=== PATIENT | female | born 1950 | race Caucasian/White ===

== ENCOUNTER 2018-06-26 16:47 | Inpatient (IN) ==
[2018-06-26] MEDS ORDERED: Sod Chloride 0.9% Inj 1,000 ML IV.CONT SCH (17:15)
--- NOTE | 2018-06-26 17:32 | ED ---
HPI General Chief Complaint: Stroke Alert Stated Complaint: arm weakness Time Seen by Provider: 06/26/18 16:58 Source: patient Mode of arrival: ambulatory Limitations: no limitations History of Present Illness HPI Narrative: The patient is 67 years old and arrives to the ER because the right hand was paralyzed for less than 1 minute. It occurred while she was sitting on her couch. And she noted being unable to move the right upper extremity and therefore came to the ED. This event was observed about 30 minutes prior to ED arrival. In the ER the patient to me complains of weakness in the right hand. Due to a trace gradual continuous pronation of the right upper extremity on exam a stroke alert was called. Associated symptoms include headache primarily on the right side. Patient has no history of stroke. She denies any recent medical procedure. She takes aspirin daily. Onset (ago): minute(s) (45) Timing confirmed by: spouse Location: Reports right arm History of same: No Severity: mild Quality: Reports weak Relieving factors: none Exacerbating factors: none Context: Reports sudden onset On Anticoagulants: No (Patient takes aspirin) Associated symptoms: Reports headaches Treatments Prior to Arrival: Reports none Related Data Home Medications Medication Instructions Recorded Confirmed albuterol sulfate 0.63 mg INHALATION Q4-6H PRN 06/23/18 06/26/18 aspirin 81 mg PO DAILY 06/23/18 06/26/18 fluticasone [Flonase Allergy 1 spray INTRANASAL DAILY 06/23/18 06/26/18 Relief] levothyroxine [Unithroid] 112 mcg PO DAILY 06/23/18 06/26/18 loratadine [Claritin] 10 mg PO DAILY PRN 06/23/18 06/26/18 metoprolol succinate 100 mg PO BID 06/23/18 06/26/18 psyllium husk [Metamucil] 0.52 g PO DAILY 06/23/18 06/26/18 Bifidobacterium infantis [Align] 4 mg PO DAILY 06/26/18 06/26/18 fluticasone-vilanterol [Breo 1 inh INHALATION DAILY 06/26/18 06/26/18 Ellipta] Allergies Allergy/AdvReac Type Severity Reaction Status Date / Time losartan Allergy Swelling Verified 06/26/18 10:34 of Lip/Tongue/Throat Sulfa (Sulfonamide Allergy Hives Verified 06/26/18 10:34 Antibiotics) ciprofloxacin [From Cipro] AdvReac Tingling Verified 06/26/18 10:34 levofloxacin AdvReac Joint Pain Verified 06/26/18 10:34 prednisone AdvReac Joint Pain Verified 06/26/18 10:34 Tbaoaed-Jpk-Rhn Reductase AdvReac Joint Pain Verified 06/26/18 10:34 Inhibitor Review of Systems ROS: all other systems reviewed are negative PMFSH Social History Social History Substance History: No History of Abuse Second Hand Smoke Exposure: No Smoking Status: Light tobacco smoker Tobacco Type: Cigarettes How Often Do You Have a Drink Containing Alcohol: 2 to 3 times a week Recent Travel in [facility] within the Last 8 Weeks: No Recent Out of Country Travel within the Last 8 Weeks: No Immunization History Tetanus Immunization Year if Known: 2012 Exam Narrative Exam Narrative: GENERAL: This is a 67-year-old female well-nourished well- developed no acute distress SKIN: Focused skin assessment warm/dry. HEAD: Atraumatic. Normocephalic. EYES: Pupils equal and round. No scleral icterus. No injection or drainage. ENT: No nasal bleeding or discharge. Mucous membranes pink and moist. NECK: Trachea midline. No JVD. CARDIOVASCULAR: Regular rate and rhythm. No murmur appreciated. RESPIRATORY: No accessory muscle use. Clear to auscultation. Breath sounds equal bilaterally. GASTROINTESTINAL: Abdomen soft, non-tender, nondistended. Hepatic and splenic margins not palpable. MUSCULOSKELETAL: No obvious deformities. No clubbing. No cyanosis. No edema. NEUROLOGICAL: CN III-VII normal. There is a slow continuous pronation of the Right forearm during pronator drift assessment. Biceps strength is equal bilaterally. Hand machine sand mixer is normal bilaterally. Visual vargas are full. Speech, memory and mentation are normal. Lower extremity motor function is normal and equal bilaterally. Sensation to light touch is normal in radial, median and ulnar sensory distributions. PSYCHIATRIC: Appropriate mood and affect; insight and judgment normal. Course Initial Documented Vital Signs Temperature 97.8 F 06/26/18 16:59 Pulse Rate 83 06/26/18 16:59 Respiratory Rate 16 06/26/18 16:59 Blood Pressure 177/78 H 06/26/18 16:59 Pulse Oximetry 96 06/26/18 16:59 Last Documented Vital Signs Temperature 97.8 F 10/28/18 16:59 Pulse Rate 83 06/26/18 16:59 Respiratory Rate 16 06/26/18 16:59 Blood Pressure 177/78 H 06/26/18 16:59 Pulse Oximetry 96 06/26/18 16:59 Critical Care Time Critical Care Time: Yes Total Critical Care Time: 40 Attestation: Aggregate critical care time was 40 minutes. Time to perform other separately billable procedures was not included in the critical care time. My time did not include minutes spent treating any other patients simultaneously or on activities that did not directly contribute to the patient's treatment. The services I provided to this patient were to treat and/or prevent clinically significant deterioration that could result in: permanent disability I provided critical care services requiring my management, as noted below: Chart data review, documentation time, medication orders and management, vital sign assessments/reviewing monitor data, ordering and reviewing lab tests, ordering and interpreting/reviewing x-rays and diagnostic studies, care of the patient and discussion of the patient with the admitting physicians. Medical Decision Making MDM Narrative Medical decision making narrative: The patient arrives with a very subtle right upper extremity pronator drift with no right upper extremity weakness or focal deficit otherwise appreciable. Visual vargas are normal. Biceps strength is normal bilaterally. Stroke alert was activated. Head CT shows no acute abnormality. Overall the NIH stroke scale was estimated to be 2. The patient returned from CT she was laying flat and while laying flat she demonstrated that while attempting to remove her glasses there was very mild ataxia in the right hand. Again no other deficit was observable. A proximal left internal carotid artery thrombus on CTA of the neck is present. This was told to me by Dr. Huerta. We ordered heparin at 12 units/kg/h with no bolus. Plavix and aspirin orders were canceled and the nurse was immediately informed. We discussed in great detail the administration of TPA with the patient and the patient's who demonstrate excellent understanding overall and agreed to not administer the TPA. Pt resting comfortably at 744pm. Heparin has been started. Pt reports trace improvement in RUE. We will send patient to main site. d/w Dr Mandel for [facility]. d/ w Dr Huerta. Incidental note of vallecula mass and lung mass also observed on imaging. Mass is concerning for neoplasm. Medical Screen Exam Complete: Yes Emergency Medical Condition: Yes Differential Diagnosis Differential Diagnosis: ischemic cva, hemorrhagic cva, transient symptoms with or without infarct, hypertensive encephalopathy Lab Data Result diagrams: 06/26/18 18:30 06/26/18 17:30 Lab Results 06/26/18 06/26/18 06/26/18 Range/Units 17:30 17:30 17:30 CBC w Diff Auto diff final WBC 8.9 (4.0-11.0) th/mm3 RBC 3.80 L (4.00-5.30) mil/mm3 Hgb 12.2 (11.6-15.3) gm/dL Hct 36.7 (35.0-46.0) % MCV 96.8 (80.0-100.0) fL MCH 32.1 (27.0-34.0) pg MCHC 33.2 (32.0-36.0) % RDW 14.1 (11.6-17.2) % Plt Count 229 (150-450) th/mm3 MPV 7.6 (7.0-11.0) fL Neut % (Auto) 66.3 (16.0-70.0) % Lymph % (Auto) 21.8 (9.0-44.0) % Gregg % (Auto) 9.0 H (0.0-8.0) % Eos % (Auto) 1.1 (0.0-4.0) % Baso % (Auto) 1.8 (0.0-2.0) % Neut # (Auto) 5.9 (1.8-7.7) th/mm3 Lymph # (Auto) 1.9 (1.0-4.8) th/mm3 Gregg # (Auto) 0.8 (0.0-0.9) th/mm3 Eos # (Auto) 0.1 (0.0-0.4) th/mm3 Baso # (Auto) 0.2 (0.0-0.2) th/mm3 WBC Differential . Differential Comment . ESR (0-30) mm/hr PT 10.3 (9.8-11.6) sec INR 1.0 Ratio APTT 27.2 (24.3-30.1) sec Sodium 134 L (136-145) meq/L Potassium 3.8 (3.5-5.1) meq/L Chloride 101 (98-107) meq/L Carbon Dioxide 26.0 (21.0-32.0) meq/L Anion Gap 7 (5-15) meq/L BUN 13 (7-18) mg/dL Creatinine 0.71 (0.50-1.00) mg/dL Estimated GFR 82 L (>89) mL/min POC Glucose (68-110) mg/dl Random Glucose 105 (74-106) mg/dL Calcium 7.9 L (8.5-10.1) mg/dL Total Creatine Kinase 61 (26-192) U/L Troponin I Less than 0.02 L (0.02-0.05) ng/mL TSH (0.358-3.740) uIU/mL Ur Collection Type Urine Color (Yellw/Straw) Urine Clarity (Clear) Urine pH (5.0-8.5) Ur Specific Elgin (1.002-1.035) Urine Protein (Neg-Trace) mg/dL Urine Glucose (UA) (Negative) mg/dL Urine Ketones (Negative) mg/dL Urine Occult Blood (Negative) Urine Nitrate (Negative) Urine Bilirubin (Negative) Urine Urobilinogen (Less than 2) mg/dL Ur Leukocyte Esterase (Negative) Ur Squamous Epith Cells (0-5) /hpf Micro UA Comment Ur Microscopic Review Urine Culture Comments Urine Collection Time hours Urine Opiates Screen (Neg) Ur Barbiturates Screen (Neg) Ur Amphetamines Screen (Neg) U Benzodiazepines Scrn (Neg) Urine Cocaine Screen (Neg) U Cannabinoids Screen (Neg) 06/26/18 06/26/18 06/26/18 Range/Units 18:11 18:11 18:30 CBC w Diff WBC 9.0 (4.0-11.0) th/mm3 RBC 3.98 L (4.00-5.30) mil/mm3 Hgb 12.9 (11.6-15.3) gm/dL Hct 38.7 (35.0-46.0) % MCV 97.1 (80.0-100.0) fL MCH 32.3 (27.0-34.0) pg MCHC 33.3 (32.0-36.0) % RDW 14.7 (11.6-17.2) % Plt Count 236 (150-450) th/mm3 MPV 7.4 (7.0-11.0) fL Neut % (Auto) (16.0-70.0) % Lymph % (Auto) (9.0-44.0) % Gregg % (Auto) (0.0-8.0) % Eos % (Auto) (0.0-4.0) % Baso % (Auto) (0.0-2.0) % Neut # (Auto) (1.8-7.7) th/mm3 Lymph # (Auto) (1.0-4.8) th/mm3 Gregg # (Auto) (0.0-0.9) th/mm3 Eos # (Auto) (0.0-0.4) th/mm3 Baso # (Auto) (0.0-0.2) th/mm3 WBC Differential Differential Comment ESR (0-30) mm/hr PT (9.8-11.6) sec INR Ratio APTT (24.3-30.1) sec Sodium (136-145) meq/L Potassium (3.5-5.1) meq/L Chloride (98-107) meq/L Carbon Dioxide (21.0-32.0) meq/L Anion Gap (5-15) meq/L BUN (7-18) mg/dL Creatinine (0.50-1.00) mg/dL Estimated GFR (>89) mL/min POC Glucose (68-110) mg/dl Random Glucose (74-106) mg/dL Calcium (8.5-10.1) mg/dL Total Creatine Kinase (26-192) U/L Troponin I (0.02-0.05) ng/mL TSH (0.358-3.740) uIU/mL Ur Collection Type Clean catch Urine Color Straw (Yellw/Straw) Urine Clarity Clear (Clear) Urine pH 6.5 (5.0-8.5) Ur Specific Elgin Less/equal 1.005 (1.002-1.035) Urine Protein Negative (Neg-Trace) mg/dL Urine Glucose (UA) Negative (Negative) mg/dL Urine Ketones Negative (Negative) mg/dL Urine Occult Blood Negative (Negative) Urine Nitrate Negative (Negative) Urine Bilirubin Negative (Negative) Urine Urobilinogen 0.2 (Less than 2) mg/dL Ur Leukocyte Esterase Negative (Negative) Ur Squamous Epith Cells 0-5 (0-5) /hpf Micro UA Comment Culture not ind Ur Microscopic Review Microscopic reviewed Urine Culture Comments Culture not ind Urine Collection Time 1811 hours Urine Opiates Screen Neg (Neg) Ur Barbiturates Screen Neg (Neg) Ur Amphetamines Screen Neg (Neg) U Benzodiazepines Scrn Neg (Neg) Urine Cocaine Screen Neg (Neg) U Cannabinoids Screen Neg (Neg) 06/26/18 06/26/18 06/26/18 Range/Units 18:30 18:30 20:17 CBC w Diff WBC (4.0-11.0) th/mm3 RBC (4.00-5.30) mil/mm3 Hgb (11.6-15.3) gm/dL Hct (35.0-46.0) % MCV (80.0-100.0) fL MCH (27.0-34.0) pg MCHC (32.0-36.0) % RDW (11.6-17.2) % Plt Count (150-450) th/mm3 MPV (7.0-11.0) fL Neut % (Auto) (16.0-70.0) % Lymph % (Auto) (9.0-44.0) % Gregg % (Auto) (0.0-8.0) % Eos % (Auto) (0.0-4.0) % Baso % (Auto) (0.0-2.0) % Neut # (Auto) (1.8-7.7) th/mm3 Lymph # (Auto) (1.0-4.8) th/mm3 Gregg # (Auto) (0.0-0.9) th/mm3 Eos # (Auto) (0.0-0.4) th/mm3 Baso # (Auto) (0.0-0.2) th/mm3 WBC Differential Differential Comment ESR 78 H (0-30) mm/hr PT (9.8-11.6) sec INR Ratio APTT (24.3-30.1) sec Sodium (136-145) meq/L Potassium (3.5-5.1) meq/L Chloride (98-107) meq/L Carbon Dioxide (21.0-32.0) meq/L Anion Gap (5-15) meq/L BUN (7-18) mg/dL Creatinine (0.50-1.00) mg/dL Estimated GFR (>89) mL/min POC Glucose 126 H (68-110) mg/dl Random Glucose (74-106) mg/dL Calcium (8.5-10.1) mg/dL Total Creatine Kinase (26-192) U/L Troponin I (0.02-0.05) ng/mL TSH 0.534 (0.358-3.740) uIU/mL Ur Collection Type Urine Color (Yellw/Straw) Urine Clarity (Clear) Urine pH (5.0-8.5) Ur Specific Elgin (1.002-1.035) Urine Protein (Neg-Trace) mg/dL Urine Glucose (UA) (Negative) mg/dL Urine Ketones (Negative) mg/dL Urine Occult Blood (Negative) Urine Nitrate (Negative) Urine Bilirubin (Negative) Urine Urobilinogen (Less than 2) mg/dL Ur Leukocyte Esterase (Negative) Ur Squamous Epith Cells (0-5) /hpf Micro UA Comment Ur Microscopic Review Urine Culture Comments Urine Collection Time hours Urine Opiates Screen (Neg) Ur Barbiturates Screen (Neg) Ur Amphetamines Screen (Neg) U Benzodiazepines Scrn (Neg) Urine Cocaine Screen (Neg) U Cannabinoids Screen (Neg) Imaging Data Radiologist's impression: Head CT 06/26/18 17:[address]: [address] CT Head non contrast. . Dr. Motley relayed results to Dr. Lewis at 1730 hours Head CTA 06/26/18 17:11 CONCLUSION: 1. Negative CTA head. There is some moderate plaque at the left carotid bifurcation. CTA neck pending. Neck CTA 06/26/18 17:11 CONCLUSION: 1. 2.9 cm mass in the left lung and 1.9 cm mass in the left vallecula both suspicious for neoplasm. 2. Small calcified plaque with intraluminal thrombus or noncalcified plaque in the proximal left internal carotid artery extending over a length of about 2 cm , likely placing the patient at high risk for stroke. 3. Findings called to Dr. Bennett Huerta at the time of dictation. ECG Data Attestation: I personally reviewed and interpreted this ECG as follows: (sinus, rate 77, normal axis/intervals) Discharge Plan Discharge Disposition Patient Disposition: 30 Still Patient Physicians Team ED Provider: Roge Lewis Primary Care Provider: NON STAFF,PROVIDER Attending Provider: Horace Manriquez Other Providers: ; Laila Whitaker ; Mukesh Tohmason ; Osman Marti Status ED Status: Admitted Patient
--- NOTE | 2018-06-26 17:32 | CT ---
EXAM DATE: 06/26/2018 5:19 PM EDT AGE/SEX: 67 years / Female INDICATIONS: Stroke alert. Right upper extremity drift. CLINICAL DATA: This is the patient's initial encounter. Patient reports that signs and symptoms have been present for 1 day and indicates a pain score of 0/10. MEDICAL/SURGICAL HISTORY: None. None. RADIATION DOSE: 50.01 CTDI (mGy) COMPARISON: No prior exams available for comparison. TECHNIQUE: CT of the head without contrast. Using automated exposure control and adjustment of the mA and/or kV according to patient size, radiation dose was kept as low as reasonably achievable to ob tain optimal diagnostic quality images. DICOM format image data is available electronically for revi ew and comparison. FINDINGS: Cerebrum: The ventricles are normal for age. No evidence of midline shift, mass lesion, hemorrhage or acute infarction. No extraaxial fluid collections are seen. Posterior Fossa: The cerebellum and brainstem are intact. The 4th ventricle is midline. The cerebe llopontine angle is unremarkable. Extracranial: The visualized portion of the orbits is intact. Skull: The calvaria is intact. No evidence of skull fracture. CONCLUSION: 1. Negative CT Head non contrast. . Dr. Motley relayed results to Dr. Lewis at 1730 hours Electronically signed by: Seb Motley MD 06/26/2018 5:30 PM EDT
[2018-06-26 17:41] LABS: Baso # (Auto) 0.2 th/mm3 (0.0-0.2); Baso % (Auto) 1.8 % (0.0-2.0); Eos # (Auto) 0.1 th/mm3 (0.0-0.4); Eos % (Auto) 1.1 % (0.0-4.0); Hematocrit 36.7 % (35.0-46.0); Hemoglobin 12.2 gm/dL (11.6-15.3); Lymph # (Auto) 1.9 th/mm3 (1.0-4.8); Lymph % (Auto) 21.8 % (9.0-44.0); Mean Corpuscular HGB Conc 33.2 % (32.0-36.0); Mean Corpuscular Hemoglobin 32.1 pg (27.0-34.0); Mean Corpuscular Volume 96.8 fL (80.0-100.0); Mean Platelet Volume 7.6 fL (7.0-11.0); Mono # (Auto) 0.8 th/mm3 (0.0-0.9); Neut # (Auto) 5.9 th/mm3 (1.8-7.7); Neut % (Auto) 66.3 % (16.0-70.0); Platelet Count 229 th/mm3 (150-450); Red Cell Distribution Width 14.1 % (11.6-17.2); White Blood Count 8.9 th/mm3 (4.0-11.0)
--- NOTE | 2018-06-26 17:46 | CT ---
EXAM DATE: 06/26/2018 5:38 PM EDT AGE/SEX: 67 years / Female INDICATIONS: Stroke alert. Right upper extremity drift. CLINICAL DATA: This is the patient's initial encounter. Patient reports that signs and symptoms have been present for 1 day and indicates a pain score of 0/10. MEDICAL/SURGICAL HISTORY: None. None. RADIATION DOSE: 42.28 CTDI (mGy) ; Combined studies COMPARISON: No prior exams available for comparison. TECHNIQUE: Volumetric scanning was performed using a multi-row detector CT scanner during bolus infu tamie of 85 ml Visipaque 320 (iodixanol) nonionic water-soluble contrast as a cumulative dose for mul tiple exams. The data was post processed with a variety of visualization algorithms including full volume maximum intensity projection, multi-planar sliding thin slab reformation, curved planar reform ation, and surface rendering techniques. Using automated exposure control and adjustment of the mA a nd/or kV according to patient size, radiation dose was kept as low as reasonably achievable to obtain optimal diagnostic quality images. DICOM format image data is available electronically for review a nd comparison. FINDINGS: There is excellent visualization of the major intracranial arteries out to the second-order branch ve ssels. There is no evidence for aneurysm, vessel truncation or stenosis, and no evidence for vascula r malformation. CONCLUSION: 1. Negative CTA head. There is some moderate plaque at the left carotid bifurcation. CTA neck porsha claros Electronically signed by: Maverick Colunga MD 06/26/2018 5:45 PM EDT
[2018-06-26 17:48] LABS: Chloride 101 meq/L (98-107); Sodium 134 meq/L (136-145)
[2018-06-26 17:49] LABS: Potassium 3.8 meq/L (3.5-5.1)
[2018-06-26 17:52] LABS: Activated Partial Thrombo Time 27.2 sec (24.3-30.1); Prothrombin Time 10.3 sec (9.8-11.6)
[2018-06-26 17:57] LABS: Anion Gap 7 meq/L (5-15); Blood Urea Nitrogen 13 mg/dL (7-18); Calcium 7.9 mg/dL (8.5-10.1); Glomerular Filtration Rate 82 mL/min (>89); Glucose,Random 105 mg/dL (74-106)
[2018-06-26 18:01] LABS: Creatine Kinase 61 U/L (26-192)
[2018-06-26] MEDS ORDERED: Dextrose 50% in Water 50 ML Vial IV.PUSH PRN (18:10)
[2018-06-26] MEDS ORDERED: Heparin Drip 25,000 UNIT/250 ML BAG IV.CONT STA (18:13)
[2018-06-26 18:15] LABS: Bilirubin,Urine Negative (Negative); Clarity,Urine Clear (Clear); Glucose,Urine (UA) Negative (Negative); Leukocyte Esterase,Urine Negative (Negative); Nitrite,Urine Negative (Negative); PH,Urine 6.5 (5.0-8.5); Specific Gravity,Urine Less/Equal 1.005 (1.002-1.035); Urobilinogen,Urine 0.2 mg/dL (Less than 2)
[2018-06-26 18:16] LABS: Color,Urine Straw (Yellw/Straw)
--- NOTE | 2018-06-26 18:16 | CT ---
EXAM DATE: 06/26/2018 5:56 PM EDT AGE/SEX: 67 years / Female INDICATIONS: Stroke alert. Right upper extremity drift. CLINICAL DATA: This is the patient's initial encounter. Patient reports that signs and symptoms have been present for 1 day and indicates a pain score of 0/10. MEDICAL/SURGICAL HISTORY: None. None. RADIATION DOSE: 42.28 CTDI (mGy) ; Combined studies COMPARISON: No prior exams available for comparison. TECHNIQUE: Volumetric scanning was performed using a multirow detector CT scanner during bolus infus ion of 85 ml Visipaque 320 (iodixanol) nonionic water-soluble contrast as a cumulative dose for mult iple exams. The data was postprocessed with a variety of visualization algorithms including full-vo lume maximum intensity projection, multiplanar sliding thin-slab reformation, curved-planar reformati on, and surface-rendering techniques. Using automated exposure control and adjustment of the mA and/ or kV according to patient size, radiation dose was kept as low as reasonably achievable to obtain op timal diagnostic quality images. DICOM format image data is available electronically for review and comparison. Percent stenosis is calculated using the diameter of the stenotic region over the diameter of the nor mal distal internal carotid artery. FINDINGS: At the left carotid bifurcation extending into the left proximal internal carotid artery there is carli e calcific plaque and a linear thrombus extending into the lumen of the proximal left internal caroti d artery over a distance of about 2 cm. No dissection flap is identified. Associated stenosis is mild . The remainder of the left internal carotid artery and left common carotid artery are patent. On the right side is mild plaque without stenosis of the right common carotid or internal carotid art eries. Both vertebral arteries are patent within the neck. There is a 1.9 cm mass in the vallecula on the left side suspicious for neoplasm. On the final image through the lungs there is also a 2.9 cm mass in the left upper lobe also suspicious for neoplasm. CONCLUSION: 1. 2.9 cm mass in the left lung and 1.9 cm mass in the left vallecula both suspicious for neoplasm. 2. Small calcified plaque with intraluminal thrombus or noncalcified plaque in the proximal left int ernal carotid artery extending over a length of about 2 cm, likely placing the patient at high risk f or stroke. 3. Findings called to Dr. Bennett Huerta at the time of dictation. Electronically signed by: Maverick Colunga MD 06/26/2018 6:14 PM EDT
[2018-06-26 18:19] LABS: Collection Time,Urine 1811 hours
[2018-06-26 18:20] LABS: Squamous Epithelial Cell,Urine 0-5 /hpf (0-5)
[2018-06-26 18:22] LABS: Barbiturate Screen,Urine Neg (Neg)
[2018-06-26 18:23] LABS: Amphetamine Screen,Urine Neg (Neg); Cannabinoid Screen,Urine Neg (Neg); Cocaine Screen,Urine Neg (Neg)
[2018-06-26] MEDS ORDERED: Acetaminophen 650 MG Supp RECTAL ONE (18:34)
[2018-06-26 18:37] LABS: Opiate Screen,Urine Neg (Neg)
[2018-06-26 18:44] LABS: Hematocrit 38.7 % (35.0-46.0); Hemoglobin 12.9 gm/dL (11.6-15.3); Mean Corpuscular HGB Conc 33.3 % (32.0-36.0); Mean Corpuscular Hemoglobin 32.3 pg (27.0-34.0); Mean Corpuscular Volume 97.1 fL (80.0-100.0); Mean Platelet Volume 7.4 fL (7.0-11.0); Platelet Count 236 th/mm3 (150-450); Red Blood Count 3.98 mil/mm3 (4.00-5.30); Red Cell Distribution Width 14.7 % (11.6-17.2)
[2018-06-26 19:10] LABS: Thyroid Stimulating Hormone 0.534 uIU/mL (0.358-3.740)
[2018-06-26] MEDS: Insulin NovoLOG Aspart Correctional Sugar Inj SQ SCH (20:27)
[2018-06-26] MEDS ORDERED: Gadobutrol PF 7.5 MMOL/7.5 ML Vial (for RAD) IV.SIG ONE (21:52)
--- NOTE | 2018-06-26 22:02 | MB ---
cc: Bennett Huerta MD DATE: 06/26/2018 HISTORY OF PRESENT ILLNESS: A 67-year-old right-handed woman with hypertension, borderline diabetes, hypercholesterolemia, thyroid cancer at one time she takes a baby aspirin a day. History of atrial fibrillation 1-1/2 years ago. Nothing further as far as she knows. She had a thyroid cancer in 2009. She was to have a D and C recently, so she stopped her aspirin about 3 days ago. On Wednesday, she felt a heat type pain in the left hand and then this morning, she felt somewhat lightheaded, came to the ER. Blood pressure is 178/111 and this evening, she had some right arm weakness suddenly could not move her arm and it was flopping and then improved. She was noted to have a right upper extremity drift in the ER and some ataxia. NIH stroke scale was 2. She as such was not given any tPA, due to the minor deficit. REVIEW OF SYSTEMS: She denies any NM, stent, angioplasty, CABG, Coumadin, renal, hepatic disease. She has a known lung abnormality that was biopsied, was not a tumor evidently. PAST MEDICAL HISTORY: She denies any history of lupus, ulcer, seizure or prior stroke. SOCIAL HISTORY: She is a smoker still, I have asked her to quit smoking. She has about 2-3 drinks of vodka a day. Lives with her . FAMILY HISTORY: Positive for cancer and lung cancer in her mother, seizure, stroke. MEDICATIONS: 1. She is on Metamucil. 2. Align. 3. Metoprolol. 4. Claritin. 5. Thyroid medicine. 6. Some inhalers. 7. A baby aspirin, but not in the last several days. EKG showed sinus rhythm in the ER. PHYSICAL EXAMINATION: VITAL SIGNS: Afebrile, 177/78, 16, 83. NECK: There are no carotid bruits. HEART: Regular rate and rhythm. I did not detect a murmur. NEUROLOGIC: Pupils are equal. Visual vargas are full. Extraocular movements intact without nystagmus. Face is symmetric with normal sensation. Tongue was midline. No drift. Normal strength in upper and lower extremities bilaterally. Fast movements are symmetric and normal. DTRs are trace at the knees bilaterally. Toes downgoing bilaterally. Pinprick is intact throughout including the right face, arm, and leg. He is not ataxic on [id number]. NIH stroke scale of 0 now. LABORATORY DATA: CBC is normal. Sedimentation rate 78. Urine drug screen negative. UA negative. Basic metabolic profile: Sodium 134, otherwise normal. Glucose 126. CPK and troponin normal. Thyroid normal. Coags normal. CTA of the head negative. CTA of the neck: -2.9 cm mass in the left lung, 1.9 cm mass left vallecula, 2 cm area possibly a clot versus plaque or thrombus in the left internal carotid artery. CAT scan of the brain negative. Review of the brain films does appear to be normal. I do not see any old or new infarcts. IMPRESSION: Possible clot in the left carotid. Unclear what this lung and throat mass are. I will do a CT of her chest and neck, check an MRI of the brain, will have vascular see the patient. I put her on IV heparin in case it is a clot. She does have a history of atrial fibrillation. We will check an echocardiogram. I noted her sedimentation rate is elevated. Give her IV hydration. Will be following her with you in the hospital. Hypercoag screen will also be performed, though she is already on IV heparin and may effect some of the result. MD PAIGE Naranjo/lorri , 08:31 PM , 08:39 PM
--- NOTE | 2018-06-26 22:07 | MR ---
EXAM DATE: 06/26/2018 9:58 PM EDT AGE/SEX: 67 years / Female INDICATIONS: Right sided weakness. CLINICAL DATA: This is the patient's initial encounter. Patient reports that signs and symptoms have been present for 1 day and indicates a pain score of 0/10. MEDICAL/SURGICAL HISTORY: Carcinoma, thyroid. Hypertension. Diabetes mellitus type II. Tonsil lectomy. Fusion, lumbar. Ankle surgery. Breast biopsy. COMPARISON: No prior exams available for comparison. TECHNIQUE: Multiplanar, multisequence examination of the brain was performed without and with 7 ml Ga davist (gadobutrol) contrast as a single exam dose. FINDINGS: There are small subcentimeter infarcts in the posterior fossa, centrally in the left cerebellar hemis phere with a probable small infarct posteriorly on the right as well. In the supratentorial brain the re is an infarct in the left occipital lobe measuring up to 2.4 cm in diameter. Multiple other smalle r infarcts are present including the posterior left frontal lobe at 3 separate locations and also the left parietal lobe at 2 separate locations. No associated hemorrhage is identified. There is minimal white matter ischemic change. Postcontrast no abnormal enhancing lesions are seen. CONCLUSION: 1. Multiple small infarcts in the posterior fossa and left hemisphere as above, likely embolic in ph enomenon. No hemorrhage or associated mass effect. No abnormal enhancing lesions. Electronically signed by: Maverick Colunga MD 06/26/2018 10:05 PM EDT
[2018-06-26 22:26] LABS: Vitamin B12 531 pg/mL (193-986)
--- NOTE | 2018-06-26 23:28 | P.HPIM ---
History of Present Illness Primary Care Physician: PROVIDER NON STAFF History of Present Illness: 67-year-old female with a history of hypertension, diabetes, hyperlipidemia, thyroid cancer presented to the ED with complaints of right hand weakness. She states on Wednesday she felt her left hand have a warm sensation, she presented to the ED and was diagnosed with Raynaud's and sent home. She then states this morning she felt very lightheaded and her right hand went limp and she could not move it, so she came to the ER. Upon arrival to the ER she was found to have an NIH scale of 2. She denies any associated chest pain, sob, double vision , nausea, vomiting or lower extremity weakness. Inpatient Certification: I certify that the inpatient services were ordered in accordance with Medicare regulations governing the order. This includes certification that hospital inpatient services are reasonable and necessary and in the case of services not specified as inpatient-only under 42 CFR 419.22(n), that they are appropriately provided as inpatient services in accordance to with the 2-midnight benchmark under 43 CFR 412.3(e) Estimated Total Length of Stay (Days): 3 Plans for Post Hospital Care: Not yet determined Review of Systems All other systems reviewed negative except as stated in HPI PMFSH - History History Provided By: Patient - Medical History Medical History: Medical History (Last Reviewed 06/27/18 @ 00:55 by EDU Cm) Asthma Diabetes HTN (hypertension) Thyroid cancer - Surgical History Surgical History: Surgical History (Last Reviewed 06/27/18 @ 00:55 by EDU Cm) H/O laparoscopy History of back surgery History of lung biopsy History of tonsillectomy Hx of breast biopsy Hx of thyroidectomy - Family History Family History: Family History (Last Updated 06/27/18 @ 00:59 by EDU Cm) Mother Heart disease Mother Lung cancer - Social History I have reviewed the patient's Social History: Yes - Tobacco History Second Hand Smoke Exposure: No Tobacco Use In Past 30 Days: Yes Smoking Status: Light tobacco smoker Tobacco Type: Cigarettes - Alcohol History How Often Do You Have a Drink Containing Alcohol: 2 to 3 times a week - Substance Use History Substance History: No History of Abuse - Travel History Recent Travel in the [place] Within the Last 8 Weeks: No Recent Travel Out of the Country Within the Last 8 Weeks: No - Immunization History Tetanus Immunization: >5 Years Tetanus Immunization Year if Known: 2012 Medications and Allergies Active Medications: Active Medications Albuterol (Duoneb Neb (Prn)) 1 ampul NEB Q2HR NEB PRN PRN Reason: SHORTNESS OF BREATH/WHEEZING Aspirin (Aspirin) 325 mg PO DAILY [facility] Atorvastatin Calcium (Lipitor) 10 mg PO HS [facility] Last Admin: 06/26/18 23:20 Dose: Not Given Clopidogrel Bisulfate (Plavix) 75 mg PO DAILY [facility] Dextrose (D50w Vial) 50 ml IV.PUSH UNSCH PRN PRN Reason: PER HYPOGLYCEMIA PROTOCOL Enalaprilat (Vasotec Inj) 1.25 mg IV.PUSH Q4H PRN PRN Reason: For SBP > 220 or DBP > 120 Glucagon (Glucagon Inj) 1 mg OTHER UNSCH PRN PRN Reason: for Hypoglycemia Protocol Sodium Chloride (Ns Inj) 1,000 mls @ 70 mls/hr IV.CONT .[id number] [facility] Stop: 06/27/18 07:32 Last Admin: 06/26/18 17:45 Dose: 70 mls/hr Heparin Sodium/Dextrose (Heparin/D5w 25,000 U/250 Ml) 25,000 unit in 250 mls @ 9 mls/hr IV.CONT TITRATE STA; Protocol Stop: 06/27/18 21:59 Last Titration: 06/26/18 22:40 Dose: 900 units/hr, 9 mls/hr Sodium Chloride (Ns Inj) 1,000 mls @ 70 mls/hr IV.CONT .[id number] [facility] Insulin Aspart (Novolog Insulin Correctional Sugar Inj) 0 unit SQ ACHS [facility]; Protocol Last Admin: 06/26/18 20:27 Dose: Not Given Levothyroxine Sodium (Synthroid) 112 mcg PO DAILY [facility] Metoprolol Succinate (Toprol Xl) 100 mg PO BID [facility] Last Admin: 06/26/18 23:20 Dose: 100 mg Sodium Chloride (Ns Flush) 2 ml IV.FLUSH PRN PRN PRN Reason: FLUSH AFTER USING IV ACCESS Sodium Chloride (Ns Flush) 2 ml IV.FLUSH BID [facility] Last Admin: 06/26/18 23:21 Dose: 2 ml Sodium Chloride (Ns Flush) 2 ml IV.FLUSH PRN PRN PRN Reason: FLUSH AFTER USING IV ACCESS Allergies Allergy/AdvReac Type Severity Reaction Status Date / Time losartan Allergy Swelling Verified 06/26/18 10:34 of Lip/Tongue/Throat Sulfa (Sulfonamide Allergy Hives Verified 06/26/18 10:34 Antibiotics) ciprofloxacin [From Cipro] AdvReac Tingling Verified 06/26/18 10:34 levofloxacin AdvReac Joint Pain Verified 06/26/18 10:34 prednisone AdvReac Joint Pain Verified 06/26/18 10:34 [id number]-[id number]-[id number] Reductase AdvReac Joint Pain Verified 06/26/18 10:34 Inhibitor Home Medications Medication Instructions Recorded Confirmed Type albuterol sulfate 0.63 mg INHALATION Q4-6H PRN 06/23/18 06/26/18 History aspirin 81 mg PO DAILY 06/23/18 06/26/18 History fluticasone [Flonase Allergy 1 spray INTRANASAL DAILY 06/23/18 06/26/18 History Relief] levothyroxine [Unithroid] 112 mcg PO DAILY 06/23/18 06/26/18 History loratadine [Claritin] 10 mg PO DAILY PRN 06/23/18 06/26/18 History metoprolol succinate 100 mg PO BID 06/23/18 06/26/18 History psyllium husk [Metamucil] 0.52 g PO DAILY 06/23/18 06/26/18 History Bifidobacterium infantis [Align] 4 mg PO DAILY 06/26/18 06/26/18 History fluticasone-vilanterol [Breo 1 inh INHALATION DAILY 06/26/18 06/26/18 History Ellipta] Exam Vital signs: Vital Signs 06/26/18 16:59 06/26/18 17:00 06/26/18 17:40 Temperature 97.8 F Pulse Rate 83 88 82 Respiratory Rate 16 16 Blood Pressure 177/78 H 189/80 H Pulse Oximetry 96 96 06/26/18 17:45 06/26/18 19:00 06/26/18 20:30 Temperature Pulse Rate 80 72 83 Respiratory Rate 18 18 20 Blood Pressure 177/77 H 180/76 H 164/80 H Pulse Oximetry 97 96 100 06/26/18 22:34 Temperature Pulse Rate 70 Respiratory Rate 20 Blood Pressure 148/69 H Pulse Oximetry 96 Intake & Output 06/26/18 06/26/18 06/27/18 06:59 18:59 06:59 Intake Total 36 / 36 Balance 36 / 36 Weight 76.2 kg Intake: IV Heparin/D5W 25,000 U/250 mL , 000 unit In 250 ml @ 900 UNITS/ HR 9 mls/hr IV.CONT TITRATE STA Rx#:[id number] Narrative: GENERAL: This is a well-nourished, well-developed patient, in no apparent distress. CARDIOVASCULAR: Regular rate and rhythm without murmurs, gallops, or rubs. RESPIRATORY: Clear to auscultation. Breath sounds equal bilaterally. No wheezes , rales, or rhonchi. GASTROINTESTINAL: Abdomen soft, non-tender, nondistended. Normal active bowel sounds MUSCULOSKELETAL: Extremities without clubbing, cyanosis, or edema. NEURO: Alert & Oriented x4 to person, place, time, situation. Moves all ext x4 , no facial droop, no extremity weakness, no extremity drift Results - Labs CBC & Chem 7: 06/26/18 18:30 06/26/18 17:30 Labs: Short CBC 06/26/18 06/26/18 Range/Units 17:30 18:30 WBC 8.9 9.0 (4.0-11.0) th/mm3 Hgb 12.2 12.9 (11.6-15.3) gm/dL Hct 36.7 38.7 (35.0-46.0) % Plt Count 229 236 (150-450) th/mm3 BMP 06/26/18 17:30 Sodium 134 L Potassium 3.8 Chloride 101 Carbon Dioxide 26.0 BUN 13 Creatinine 0.71 Calcium 7.9 L Cardiac Enzymes 06/26/18 Range/Units 17:30 Total Creatine Kinase 61 (26-192) U/L Troponin I Less than 0.02 L (0.02-0.05) ng/mL Urine 06/26/18 Range/Units 18:11 Urine Color Straw (Yellw/Straw) Urine Clarity Clear (Clear) Urine pH 6.5 (5.0-8.5) Ur Specific [place] Less/equal 1.005 (1.002-1.035) Urine Protein Negative (Neg-Trace) mg/dL Urine Glucose (UA) Negative (Negative) mg/dL - Imaging Impressions Head CT 06/26/18 17:08 CONCLUSION: 1. Negative CT Head non contrast. . Dr. Motley relayed results to Dr. Lewis at 1730 hours Head CTA 06/26/18 17:11 CONCLUSION: 1. Negative CTA head. There is some moderate plaque at the left carotid bifurcation. CTA neck pending. Neck CTA 06/26/18 17:11 CONCLUSION: 1. 2.9 cm mass in the left lung and 1.9 cm mass in the left vallecula both suspicious for neoplasm. 2. Small calcified plaque with intraluminal thrombus or noncalcified plaque in the proximal left internal carotid artery extending over a length of about 2 cm , likely placing the patient at high risk for stroke. 3. Findings called to Dr. Bennett uHerta at the time of dictation. Head MRI 06/26/18 20:28 CONCLUSION: 1. Multiple small infarcts in the posterior fossa and left hemisphere as above , likely embolic in phenomenon. No hemorrhage or associated mass effect. No abnormal enhancing lesions. Caprini VTE Risk Assessment Caprini VTE Risk Assessment: Moderate/High Risk (score >= 2) Caprini Risk Assessment Model: Point Value = 1 Point Value = 2 Point Value = 3 Point Value = 5 Age 41-60 Minor surgery BMI > 25 kg/m2 Swollen legs Varicose veins or History of unexplained or recurrent spontaneous Oral contraceptives or hormone replacement Sepsis (< 1 month) Serious lung disease, including pneumonia (< 1 month) Abnormal pulmonary function Acute myocardial infarction Congestive heart failure (< 1 month) History of inflammatory bowel disease Medical patient at bed rest Age 61-74 Arthroscopic surgery Major open surgery (> 45 min) Laparoscopic surgery (> 45 min) Malignancy Confined to bed (> 72 hours) Immobilizing plaster cast Central venous access Age >= 75 History of VTE Family history of VTE Factor V Leiden Prothrombin [id number] Lupus anticoagulant Anticardiolipin antibodies Elevated serum homocysteine Heparin-induced thrombocytopenia Other congenital or acquired thrombophilia Stroke (< 1 month) Elective arthroplasty Hip, pelvis, or leg fracture Acute spinal cord injury (< 1 month) Prophylaxis Regimen: Total Risk Factor Score Risk Level Prophylaxis Regimen 0-1 Low Early ambulation 2 Moderate Order ONE of the following: *Sequential Compression Device (SCD) *Heparin 5000 units SQ BID 3-4 Higher Order ONE of the following medications: *Heparin 5000 units SQ TID *Enoxaparin/Lovenox 40 mg SQ daily (WT < 150 kg, CrCl > 30 mL/min) *Enoxaparin/Lovenox 30 mg SQ daily (WT < 150 kg, CrCl > 10-29 mL/min) *Enoxaparin/Lovenox 30 mg SQ BID (WT < 150 kg, CrCl > 30 mL/min) AND/OR *Sequential Compression Device (SCD) 5 or more Highest Order ONE of the following medications: *Heparin 5000 units SQ TID (Preferred with Epidurals) *Enoxaparin/Lovenox 40 mg SQ daily (WT < 150 kg, CrCl > 30 mL/min) *Enoxaparin/Lovenox 30 mg SQ daily (WT < 150 kg, CrCl > 10-29 mL/min) *Enoxaparin/Lovenox 30 mg SQ BID (WT < 150 kg, CrCl > 30 mL/min) AND *Sequential Compression Device (SCD) Assessment and Plan - Plan 67-year-old female with a history of hypertension, diabetes, asthma, hyperlipidemia, thyroid cancer, hypothyroid presented to the ED with complaints of right hand weakness. CVA, left internal carotid artery Occlusion Neck CTA shows a noncalcified plaque in the proximal left internal carotid artery extending over the length of 2 cm Head MRI shows small multiple infarcts in the posterior fossa and the left hemisphere. -Consult neurology for evaluation -Consult to vascular surgery pending -Heparin drip -Lipid profile ordered -Plavix ordered per neurology Lung mass, possible neoplasm CT reviewed and shows a 2.9 cm mass in the left lung and a 1.9 cm mass in the left vallecula -Consult to oncology for evaluation -CT chest and neck pending -Patient will need out patient follow up HTN, chronic -Resume home metoprolol, monitor vitals Diabetes, chronic, diet controlled -Accu checks with SSI -Diabetic diet -A1C ordered DVT prophylaxis: Heparin Discussed Condition With: Patient and RN
[2018-06-26] MEDS: Sod Chloride 0.9% Inj 1,000 ML IV.CONT SCH (23:30)
[2018-06-27 07:22] LABS: Hematocrit 37.8 % (35.0-46.0); Hemoglobin 12.7 gm/dL (11.6-15.3); Mean Corpuscular HGB Conc 33.7 % (32.0-36.0); Mean Corpuscular Hemoglobin 33.3 pg (27.0-34.0); Mean Corpuscular Volume 98.8 fL (80.0-100.0); Platelet Count 209 th/mm3 (150-450); Red Blood Count 3.83 mil/mm3 (4.00-5.30); Red Cell Distribution Width 15.4 % (11.6-17.2); White Blood Count 7.2 th/mm3 (4.0-11.0)
[2018-06-27 07:31] LABS: Cholesterol 190 mg/dL (120-200); Triglycerides 143 mg/dL (42-150)
[2018-06-27 07:32] LABS: Chol/HDL Ratio 4.44 Ratio; HDL Cholesterol 42.7 mg/dL (40.0-60.0); LDL Cholesterol,Calculated 119 mg/dL (0-99)
--- NOTE | 2018-06-27 07:46 | P.PNNEU ---
Subjective Subjective Comments: sr no new co Active Medications: Active Medications Albuterol (Duoneb Neb (Prn)) 1 ampul NEB Q2HR NEB PRN PRN Reason: SHORTNESS OF BREATH/WHEEZING Aspirin (Aspirin) 325 mg PO DAILY [facility] Atorvastatin Calcium (Lipitor) 10 mg PO HS [facility] Last Admin: 06/26/18 23:20 Dose: Not Given Clopidogrel Bisulfate (Plavix) 75 mg PO DAILY [facility] Dextrose (D50w Vial) 50 ml IV.PUSH UNSCH PRN PRN Reason: PER HYPOGLYCEMIA PROTOCOL Enalaprilat (Vasotec Inj) 1.25 mg IV.PUSH Q4H PRN PRN Reason: For SBP > 220 or DBP > 120 Glucagon (Glucagon Inj) 1 mg OTHER UNSCH PRN PRN Reason: for Hypoglycemia Protocol Heparin Sodium/Dextrose (Heparin/D5w 25,000 U/250 Ml) 25,000 unit in 250 mls @ 9 mls/hr IV.CONT TITRATE STA; Protocol Stop: 06/27/18 21:59 Last Titration: 06/27/18 01:21 Dose: 1,000 units/hr, 10 mls/hr Sodium Chloride (Ns Inj) 1,000 mls @ 70 mls/hr IV.CONT .[id number] [facility] Last Admin: 06/26/18 23:30 Dose: 70 mls/hr Insulin Aspart (Novolog Insulin Correctional Sugar Inj) 0 unit SQ ACHS [facility]; Protocol Last Admin: 06/26/18 20:27 Dose: Not Given Levothyroxine Sodium (Synthroid) 112 mcg PO DAILY [facility] Metoprolol Succinate (Toprol Xl) 100 mg PO BID [facility] Last Admin: 06/26/18 23:20 Dose: 100 mg Sodium Chloride (Ns Flush) 2 ml IV.FLUSH PRN PRN PRN Reason: FLUSH AFTER USING IV ACCESS Sodium Chloride (Ns Flush) 2 ml IV.FLUSH BID [facility] Last Admin: 06/26/18 23:21 Dose: 2 ml Sodium Chloride (Ns Flush) 2 ml IV.FLUSH PRN PRN PRN Reason: FLUSH AFTER USING IV ACCESS Allergies/Adverse Reactions: Allergies Allergy/AdvReac Type Severity Reaction Status Date / Time losartan Allergy Swelling Verified 06/26/18 10:34 of Lip/Tongue/Throat Sulfa (Sulfonamide Allergy Hives Verified 06/26/18 10:34 Antibiotics) ciprofloxacin [From Cipro] AdvReac Tingling Verified 06/26/18 10:34 levofloxacin AdvReac Joint Pain Verified 06/26/18 10:34 prednisone AdvReac Joint Pain Verified 06/26/18 10:34 Swgusvu-Hij-Qie Reductase AdvReac Joint Pain Verified 06/26/18 10:34 Inhibitor Physical Exam Vital signs: Vital Signs 06/26/18 16:59 06/26/18 17:00 06/26/18 17:40 Temperature 97.8 F Pulse Rate 83 88 82 Respiratory Rate 16 16 Blood Pressure 177/78 H 189/80 H Pulse Oximetry 96 96 06/26/18 17:45 06/26/18 19:00 06/26/18 20:30 Temperature Pulse Rate 80 72 83 Respiratory Rate 18 18 20 Blood Pressure 177/77 H 180/76 H 164/80 H Pulse Oximetry 97 96 100 06/26/18 22:34 06/26/18 23:56 06/26/18 23:57 Temperature Pulse Rate 70 75 75 Respiratory Rate 20 Blood Pressure 148/69 H Pulse Oximetry 96 06/27/18 00:00 06/27/18 04:00 Temperature 97.4 F L 97.8 F Pulse Rate 71 69 Respiratory Rate 18 18 Blood Pressure 173/69 H 170/74 H Pulse Oximetry 98 95 Intake & Output 06/26/18 06/27/18 06/27/18 18:59 06:59 18:59 Intake Total 636.1 / 636.1 Balance 636.1 / 636.1 Weight 76.2 kg 76.2 kg Intake: IV 436.1 / 436.1 Heparin/D5W 25,000 U/250 mL 25, 86.1 / 86.1 000 unit In 250 ml @ 900 UNITS/ HR 9 mls/hr IV.CONT TITRATE STA Rx#:[id number] NS Inj 1,000 ML @ 70 mls/hr IV. 350 / 350 CONT .[id number] [facility] Rx#: [id number] Oral 200 / 200 Other: # Voids 2 Date of Last Bowel Movement 06/26/18 Weight On Admission 76.2 kg Narrative: awake alert vff face sym 5/5 t/o Objective Laboratory Results - last 24 hr 06/26/18 06/26/18 06/26/18 17:30 17:30 17:30 CBC w Diff Auto diff final WBC 8.9 RBC 3.80 L Hgb 12.2 Hct 36.7 MCV 96.8 MCH 32.1 MCHC 33.2 RDW 14.1 Plt Count 229 MPV 7.6 Neut % (Auto) 66.3 Lymph % (Auto) 21.8 Moody % (Auto) 9.0 H Eos % (Auto) 1.1 Baso % (Auto) 1.8 Neut # (Auto) 5.9 Lymph # (Auto) 1.9 Moody # (Auto) 0.8 Eos # (Auto) 0.1 Baso # (Auto) 0.2 WBC Differential . Differential Comment . ESR PT 10.3 INR 1.0 APTT 27.2 Sodium 134 L Potassium 3.8 Chloride 101 Carbon Dioxide 26.0 Anion Gap 7 BUN 13 Creatinine 0.71 Estimated GFR 82 L POC Glucose Random Glucose 105 Calcium 7.9 L Total Creatine Kinase 61 Troponin I Less than 0.02 L Triglycerides Cholesterol LDL Cholesterol, Calc HDL Cholesterol Cholesterol/HDL Ratio Vitamin B12 Folate TSH Ur Collection Type Urine Color Urine Clarity Urine pH Ur Specific [place] Urine Protein Urine Glucose (UA) Urine Ketones Urine Occult Blood Urine Nitrate Urine Bilirubin Urine Urobilinogen Ur Leukocyte Esterase Ur Squamous Epith Cells Micro UA Comment Ur Microscopic Review Urine Culture Comments Urine Collection Time Urine Opiates Screen Ur Barbiturates Screen Ur Amphetamines Screen U Benzodiazepines Scrn Urine Cocaine Screen U Cannabinoids Screen Rheumatoid Factor Scrn Rheumatoid Factor Titer 06/26/18 06/26/18 06/26/18 18:11 18:11 18:30 CBC w Diff WBC 9.0 RBC 3.98 L Hgb 12.9 Hct 38.7 MCV 97.1 MCH 32.3 MCHC 33.3 RDW 14.7 Plt Count 236 MPV 7.4 Neut % (Auto) Lymph % (Auto) [place] % (Auto) Eos % (Auto) Baso % (Auto) Neut # (Auto) Lymph # (Auto) [place] # (Auto) Eos # (Auto) Baso # (Auto) WBC Differential Differential Comment ESR PT INR APTT Sodium Potassium Chloride Carbon Dioxide Anion Gap BUN Creatinine Estimated GFR POC Glucose Random Glucose Calcium Total Creatine Kinase Troponin I Triglycerides Cholesterol LDL Cholesterol, Calc HDL Cholesterol Cholesterol/HDL Ratio Vitamin B12 Folate TSH Ur Collection Type Clean catch Urine Color Straw Urine Clarity Clear Urine pH 6.5 Ur Specific [place] Less/equal 1.005 Urine Protein Negative Urine Glucose (UA) Negative Urine Ketones Negative Urine Occult Blood Negative Urine Nitrate Negative Urine Bilirubin Negative Urine Urobilinogen 0.2 Ur Leukocyte Esterase Negative Ur Squamous Epith Cells 0-5 Micro UA Comment Culture not ind Ur Microscopic Review Microscopic reviewed Urine Culture Comments Culture not ind Urine Collection Time 1811 Urine Opiates Screen Neg Ur Barbiturates Screen Neg Ur Amphetamines Screen Neg U Benzodiazepines Scrn Neg Urine Cocaine Screen Neg U Cannabinoids Screen Neg Rheumatoid Factor Scrn Rheumatoid Factor Titer 06/26/18 06/26/18 06/26/18 18:30 18:30 20:17 CBC w Diff WBC RBC Hgb Hct MCV MCH MCHC RDW Plt Count MPV Neut % (Auto) Lymph % (Auto) Moody % (Auto) Eos % (Auto) Baso % (Auto) Neut # (Auto) Lymph # (Auto) Moody # (Auto) Eos # (Auto) Baso # (Auto) WBC Differential Differential Comment ESR 78 H PT INR APTT Sodium Potassium Chloride Carbon Dioxide Anion Gap BUN Creatinine Estimated GFR POC Glucose 126 H Random Glucose Calcium Total Creatine Kinase Troponin I Triglycerides Cholesterol LDL Cholesterol, Calc HDL Cholesterol Cholesterol/HDL Ratio Vitamin B12 531 Folate Greater than 20.0 H TSH 0.534 Ur Collection Type Urine Color Urine Clarity Urine pH Ur Specific [place] Urine Protein Urine Glucose (UA) Urine Ketones Urine Occult Blood Urine Nitrate Urine Bilirubin Urine Urobilinogen Ur Leukocyte Esterase Ur Squamous Epith Cells Micro UA Comment Ur Microscopic Review Urine Culture Comments Urine Collection Time Urine Opiates Screen Ur Barbiturates Screen Ur Amphetamines Screen U Benzodiazepines Scrn Urine Cocaine Screen U Cannabinoids Screen Rheumatoid Factor Scrn Rheumatoid Factor Titer 06/27/18 06/27/18 06/27/18 00:05 06:15 06:15 CBC w Diff WBC RBC Hgb Hct MCV MCH MCHC RDW Plt Count MPV Neut % (Auto) Lymph % (Auto) [place] % (Auto) Eos % (Auto) Baso % (Auto) Neut # (Auto) Lymph # (Auto) [place] # (Auto) Eos # (Auto) Baso # (Auto) WBC Differential Differential Comment ESR PT INR APTT 37.8 H D Sodium Potassium Chloride Carbon Dioxide Anion Gap BUN Creatinine Estimated GFR POC Glucose Random Glucose Calcium Total Creatine Kinase Troponin I Triglycerides 143 Cholesterol 190 LDL Cholesterol, Calc 119 H HDL Cholesterol 42.7 Cholesterol/HDL Ratio 4.44 Vitamin B12 Folate TSH Ur Collection Type Urine Color Urine Clarity Urine pH Ur Specific [place] Urine Protein Urine Glucose (UA) Urine Ketones Urine Occult Blood Urine Nitrate Urine Bilirubin Urine Urobilinogen Ur Leukocyte Esterase Ur Squamous Epith Cells Micro UA Comment Ur Microscopic Review Urine Culture Comments Urine Collection Time Urine Opiates Screen Ur Barbiturates Screen Ur Amphetamines Screen U Benzodiazepines Scrn Urine Cocaine Screen U Cannabinoids Screen Rheumatoid Factor Scrn Cancelled Negative Rheumatoid Factor Titer Cancelled Not Reportable 06/27/18 06/27/18 06:54 06:54 CBC w Diff WBC 7.2 RBC 3.83 L Hgb 12.7 Hct 37.8 MCV 98.8 MCH 33.3 MCHC 33.7 RDW 15.4 Plt Count 209 MPV 8.0 Neut % (Auto) Lymph % (Auto) [place] % (Auto) Eos % (Auto) Baso % (Auto) Neut # (Auto) Lymph # (Auto) [place] # (Auto) Eos # (Auto) Baso # (Auto) WBC Differential Differential Comment ESR PT INR APTT 62.4 H D Sodium Potassium Chloride Carbon Dioxide Anion Gap BUN Creatinine Estimated GFR POC Glucose Random Glucose Calcium Total Creatine Kinase Troponin I Triglycerides Cholesterol LDL Cholesterol, Calc HDL Cholesterol Cholesterol/HDL Ratio Vitamin B12 Folate TSH Ur Collection Type Urine Color Urine Clarity Urine pH Ur Specific [place] Urine Protein Urine Glucose (UA) Urine Ketones Urine Occult Blood Urine Nitrate Urine Bilirubin Urine Urobilinogen Ur Leukocyte Esterase Ur Squamous Epith Cells Micro UA Comment Ur Microscopic Review Urine Culture Comments Urine Collection Time Urine Opiates Screen Ur Barbiturates Screen Ur Amphetamines Screen U Benzodiazepines Scrn Urine Cocaine Screen U Cannabinoids Screen Rheumatoid Factor Scrn Rheumatoid Factor Titer Review/Management - Review/Management Plan: imp mri shows acute left cbllr cva and mult left mca cva cw cardioembolic episode on iv hep i dced plavix and asa needs coumadin started by med team unless vascular wants to intervene cta probable left large clot left ica vascular on case ct chest and neck pend ? CA? and hypercoag from that> trop neg fu echo and holter
[2018-06-27] MEDS: Insulin NovoLOG Aspart Correctional Sugar Inj SQ SCH ×4 (08:03→21:39)
[2018-06-27] MEDS ORDERED: Aspirin 325 MG Tablet PO SCH (09:00)
[2018-06-27] MEDS ORDERED: Levothyroxine 112 MCG Tablet PO SCH (09:00)
--- NOTE | 2018-06-27 09:52 | P.CONVS ---
History of Present Illness Service: Vascular surgery Consult date: 06/27/18 Primary Care Provider: PROVIDER NON STAFF Chief Complaint: Left carotid thrombus History of Present Illness: 67-year-old female with a past medical history of thyroid cancer who presents with left upper extremity weakness. She was noted to have left hemispheric stroke. CT angiography of the neck shows left internal carotid artery thrombus. She currently denies any upper extremity or lower extremity weakness. She reports blurry vision bilaterally. She denies any chest pain or shortness of breath Review of Systems All other systems reviewed negative except as stated in HPI [facility] - History History Provided By: Patient - Medical History Medical History: Medical History (Last Reviewed 06/27/18 @ 08:40 by Doyle Hernandez) Asthma Diabetes HTN (hypertension) Thyroid cancer - Surgical History Surgical History: Surgical History (Last Reviewed 06/27/18 @ 08:27 by Hanna Gerard) H/O laparoscopy History of back surgery History of lung biopsy History of tonsillectomy Hx of breast biopsy Hx of thyroidectomy - Family History Family History: Family History (Last Reviewed 06/27/18 @ 08:41 by Doyle Hernandez) Mother Heart disease Mother Lung cancer - Tobacco History Second Hand Smoke Exposure: No Tobacco Use In Past 30 Days: Yes Smoking Status: Light tobacco smoker Tobacco Type: Cigarettes - Alcohol History How Often Do You Have a Drink Containing Alcohol: 2 to 3 times a week - Substance Use History Substance History: No History of Abuse - Travel History Recent Travel in the [place] Within the Last 8 Weeks: No Recent Travel Out of the Country Within the Last 8 Weeks: No - Immunization History Tetanus Immunization: >5 Years Tetanus Immunization Year if Known: 2012 Hx Influenza Vaccine This Season: Yes Medications and Allergies Active Medications: Active Medications Albuterol (Duoneb Neb (Prn)) 1 ampul NEB Q2HR NEB PRN PRN Reason: SHORTNESS OF BREATH/WHEEZING Atorvastatin Calcium (Lipitor) 10 mg PO HS SAM Last Admin: 06/26/18 23:20 Dose: Not Given Dextrose (D50w Vial) 50 ml IV.PUSH UNSCH PRN PRN Reason: PER HYPOGLYCEMIA PROTOCOL Enalaprilat (Vasotec Inj) 1.25 mg IV.PUSH Q4H PRN PRN Reason: For SBP > 220 or DBP > 120 Glucagon (Glucagon Inj) 1 mg OTHER UNSCH PRN PRN Reason: for Hypoglycemia Protocol Heparin Sodium/Dextrose (Heparin/D5w 25,000 U/250 Ml) 25,000 unit in 250 mls @ 9 mls/hr IV.CONT TITRATE STA; Protocol Stop: 06/27/18 21:59 Last Titration: 06/27/18 01:21 Dose: 1,000 units/hr, 10 mls/hr Sodium Chloride (Ns Inj) 1,000 mls @ 70 mls/hr IV.CONT .[id number] [facility] Last Admin: 06/26/18 23:30 Dose: 70 mls/hr Insulin Aspart (Novolog Insulin Correctional Sugar Inj) 0 unit SQ ACHS [facility]; Protocol Last Admin: 06/27/18 08:03 Dose: Not Given Levothyroxine Sodium (Synthroid) 112 mcg PO DAILY [facility] Last Admin: 06/27/18 09:02 Dose: Not Given Metoprolol Succinate (Toprol Xl) 100 mg PO BID [facility] Last Admin: 06/27/18 08:03 Dose: 100 mg Sodium Chloride (Ns Flush) 2 ml IV.FLUSH PRN PRN PRN Reason: FLUSH AFTER USING IV ACCESS Sodium Chloride (Ns Flush) 2 ml IV.FLUSH BID [facility] Last Admin: 06/27/18 09:02 Dose: Not Given Sodium Chloride (Ns Flush) 2 ml IV.FLUSH PRN PRN PRN Reason: FLUSH AFTER USING IV ACCESS Allergies Allergy/AdvReac Type Severity Reaction Status Date / Time losartan Allergy Swelling Verified 06/26/18 10:34 of Lip/Tongue/Throat Sulfa (Sulfonamide Allergy Hives Verified 06/26/18 10:34 Antibiotics) ciprofloxacin [From Cipro] AdvReac Tingling Verified 06/26/18 10:34 levofloxacin AdvReac Joint Pain Verified 06/26/18 10:34 prednisone AdvReac Joint Pain Verified 06/26/18 10:34 [id number] Reductase AdvReac Joint Pain Verified 06/26/18 10:34 Inhibitor Home Medications Medication Instructions Recorded Confirmed Type albuterol sulfate 0.63 mg INHALATION Q4-6H PRN 06/23/18 06/26/18 History aspirin 81 mg PO DAILY 06/23/18 06/26/18 History fluticasone [Flonase Allergy 1 spray INTRANASAL DAILY 06/23/18 06/26/18 History Relief] levothyroxine [Unithroid] 112 mcg PO DAILY 06/23/18 06/26/18 History loratadine [Claritin] 10 mg PO DAILY PRN 06/23/18 06/26/18 History metoprolol succinate 100 mg PO BID 06/23/18 06/26/18 History psyllium husk [Metamucil] 0.52 g PO DAILY 06/23/18 06/26/18 History Bifidobacterium infantis [Align] 4 mg PO DAILY 06/26/18 06/26/18 History fluticasone-vilanterol [Breo 1 inh INHALATION DAILY 06/26/18 06/26/18 History Ellipta] Physical Exam Vital Signs / I&O: Vital Signs 06/26/18 16:59 06/26/18 17:00 06/26/18 17:40 Temperature 97.8 F Pulse Rate 83 88 82 Respiratory Rate 16 16 Blood Pressure 177/78 H 189/80 H Pulse Oximetry 96 96 06/26/18 17:45 06/26/18 19:00 06/26/18 20:30 Temperature Pulse Rate 80 72 83 Respiratory Rate 18 18 20 Blood Pressure 177/77 H 180/76 H 164/80 H Pulse Oximetry 97 96 100 06/26/18 22:34 06/26/18 23:56 06/26/18 23:57 Temperature Pulse Rate 70 75 75 Respiratory Rate 20 Blood Pressure 148/69 H Pulse Oximetry 96 06/27/18 00:00 06/27/18 04:00 06/27/18 08:00 Temperature 97.4 F L 97.8 F 98.1 F Pulse Rate 71 69 70 Respiratory Rate 18 18 20 Blood Pressure 173/69 H 170/74 H 175/81 H Pulse Oximetry 98 95 97 Intake & Output 06/26/18 06/27/18 06/27/18 18:59 06:59 18:59 Intake Total 636.1 / 636.1 Balance 636.1 / 636.1 Weight 76.2 kg 76.2 kg Intake: IV 436.1 / 436.1 Heparin/D5W 25,000 U/250 mL 25, 86.1 / 86.1 000 unit In 250 ml @ 900 UNITS/ HR 9 mls/hr IV.CONT TITRATE STA Rx#:[id number] NS Inj 1,000 ML @ 70 mls/hr IV. 350 / 350 CONT .[id number] [facility] Rx#: [id number] Oral 200 / 200 Other: # Voids 2 Date of Last Bowel Movement 06/26/18 06/26/18 Weight On Admission 76.2 kg Neuro: Cranial nerves II through XII intact. 5 out of 5 motor function in all 4 extremities. Sensory intact bilaterally. HEENT: PERRLA Neck: Supple Heart: S1-S2 Lungs: Clear to auscultation bilateral Abdomen: Soft nontender nondistended Vascular: Palpable pulses throughout Laboratory Results - last 24 hr 06/26/18 06/26/18 06/26/18 17:30 17:30 17:30 CBC w Diff Auto diff final WBC 8.9 RBC 3.80 L Hgb 12.2 Hct 36.7 MCV 96.8 MCH 32.1 MCHC 33.2 RDW 14.1 Plt Count 229 MPV 7.6 Neut % (Auto) 66.3 Lymph % (Auto) 21.8 [place] % (Auto) 9.0 H Eos % (Auto) 1.1 Baso % (Auto) 1.8 Neut # (Auto) 5.9 Lymph # (Auto) 1.9 [place] # (Auto) 0.8 Eos # (Auto) 0.1 Baso # (Auto) 0.2 WBC Differential . Differential Comment . ESR PT 10.3 INR 1.0 APTT 27.2 Sodium 134 L Potassium 3.8 Chloride 101 Carbon Dioxide 26.0 Anion Gap 7 BUN 13 Creatinine 0.71 Estimated GFR 82 L POC Glucose Random Glucose 105 Calcium 7.9 L Total Creatine Kinase 61 Troponin I Less than 0.02 L Triglycerides Cholesterol LDL Cholesterol, Calc HDL Cholesterol Cholesterol/HDL Ratio Vitamin B12 Folate TSH Ur Collection Type Urine Color Urine Clarity Urine pH Ur Specific [place] Urine Protein Urine Glucose (UA) Urine Ketones Urine Occult Blood Urine Nitrate Urine Bilirubin Urine Urobilinogen Ur Leukocyte Esterase Ur Squamous Epith Cells Micro UA Comment Ur Microscopic Review Urine Culture Comments Urine Collection Time Urine Opiates Screen Ur Barbiturates Screen Ur Amphetamines Screen U Benzodiazepines Scrn Urine Cocaine Screen U Cannabinoids Screen Rheumatoid Factor Scrn Rheumatoid Factor Titer 06/26/18 06/26/18 06/26/18 18:11 18:11 18:30 CBC w Diff WBC 9.0 RBC 3.98 L Hgb 12.9 Hct 38.7 MCV 97.1 MCH 32.3 MCHC 33.3 RDW 14.7 Plt Count 236 MPV 7.4 Neut % (Auto) Lymph % (Auto) [place] % (Auto) Eos % (Auto) Baso % (Auto) Neut # (Auto) Lymph # (Auto) [place] # (Auto) Eos # (Auto) Baso # (Auto) WBC Differential Differential Comment ESR PT INR APTT Sodium Potassium Chloride Carbon Dioxide Anion Gap BUN Creatinine Estimated GFR POC Glucose Random Glucose Calcium Total Creatine Kinase Troponin I Triglycerides Cholesterol LDL Cholesterol, Calc HDL Cholesterol Cholesterol/HDL Ratio Vitamin B12 Folate TSH Ur Collection Type Clean catch Urine Color Straw Urine Clarity Clear Urine pH 6.5 Ur Specific [place] Less/equal 1.005 Urine Protein Negative Urine Glucose (UA) Negative Urine Ketones Negative Urine Occult Blood Negative Urine Nitrate Negative Urine Bilirubin Negative Urine Urobilinogen 0.2 Ur Leukocyte Esterase Negative Ur Squamous Epith Cells 0-5 Micro UA Comment Culture not ind Ur Microscopic Review Microscopic reviewed Urine Culture Comments Culture not ind Urine Collection Time 1811 Urine Opiates Screen Neg Ur Barbiturates Screen Neg Ur Amphetamines Screen Neg U Benzodiazepines Scrn Neg Urine Cocaine Screen Neg U Cannabinoids Screen Neg Rheumatoid Factor Scrn Rheumatoid Factor Titer 06/26/18 06/26/18 06/26/18 18:30 18:30 20:17 CBC w Diff WBC RBC Hgb Hct MCV MCH MCHC RDW Plt Count MPV Neut % (Auto) Lymph % (Auto) [place] % (Auto) Eos % (Auto) Baso % (Auto) Neut # (Auto) Lymph # (Auto) [place] # (Auto) Eos # (Auto) Baso # (Auto) WBC Differential Differential Comment ESR 78 H PT INR APTT Sodium Potassium Chloride Carbon Dioxide Anion Gap BUN Creatinine Estimated GFR POC Glucose 126 H Random Glucose Calcium Total Creatine Kinase Troponin I Triglycerides Cholesterol LDL Cholesterol, Calc HDL Cholesterol Cholesterol/HDL Ratio Vitamin B12 531 Folate Greater than 20.0 H TSH 0.534 Ur Collection Type Urine Color Urine Clarity Urine pH Ur Specific [place] Urine Protein Urine Glucose (UA) Urine Ketones Urine Occult Blood Urine Nitrate Urine Bilirubin Urine Urobilinogen Ur Leukocyte Esterase Ur Squamous Epith Cells Micro UA Comment Ur Microscopic Review Urine Culture Comments Urine Collection Time Urine Opiates Screen Ur Barbiturates Screen Ur Amphetamines Screen U Benzodiazepines Scrn Urine Cocaine Screen U Cannabinoids Screen Rheumatoid Factor Scrn Rheumatoid Factor Titer 06/27/18 06/27/18 06/27/18 00:05 06:15 06:15 CBC w Diff WBC RBC Hgb Hct MCV MCH MCHC RDW Plt Count MPV Neut % (Auto) Lymph % (Auto) [place] % (Auto) Eos % (Auto) Baso % (Auto) Neut # (Auto) Lymph # (Auto) [place] # (Auto) Eos # (Auto) Baso # (Auto) WBC Differential Differential Comment ESR PT INR APTT 37.8 H D Sodium Potassium Chloride Carbon Dioxide Anion Gap BUN Creatinine Estimated GFR POC Glucose Random Glucose Calcium Total Creatine Kinase Troponin I Triglycerides 143 Cholesterol 190 LDL Cholesterol, Calc 119 H HDL Cholesterol 42.7 Cholesterol/HDL Ratio 4.44 Vitamin B12 Folate TSH Ur Collection Type Urine Color Urine Clarity Urine pH Ur Specific [place] Urine Protein Urine Glucose (UA) Urine Ketones Urine Occult Blood Urine Nitrate Urine Bilirubin Urine Urobilinogen Ur Leukocyte Esterase Ur Squamous Epith Cells Micro UA Comment Ur Microscopic Review Urine Culture Comments Urine Collection Time Urine Opiates Screen Ur Barbiturates Screen Ur Amphetamines Screen U Benzodiazepines Scrn Urine Cocaine Screen U Cannabinoids Screen Rheumatoid Factor Scrn Cancelled Negative Rheumatoid Factor Titer Cancelled Not Reportable 06/27/18 06/27/18 06/27/18 06:54 06:54 08:01 CBC w Diff WBC 7.2 RBC 3.83 L Hgb 12.7 Hct 37.8 MCV 98.8 MCH 33.3 MCHC 33.7 RDW 15.4 Plt Count 209 MPV 8.0 Neut % (Auto) Lymph % (Auto) [place] % (Auto) Eos % (Auto) Baso % (Auto) Neut # (Auto) Lymph # (Auto) [place] # (Auto) Eos # (Auto) Baso # (Auto) WBC Differential Differential Comment ESR PT INR APTT 62.4 H D Sodium Potassium Chloride Carbon Dioxide Anion Gap BUN Creatinine Estimated GFR POC Glucose 151 H Random Glucose Calcium Total Creatine Kinase Troponin I Triglycerides Cholesterol LDL Cholesterol, Calc HDL Cholesterol Cholesterol/HDL Ratio Vitamin B12 Folate TSH Ur Collection Type Urine Color Urine Clarity Urine pH Ur Specific [place] Urine Protein Urine Glucose (UA) Urine Ketones Urine Occult Blood Urine Nitrate Urine Bilirubin Urine Urobilinogen Ur Leukocyte Esterase Ur Squamous Epith Cells Micro UA Comment Ur Microscopic Review Urine Culture Comments Urine Collection Time Urine Opiates Screen Ur Barbiturates Screen Ur Amphetamines Screen U Benzodiazepines Scrn Urine Cocaine Screen U Cannabinoids Screen Rheumatoid Factor Scrn Rheumatoid Factor Titer Impressions Head CT 06/26/18 17:[address]: [address] Head non contrast. . Dr. Motley relayed results to Dr. Lewis at 1730 hours Head CTA 06/26/18 17:11 CONCLUSION: 1. Negative CTA head. There is some moderate plaque at the left carotid bifurcation. CTA neck pending. Neck CTA 06/26/18 17:11 CONCLUSION: 1. 2.9 cm mass in the left lung and 1.9 cm mass in the left vallecula both suspicious for neoplasm. 2. Small calcified plaque with intraluminal thrombus or noncalcified plaque in the proximal left internal carotid artery extending over a length of about 2 cm , likely placing the patient at high risk for stroke. 3. Findings called to Dr. Bennett Huerta at the time of dictation. Head MRI 06/26/18 20:28 CONCLUSION: 1. Multiple small infarcts in the posterior fossa and left hemisphere as above , likely embolic in phenomenon. No hemorrhage or associated mass effect. No abnormal enhancing lesions. Assessment and Plan - Plan Acute left hemispheric stroke of a cardioembolic etiology. Acute left internal carotid artery thrombus. I reviewed the CT angiography of the neck. Soft thrombus extending into the left internal carotid artery with small calcified plaque. This lesion is considered vulnerable and high risk for perioperative stroke. I recommend to continue with anticoagulation with heparin and bridge to Coumadin. I will repeat a CTA of the neck in 2-4 weeks and operate if necessary when thrombus is more organized and stable. Urgent operation will be necessary this admission if patient developed crescendo symptoms. Will need cardioembolic workup. Thank you for allowing me to participate in this patient care ! Daniel Mistry MD [facility] [id number]
[2018-06-27] MEDS: Acetaminophen 325 MG Tablet PO PRN (12:45)
[2018-06-27] MEDS: Sod Chloride 0.9% Inj 1,000 ML IV.CONT SCH ×2 (13:03→18:33)
--- NOTE | 2018-06-27 14:36 | ECG ---
Date Performed: 06/26/2018 Time Performed: 17:48:34 PTAGE: 67 years EKG: Sinus rhythm WITH OCCASIONAL SUPRAVENTRICULAR PREMATURE COMPLEXES BORDERLINE ECG NO PREVIOUS TRACING DOCTOR: Bennett Savage Interpretating Date/Time 06/27/2018 14:35:02
[2018-06-27 14:57] LABS: Anti-Nuclear Antibody Screen Pos (Neg)
[2018-06-27] MEDS ORDERED: Warfarin Consult Pharmacy OTHER PRN (17:01)
--- NOTE | 2018-06-27 17:20 | P.PN ---
Subjective Interval history: Follow-up for CVA, left internal carotid artery occlusion. Patient is currently doing well. Her right arm weakness is improved. No acute concerns. Physical Exam Vital signs: Vital Signs 06/26/18 17:40 06/26/18 17:45 06/26/18 19:00 Temperature Pulse Rate 82 80 72 Respiratory Rate 16 18 18 Blood Pressure 189/80 H 177/77 H 180/76 H Pulse Oximetry 97 96 06/26/18 20:30 06/26/18 22:34 06/26/18 23:56 Temperature Pulse Rate 83 70 75 Respiratory Rate 20 20 Blood Pressure 164/80 H 148/69 H Pulse Oximetry 100 96 06/26/18 23:57 06/27/18 00:00 06/27/18 04:00 Temperature 97.4 F L 97.8 F Pulse Rate 75 71 69 Respiratory Rate 18 18 Blood Pressure 173/69 H 170/74 H Pulse Oximetry 98 95 06/27/18 08:00 06/27/18 12:00 Temperature 98.1 F 98 F Pulse Rate 70 71 Respiratory Rate 20 20 Blood Pressure 175/81 H 185/83 H Pulse Oximetry 97 97 Intake & Output 06/26/18 06/27/18 06/27/18 18:59 06:59 18:59 Intake Total 636.1 / 636.1 Balance 636.1 / 636.1 Weight 76.2 kg 76.2 kg Intake: IV 436.1 / 436.1 Heparin/D5W 25,000 U/250 mL 25, 86.1 / 86.1 000 unit In 250 ml @ 900 UNITS/ HR 9 mls/hr IV.CONT TITRATE STA Rx#:[id number] NS Inj 1,000 ML @ 70 mls/hr IV. 350 / 350 CONT .[id number] SAM Rx#: [id number] Oral 200 / 200 Other: # Voids 2 Date of Last Bowel Movement 06/26/18 06/26/18 Weight On Admission 76.2 kg Narrative: GENERAL: Alert, oriented x3, NAD. SKIN: Warm and dry. HEAD: Normocephalic. EYES: No scleral icterus. No injection or drainage. NECK: Supple, trachea midline. No JVD or lymphadenopathy. CARDIOVASCULAR: Regular rate and rhythm without murmurs, gallops, or rubs. RESPIRATORY: Breath sounds equal bilaterally. No accessory muscle use. GASTROINTESTINAL: Abdomen soft, non-tender, nondistended. MUSCULOSKELETAL: No cyanosis, or edema. BACK: Nontender without obvious deformity. No CVA tenderness. Results - Labs CBC & Chem 7: 06/27/18 06:54 06/26/18 17:30 Laboratory Results - last 24 hr 06/26/18 06/26/18 06/26/18 17:30 17:30 17:30 CBC w Diff Auto diff final WBC 8.9 RBC 3.80 L Hgb 12.2 Hct 36.7 MCV 96.8 MCH 32.1 MCHC 33.2 RDW 14.1 Plt Count 229 MPV 7.6 Neut % (Auto) 66.3 Lymph % (Auto) 21.8 [place] % (Auto) 9.0 H Eos % (Auto) 1.1 Baso % (Auto) 1.8 Neut # (Auto) 5.9 Lymph # (Auto) 1.9 [place] # (Auto) 0.8 Eos # (Auto) 0.1 Baso # (Auto) 0.2 WBC Differential . Differential Comment . ESR PT 10.3 INR 1.0 APTT 27.2 Sodium 134 L Potassium 3.8 Chloride 101 Carbon Dioxide 26.0 Anion Gap 7 BUN 13 Creatinine 0.71 Estimated GFR 82 L POC Glucose Random Glucose 105 Calcium 7.9 L Total Creatine Kinase 61 Troponin I Less than 0.02 L Triglycerides Cholesterol LDL Cholesterol, Calc HDL Cholesterol Cholesterol/HDL Ratio Vitamin B12 Folate TSH Ur Collection Type Urine Color Urine Clarity Urine pH Ur Specific [place] Urine Protein Urine Glucose (UA) Urine Ketones Urine Occult Blood Urine Nitrate Urine Bilirubin Urine Urobilinogen Ur Leukocyte Esterase Ur Squamous Epith Cells Micro UA Comment Ur Microscopic Review Urine Culture Comments Urine Collection Time Urine Opiates Screen Ur Barbiturates Screen Ur Amphetamines Screen U Benzodiazepines Scrn Urine Cocaine Screen U Cannabinoids Screen Rheumatoid Factor Scrn Rheumatoid Factor Titer ASIF Screen RPR 06/26/18 06/26/18 06/26/18 18:11 18:11 18:30 CBC w Diff WBC 9.0 RBC 3.98 L Hgb 12.9 Hct 38.7 MCV 97.1 MCH 32.3 MCHC 33.3 RDW 14.7 Plt Count 236 MPV 7.4 Neut % (Auto) Lymph % (Auto) [place] % (Auto) Eos % (Auto) Baso % (Auto) Neut # (Auto) Lymph # (Auto) [place] # (Auto) Eos # (Auto) Baso # (Auto) WBC Differential Differential Comment ESR PT INR APTT Sodium Potassium Chloride Carbon Dioxide Anion Gap BUN Creatinine Estimated GFR POC Glucose Random Glucose Calcium Total Creatine Kinase Troponin I Triglycerides Cholesterol LDL Cholesterol, Calc HDL Cholesterol Cholesterol/HDL Ratio Vitamin B12 Folate TSH Ur Collection Type Clean catch Urine Color Straw Urine Clarity Clear Urine pH 6.5 Ur Specific [place] Less/equal 1.005 Urine Protein Negative Urine Glucose (UA) Negative Urine Ketones Negative Urine Occult Blood Negative Urine Nitrate Negative Urine Bilirubin Negative Urine Urobilinogen 0.2 Ur Leukocyte Esterase Negative Ur Squamous Epith Cells 0-5 Micro UA Comment Culture not ind Ur Microscopic Review Microscopic reviewed Urine Culture Comments Culture not ind Urine Collection Time 1811 Urine Opiates Screen Neg Ur Barbiturates Screen Neg Ur Amphetamines Screen Neg U Benzodiazepines Scrn Neg Urine Cocaine Screen Neg U Cannabinoids Screen Neg Rheumatoid Factor Scrn Rheumatoid Factor Titer ASIF Screen RPR 06/26/18 06/26/18 06/26/18 18:30 18:30 20:17 CBC w Diff WBC RBC Hgb Hct MCV MCH MCHC RDW Plt Count MPV Neut % (Auto) Lymph % (Auto) [place] % (Auto) Eos % (Auto) Baso % (Auto) Neut # (Auto) Lymph # (Auto) [place] # (Auto) Eos # (Auto) Baso # (Auto) WBC Differential Differential Comment ESR 78 H PT INR APTT Sodium Potassium Chloride Carbon Dioxide Anion Gap BUN Creatinine Estimated GFR POC Glucose 126 H Random Glucose Calcium Total Creatine Kinase Troponin I Triglycerides Cholesterol LDL Cholesterol, Calc HDL Cholesterol Cholesterol/HDL Ratio Vitamin B12 531 Folate Greater than 20.0 H TSH 0.534 Ur Collection Type Urine Color Urine Clarity Urine pH Ur Specific [place] Urine Protein Urine Glucose (UA) Urine Ketones Urine Occult Blood Urine Nitrate Urine Bilirubin Urine Urobilinogen Ur Leukocyte Esterase Ur Squamous Epith Cells Micro UA Comment Ur Microscopic Review Urine Culture Comments Urine Collection Time Urine Opiates Screen Ur Barbiturates Screen Ur Amphetamines Screen U Benzodiazepines Scrn Urine Cocaine Screen U Cannabinoids Screen Rheumatoid Factor Scrn Rheumatoid Factor Titer ASIF Screen RPR 06/27/18 06/27/18 06/27/18 00:05 06:15 06:15 CBC w Diff WBC RBC Hgb Hct MCV MCH MCHC RDW Plt Count MPV Neut % (Auto) Lymph % (Auto) [place] % (Auto) Eos % (Auto) Baso % (Auto) Neut # (Auto) Lymph # (Auto) [place] # (Auto) Eos # (Auto) Baso # (Auto) WBC Differential Differential Comment ESR PT INR APTT 37.8 H D Sodium Potassium Chloride Carbon Dioxide Anion Gap BUN Creatinine Estimated GFR POC Glucose Random Glucose Calcium Total Creatine Kinase Troponin I Triglycerides Cholesterol LDL Cholesterol, Calc HDL Cholesterol Cholesterol/HDL Ratio Vitamin B12 Folate TSH Ur Collection Type Urine Color Urine Clarity Urine pH Ur Specific [place] Urine Protein Urine Glucose (UA) Urine Ketones Urine Occult Blood Urine Nitrate Urine Bilirubin Urine Urobilinogen Ur Leukocyte Esterase Ur Squamous Epith Cells Micro UA Comment Ur Microscopic Review Urine Culture Comments Urine Collection Time Urine Opiates Screen Ur Barbiturates Screen Ur Amphetamines Screen U Benzodiazepines Scrn Urine Cocaine Screen U Cannabinoids Screen Rheumatoid Factor Scrn Cancelled Rheumatoid Factor Titer Cancelled ASIF Screen Pos H RPR Nonreactive 06/27/18 06/27/18 06/27/18 06:15 06:54 06:54 CBC w Diff WBC 7.2 RBC 3.83 L Hgb 12.7 Hct 37.8 MCV 98.8 MCH 33.3 MCHC 33.7 RDW 15.4 Plt Count 209 MPV 8.0 Neut % (Auto) Lymph % (Auto) [place] % (Auto) Eos % (Auto) Baso % (Auto) Neut # (Auto) Lymph # (Auto) [place] # (Auto) Eos # (Auto) Baso # (Auto) WBC Differential Differential Comment ESR PT INR APTT 62.4 H D Sodium Potassium Chloride Carbon Dioxide Anion Gap BUN Creatinine Estimated GFR POC Glucose Random Glucose Calcium Total Creatine Kinase Troponin I Triglycerides 143 Cholesterol 190 LDL Cholesterol, Calc 119 H HDL Cholesterol 42.7 Cholesterol/HDL Ratio 4.44 Vitamin B12 Folate TSH Ur Collection Type Urine Color Urine Clarity Urine pH Ur Specific [place] Urine Protein Urine Glucose (UA) Urine Ketones Urine Occult Blood Urine Nitrate Urine Bilirubin Urine Urobilinogen Ur Leukocyte Esterase Ur Squamous Epith Cells Micro UA Comment Ur Microscopic Review Urine Culture Comments Urine Collection Time Urine Opiates Screen Ur Barbiturates Screen Ur Amphetamines Screen U Benzodiazepines Scrn Urine Cocaine Screen U Cannabinoids Screen Rheumatoid Factor Scrn Negative Rheumatoid Factor Titer Not Reportable ASIF Screen RPR 06/27/18 06/27/18 06/27/18 08:01 12:39 13:37 CBC w Diff WBC RBC Hgb Hct MCV MCH MCHC RDW Plt Count MPV Neut % (Auto) Lymph % (Auto) [place] % (Auto) Eos % (Auto) Baso % (Auto) Neut # (Auto) Lymph # (Auto) [place] # (Auto) Eos # (Auto) Baso # (Auto) WBC Differential Differential Comment ESR PT INR APTT 62.5 H Sodium Potassium Chloride Carbon Dioxide Anion Gap BUN Creatinine Estimated GFR POC Glucose 151 H 131 H Random Glucose Calcium Total Creatine Kinase Troponin I Triglycerides Cholesterol LDL Cholesterol, Calc HDL Cholesterol Cholesterol/HDL Ratio Vitamin B12 Folate TSH Ur Collection Type Urine Color Urine Clarity Urine pH Ur Specific [place] Urine Protein Urine Glucose (UA) Urine Ketones Urine Occult Blood Urine Nitrate Urine Bilirubin Urine Urobilinogen Ur Leukocyte Esterase Ur Squamous Epith Cells Micro UA Comment Ur Microscopic Review Urine Culture Comments Urine Collection Time Urine Opiates Screen Ur Barbiturates Screen Ur Amphetamines Screen U Benzodiazepines Scrn Urine Cocaine Screen U Cannabinoids Screen Rheumatoid Factor Scrn Rheumatoid Factor Titer ASIF Screen RPR - Imaging Impressions Head CT 06/26/18 17:[address]: [address] Head non contrast. . Dr. Motley relayed results to Dr. Lewis at 1730 hours Head CTA 06/26/18 17:11 CONCLUSION: 1. Negative CTA head. There is some moderate plaque at the left carotid bifurcation. CTA neck pending. Neck CTA 06/26/18 17:11 CONCLUSION: 1. 2.9 cm mass in the left lung and 1.9 cm mass in the left vallecula both suspicious for neoplasm. 2. Small calcified plaque with intraluminal thrombus or noncalcified plaque in the proximal left internal carotid artery extending over a length of about 2 cm , likely placing the patient at high risk for stroke. 3. Findings called to Dr. Bennett Heurta at the time of dictation. Head MRI 06/26/18 20:28 CONCLUSION: 1. Multiple small infarcts in the posterior fossa and left hemisphere as above , likely embolic in phenomenon. No hemorrhage or associated mass effect. No abnormal enhancing lesions. Assessment and Plan - Plan Ms. Sibley is a pleasant 67-year-old female with a history of hypertension , diabetes, hyperlipidemia, thyroid cancer presented to the ED with complaints of right hand weakness. Workup indicated multiple infarcts in the posterior fossa and left hemisphere. Neurology, vascular surgery were consulted. Acute multiple embolic stroke Internal carotid artery thrombus -Neurology, Vascular surgery following -Patient is currently on Heparin drip. I discussed anticoagulation with vascular surgeon. -Per discussion with surgeon, we will switch heparin to approximately Lovenox 1 mg/kg twice daily dosing today. -We will also start warfarin and warfarin pharmacy consultation. -Once cleared by other providers, patient can be discharged home on Lovenox transition to warfarin. -We will consult cardiology with regards to cardioembolic workup. Transthoracic echocardiogram pending. -Patient may need DON. Left lung mass -Oncology consulted Hyperlipidemia Hypothyroidism -Continue Lipitor, Levothyroxine Full code. Heparin drip. Around 5:20PM, patient complained of right arm weakness and tingling again. Stroke alert was initiated. CT head stat ordered. We will continue heparin drip for now. We will hold off switching to Lovenox or Warfarin for now. D/W pharmacist.
[2018-06-27 17:23] LABS: Hemoglobin A1c 6.4 % (4.3-6.0)
[2018-06-27] MEDS ORDERED: Heparin Drip 25,000 UNIT/250 ML BAG IV.CONT SCH (17:30)
--- NOTE | 2018-06-27 17:49 | CT ---
EXAM DATE: 06/27/2018 5:38 PM EDT AGE/SEX: 67 years / Female INDICATIONS: Stroke alert, right sided weakness and tingling. Visual disturbances. CLINICAL DATA: This is the patient's initial encounter. Patient reports that signs and symptoms have been present for 1 day and indicates a pain score of Nonresponsive. MEDICAL/SURGICAL HISTORY: Non-responsive. Non-responsive. RADIATION DOSE: 56.35 CTDI (mGy) COMPARISON: [facility], CTA HEAD W CONTRAST W 3D, 06/26/2018. . TECHNIQUE: CT of the head without contrast. Using automated exposure control and adjustment of the mA and/or kV according to patient size, radiation dose was kept as low as reasonably achievable to ob tain optimal diagnostic quality images. DICOM format image data is available electronically for revi ew and comparison. FINDINGS: Cerebrum: The ventricles are normal for age. No evidence of midline shift, mass lesion, or hemorrha ge. There is subtle low density now noted left parietal and occipital lobes seen on images numbers 10 through 12 in the area of restricted diffusion seen on the MRI. No extraaxial fluid collections are seen. Posterior Fossa: The cerebellum and brainstem are intact. The 4th ventricle is midline. The cerebe llopontine angle is unremarkable. Extracranial: The visualized portion of the orbits is intact. Skull: The calvaria is intact. No evidence of skull fracture. CONCLUSION: 1. Subtle low density now noted in the left parietal-occipital lobes in the area of restricted diffu tamie and known infarction seen on yesterday's MRI. 2. No acute hemorrhage or mass effect. Report was called by [ Edgar to Dr. Campuzano at 1743 hours.] Electronically signed by: Daniel Hernández MD 06/27/2018 5:48 PM EDT
[2018-06-27 18:43] LABS: Hematocrit 36.1 % (35.0-46.0); Hemoglobin 12.4 gm/dL (11.6-15.3); Mean Corpuscular HGB Conc 34.4 % (32.0-36.0); Mean Corpuscular Hemoglobin 33.4 pg (27.0-34.0); Mean Corpuscular Volume 97.1 fL (80.0-100.0); Mean Platelet Volume 8.2 fL (7.0-11.0); Platelet Count 219 th/mm3 (150-450); Red Blood Count 3.72 mil/mm3 (4.00-5.30); Red Cell Distribution Width 15.2 % (11.6-17.2); White Blood Count 7.8 th/mm3 (4.0-11.0)
[2018-06-27 18:58] LABS: Anion Gap 8 meq/L (5-15); Blood Urea Nitrogen 6 mg/dL (7-18); Carbon Dioxide 25.3 meq/L (21.0-32.0); Chloride 105 meq/L (98-107); Glomerular Filtration Rate Greater Than 89 mL/min (>89); Glucose,Random 116 mg/dL (74-106); Potassium 3.7 meq/L (3.5-5.1); Prothrombin Time 10.2 sec (9.8-11.6); Sodium 138 meq/L (136-145)
[2018-06-27 19:05] LABS: Creatine Kinase 45 U/L (26-192)
--- NOTE | 2018-06-27 20:26 | MR ---
EXAM DATE: 06/27/2018 8:20 PM EDT AGE/SEX: 67 years / Female INDICATIONS: Stroke alert. Right arm weakness with blurred vision. CLINICAL DATA: This is the patient's subsequent encounter. Patient reports that signs and symptoms h ave been present for 2 days and indicates a pain score of 0/10. MEDICAL/SURGICAL HISTORY: Carcinoma, thyroid. Thyroidectomy. Tonsillectomy. Ankle surgery. COMPARISON: [facility], MR HEAD W & W/O CONTRAST, 06/26/2018. . TECHNIQUE: Multiplanar, multisequence examination of the brain was performed without contrast. FINDINGS: Comparison is June 26. Again seen is a small lacunar subcentimeter infarcts in the left cerebellar hemisphere. No definite infarct on the right on today's exam. Previously noted infarct in the left o ccipital lobe is slightly increased in size on today's a.m. Other subcentimeter infarcts in the left parietal lobe and posterior left frontal lobe are unchanged. No associated hemorrhage. Minimal white matter ischemic changes. CONCLUSION: 1. Slight increase in size of left occipital lobe infarct since June 26. Subcentimeter infarcts i n the left cerebellum and posterior left frontal lobe and left parietal lobe are stable. Electronically signed by: Maverick Colunga MD 06/27/2018 8:25 PM EDT
--- NOTE | 2018-06-27 20:58 | MB ---
cc: Yohannes Solis MD DATE: 06/27/2018 REASON FOR CONSULTATION: Consult requested by hospitalist for evaluation of left lung mass and left vallecular mass. HISTORY OF PRESENT ILLNESS: Lesley is a pleasant 67-year-old female. She is admitted to the hospital with right-sided upper extremity weakness. 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 She was not a candidate for TPA according to the records. Neurology was consulted. The patient was started on heparin. Vascular surgery was also consulted. The patient is not a candidate for surgery at this time. The CT angiogram of the neck incidentally showed left upper lobe lung mass of 2.9 cm and also left vallecula mass. Both are suspicious for malignancy. I have been asked to see the patient for further evaluation. The patient has a history of thyroid cancer in 2009 when she used to live in [place], [place]. Those records are not available. According to the patient and her , she underwent thyroidectomy. Did not require any postoperative radiation or radioactive iodine treatment or chemotherapy. They do not know the type of the thyroid cancer. The patient was subsequently followed up by feeder worker power unit operator at [facility]. She states that she was getting ultrasound periodically. She was placed on levothyroxine for hormone replacement after thyroidectomy. She subsequently moved to [place] in 2011. She lives in [facility]. She is under the care of feeder worker power unit operator, Dr. Summers. Her primary physician is also in [place]. The patient has a condo in [place]. She came over to her condo for the weekend. She initially presented to [facility]. Now, she has been moved to [facility]. The patient has numbness and weakness of the right upper extremity intermittently. She just came back from repeat CT of the head, which does not show any evidence of progression. The rest of the review of systems is negative. PAST MEDICAL HISTORY: Atrial fibrillation, hypertension, diabetes mellitus, hypercholesterolemia, hypothyroidism, thyroid cancer in 2009, the type is unknown. PAST SURGICAL HISTORY: Total thyroidectomy, back surgery, lung biopsy for lung nodules in 2010 or 2011, tonsillectomy, breast biopsy. ALLERGIES: 1. LOSARTAN. 2. SULFA. 3. CIPROFLOXACIN. 4. LEVOFLOXACIN. 5. PREDNISONE. 6. STATINS. MEDICATIONS: Prior to coming to the hospital, 1. Albuterol inhaler. 2. Flonase. 3. Levothyroxine. 4. Claritin. 5. Metoprolol. 6. Metamucil. 7. Align. 8. Breo inhaler. FAMILY HISTORY: Father from [place]. Mother from lung cancer. She was a smoker. The patient had 1 brother who from mesothelioma due to exposure to asbestos. The patient has 2 sisters. She does not know about their surroundings as she is not close to them. The patient does not have any children. SOCIAL HISTORY: The patient is , lives with her . She has been smoking cigarettes for 40 years. She has been cutting down and then trying to stop, but she is unable to do that. She stated she now smokes 6 cigarettes a day. She also drinks alcohol 2-3 drinks every day. 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 PHYSICAL EXAMINATION: GENERAL: Reveals a well-developed, well-nourished white female, in no apparent distress. VITAL SIGNS: Temperature 97.4, heart rate is 71, blood pressure 195/90. HEENT: PERRLA. EOMI, anicteric. No oral lesions noted. NECK: No lymphadenopathy noted. LUNGS: Clear. No wheezing, rhonchi or rales. CARDIOVASCULAR: Regular rate and rhythm. ABDOMEN: Soft, nontender. EXTREMITIES: No pedal edema. NEUROLOGIC: Awake, alert, oriented x3. Weakness of the right upper extremity noted. SKIN: No significant lesions noted. ASSESSMENT: 1. History of unknown type of thyroid cancer diagnosed in 2009, underwent total thyroidectomy in [place] in 2009. 2. A 2.9 cm left upper lobe lung mass, highly suspicious for malignancy given the history of cigarette smoking. 3. Left vallecular mass suspicious for malignancy. The patient will require ENT evaluation later on when she is more stable. PLAN: I have reviewed her available records and I have discussed with the patient and multiple family members regarding the left upper lobe lung mass and left vallecular mass. She is scheduled to have a CT of the neck and chest, which will be done later today. Once we get those results, then we will discuss with the patient regarding further workup and possible biopsy of the lung mass. At this point, the patient is not stable to undergo a biopsy of the lung due to active acute stroke and left carotid artery thrombosis. Once the patient is more stable, then we will discuss with the patient regarding the lung mass biopsy as well as to see ENT for direct laryngoscopy to evaluate for the left vallecular mass. Thank you for asking my opinion. MD GEETA Turk/marcus , 06:40 PM , 06:59 PM OSMAN
[2018-06-27] MEDS ORDERED: Enoxaparin Inj 80 MG/0.8 ML Syringe SQ SCH (21:00)
[2018-06-28] MEDS: LEVOTHYROXINE 112 MCG PO SCH (05:25)
[2018-06-28] MEDS: Sod Chloride 0.9% Inj 1,000 ML IV.CONT SCH ×4 (05:28→21:48)
[2018-06-28 07:28] LABS: Hematocrit 36.8 % (35.0-46.0); Hemoglobin 12.5 gm/dL (11.6-15.3); Mean Corpuscular HGB Conc 34.1 % (32.0-36.0); Mean Corpuscular Hemoglobin 33.3 pg (27.0-34.0); Mean Corpuscular Volume 97.6 fL (80.0-100.0); Mean Platelet Volume 8.7 fL (7.0-11.0); Platelet Count 199 th/mm3 (150-450); Red Blood Count 3.77 mil/mm3 (4.00-5.30); Red Cell Distribution Width 15.2 % (11.6-17.2); White Blood Count 6.8 th/mm3 (4.0-11.0)
[2018-06-28] MEDS: Insulin NovoLOG Aspart Correctional Sugar Inj SQ SCH ×4 (07:58→20:40)
--- NOTE | 2018-06-28 07:58 | P.PNNEU ---
Subjective Subjective Comments: sr Active Medications: Active Medications Acetaminophen (Tylenol) 650 mg PO Q4H PRN PRN Reason: Headache, fever, pain 1-4 Last Admin: 06/27/18 12:45 Dose: 650 mg Albuterol (Duoneb Neb (Prn)) 1 ampul NEB Q2HR NEB PRN PRN Reason: SHORTNESS OF BREATH/WHEEZING Atorvastatin Calcium (Lipitor) 10 mg PO HS [facility] Last Admin: 06/27/18 21:39 Dose: Not Given Dextrose (D50w Vial) 50 ml IV.PUSH UNSCH PRN PRN Reason: PER HYPOGLYCEMIA PROTOCOL Enalaprilat (Vasotec Inj) 1.25 mg IV.PUSH Q4H PRN PRN Reason: For SBP > 220 or DBP > 120 Enoxaparin Sodium (Lovenox Inj) 70 mg SQ Q12HR [facility] Glucagon (Glucagon Inj) 1 mg OTHER UNSCH PRN PRN Reason: for Hypoglycemia Protocol Heparin Sodium/Dextrose (Heparin/D5w 25,000 U/250 Ml) 25,000 unit in 250 mls @ 9 mls/hr IV.CONT TITRATE [facility]; Protocol Sodium Chloride (Ns Inj) 1,000 mls @ 70 mls/hr IV.CONT .[id number] [facility] Last Admin: 06/28/18 05:28 Dose: 70 mls/hr Insulin Aspart (Novolog Insulin Correctional Sugar Inj) 0 unit SQ ACHS [facility]; Protocol Last Admin: 06/27/18 21:39 Dose: Not Given Levothyroxine Sodium (Synthroid) 112 mcg PO DAILY@0600 [facility] Metoprolol Succinate (Toprol Xl) 100 mg PO BID [facility] Last Admin: 06/27/18 21:34 Dose: 100 mg Patient Own Medication: Unithroid 112 Mcg Tab 0 each PO DAILY@0600 [facility] Last Admin: 06/28/18 05:25 Dose: 1 each Pharmacy Profile Note (Coumadin Consult Pharmacy) 1 each OTHER UNSCH PRN PRN Reason: PHARMACY DOCUMENTATION Sodium Chloride (Ns Flush) 2 ml IV.FLUSH BID [facility] Last Admin: 06/27/18 21:41 Dose: Not Given Sodium Chloride (Ns Flush) 2 ml IV.FLUSH PRN PRN PRN Reason: FLUSH AFTER USING IV ACCESS Warfarin Sodium (Coumadin) 4 mg PO DAILY@1600 [facility] Allergies/Adverse Reactions: Allergies Allergy/AdvReac Type Severity Reaction Status Date / Time losartan Allergy Swelling Verified 06/26/18 10:34 of Lip/Tongue/Throat Sulfa (Sulfonamide Allergy Hives Verified 06/26/18 10:34 Antibiotics) ciprofloxacin [From Cipro] AdvReac Tingling Verified 06/26/18 10:34 levofloxacin AdvReac Joint Pain Verified 06/26/18 10:34 prednisone AdvReac Joint Pain Verified 06/26/18 10:34 [id number]-[id number] Reductase AdvReac Joint Pain Verified 06/26/18 10:34 Inhibitor Physical Exam Vital signs: Vital Signs 06/27/18 08:00 06/27/18 12:00 06/27/18 16:00 Temperature 98.1 F 98 F 97.4 F L Pulse Rate 70 71 71 Respiratory Rate 20 20 20 Blood Pressure 175/81 H 185/83 H 195/90 H Pulse Oximetry 97 97 95 06/27/18 17:10 06/27/18 19:40 06/27/18 23:25 Temperature 97.4 F L 98.2 F 97.7 F Pulse Rate 71 64 66 Respiratory Rate 20 17 16 Blood Pressure 195/90 H 194/86 H 203/89 H Pulse Oximetry 95 96 97 06/28/18 04:00 Temperature 97.9 F Pulse Rate 71 Respiratory Rate 19 Blood Pressure 216/87 H Pulse Oximetry 97 Intake & Output 06/27/18 06/28/18 06/28/18 18:59 06:59 18:59 Intake Total 5 / 5 720 / 720 Balance 5 / 5 720 / 720 Weight 76.2 kg Intake: Oral 5 / 5 720 / 720 Other: # Voids 3 Date of Last Bowel Movement 06/26/18 06/28/18 # Bowel Movements 1 Narrative: awake alert vff face sym nl speech 5/5 bue and ble Objective Laboratory Results - last 24 hr 06/27/18 06/27/18 06/27/18 06:15 06:54 08:01 WBC RBC Hgb POC Hgb (Calc) Hct POC Hct MCV MCH MCHC RDW Plt Count MPV PT INR APTT Fibrinogen POC Sodium Sodium POC Potassium Potassium POC Chloride Chloride Carbon Dioxide Anion Gap POC BUN BUN Creatinine POC Creatinine Estimated GFR POC Glucose 151 H Random Glucose Hemoglobin A1c 6.4 H Calcium Total Creatine Kinase Troponin I ASIF Screen Pos H RPR Nonreactive Blood Type Antibody Screen 10/06/27/18 06/27/18 12:39 13:37 17:07 WBC RBC Hgb POC Hgb (Calc) Hct POC Hct MCV MCH MCHC RDW Plt Count MPV PT INR APTT 62.5 H Fibrinogen POC Sodium Sodium POC Potassium Potassium POC Chloride Chloride Carbon Dioxide Anion Gap POC BUN BUN Creatinine POC Creatinine Estimated GFR POC Glucose 131 H 126 H Random Glucose Hemoglobin A1c Calcium Total Creatine Kinase Troponin I ASIF Screen RPR Blood Type Antibody Screen 06/27/18 06/27/18 06/27/18 18:17 18:17 18:17 WBC 7.8 RBC 3.72 L Hgb 12.4 POC Hgb (Calc) Hct 36.1 POC Hct MCV 97.1 MCH 33.4 MCHC 34.4 RDW 15.2 Plt Count 219 MPV 8.2 PT 10.2 INR 1.0 APTT 46.0 H D Fibrinogen 375 POC Sodium Sodium POC Potassium Potassium POC Chloride Chloride Carbon Dioxide Anion Gap POC BUN BUN Creatinine POC Creatinine Estimated GFR POC Glucose Random Glucose Hemoglobin A1c Calcium Total Creatine Kinase Troponin I ASIF Screen RPR Blood Type O Positive Antibody Screen Negative 06/27/18 06/28/18 06/28/18 18:17 06:17 06:17 WBC 6.8 RBC 3.77 L Hgb 12.5 POC Hgb (Calc) 12.6 Hct 36.8 POC Hct 37.0 MCV 97.6 MCH 33.3 MCHC 34.1 RDW 15.2 Plt Count 199 MPV 8.7 PT INR APTT 62.9 H D Fibrinogen POC Sodium 138 Sodium 138 POC Potassium 3.7 Potassium 3.7 POC Chloride 101 L Chloride 105 Carbon Dioxide 25.3 Anion Gap 8 POC BUN 4 L BUN 6 L Creatinine 0.58 POC Creatinine 0.5 L Estimated GFR Greater than 89 POC Glucose 119 H Random Glucose 116 H Hemoglobin A1c Calcium 8.0 L Total Creatine Kinase 45 Troponin I Less than 0.02 L ASIF Screen RPR Blood Type Antibody Screen Review/Management - Review/Management Plan: imp mri shows acute left cbllr cva and mult left mca cva cw cardioembolic episode on iv hep i dced plavix and asa needs coumadin started by med team unless vascular wants to intervene cta probable left large clot left ica vascular on case ct chest and neck pend ? CA? and hypercoag from that> trop neg fu echo and holter 06/28/18 she had 30 min episode of r hand numbness yest i reviewed the mri compared from last noc to other day and no new cva the occipital parietal area has progressed a little probably within its natural course she may have thrown a little piece of that clot up and i will dw vascular echo pend she andhusband refusing ct of chest and neck on heparin inr today pend onc suspects CA ok to keep bp 160-180/
[2018-06-28] MEDS: Levothyroxine 112 MCG Tablet PO SCH (07:59)
--- NOTE | 2018-06-28 09:50 | P.CONCA ---
History of Present Illness Primary Care Provider: PROVIDER NON STAFF Chief Complaint: Left carotid thrombus PMFSH - History History Provided By: Patient - Medical History Medical History: Medical History (Last Reviewed 07/02/18 @ 14:44 by Mukesh Valverde MD) Asthma Diabetes HTN (hypertension) Stroke Thyroid cancer - Surgical History Surgical History: Surgical History (Last Reviewed 07/02/18 @ 14:45 by Mukesh Valverde MD) H/O laparoscopy History of back surgery History of lung biopsy History of tonsillectomy Hx of breast biopsy Hx of thyroidectomy - Family History Family History: Family History (Last Reviewed 07/02/18 @ 14:45 by Mukesh Valverde MD) Mother Heart disease Mother Lung cancer - Tobacco History Second Hand Smoke Exposure: No Tobacco Use In Past 30 Days: Yes Smoking Status: Light tobacco smoker Tobacco Type: Cigarettes - Alcohol History How Often Do You Have a Drink Containing Alcohol: 2 to 3 times a week - Substance Use History Substance History: No History of Abuse - Travel History Recent Travel in the [place] Within the Last 8 Weeks: No Recent Travel Out of the Country Within the Last 8 Weeks: No - Immunization History Tetanus Immunization: >5 Years Tetanus Immunization Year if Known: 2012 Hx Influenza Vaccine This Season: Yes Medications and Allergies Active Medications: Active Medications Acetaminophen (Tylenol) 650 mg PO Q4H PRN PRN Reason: Headache, fever, pain 1-4 Last Admin: 06/27/18 12:45 Dose: 650 mg Albuterol (Duoneb Neb (Prn)) 1 ampul NEB Q2HR NEB PRN PRN Reason: SHORTNESS OF BREATH/WHEEZING Atorvastatin Calcium (Lipitor) 10 mg PO HS [facility] Last Admin: 06/27/18 21:39 Dose: Not Given Dextrose (D50w Vial) 50 ml IV.PUSH UNSCH PRN PRN Reason: PER HYPOGLYCEMIA PROTOCOL Enalaprilat (Vasotec Inj) 1.25 mg IV.PUSH Q4H PRN PRN Reason: For SBP > 220 or DBP > 120 Enoxaparin Sodium (Lovenox Inj) 70 mg SQ Q12HR [facility] Glucagon (Glucagon Inj) 1 mg OTHER UNSCH PRN PRN Reason: for Hypoglycemia Protocol Heparin Sodium/Dextrose (Heparin/D5w 25,000 U/250 Ml) 25,000 unit in 250 mls @ 9 mls/hr IV.CONT TITRATE [facility]; Protocol Sodium Chloride (Ns Inj) 1,000 mls @ 70 mls/hr IV.CONT .[id number] [facility] Last Admin: 06/28/18 05:28 Dose: 70 mls/hr Insulin Aspart (Novolog Insulin Correctional Sugar Inj) 0 unit SQ ACHS [facility]; Protocol Last Admin: 06/28/18 07:58 Dose: Not Given Levothyroxine Sodium (Synthroid) 112 mcg PO DAILY@0600 [facility] Last Admin: 06/28/18 07:59 Dose: Not Given Metoprolol Succinate (Toprol Xl) 100 mg PO BID [facility] Last Admin: 06/28/18 09:30 Dose: 100 mg Patient Own Medication: Unithroid 112 Mcg Tab 0 each PO DAILY@0600 [facility] Last Admin: 06/28/18 05:25 Dose: 1 each Pharmacy Profile Note (Coumadin Consult Pharmacy) 1 each OTHER UNSCH PRN PRN Reason: PHARMACY DOCUMENTATION Sodium Chloride (Ns Flush) 2 ml IV.FLUSH BID [facility] Last Admin: 06/27/18 21:41 Dose: Not Given Sodium Chloride (Ns Flush) 2 ml IV.FLUSH PRN PRN PRN Reason: FLUSH AFTER USING IV ACCESS Warfarin Sodium (Coumadin) 4 mg PO DAILY@1600 [facility] Allergies Allergy/AdvReac Type Severity Reaction Status Date / Time losartan Allergy Swelling Verified 07/01/18 16:23 of Lip/Tongue/Throat Sulfa (Sulfonamide Allergy Hives Verified 07/01/18 16:23 Antibiotics) ciprofloxacin [From Cipro] AdvReac Tingling Verified 07/01/18 16:23 levofloxacin AdvReac Joint Pain Verified 07/01/18 16:23 prednisone AdvReac Joint Pain Verified 07/01/18 16:23 Rblojbn-Mbx-Hod Reductase AdvReac Joint Pain Verified 07/01/18 16:23 Inhibitor Home Medications Medication Instructions Recorded Confirmed Type albuterol sulfate 0.63 mg INHALATION Q4-6H PRN 06/23/18 07/01/18 History fluticasone [Flonase Allergy 1 spray INTRANASAL DAILY 06/23/18 07/01/18 History Relief] levothyroxine [Unithroid] 112 mcg PO DAILY 06/23/18 07/01/18 History psyllium husk [Metamucil] 0.52 g PO DAILY 06/23/18 07/01/18 History Bifidobacterium infantis [Align] 4 mg PO DAILY 06/26/18 07/01/18 History fluticasone-vilanterol [Breo 1 inh INHALATION DAILY 06/26/18 07/01/18 History Ellipta] Exam Vital signs: Vital Signs 06/27/18 12:00 06/27/18 16:00 06/27/18 17:10 Temperature 98 F 97.4 F L 97.4 F L Pulse Rate 71 71 71 Respiratory Rate 20 20 20 Blood Pressure 185/83 H 195/90 H 195/90 H Pulse Oximetry 97 95 95 06/27/18 19:40 06/27/18 23:25 06/28/18 04:00 Temperature 98.2 F 97.7 F 97.9 F Pulse Rate 64 66 71 Respiratory Rate 17 16 19 Blood Pressure 194/86 H 203/89 H 216/87 H Pulse Oximetry 96 97 97 Intake & Output 06/27/18 06/28/18 06/28/18 18:59 06:59 18:59 Intake Total 720 / 720 Balance 720 / 720 Weight 76.2 kg Intake: Oral 720 / 720 Other: # Voids 3 Date of Last Bowel Movement 06/26/18 06/28/18 06/28/18 # Bowel Movements 1 Results 06/28/18 06:17 06/27/18 18:17 Cardiac Enzymes 06/26/18 06/27/18 Range/Units 17:30 18:17 Troponin I Less than 0.02 L Less than 0.02 L (0.02-0.05) ng/mL Coagulation 06/26/18 06/27/18 06/27/18 Range/Units 17:30 00:05 06:54 PT 10.3 (9.8-11.6) sec APTT 27.2 37.8 H D 62.4 H D (24.3-30.1) sec 06/27/18 06/27/18 06/28/18 Range/Units 13:37 18:17 06:17 PT 10.2 (9.8-11.6) sec APTT 62.5 H 46.0 H D 62.9 H D (24.3-30.1) sec Lipids 06/27/18 Range/Units 06:15 Triglycerides 143 (42-150) mg/dL Cholesterol 190 (120-200) mg/dL HDL Cholesterol 42.7 (40.0-60.0) mg/dL Cholesterol/HDL Ratio 4.44 Ratio CBC 06/26/18 06/26/18 06/27/18 Range/Units 17:30 18:30 06:54 WBC 8.9 9.0 7.2 (4.0-11.0) th/mm3 RBC 3.80 L 3.98 L 3.83 L (4.00-5.30) mil/mm3 Hgb 12.2 12.9 12.7 (11.6-15.3) gm/dL Hct 36.7 38.7 37.8 (35.0-46.0) % Plt Count 229 236 209 (150-450) th/mm3 Neut # (Auto) 5.9 (1.8-7.7) th/mm3 Lymph # (Auto) 1.9 (1.0-4.8) th/mm3 [place] # (Auto) 0.8 (0.0-0.9) th/mm3 Eos # (Auto) 0.1 (0.0-0.4) th/mm3 Baso # (Auto) 0.2 (0.0-0.2) th/mm3 06/27/18 06/28/18 Range/Units 18:17 06:17 WBC 7.8 6.8 (4.0-11.0) th/mm3 RBC 3.72 L 3.77 L (4.00-5.30) mil/mm3 Hgb 12.4 12.5 (11.6-15.3) gm/dL Hct 36.1 36.8 (35.0-46.0) % Plt Count 219 199 (150-450) th/mm3 Neut # (Auto) (1.8-7.7) th/mm3 Lymph # (Auto) (1.0-4.8) th/mm3 [place] # (Auto) (0.0-0.9) th/mm3 Eos # (Auto) (0.0-0.4) th/mm3 Baso # (Auto) (0.0-0.2) th/mm3 Comprehensive Metabolic Panel 06/26/18 06/27/18 Range/Units 17:30 18:17 Sodium 134 L 138 (136-145) meq/L Potassium 3.8 3.7 (3.5-5.1) meq/L Chloride 101 105 (98-107) meq/L Carbon Dioxide 26.0 25.3 (21.0-32.0) meq/L BUN 13 6 L (7-18) mg/dL Creatinine 0.71 0.58 (0.50-1.00) mg/dL Calcium 7.9 L 8.0 L (8.5-10.1) mg/dL Intake and Output 06/27/18 06/28/18 06/28/18 22:59 06:59 14:59 Intake Total 720 / 720 Balance 720 / 720 Intake: Oral 720 / 720 Other: # Voids 3 Date of Last Bowel Movement 06/26/18 06/28/18 06/28/18 # Bowel Movements 1 Weight 76.2 kg - Imaging and Cardiology Imaging: Impressions Head CT 06/26/18 17:08 CONCLUSION: 1. Negative CT Head non contrast. . Dr. Motley relayed results to Dr. Lewis at 1730 hours Head CTA 06/26/18 17:11 CONCLUSION: 1. Negative CTA head. There is some moderate plaque at the left carotid bifurcation. CTA neck pending. Neck CTA 06/26/18 17:11 CONCLUSION: 1. 2.9 cm mass in the left lung and 1.9 cm mass in the left vallecula both suspicious for neoplasm. 2. Small calcified plaque with intraluminal thrombus or noncalcified plaque in the proximal left internal carotid artery extending over a length of about 2 cm , likely placing the patient at high risk for stroke. 3. Findings called to Dr. Bennett Huerta at the time of dictation. Head MRI 06/26/18 20:28 CONCLUSION: 1. Multiple small infarcts in the posterior fossa and left hemisphere as above , likely embolic in phenomenon. No hemorrhage or associated mass effect. No abnormal enhancing lesions. Head CT 06/27/18 17:20 CONCLUSION: 1. Subtle low density now noted in the left parietal-occipital lobes in the area of restricted diffusion and known infarction seen on yesterday's MRI. 2. No acute hemorrhage or mass effect. Report was called by [ Schiering to Dr. Campuzano at 1743 hours.] Head MRI 06/27/18 18:39 CONCLUSION: 1. Slight increase in size of left occipital lobe infarct since June 26. Subcentimeter infarcts in the left cerebellum and posterior left frontal lobe and left parietal lobe are stable. Assessment and Plan - Plan Concern for Cardioembolic CVA -will plan on TTE with bubble study -not a good candidate for a DON given ENT mass - TTE shows an intra-atrial septal communication; however, there is no right to left shunt even by valvsalva. Given her age this would likely not be the cause of her CVA. Would investigate for atrial fibrillation via holter monitoring.
--- NOTE | 2018-06-28 10:51 | P.PNVS ---
Subjective Subjective/Hospital Course: had episode of R hand numbness and mild weakness overnight Stroke call was called Doing well this morning and symptoms resolved Objective Vital Signs / I&O: Vital Signs 06/27/18 12:00 06/27/18 16:00 06/27/18 17:10 Temperature 98 F 97.4 F L 97.4 F L Pulse Rate 71 71 71 Respiratory Rate 20 20 20 Blood Pressure 185/83 H 195/90 H 195/90 H Pulse Oximetry 97 95 95 06/27/18 19:40 06/27/18 23:25 06/28/18 04:00 Temperature 98.2 F 97.7 F 97.9 F Pulse Rate 64 66 71 Respiratory Rate 17 16 19 Blood Pressure 194/86 H 203/89 H 216/87 H Pulse Oximetry 96 97 97 Intake & Output 06/27/18 06/28/18 06/28/18 18:59 06:59 18:59 Intake Total 5 / 720 / 720 Balance 5 / 5 720 / 720 Weight 76.2 kg Intake: Oral 5 / 720 / 720 Other: # Voids 3 Date of Last Bowel Movement 06/26/18 06/28/18 06/28/18 # Bowel Movements 1 Physical Exam: motor and sensory intact BL No new deficits identified on physical exam CN II-XII intact Laboratory Results - last 24 hr 06/27/18 06/27/18 06/27/18 06:15 06:54 12:39 WBC RBC Hgb POC Hgb (Calc) Hct POC Hct MCV MCH MCHC RDW Plt Count MPV PT INR APTT Fibrinogen POC Sodium Sodium POC Potassium Potassium POC Chloride Chloride Carbon Dioxide Anion Gap POC BUN BUN Creatinine POC Creatinine Estimated GFR POC Glucose 131 H Random Glucose Hemoglobin A1c 6.4 H Calcium Total Creatine Kinase Troponin I ASIF Screen Pos H RPR Nonreactive Blood Type Antibody Screen 06/27/18 06/27/18 06/27/18 13:37 17:07 18:17 WBC RBC Hgb POC Hgb (Calc) Hct POC Hct MCV MCH MCHC RDW Plt Count MPV PT 10.2 INR 1.0 APTT 62.5 H 46.0 H D Fibrinogen 375 POC Sodium Sodium POC Potassium Potassium POC Chloride Chloride Carbon Dioxide Anion Gap POC BUN BUN Creatinine POC Creatinine Estimated GFR POC Glucose 126 H Random Glucose Hemoglobin A1c Calcium Total Creatine Kinase Troponin I ASIF Screen RPR Blood Type Antibody Screen 1006/27/18 06/27/18 18:17 18:17 18:17 WBC 7.8 RBC 3.72 L Hgb 12.4 POC Hgb (Calc) 12.6 Hct 36.1 POC Hct 37.0 MCV 97.1 MCH 33.4 MCHC 34.4 RDW 15.2 Plt Count 219 MPV 8.2 PT INR APTT Fibrinogen POC Sodium 138 Sodium 138 POC Potassium 3.7 Potassium 3.7 POC Chloride 101 L Chloride 105 Carbon Dioxide 25.3 Anion Gap 8 POC BUN 4 L BUN 6 L Creatinine 0.58 POC Creatinine 0.5 L Estimated GFR Greater than 89 POC Glucose 119 H Random Glucose 116 H Hemoglobin A1c Calcium 8.0 L Total Creatine Kinase 45 Troponin I Less than 0.02 L ASIF Screen RPR Blood Type O Positive Antibody Screen Negative 06/28/18 06/28/18 06/28/18 06:17 06:17 07:55 WBC 6.8 RBC 3.77 L Hgb 12.5 POC Hgb (Calc) Hct 36.8 POC Hct MCV 97.6 MCH 33.3 MCHC 34.1 RDW 15.2 Plt Count 199 MPV 8.7 PT INR APTT 62.9 H D Fibrinogen POC Sodium Sodium POC Potassium Potassium POC Chloride Chloride Carbon Dioxide Anion Gap POC BUN BUN Creatinine POC Creatinine Estimated GFR POC Glucose 128 H Random Glucose Hemoglobin A1c Calcium Total Creatine Kinase Troponin I ASIF Screen RPR Blood Type Antibody Screen Impressions Head CT 06/26/18 17:08 CONCLUSION: 1. Negative CT Head non contrast. . Dr. Motley relayed results to Dr. Lewis at 1730 hours Head CTA 06/26/18 17:11 CONCLUSION: 1. Negative CTA head. There is some moderate plaque at the left carotid bifurcation. CTA neck pending. Neck CTA 06/26/18 17:11 CONCLUSION: 1. 2.9 cm mass in the left lung and 1.9 cm mass in the left vallecula both suspicious for neoplasm. 2. Small calcified plaque with intraluminal thrombus or noncalcified plaque in the proximal left internal carotid artery extending over a length of about 2 cm , likely placing the patient at high risk for stroke. 3. Findings called to Dr. Bennett Huerta at the time of dictation. Head MRI 06/26/18 20:28 CONCLUSION: 1. Multiple small infarcts in the posterior fossa and left hemisphere as above , likely embolic in phenomenon. No hemorrhage or associated mass effect. No abnormal enhancing lesions. Head CT 06/27/18 17:20 CONCLUSION: 1. Subtle low density now noted in the left parietal-occipital lobes in the area of restricted diffusion and known infarction seen on yesterday's MRI. 2. No acute hemorrhage or mass effect. Report was called by [ Nikitaing to Dr. Campuzano at 1743 hours.] Head MRI 06/27/18 18:39 CONCLUSION: 1. Slight increase in size of left occipital lobe infarct since June 26. Subcentimeter infarcts in the left cerebellum and posterior left frontal lobe and left parietal lobe are stable. Assessment and Plan - Plan Acute left hemispheric stroke of a cardioembolic etiology. Acute left internal carotid artery thrombus. Stroke call overnight. No new stroke identified on MRI Symptoms completely resolved I don't believe she has crescendo TIAs I had a long discussion with the patient and her regarding L ICA thrombectomy and CEA. I explained to them that the risk of perioperative stroke with surgery is very high. I also explained to them that observation is carrying a risk of recurrent strokes as well. The patient expressed her wishes to continue with observation and anticoagulation. Will continue to observe and proceed with cardioembolic workup
--- NOTE | 2018-06-28 15:40 | ECG ---
Date Performed: 06/27/2018 Time Performed: 17:55:15 PTAGE: 67 years EKG: Sinus rhythm consider ectopic atrial rhythm pacing. Artifact limiting accuracy of interpretation. NORMAL ECG PREVIOUS TRACING : 06/26/2018 17.48 DOCTOR: Azar Marie Interpretating Date/Time 06/28/2018 15:40:23
--- NOTE | 2018-06-28 16:19 | P.PNONC ---
Subjective Interval history: Patient resting, she has no complaints at this time. Continues on heparin drip, denies bleeding. She is aware that she is currently not stable enough for a biopsy. Objective Vital Signs/Intake & Output: Vital Signs 06/27/18 17:10 06/27/18 19:40 06/27/18 23:25 Temperature 97.4 F L 98.2 F 97.7 F Pulse Rate 71 64 66 Respiratory Rate 20 17 16 Blood Pressure 195/90 H 194/86 H 203/89 H Pulse Oximetry 95 96 97 06/28/18 04:00 06/28/18 08:30 06/28/18 12:00 Temperature 97.9 F 98.0 F 97.4 F L Pulse Rate 71 69 66 Respiratory Rate 19 20 20 Blood Pressure 216/87 H 147/83 H 220/90 H Pulse Oximetry 97 97 97 06/28/18 13:39 Temperature Pulse Rate Respiratory Rate Blood Pressure 191/82 H Pulse Oximetry Intake & Output 06/27/18 06/28/18 06/28/18 18:59 06:59 18:59 Intake Total 5 / 5 720 / 720 Balance 5 / 5 720 / 720 Weight 76.2 kg Intake: Oral 5 / 5 720 / 720 Other: # Voids 3 Date of Last Bowel Movement 06/26/18 06/28/18 06/28/18 # Bowel Movements 1 Result Diagrams: 06/28/18 06:17 06/27/18 18:17 Laboratory Results: Laboratory Results - last 24 hr 06/27/18 06/27/18 06/27/18 06:54 17:07 18:17 WBC RBC Hgb POC Hgb (Calc) Hct POC Hct MCV MCH MCHC RDW Plt Count MPV PT 10.2 INR 1.0 APTT 46.0 H D Fibrinogen 375 POC Sodium Sodium POC Potassium Potassium POC Chloride Chloride Carbon Dioxide Anion Gap POC BUN BUN Creatinine POC Creatinine Estimated GFR POC Glucose 126 H Random Glucose Hemoglobin A1c 6.4 H Calcium Total Creatine Kinase Troponin I Blood Type Antibody Screen 06/27/18 06/27/18 06/27/18 18:17 18:17 18:17 WBC 7.8 RBC 3.72 L Hgb 12.4 POC Hgb (Calc) 12.6 Hct 36.1 POC Hct 37.0 MCV 97.1 MCH 33.4 MCHC 34.4 RDW 15.2 Plt Count 219 MPV 8.2 PT INR APTT Fibrinogen POC Sodium 138 Sodium 138 POC Potassium 3.7 Potassium 3.7 POC Chloride 101 L Chloride 105 Carbon Dioxide 25.3 Anion Gap 8 POC BUN 4 L BUN 6 L Creatinine 0.58 POC Creatinine 0.5 L Estimated GFR Greater than 89 POC Glucose 119 H Random Glucose 116 H Hemoglobin A1c Calcium 8.0 L Total Creatine Kinase 45 Troponin I Less than 0.02 L Blood Type O Positive Antibody Screen Negative 06/28/18 06/28/18 06/28/18 06:17 06:17 07:55 WBC 6.8 RBC 3.77 L Hgb 12.5 POC Hgb (Calc) Hct 36.8 POC Hct MCV 97.6 MCH 33.3 MCHC 34.1 RDW 15.2 Plt Count 199 MPV 8.7 PT INR APTT 62.9 H D Fibrinogen POC Sodium Sodium POC Potassium Potassium POC Chloride Chloride Carbon Dioxide Anion Gap POC BUN BUN Creatinine POC Creatinine Estimated GFR POC Glucose 128 H Random Glucose Hemoglobin A1c Calcium Total Creatine Kinase Troponin I Blood Type Antibody Screen 06/28/18 11:30 WBC RBC Hgb POC Hgb (Calc) Hct POC Hct MCV MCH MCHC RDW Plt Count MPV PT INR APTT Fibrinogen POC Sodium Sodium POC Potassium Potassium POC Chloride Chloride Carbon Dioxide Anion Gap POC BUN BUN Creatinine POC Creatinine Estimated GFR POC Glucose 133 H Random Glucose Hemoglobin A1c Calcium Total Creatine Kinase Troponin I Blood Type Antibody Screen Imaging Studies: Impressions Head CT 06/27/18 17:20 CONCLUSION: 1. Subtle low density now noted in the left parietal-occipital lobes in the area of restricted diffusion and known infarction seen on yesterday's MRI. 2. No acute hemorrhage or mass effect. Report was called by [ Edgar to Dr. Campuzano at 1743 hours.] Head MRI 06/27/18 18:39 CONCLUSION: 1. Slight increase in size of left occipital lobe infarct since June 26. Subcentimeter infarcts in the left cerebellum and posterior left frontal lobe and left parietal lobe are stable. Medications: Active Medications Generic Name Dose Route Start Last Admin Trade Name Freq PRN Reason Stop Dose Admin Acetaminophen 650 mg 06/27/18 11:02 06/27/18 12:45 Tylenol PO 650 mg Q4H PRN Administration Headache, fever, pain 1-4 Atorvastatin Calcium 10 mg 06/26/18 21:00 06/27/18 21:39 Lipitor PO Not Given HS [facility] Enalaprilat 1.25 mg 06/26/18 18:10 06/28/18 12:20 Vasotec Inj IV.PUSH 1.25 mg Q4H PRN Administration For SBP > 220 or DBP > 120 Sodium Chloride 1,000 mls @ 70 mls/hr 06/27/18 18:00 06/28/18 10:00 Ns Inj IV.CONT Not Given .[id number] [facility] Insulin Aspart 0 unit 06/26/18 21:00 06/28/18 11:31 Novolog Insulin Correctional Sugar Inj SQ Not Given ACHS [facility] Protocol Levothyroxine Sodium 112 mcg 06/28/18 07:30 06/28/18 07:59 Synthroid PO Not Given DAILY@0600 [facility] Metoprolol Succinate 100 mg 06/26/18 21:30 06/28/18 09:30 Toprol Xl PO 100 mg BID SAM Administration Patient Own 0 each 06/28/18 06:00 06/28/18 05:25 Medication: PO 1 each Unithroid 112 Mcg DAILY@0600 [facility] Administration Tab Sodium Chloride 2 ml 06/26/18 21:00 06/28/18 10:01 Ns Flush IV.FLUSH Not Given BID [facility] Objective Remarks: GENERAL: Well-nourished, well-developed female patient, in no acute distress. SKIN: Warm and dry. HEAD: Normocephalic. EYES: No scleral icterus. No injection or drainage. NECK: Supple, trachea midline. CARDIOVASCULAR: regular rate and rhythm without murmurs. RESPIRATORY: Posterior breath sounds clear, equal bilaterally. No accessory muscle use. GASTROINTESTINAL: Abdomen soft, non-tender, nondistended. EXTREMITIES: No cyanosis, or edema. MUSCULOSKELETAL: Adequate muscle tone. NEUROLOGICAL: No obvious focal deficit. Awake, alert, and oriented x3. PSYCHIATRIC: Appropriate mood and affect; insight and judgment normal. Assessment/Plan - Plan This is a pleasant 67-year-old female who was admitted to the hospital with right-sided upper extremity weakness. 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 She was not a candidate for TPA and was placed on a heparin drip. Vascular surgery was consulted and she was not a candidate for surgery at that time. CT angiogram of the neck incidentally showed left upper lobe lung mass 2.9 cm and also left vallecula mass. Both are suspicious for malignancy, therefore oncology was consulted. Recommendations: 1. Left upper lobe lung mass and left vallecula mass, both suspicious for malignancy. Patient is currently on a heparin drip status post CVA with left internal carotid artery thrombosis, therefore she is not a candidate for biopsy at this time. Eventual biopsy, once stable from acute CVA and carotid thrombus. 2. Continue to monitor for bleeding. 3. Continue supportive care. - Attending Statement The exam, history, and the medical decision-making described in the above note were completed with the assistance of the mid-level provider. I reviewed and agree with the findings presented. I attest that I had a [id number] encounter with the patient on the same day, and personally performed and documented my assessment and findings in the medical record. Patient denies any new complaint is at bedside Vascular surgery also present in the room No surgery is recommended by vascular surgeon for internal arterial thrombosis he recommends Coumadin instead of DOAC. Management of thrombosis per vascular surgery and primary admitting team. Patient will have CAT scan of the soft tissue neck and chest today she is not a candidate for biopsy at this time Due to acute stroke and internal carotid thrombosis Biopsy would be done as an outpatient. She will also need to see ENT as an outpatient DON is pending.
--- NOTE | 2018-06-28 16:54 | P.PN ---
Subjective Interval history: Follow-up for CVA, left internal carotid artery thrombus. Patient is currently doing well. No new neurological symptoms. No fever, chills. Physical Exam Vital signs: Vital Signs 06/27/18 17:10 06/27/18 19:40 06/27/18 23:25 Temperature 97.4 F L 98.2 F 97.7 F Pulse Rate 71 64 66 Respiratory Rate 20 17 16 Blood Pressure 195/90 H 194/86 H 203/89 H Pulse Oximetry 95 96 97 06/28/18 04:00 06/28/18 08:30 06/28/18 12:00 Temperature 97.9 F 98.0 F 97.4 F L Pulse Rate 71 69 66 Respiratory Rate 19 20 20 Blood Pressure 216/87 H 147/83 H 220/90 H Pulse Oximetry 97 97 97 06/28/18 13:39 06/28/18 16:30 Temperature Pulse Rate Respiratory Rate Blood Pressure 191/82 H 162/78 H Pulse Oximetry Intake & Output 06/27/18 06/28/18 06/28/18 18:59 06:59 18:59 Intake Total 5 / 5 720 / 720 Balance 5 / 5 720 / 720 Weight 76.2 kg Intake: Oral 5 / 5 720 / 720 Other: # Voids 3 Date of Last Bowel Movement 06/26/18 06/28/18 06/28/18 # Bowel Movements 1 Narrative: GENERAL: Alert, NAD. SKIN: Warm and dry. HEAD: Normocephalic. EYES: No scleral icterus. No injection or drainage. NECK: Supple, trachea midline. No JVD or lymphadenopathy. CARDIOVASCULAR: Regular rate and rhythm without murmurs, gallops, or rubs. RESPIRATORY: Breath sounds equal bilaterally. No accessory muscle use. GASTROINTESTINAL: Abdomen soft, non-tender, nondistended. MUSCULOSKELETAL: No cyanosis, or edema. RUE somewhat weaker than LUE. BACK: Nontender without obvious deformity. No CVA tenderness. Results - Labs CBC & Chem 7: 06/28/18 06:17 06/27/18 18:17 Laboratory Results - last 24 hr 06/27/18 06/27/18 06/27/18 06:54 17:07 18:17 WBC RBC Hgb POC Hgb (Calc) Hct POC Hct MCV MCH MCHC RDW Plt Count MPV PT 10.2 INR 1.0 APTT 46.0 H D Fibrinogen 375 POC Sodium Sodium POC Potassium Potassium POC Chloride Chloride Carbon Dioxide Anion Gap POC BUN BUN Creatinine POC Creatinine Estimated GFR POC Glucose 126 H Random Glucose Hemoglobin A1c 6.4 H Calcium Total Creatine Kinase Troponin I Blood Type Antibody Screen 06/27/18 06/27/18 06/27/18 18:17 18:17 18:17 WBC 7.8 RBC 3.72 L Hgb 12.4 POC Hgb (Calc) 12.6 Hct 36.1 POC Hct 37.0 MCV 97.1 MCH 33.4 MCHC 34.4 RDW 15.2 Plt Count 219 MPV 8.2 PT INR APTT Fibrinogen POC Sodium 138 Sodium 138 POC Potassium 3.7 Potassium 3.7 POC Chloride 101 L Chloride 105 Carbon Dioxide 25.3 Anion Gap 8 POC BUN 4 L BUN 6 L Creatinine 0.58 POC Creatinine 0.5 L Estimated GFR Greater than 89 POC Glucose 119 H Random Glucose 116 H Hemoglobin A1c Calcium 8.0 L Total Creatine Kinase 45 Troponin I Less than 0.02 L Blood Type O Positive Antibody Screen Negative 06/28/18 06/28/18 06/28/18 06:17 06:17 07:55 WBC 6.8 RBC 3.77 L Hgb 12.5 POC Hgb (Calc) Hct 36.8 POC Hct MCV 97.6 MCH 33.3 MCHC 34.1 RDW 15.2 Plt Count 199 MPV 8.7 PT INR APTT 62.9 H D Fibrinogen POC Sodium Sodium POC Potassium Potassium POC Chloride Chloride Carbon Dioxide Anion Gap POC BUN BUN Creatinine POC Creatinine Estimated GFR POC Glucose 128 H Random Glucose Hemoglobin A1c Calcium Total Creatine Kinase Troponin I Blood Type Antibody Screen 06/28/18 06/28/18 11:30 16:26 WBC RBC Hgb POC Hgb (Calc) Hct POC Hct MCV MCH MCHC RDW Plt Count MPV PT INR APTT Fibrinogen POC Sodium Sodium POC Potassium Potassium POC Chloride Chloride Carbon Dioxide Anion Gap POC BUN BUN Creatinine POC Creatinine Estimated GFR POC Glucose 133 H 116 H Random Glucose Hemoglobin A1c Calcium Total Creatine Kinase Troponin I Blood Type Antibody Screen - Imaging Impressions Head CT 06/27/18 17:20 CONCLUSION: 1. Subtle low density now noted in the left parietal-occipital lobes in the area of restricted diffusion and known infarction seen on yesterday's MRI. 2. No acute hemorrhage or mass effect. Report was called by [ Nikitaing to Dr. Campuzano at 1743 hours.] Head MRI 06/27/18 18:39 CONCLUSION: 1. Slight increase in size of left occipital lobe infarct since June 26. Subcentimeter infarcts in the left cerebellum and posterior left frontal lobe and left parietal lobe are stable. Assessment and Plan - Plan Ms. Sibley is a pleasant 67-year-old female with a history of hypertension , diabetes, hyperlipidemia, thyroid cancer presented to the ED with complaints of right hand weakness. Workup indicated multiple infarcts in the posterior fossa and left hemisphere. Neurology, vascular surgery were consulted. Acute multiple embolic stroke Internal carotid artery thrombus -Neurology, Vascular surgery following -Patient is currently on Heparin drip. -Cardiology consulted. We will obtain TTE first. Left lung mass Vallecular mass -Oncology consulted -CT chest and CT neck soft tissue ordered. -Patient may need an ENT eval in the outpatient setting for Vallecular mass. Hyperlipidemia Hypothyroidism -Continue Lipitor, Levothyroxine Full code. Heparin drip. Discussed with Vascular surgery and Cardiology.
--- NOTE | 2018-06-28 19:09 | CT ---
EXAM DATE: 06/28/2018 6:37 PM EDT AGE/SEX: 67 years / Female INDICATIONS: Evaluate for mass. CLINICAL DATA: This is the patient's initial encounter. Patient reports that signs and symptoms have been present for 1 day and indicates a pain score of 3/10. MEDICAL/SURGICAL HISTORY: Diabetes. Hypertension. Carcinoma, thyroid. Breast cancer. Thyroidect yolette. Tonsillectomy. RADIATION DOSE: 14.26 CTDI (mGy) COMPARISON: HPO, CTA NECK W CONTRAST W 3D, 06/26/2018. . TECHNIQUE: Helical acquisition was performed using a multirow detector CT scanner during the adminis tration of 50 ml Omnipaque 350 (iohexol) nonionic water-soluble contrast as a single exam dose. Usi ng automated exposure control and adjustment of the mA and/or kV according to patient size, radiation dose was kept as low as reasonably achievable to obtain optimal diagnostic quality images. DICOM fo rmat image data is available electronically for review and comparison. FINDINGS: Nasopharynx: The nasopharyngeal airway has a normal configuration. No mucosal thickening or mass is seen. Oropharynx: The intrinsic muscles of the tongue are symmetric. The tonsillar pillars are intact. T he prevertebral soft tissues are not thickened. Larynx: There is a soft tissue mass identified eccentric to the left in the preepiglottic space and abutting the epiglottis measuring 1.5 x 1.7 cm in AP transverse dimension on axial image 44. The left piriform sinus is effaced. Tiny suggest vocal cord paralysis on the right. Parapharyngeal: The parapharyngeal space is intact. Salivary Glands: The parotid and submandibular glands are intact. Lymph Nodes: No enlarged or necrotic-appearing nodes. Thyroid: Homogeneous enhancement without evidence of nodule. Bones: Unremarkable. Post Contrast: No abnormal areas of enhancement seen. CONCLUSION: 1. Left preepiglottic space soft tissue mass identified and probable vocal cord paralysis. Electronically signed by: Sony Fernandez MD 06/28/2018 7:08 PM EDT
--- NOTE | 2018-06-28 19:16 | CT ---
EXAM DATE: 06/28/2018 6:36 PM EDT AGE/SEX: 67 years / Female INDICATIONS: Evaluate for mass. CLINICAL DATA: This is the patient's initial encounter. Patient reports that signs and symptoms have been present for 1 day and indicates a pain score of 3/10. MEDICAL/SURGICAL HISTORY: Hypertension. Diabetes. Carcinoma, thyroid. Breast cancer. Thyroidect yolette. Tonsillectomy. RADIATION DOSE: 13.87 CTDI (mGy) COMPARISON: No prior exams available for comparison. TECHNIQUE: Multiple contiguous axial images were obtained through the chest during bolus infusion of 45 ml Omnipaque 350 (iohexol) nonionic water-soluble contrast as a single exam dose. Images were obtained in suspended respiration using multiple row detector helical technique. Using automated exp osure control and adjustment of the mA and/or kV according to patient size, radiation dose was kept a s low as reasonably achievable to obtain optimal diagnostic quality images. DICOM format image data is available electronically for review and comparison. FINDINGS: There is a lobulated 3.3 x 2.3 cm mass in the left upper lobe anteriorly. There is a additional 4 mm nodule in the left upper lobe on image #32. Other tiny 3 mm or less parenchymal opacities probably ar e postinflammatory. There is no pleural or pericardial effusion. Mild coronary calcifications. There is no hilar, mediastinal or axillary adenopathy. CONCLUSION: 1. 3.3 cm lobulated mass in left upper lobe with additional 4 mm nodule also in the left upper lobe. Differential diagnosis includes metastatic disease given the history of thyroid and breast carcinoma . Dominant mass could also represent primary lung malignancy. No adenopathy. Larger lung mass would be amenable to CT-guided biopsy. Electronically signed by: Maverick Colunga MD 06/28/2018 7:15 PM EDT
[2018-06-28 23:52] LABS: Homocysteine (Cardiovascular) 9.6 umol/L (<10.4)
[2018-06-29] MEDS: LEVOTHYROXINE 112 MCG PO SCH (05:37)
[2018-06-29] MEDS: Levothyroxine 112 MCG Tablet PO SCH (05:38)
[2018-06-29] MEDS: Acetaminophen 325 MG Tablet PO PRN (06:27)
--- NOTE | 2018-06-29 07:35 | P.PNNEU ---
Subjective Subjective Comments: sr Active Medications: Active Medications Acetaminophen (Tylenol) 650 mg PO Q4H PRN PRN Reason: Headache, fever, pain 1-4 Last Admin: 06/29/18 06:27 Dose: 650 mg Albuterol (Duoneb Neb (Prn)) 1 ampul NEB Q2HR NEB PRN PRN Reason: SHORTNESS OF BREATH/WHEEZING Atorvastatin Calcium (Lipitor) 10 mg PO HS [facility] Last Admin: 06/28/18 20:40 Dose: Not Given Dextrose (D50w Vial) 50 ml IV.PUSH UNSCH PRN PRN Reason: PER HYPOGLYCEMIA PROTOCOL Enalaprilat (Vasotec Inj) 1.25 mg IV.PUSH Q4H PRN PRN Reason: For SBP > 220 or DBP > 120 Last Admin: 06/28/18 12:20 Dose: 1.25 mg Enoxaparin Sodium (Lovenox Inj) 70 mg SQ Q12HR SAM Glucagon (Glucagon Inj) 1 mg OTHER UNSCH PRN PRN Reason: for Hypoglycemia Protocol Heparin Sodium/Dextrose (Heparin/D5w 25,000 U/250 Ml) 25,000 unit in 250 mls @ 9 mls/hr IV.CONT TITRATE SAM; Protocol Last Titration: 06/29/18 05:38 Dose: 1,000 units/hr, 10 mls/hr Sodium Chloride (Ns Inj) 1,000 mls @ 70 mls/hr IV.CONT .[id number] [facility] Last Infusion: 06/29/18 05:38 Dose: 70 mls/hr Insulin Aspart (Novolog Insulin Correctional Sugar Inj) 0 unit SQ ACHS [facility]; Protocol Last Admin: 06/28/18 20:40 Dose: Not Given Levothyroxine Sodium (Synthroid) 112 mcg PO DAILY@0600 [facility] Last Admin: 06/29/18 05:38 Dose: Not Given Metoprolol Succinate (Toprol Xl) 100 mg PO BID [facility] Last Admin: 06/28/18 20:41 Dose: 100 mg Patient Own Medication: Unithroid 112 Mcg Tab 0 each PO DAILY@0600 [facility] Last Admin: 06/29/18 05:37 Dose: 1 each Pharmacy Profile Note (Coumadin Consult Pharmacy) 1 each OTHER UNSCH PRN PRN Reason: PHARMACY DOCUMENTATION Sodium Chloride (Ns Flush) 2 ml IV.FLUSH BID [facility] Last Admin: 06/28/18 20:41 Dose: Not Given Sodium Chloride (Ns Flush) 2 ml IV.FLUSH PRN PRN PRN Reason: FLUSH AFTER USING IV ACCESS Warfarin Sodium (Coumadin) 4 mg PO DAILY@1600 [facility] Allergies/Adverse Reactions: Allergies Allergy/AdvReac Type Severity Reaction Status Date / Time losartan Allergy Swelling Verified 06/26/18 10:34 of Lip/Tongue/Throat Sulfa (Sulfonamide Allergy Hives Verified 06/26/18 10:34 Antibiotics) ciprofloxacin [From Cipro] AdvReac Tingling Verified 06/26/18 10:34 levofloxacin AdvReac Joint Pain Verified 06/26/18 10:34 prednisone AdvReac Joint Pain Verified 06/26/18 10:34 Mohnxlu-Crb-Jya Reductase AdvReac Joint Pain Verified 06/26/18 10:34 Inhibitor Physical Exam Vital signs: Vital Signs 06/28/18 08:30 06/28/18 12:00 06/28/18 13:39 Temperature 98.0 F 97.4 F L Pulse Rate 69 66 Respiratory Rate 20 20 Blood Pressure 147/83 H 220/90 H 191/82 H Pulse Oximetry 97 97 06/28/18 16:00 06/28/18 16:30 06/28/18 19:22 Temperature 97.5 F L 97.6 F Pulse Rate 67 75 Respiratory Rate 20 18 Blood Pressure 172/80 H 162/78 H 180/80 H Pulse Oximetry 97 97 06/28/18 20:23 06/29/18 00:00 06/29/18 00:03 Temperature 97.4 F L Pulse Rate 66 74 75 Respiratory Rate 18 Blood Pressure 190/80 H Pulse Oximetry 95 06/29/18 03:42 06/29/18 04:00 Temperature 97.8 F Pulse Rate 75 59 L Respiratory Rate 18 Blood Pressure 180/90 H Pulse Oximetry 96 Intake & Output 06/28/18 06/29/18 06/29/18 18:59 06:59 18:59 Intake Total 240 / 240 2881 / 2881 Balance 240 / 240 2881 / 2881 Weight 76.2 kg Intake: IV 2521 / 2521 Heparin/D5W 25,000 U/250 mL 25, 87 / 87 000 unit In 250 ml @ 900 UNITS/ HR 9 mls/hr IV.CONT TITRATE [facility] Rx#:[id number] NS Inj 1,000 ML @ 70 mls/hr IV. 1434 / 1434 CONT .[id number] [facility] Rx#:[id number] Oral 240 / 240 360 / 360 Other: # Voids 3 2 Date of Last Bowel Movement 06/28/18 06/28/18 # Bowel Movements 0 Narrative: vff face sym nl language 01/01 [place] Objective Laboratory Results - last 24 hr 06/27/18 06/28/18 06/28/18 06:15 06:17 07:55 APTT 62.9 H D POC Glucose 128 H Homocysteine Cardiovas 9.6 06/28/18 06/28/18 06/29/18 11:30 16:26 05:23 APTT 72.4 H POC Glucose 133 H 116 H Homocysteine Cardiovas Review/Management - Review/Management Plan: imp mri shows acute left cbllr cva and mult left mca cva cw cardioembolic episode on iv hep i dced plavix and asa needs coumadin started by med team unless vascular wants to intervene cta probable left large clot left ica vascular on case ct chest and neck pend ? CA? and hypercoag from that> trop neg fu echo and holter 06/28/18 she had 30 min episode of r hand numbness yest i reviewed the mri compared from last noc to other day and no new cva the occipital parietal area has progressed a little probably within its natural course she may have thrown a little piece of that clot up and i will dw vascular echo pend she andhusband refusing ct of chest and neck on heparin inr today pend onc suspects CA ok to keep bp 160-180/ 06/29/[address] no dif from prior imaging for most part inr pend hlter pend small c/o this am i think the tingling r side within nl for what we see with the location of her cva and i do not think any new cva here today vascular note seen overall stable neuro bp control please to 160/ today
[2018-06-29] MEDS: Insulin NovoLOG Aspart Correctional Sugar Inj SQ SCH ×4 (08:58→23:48)
--- NOTE | 2018-06-29 10:37 | P.PNONC ---
Subjective Interval history: Patient resting in bed, no acute distress. Her is at the bedside. She reports she had "an episode this morning" she describes it as tingling in her hands. The neurologist was present and she discussed with him. We have had a long discussion in regards to follow-up. The patient is from the [facility] and is planning to follow-up closer to home. She and her understand the need for a biopsy as she has 2 masses which are highly suspicious for malignancy. She has an appointment next week with her primary care physician and she will sign release of records to have her reports sent to her primary care. Once medically stable from acute CVA she will need biopsy. Objective Vital Signs/Intake & Output: Vital Signs 06/28/18 12:00 06/28/18 13:39 06/28/18 16:00 Temperature 97.4 F L 97.5 F L Pulse Rate 66 67 Respiratory Rate 20 20 Blood Pressure 220/90 H 191/82 H 172/80 H Pulse Oximetry 97 97 06/28/18 16:30 06/28/18 19:22 06/28/18 20:23 Temperature 97.6 F Pulse Rate 75 66 Respiratory Rate 18 Blood Pressure 162/78 H 180/80 H Pulse Oximetry 97 06/29/18 00:00 06/29/18 00:03 06/29/18 03:42 Temperature 97.4 F L 97.8 F Pulse Rate 74 75 75 Respiratory Rate 18 18 Blood Pressure 190/80 H 180/90 H Pulse Oximetry 95 96 06/29/18 04:00 06/29/18 08:00 Temperature 98.0 F Pulse Rate 59 L 64 Respiratory Rate 17 Blood Pressure 180/88 H Pulse Oximetry 97 Intake & Output 06/28/18 06/29/18 06/29/18 18:59 06:59 18:59 Intake Total 240 / 240 2881 / 2881 Balance 240 / 240 2881 / 2881 Weight 76.2 kg Intake: IV 2521 / 2521 Heparin/D5W 25,000 U/250 mL 25, 87 / 87 000 unit In 250 ml @ 900 UNITS/ HR 9 mls/hr IV.CONT TITRATE SAM Rx#:[id number] NS Inj 1,000 ML @ 70 mls/hr IV. 1434 / 1434 CONT .[id number] SAM Rx#:[id number] Oral 240 / 240 360 / 360 Other: # Voids 3 2 Date of Last Bowel Movement 06/28/18 06/28/18 06/28/18 # Bowel Movements 0 Result Diagrams: 06/28/18 06:17 06/27/18 18:17 Laboratory Results: Laboratory Results - last 24 hr 06/27/18 06/28/18 06/28/18 06:15 11:30 16:26 APTT POC Glucose 133 H 116 H Homocysteine Cardiovas 9.6 06/29/18 06/29/18 05:23 07:35 APTT 72.4 H POC Glucose 134 H Homocysteine Cardiovas Imaging Studies: Impressions Chest CT 06/28/18 00:00 CONCLUSION: 1. 3.3 cm lobulated mass in left upper lobe with additional 4 mm nodule also in the left upper lobe. Differential diagnosis includes metastatic disease given the history of thyroid and breast carcinoma. Dominant mass could also represent primary lung malignancy. No adenopathy. Larger lung mass would be amenable to CT-guided biopsy. Soft Tissue Neck CT 06/28/18 00:00 CONCLUSION: 1. Left preepiglottic space soft tissue mass identified and probable vocal cord paralysis. Medications: Active Medications Generic Name Dose Route Start Last Admin Trade Name Freq PRN Reason Stop Dose Admin Acetaminophen 650 mg 06/27/18 11:02 06/29/18 06:27 Tylenol PO 650 mg Q4H PRN Administration Headache, fever, pain 1-4 Atorvastatin Calcium 10 mg 06/26/18 21:00 06/28/18 20:40 Lipitor PO Not Given HS SAM Enalaprilat 1.25 mg 06/26/18 18:10 06/28/18 12:20 Vasotec Inj IV.PUSH 1.25 mg Q4H PRN Administration For SBP > 220 or DBP > 120 Heparin Sodium/Dextrose 25,000 unit in 250 mls @ 9 mls/hr 06/27/18 17:30 05:38 Heparin/D5w 25,000 U/250 Ml IV.CONT 1,000 units/hr TITRATE SAM 10 mls/hr Titration Protocol 900 UNITS/HR Sodium Chloride 1,000 mls @ 70 mls/hr 06/27/18 18:00 06/29/18 05:38 Ns Inj IV.CONT 70 mls/hr .[id number] SAM Infusion Insulin Aspart 0 unit 06/26/18 21:00 06/29/18 08:58 Novolog Insulin Correctional Sugar Inj SQ Not Given ACHS [facility] Protocol Levothyroxine Sodium 112 mcg 06/28/18 07:30 06/29/18 05:38 Synthroid PO Not Given DAILY@0600 [facility] Metoprolol Succinate 100 mg 06/26/18 21:30 06/29/18 08:08 Toprol Xl PO 100 mg BID SAM Administration Patient Own 0 each 06/28/18 06:00 06/29/18 05:37 Medication: PO 1 each Unithroid 112 Mcg DAILY@0600 SAM Administration Tab Sodium Chloride 2 ml 06/26/18 21:00 06/29/18 08:59 Ns Flush IV.FLUSH 2 ml BID SAM Administration Objective Remarks: GENERAL: Well-nourished, well-developed female patient, in no acute distress. SKIN: Warm and dry. HEAD: Normocephalic. EYES: No scleral icterus. No injection or drainage. NECK: Supple, trachea midline. CARDIOVASCULAR: +S1/S2 without murmurs. RESPIRATORY: Anterior breath sounds clear, equal bilaterally. Nonlabored at rest. GASTROINTESTINAL: Abdomen soft, non-tender, nondistended. EXTREMITIES: No cyanosis, or edema. MUSCULOSKELETAL: Adequate muscle tone. NEUROLOGICAL: No obvious focal deficit. Awake, alert, and oriented x3. Equal strength in all extremities. PSYCHIATRIC: Appropriate mood and affect; insight and judgment normal. Assessment/Plan - Plan This is a pleasant 67-year-old female who was admitted to the hospital with right-sided upper extremity weakness. 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 She was not a candidate for TPA and was placed on a heparin drip. Vascular surgery was consulted and she was not a candidate for surgery at that time. CT angiogram of the neck incidentally showed left upper lobe lung mass 2.9 cm and also left vallecula mass. Both are suspicious for malignancy, therefore oncology was consulted. Recommendations: 1. Left upper lobe lung mass and left vallecula mass, both suspicious for malignancy. Patient is currently on a heparin drip status post CVA with left internal carotid artery thrombosis, therefore she is not a candidate for biopsy at this time. Patient advised to have outpatient biopsy. She is from the [facility], and prefers to follow-up closer to home. She is aware that these masses have a high suspicion for malignancy. She has an appointment with her primary care physician next week and will sign a release of records to be sent to her PCP. 2. Discussed with attending, Dr. Guzman, he plans to likely bridge to Lovenox given the high likelihood of hypercoagulability due to malignancy and need for upcoming biopsies. 3. We will sign off from a hematology standpoint, kindly call if needed. - Attending Statement The exam, history, and the medical decision-making described in the above note were completed with the assistance of the mid-level provider. I reviewed and agree with the findings presented. I attest that I had a [id number] encounter with the patient on the same day, and personally performed and documented my assessment and findings in the medical record. No new complaints CT of the chest and neck showed 3 cm left upper lobe lung mass and left ventricular mass Patient is not stable to undergo biopsy of these masses at this time. Patient desired to have it done in [facility] where she lives. She will be followed up by her primary physician who will refer her to to oncologist in [facility] Sign off Available as needed
--- NOTE | 2018-06-29 11:27 | P.PNVS ---
Subjective Subjective/Hospital Course: One episode of bilateral upper extremity numbness, right hand numbness this morning otherwise patient is doing well Objective Vital Signs / I&O: Vital Signs 06/28/18 12:00 06/28/18 13:39 06/28/18 16:00 Temperature 97.4 F L 97.5 F L Pulse Rate 66 67 Respiratory Rate 20 20 Blood Pressure 220/90 H 191/82 H 172/80 H Pulse Oximetry 97 97 06/28/18 16:30 06/28/18 19:22 06/28/18 20:23 Temperature 97.6 F Pulse Rate 75 66 Respiratory Rate 18 Blood Pressure 162/78 H 180/80 H Pulse Oximetry 97 06/29/18 00:00 06/29/18 00:03 06/29/18 03:42 Temperature 97.4 F L 97.8 F Pulse Rate 74 75 75 Respiratory Rate 18 18 Blood Pressure 190/80 H 180/90 H Pulse Oximetry 95 96 06/29/18 04:00 06/29/18 08:00 Temperature 98.0 F Pulse Rate 59 L 64 Respiratory Rate 17 Blood Pressure 180/88 H Pulse Oximetry 97 Intake & Output 06/28/18 06/29/18 06/29/18 18:59 06:59 18:59 Intake Total 240 / 240 2881 / 2881 Balance 240 / 240 2881 / 2881 Weight 76.2 kg Intake: IV 2521 / 2521 Heparin/D5W 25,000 U/250 mL 25, 87 / 87 000 unit In 250 ml @ 900 UNITS/ HR 9 mls/hr IV.CONT TITRATE SAM Rx#:[id number] NS Inj 1,000 ML @ 70 mls/hr IV. 1434 / 1434 CONT .[id number] SAM Rx#:[id number] Oral 240 / 240 360 / 360 Other: # Voids 3 2 Date of Last Bowel Movement 06/28/18 06/28/18 06/28/18 # Bowel Movements 0 Physical Exam: No new neurological deficits identified and physical exam Laboratory Results - last 24 hr 06/27/18 06/27/18 06/28/18 06:15 06:15 11:30 APTT POC Glucose 133 H Homocysteine Cardiovas 9.6 ASIF Titer 1:160 H ASIF Pattern Diffuse H ASIF Interpretation 06/28/18 06/29/18 06/29/18 16:26 05:23 07:35 APTT 72.4 H POC Glucose 116 H 134 H Homocysteine Cardiovas ASIF Titer ASIF Pattern ASIF Interpretation Impressions Head CT 06/27/18 17:20 CONCLUSION: 1. Subtle low density now noted in the left parietal-occipital lobes in the area of restricted diffusion and known infarction seen on yesterday's MRI. 2. No acute hemorrhage or mass effect. Report was called by [ Schiering to Dr. Campuzano at 1743 hours.] Head MRI 06/27/18 18:39 CONCLUSION: 1. Slight increase in size of left occipital lobe infarct since June 26. Subcentimeter infarcts in the left cerebellum and posterior left frontal lobe and left parietal lobe are stable. Chest CT 06/28/18 00:00 CONCLUSION: 1. 3.3 cm lobulated mass in left upper lobe with additional 4 mm nodule also in the left upper lobe. Differential diagnosis includes metastatic disease given the history of thyroid and breast carcinoma. Dominant mass could also represent primary lung malignancy. No adenopathy. Larger lung mass would be amenable to CT-guided biopsy. Soft Tissue Neck CT 06/28/18 00:00 CONCLUSION: 1. Left preepiglottic space soft tissue mass identified and probable vocal cord paralysis. Assessment and Plan - Plan Acute left hemispheric stroke of a cardioembolic etiology. Acute left internal carotid artery thrombus. Continue with anticoagulation. Patient may be switched to therapeutic Lovenox. We will schedule the patient follow-up visit in 2 weeks with a repeat CT angiography of the neck.
[2018-06-29 11:52] LABS: Dil Russell Viper Venom Conf ( POSITIVE (NEGATIVE); Dil Russell Viper Venom Time M CORRECTED (CORRECTED); Lupus Anticoagulant PTT Screen 81 seconds (< OR = 40)
--- NOTE | 2018-06-29 12:35 | P.PN ---
Subjective Interval history: Follow-up for CVA, left internal carotid artery thrombus as well as left lung mass and vallecular mass. Patient is currently doing well. No acute concerns. Around 7 AM she had right arm tingling sensation again. However neurology felt that it was a residual effect not in new stroke symptoms. Physical Exam Vital signs: Vital Signs 06/28/18 13:39 06/28/18 16:00 06/28/18 16:30 Temperature 97.5 F L Pulse Rate 67 Respiratory Rate 20 Blood Pressure 191/82 H 172/80 H 162/78 H Pulse Oximetry 97 06/28/18 19:22 06/28/18 20:23 06/29/18 00:00 Temperature 97.6 F Pulse Rate 75 66 74 Respiratory Rate 18 Blood Pressure 180/80 H Pulse Oximetry 97 06/29/18 00:03 06/29/18 03:42 06/29/18 04:00 Temperature 97.4 F L 97.8 F Pulse Rate 75 75 59 L Respiratory Rate 18 18 Blood Pressure 190/80 H 180/90 H Pulse Oximetry 95 96 06/29/18 08:00 Temperature 98.0 F Pulse Rate 64 Respiratory Rate 17 Blood Pressure 180/88 H Pulse Oximetry 97 Intake & Output 06/28/18 06/29/18 06/29/18 18:59 06:59 18:59 Intake Total 240 / 240 2881 / 2881 Balance 240 / 240 2881 / 2881 Weight 76.2 kg Intake: IV 2521 / 2521 Heparin/D5W 25,000 U/250 mL 25, 87 / 87 000 unit In 250 ml @ 900 UNITS/ HR 9 mls/hr IV.CONT TITRATE SAM Rx#:[id number] NS Inj 1,000 ML @ 70 mls/hr IV. 1434 / 1434 CONT .[id number] SAM Rx#:[id number] Oral 240 / 240 360 / 360 Other: # Voids 3 2 Date of Last Bowel Movement 06/28/18 06/28/18 06/28/18 # Bowel Movements 0 Narrative: GENERAL: Alert, NAD. SKIN: Warm and dry. HEAD: Normocephalic. EYES: No scleral icterus. No injection or drainage. NECK: Supple, trachea midline. No JVD or lymphadenopathy. CARDIOVASCULAR: Regular rate and rhythm without murmurs, gallops, or rubs. RESPIRATORY: Breath sounds equal bilaterally. No accessory muscle use. GASTROINTESTINAL: Abdomen soft, non-tender, nondistended. MUSCULOSKELETAL: No cyanosis, or edema. RUE somewhat weaker than LUE. BACK: Nontender without obvious deformity. No CVA tenderness. Results - Labs CBC & Chem 7: 06/28/18 06:17 06/27/18 18:17 Laboratory Results - last 24 hr 06/27/18 06/27/18 06/28/18 06:15 06:15 16:26 APTT Thrombin Time 79 H Lupus Anticoagulant LA PTT Screen 81 H dRVVT Screen 48 H LA dRVVT Confirm Positive A dRVVT Mix Corrected Hexagonal Phase Confirm Weakly positive A POC Glucose 116 H Homocysteine Cardiovas 9.6 ASIF Titer 1:160 H ASIF Pattern Diffuse H ASIF Interpretation 06/29/18 06/29/18 05:23 07:35 APTT 72.4 H Thrombin Time Lupus Anticoagulant LA PTT Screen dRVVT Screen LA dRVVT Confirm dRVVT Mix Hexagonal Phase Confirm POC Glucose 134 H Homocysteine Cardiovas ASIF Titer ASIF Pattern ASIF Interpretation - Imaging Impressions Chest CT 06/28/18 00:00 CONCLUSION: 1. 3.3 cm lobulated mass in left upper lobe with additional 4 mm nodule also in the left upper lobe. Differential diagnosis includes metastatic disease given the history of thyroid and breast carcinoma. Dominant mass could also represent primary lung malignancy. No adenopathy. Larger lung mass would be amenable to CT-guided biopsy. Soft Tissue Neck CT 06/28/18 00:00 CONCLUSION: 1. Left preepiglottic space soft tissue mass identified and probable vocal cord paralysis. Assessment and Plan - Plan Ms. Sibley is a pleasant 67-year-old female with a history of hypertension , diabetes, hyperlipidemia, thyroid cancer presented to the ED with complaints of right hand weakness. Workup indicated multiple infarcts in the posterior fossa and left hemisphere. Neurology, vascular surgery were consulted. Acute multiple embolic stroke Internal carotid artery thrombus Probable Paroxysmal Atrial fibrillation -Neurology, Vascular surgery following -Patient is currently on Heparin drip. -Cardiology consulted. I discussed with cardiology on 06/29/2018. Dr. Bell stated that there is a PFO but there is no [id number] shunt. He does not believe patient's stroke symptoms are of cardiac origin at this point. I also informed Dr. Bell that patient had an episode of A. fib 2 years ago during a hospitalization for infection. -Overall patient's stroke as well as ICA thrombus are possibly due to malignancy. -After discussing with cardiology as well as vascular surgery, we believe patient would be better served to be continued on Lovenox full treatment 1 mg/ kg twice daily. -If biopsy results are negative for malignancy, patient can be considered for oral anticoagulations with warfarin or preferably direct oral anticoagulants such as apixaban. -Per vascular surgery, no biopsy for one month. Patient must be on Lovenox uninterrupted for one month. -Vascular surgery will follow patient in the outpatient setting. Left lung mass Vallecular mass Hx of Breast cancer Hx of Thyroid cancer -Oncology consulted -CT chest and CT neck soft tissue ordered ==> 3.3 left upper lobe mass and 4mm nodule in the left upper lobe. -Patient may need an ENT eval in the outpatient setting for Vallecular mass. Hyperlipidemia Hypothyroidism -Continue Lipitor, Levothyroxine Full code. Heparin drip, switch to Lovenox tonight. Discussed with Vascular surgery and Cardiology and oncology. Probable discharge in the AM.
[2018-06-29] MEDS: Sod Chloride 0.9% Inj 1,000 ML IV.CONT SCH (14:47)
[2018-06-29] MEDS: Enoxaparin Inj 80 MG/0.8 ML Syringe SQ SCH (20:44)
[2018-06-30] MEDS: Sod Chloride 0.9% Inj 1,000 ML IV.CONT SCH (03:49)
[2018-06-30 03:51] LABS: Activated Protein C Resistance 4.6 ratio (> OR = 2.1)
[2018-06-30] MEDS: LEVOTHYROXINE 112 MCG PO SCH (06:08)
[2018-06-30] MEDS: Levothyroxine 112 MCG Tablet PO SCH (06:09)
[2018-06-30] MEDS: Acetaminophen 325 MG Tablet PO PRN (06:09)
[2018-06-30] MEDS: Enoxaparin Inj 80 MG/0.8 ML Syringe SQ SCH (09:29)
[2018-06-30] MEDS: Insulin NovoLOG Aspart Correctional Sugar Inj SQ SCH (09:29)
--- NOTE | 2018-06-30 09:52 | P.PNNEU ---
Subjective Active Medications: Active Medications Acetaminophen (Tylenol) 650 mg PO Q4H PRN PRN Reason: Headache, fever, pain 1-4 Last Admin: 06/30/18 06:09 Dose: 650 mg Albuterol (Duoneb Neb (Prn)) 1 ampul NEB Q2HR NEB PRN PRN Reason: SHORTNESS OF BREATH/WHEEZING Atorvastatin Calcium (Lipitor) 10 mg PO HS [facility] Last Admin: 06/29/18 20:43 Dose: Not Given Dextrose (D50w Vial) 50 ml IV.PUSH UNSCH PRN PRN Reason: PER HYPOGLYCEMIA PROTOCOL Enalaprilat (Vasotec Inj) 1.25 mg IV.PUSH Q4H PRN PRN Reason: For SBP > 220 or DBP > 120 Last Admin: 06/28/18 12:20 Dose: 1.25 mg Enoxaparin Sodium (Lovenox Inj) 75 mg SQ Q12HR [facility] Last Admin: 06/30/18 09:29 Dose: 75 mg Glucagon (Glucagon Inj) 1 mg OTHER UNSCH PRN PRN Reason: for Hypoglycemia Protocol Sodium Chloride (Ns Inj) 1,000 mls @ 70 mls/hr IV.CONT .[id number] [facility] Last Admin: 06/30/18 03:49 Dose: 70 mls/hr Insulin Aspart (Novolog Insulin Correctional Sugar Inj) 0 unit SQ ACHS [facility]; Protocol Last Admin: 06/30/18 09:29 Dose: Not Given Levothyroxine Sodium (Synthroid) 112 mcg PO DAILY@0600 [facility] Last Admin: 06/30/18 06:09 Dose: Not Given Metoprolol Succinate (Toprol Xl) 100 mg PO BID [facility] Last Admin: 06/30/18 09:28 Dose: 100 mg Nifedipine (Procardia Xl) 60 mg PO DAILY [facility] Last Admin: 06/30/18 09:28 Dose: 60 mg Patient Own Medication: Unithroid 112 Mcg Tab 0 each PO DAILY@0600 [facility] Last Admin: 06/30/18 06:08 Dose: 1 each Sodium Chloride (Ns Flush) 2 ml IV.FLUSH BID [facility] Last Admin: 06/30/18 09:30 Dose: 2 ml Sodium Chloride (Ns Flush) 2 ml IV.FLUSH PRN PRN PRN Reason: FLUSH AFTER USING IV ACCESS Allergies/Adverse Reactions: Allergies Allergy/AdvReac Type Severity Reaction Status Date / Time losartan Allergy Swelling Verified 10/28/18 10:34 of Lip/Tongue/Throat Sulfa (Sulfonamide Allergy Hives Verified 06/26/18 10:34 Antibiotics) ciprofloxacin [From Cipro] AdvReac Tingling Verified 06/26/18 10:34 levofloxacin AdvReac Joint Pain Verified 06/26/18 10:34 prednisone AdvReac Joint Pain Verified 06/26/18 10:34 Yfwzxur-Dhv-Unc Reductase AdvReac Joint Pain Verified 06/26/18 10:34 Inhibitor Physical Exam Vital signs: Vital Signs 06/29/18 12:00 06/29/18 16:00 06/29/18 20:00 Temperature 97.6 F 97.5 F L Pulse Rate 68 65 71 Respiratory Rate 17 17 Blood Pressure 192/70 H 198/98 H Pulse Oximetry 98 98 06/29/18 20:45 06/30/18 00:00 06/30/18 01:00 Temperature 97.8 F 99.2 F Pulse Rate 70 61 72 Respiratory Rate 18 18 Blood Pressure 168/72 H 172/86 H Pulse Oximetry 96 96 06/30/18 04:00 06/30/18 06:00 Temperature 97.3 F L Pulse Rate 66 73 Respiratory Rate 19 Blood Pressure Pulse Oximetry 95 Intake & Output 06/29/18 06/30/18 06/30/18 18:59 06:59 18:59 Intake Total 1566 / 1566 1783 / 1783 Balance 1566 / 1566 1783 / 1783 Weight 76.2 kg Intake: IV 566 / 566 1063 / 1063 Heparin/D5W 25,000 U/250 mL 25, 138 / 138 000 unit In 250 ml @ 900 UNITS/ HR 9 mls/hr IV.CONT TITRATE SAM Rx#:[id number] NS Inj 1,000 ML @ 70 mls/hr IV. 566 / 566 925 / 925 CONT .[id number] SAM Rx#:[id number] Oral 1000 / 1000 720 / 720 Other: # Voids 4 3 Date of Last Bowel Movement 06/28/18 06/28/18 # Bowel Movements 1 Narrative: no new spells speech clear 5/5 rue and rle nl gait vff face sym Objective Laboratory Results - last 24 hr 10/29/18 10/29/18 10/29/18 06:15 06:15 06:54 APTT Thrombin Time 79 H Lupus Anticoagulant LA PTT Screen 81 H dRVVT Screen 48 H LA dRVVT Confirm Positive A dRVVT Mix Corrected Hexagonal Phase Confirm Weakly positive A APC Resistance 4.6 Antithrombin III Activ 92 Factor VIII Activity 118 POC Glucose ASIF Titer 1:160 H ASIF Pattern Diffuse H ASIF Interpretation Beta-2-GPI IgG Ab 21 H Beta-2-GPI IgA Ab 98 H Beta-2-GPI IgM Ab 30 H Phosphatidylserine IgG 49.0 H Phosphatidylserine IgA 25.0 H Phosphatidylserine IgM 30.0 H MTHFR Mutation Detect Prothrombin [id number] Mut 06/29/18 06/29/18 06/30/18 15:00 16:35 07:18 APTT 51.5 H D Thrombin Time Lupus Anticoagulant LA PTT Screen dRVVT Screen LA dRVVT Confirm dRVVT Mix Hexagonal Phase Confirm APC Resistance Antithrombin III Activ Factor VIII Activity POC Glucose 121 H 133 H ASIF Titer ASIF Pattern ASIF Interpretation Beta-2-GPI IgG Ab Beta-2-GPI IgA Ab Beta-2-GPI IgM Ab Phosphatidylserine IgG Phosphatidylserine IgA Phosphatidylserine IgM MTHFR Mutation Detect Prothrombin [id number] Mut Review/Management - Review/Management Plan: imp mri shows acute left cbllr cva and mult left mca cva cw cardioembolic episode on iv hep i dced plavix and asa needs coumadin started by med team unless vascular wants to intervene cta probable left large clot left ica vascular on case ct chest and neck pend ? CA? and hypercoag from that> trop neg fu echo and holter 06/28/18 she had 30 min episode of r hand numbness yest i reviewed the mri compared from last noc to other day and no new cva the occipital parietal area has progressed a little probably within its natural course she may have thrown a little piece of that clot up and i will dw vascular echo pend she andhusband refusing ct of chest and neck on heparin inr today pend onc suspects CA ok to keep bp 160-180/ 06/29/[address] no dif from prior imaging for most part inr pend hlter pend small c/o this am i think the tingling r side within nl for what we see with the location of her cva and i do not think any new cva here today vascular note seen overall stable neuro bp control please to 160/ today 06/30/18 echo no report i can find in chart but by notes small pfo no shunt and some hx afib pt b3eing put on lovenox sq bid please make sure there is no transition problem after dc between here and home and she gets meds today and takes lovenox bid i am ok with zoila in future evidently per chart some remote hx afib per cards stable neuro
--- NOTE | 2018-06-30 10:21 | P.PNVS ---
Subjective Subjective/Hospital Course: Doing well with no acute events overnight Objective Vital Signs / I&O: Vital Signs 06/29/18 12:00 06/29/18 16:00 06/29/18 20:00 Temperature 97.6 F 97.5 F L Pulse Rate 68 65 71 Respiratory Rate 17 17 Blood Pressure 192/70 H 198/98 H Pulse Oximetry 98 98 06/29/18 20:45 06/30/18 00:00 06/30/18 01:00 Temperature 97.8 F 99.2 F Pulse Rate 70 61 72 Respiratory Rate 18 18 Blood Pressure 168/72 H 172/86 H Pulse Oximetry 96 96 06/30/18 04:00 06/30/18 06:00 Temperature 97.3 F L Pulse Rate 66 73 Respiratory Rate 19 Blood Pressure Pulse Oximetry 95 Intake & Output 06/29/18 06/30/18 06/30/18 18:59 06:59 18:59 Intake Total 1566 / 1566 1783 / 1783 Balance 1566 / 1566 1783 / 1783 Weight 76.2 kg Intake: IV 566 / 566 1063 / 1063 Heparin/D5W 25,000 U/250 mL 25, 138 / 138 000 unit In 250 ml @ 900 UNITS/ HR 9 mls/hr IV.CONT TITRATE SAM Rx#:[id number] NS Inj 1,000 ML @ 70 mls/hr IV. 566 / 566 925 / 925 CONT .[id number] SAM Rx#:[id number] Oral 1000 / 1000 720 / 720 Other: # Voids 4 3 Date of Last Bowel Movement 06/28/18 06/28/18 # Bowel Movements 1 Physical Exam: No new neurological deficits on physical exam Laboratory Results - last 24 hr 06/27/18 06/27/18 06/27/18 06:15 06:15 06:54 APTT Thrombin Time 79 H Lupus Anticoagulant LA PTT Screen 81 H dRVVT Screen 48 H LA dRVVT Confirm Positive A dRVVT Mix Corrected Hexagonal Phase Confirm Weakly positive A APC Resistance 4.6 Antithrombin III Activ 92 Factor VIII Activity 118 POC Glucose ASIF Titer 1:160 H ASIF Pattern Diffuse H ASIF Interpretation Beta-2-GPI IgG Ab 21 H Beta-2-GPI IgA Ab 98 H Beta-2-GPI IgM Ab 30 H Phosphatidylserine IgG 49.0 H Phosphatidylserine IgA 25.0 H Phosphatidylserine IgM 30.0 H MTHFR Mutation Detect Prothrombin [id number] Mut 06/29/18 06/29/18 06/30/18 15:00 16:35 07:18 APTT 51.5 H D Thrombin Time Lupus Anticoagulant LA PTT Screen dRVVT Screen LA dRVVT Confirm dRVVT Mix Hexagonal Phase Confirm APC Resistance Antithrombin III Activ Factor VIII Activity POC Glucose 121 H 133 H ASIF Titer ASIF Pattern ASIF Interpretation Beta-2-GPI IgG Ab Beta-2-GPI IgA Ab Beta-2-GPI IgM Ab Phosphatidylserine IgG Phosphatidylserine IgA Phosphatidylserine IgM MTHFR Mutation Detect Prothrombin [id number] Mut Impressions Chest CT 06/28/18 00:00 CONCLUSION: 1. 3.3 cm lobulated mass in left upper lobe with additional 4 mm nodule also in the left upper lobe. Differential diagnosis includes metastatic disease given the history of thyroid and breast carcinoma. Dominant mass could also represent primary lung malignancy. No adenopathy. Larger lung mass would be amenable to CT-guided biopsy. Soft Tissue Neck CT 06/28/18 00:00 CONCLUSION: 1. Left preepiglottic space soft tissue mass identified and probable vocal cord paralysis. Assessment and Plan - Plan Acute left hemispheric stroke of a cardioembolic etiology. Acute left internal carotid artery thrombus. CT of the chest reviewed. There is no aortic pathology identified as an etiology of the patient's embolic event. Continue with therapeutic Lovenox. We will schedule the patient follow-up visit in 2 weeks with a repeat CT angiography of the neck.
[2018-06-30 15:01] LABS: Factor V Leiden Mutation Negative (Negative); Protein C Antigen 83 % (70-150)
--- NOTE | 2018-06-30 22:26 | P.DS ---
Date of admission: 06/26/18 18:07 Primary care physician: PROVIDER NON STAFF Attending physician on discharge: Otoniel Guzman Anticipated date of discharge: 06/30/18 Brief History from admission: 67-year-old female with a history of hypertension, diabetes, hyperlipidemia, thyroid cancer presented to the ED with complaints of right hand weakness. She states on Wednesday she felt her left hand have a warm sensation, she presented to the ED and was diagnosed with Raynaud's and sent home. She then states this morning she felt very lightheaded and her right hand went limp and she could not move it, so she came to the ER. Upon arrival to the ER she was found to have an NIH scale of 2. She denies any associated chest pain, sob, double vision , nausea, vomiting or lower extremity weakness. DS: Medications - Discharge Medications Prescriptions: enoxaparin [Lovenox] 75 mg SUBCUT Q12HR #60 ml metoprolol tartrate 100 mg PO BID #60 tab nifedipine 60 mg PO DAILY #30 tab DS: Summary Hospital Course: Ms. Sibley is a pleasant 67-year-old female with a history of hypertension , diabetes, hyperlipidemia, thyroid cancer presented to the ED with complaints of right hand weakness. Workup indicated multiple infarcts in the posterior fossa and left hemisphere. Neurology, vascular surgery were consulted. Acute multiple embolic stroke Internal carotid artery thrombus Probable Paroxysmal Atrial fibrillation -Neurology, Vascular surgery following -Patient is currently on Heparin drip. -Cardiology consulted. I discussed with cardiology on 06/29/2018. Dr. Bell stated that there is a PFO but there is no nojnz-no-lakd shunt. He does not believe patient's stroke symptoms are of cardiac origin at this point. I also informed Dr. Bell that patient had an episode of A. fib 2 years ago during a hospitalization for infection. -Overall patient's stroke as well as ICA thrombus are possibly due to malignancy. -After discussing with cardiology as well as vascular surgery, we believe patient would be better served to be continued on Lovenox full treatment 1 mg/ kg twice daily. -If biopsy results are negative for malignancy, patient can be considered for oral anticoagulations with warfarin or preferably direct oral anticoagulants such as apixaban. -Per vascular surgery, no biopsy for one month. Patient must be on Lovenox uninterrupted for one month. -Vascular surgery will follow patient in the outpatient setting. Left lung mass Vallecular mass Hx of Breast cancer Hx of Thyroid cancer -Oncology consulted -CT chest and CT neck soft tissue ordered ==> 3.3 left upper lobe mass and 4mm nodule in the left upper lobe. -Patient may need an ENT eval in the outpatient setting for Vallecular mass. Hyperlipidemia Hypothyroidism -Continue Lipitor, Levothyroxine Full code. Lovenox. - Time Spent with Patient Total time spent providing and/or coordinating discharge services: Less than 30 minutes - Quality: Stroke Last date observed well: 06/27/18 Last time observed well: 17:00 - Quality: VTE Deep Vein Thrombosis/Pulmonary Embolism Present on Admission: No Exam Vital signs: Vital Signs 06/30/18 00:00 06/30/18 01:00 06/30/18 04:00 Temperature 99.2 F Pulse Rate 61 72 66 Respiratory Rate 18 Blood Pressure 172/86 H Pulse Oximetry 96 06/30/18 06:00 06/30/18 08:00 Temperature 97.3 F L 98.0 F Pulse Rate 73 72 Respiratory Rate 19 16 Blood Pressure 130/60 Pulse Oximetry 95 97 Intake & Output 06/30/18 06/30/18 07/01/18 06:59 18:59 06:59 Intake Total 1783 / 1783 Balance 1783 / 1783 Weight 76.2 kg Intake: IV 1063 / 1063 Heparin/D5W 25,000 U/250 mL 25, 138 / 138 000 unit In 250 ml @ 900 UNITS/ HR 9 mls/hr IV.CONT TITRATE SAM Rx#:[id number] NS Inj 1,000 ML @ 70 mls/hr IV. 925 / 925 CONT .[id number] SAM Rx#:[id number] Oral 720 / 720 Other: # Voids 3 Date of Last Bowel Movement 06/28/18 Narrative: GENERAL: Alert, NAD. SKIN: Warm and dry. HEAD: Normocephalic. EYES: No scleral icterus. No injection or drainage. NECK: Supple, trachea midline. No JVD or lymphadenopathy. CARDIOVASCULAR: Regular rate and rhythm without murmurs, gallops, or rubs. RESPIRATORY: Breath sounds equal bilaterally. No accessory muscle use. GASTROINTESTINAL: Abdomen soft, non-tender, nondistended. MUSCULOSKELETAL: No cyanosis, or edema. RUE somewhat weaker than LUE. BACK: Nontender without obvious deformity. No CVA tenderness. Results Procedures completed during hospitalization: None. Labs on day of discharge: Labs from last 24 hours 06/30/18 06/27/18 06/27/18 07:18 06:54 06:15 Protein C Antigen 83 APC Resistance 4.6 Protein S Activity 134 Antithrombin III Activ 92 Factor V Leiden Mutat Negative Factor V Leiden Interp . Fact V Leiden Review By See below Factor VIII Activity 118 POC Glucose 133 H Beta-2-GPI IgG Ab 21 H Beta-2-GPI IgA Ab 98 H Beta-2-GPI IgM Ab 30 H Anti-Cardiolipin IgG Ab 45.3 H Anti-Cardiolipin IgM Ab 35.7 H MTHFR Mutation Detect Prothrombin [id number] Mut - Impressions ITS Impressions Head CTA 06/26/18 17:11 CONCLUSION: 1. Negative CTA head. There is some moderate plaque at the left carotid bifurcation. CTA neck pending. Neck CTA 06/26/18 17:11 CONCLUSION: 1. 2.9 cm mass in the left lung and 1.9 cm mass in the left vallecula both suspicious for neoplasm. 2. Small calcified plaque with intraluminal thrombus or noncalcified plaque in the proximal left internal carotid artery extending over a length of about 2 cm , likely placing the patient at high risk for stroke. 3. Findings called to Dr. Bennett Huerta at the time of dictation. Head CT 06/27/18 17:20 CONCLUSION: 1. Subtle low density now noted in the left parietal-occipital lobes in the area of restricted diffusion and known infarction seen on yesterday's MRI. 2. No acute hemorrhage or mass effect. Report was called by [ Edgar to Dr. Campuzano at 1743 hours.] Head MRI 06/27/18 18:39 CONCLUSION: 1. Slight increase in size of left occipital lobe infarct since June 26. Subcentimeter infarcts in the left cerebellum and posterior left frontal lobe and left parietal lobe are stable. Chest CT 06/28/18 00:00 CONCLUSION: 1. 3.3 cm lobulated mass in left upper lobe with additional 4 mm nodule also in the left upper lobe. Differential diagnosis includes metastatic disease given the history of thyroid and breast carcinoma. Dominant mass could also represent primary lung malignancy. No adenopathy. Larger lung mass would be amenable to CT-guided biopsy. Soft Tissue Neck CT 06/28/18 00:00 CONCLUSION: 1. Left preepiglottic space soft tissue mass identified and probable vocal cord paralysis. Discharge Plan - Discharge Disposition Patient Disposition: 01 Discharge Home - Discharge Condition Condition: Good - Discharge Order Discharge Orders: Discharge Order (Routine); Ordered 06/30/18 Ordered By: Otoniel Guzman - Discharge Details Anticipated Discharge Date: 06/30/18 - Physicians Team Primary Care Provider: NON STAFF,PROVIDER Attending Provider: Otoniel Guzman Other Providers: ; Osman Marti MD ; Laila Whitaker MD ; Mukesh Thomason MD ; Marco Antonio Bell MD ; Rosette Solis MD
--- NOTE | 2018-07-01 21:09 | HM ---
Date Performed: 06/28/2018 Time Performed: 18:09:00 HOOKUP DATE: 06/28/18 06:09:00 PM Tue ANALYSIS START TIME: 06/28/2018 6:14:00 PM ANALYSIS END TIME: 06/29/2018 5:47:00 PM PATIENT AGE: 67 PATIENT HEIGHT PATIENT WEIGHT DRUG LIST PATIENT DIAGNOSIS: ischemic stroke TEST NARRATIVE: The patient's average heart rate was 66 BPM. No episodes of tachycardia wer e noted. No episodes of bradycardia were noted. No pauses exceeding 2.0 seconds were noted. 138 ventricular ectopics, which represented < 1% of the total beat count, were noted. The highest ve ntricular ectopic frequency occurred from 12:00 PM to 01:00 PM Wed. During this time 17 VE(s) occurr ed. Ventricular ectopics were observed as 138 isolated beat(s) only. No couplets or runs were noted . 104 supraventricular ectopics, which represented < 1% of the total beat count, were noted. The highest supraventricular ectopic frequency occurred from 05:00 PM to 06:00 PM Wed. During this time 18 SVE(s) occurred. No episodes of ST depression (defined as -1.0 mm or more) were noted in hernandez perla 1. No episodes of ST depression (defined as -1.0 mm or more) were noted in channel 2. No episod es of ST depression (defined as -1.0 mm or more) were noted in channel 3. TEST INTERPRETATION: AGREE WITH THE ABOVE COMPUTER INTERPRETATION. Signed by : Dylan Lee
--- NOTE | 2018-07-03 13:25 | ECHRPT ---
Indication: CVA/TIA CONCLUSIONS Normal left ventricular size. Wall thickness is normal. The left ventricular systolic function is low normal with an estimated ejection fraction in the rang e of 50- 55%. Atrial septal aneurysm is present No atrial level shunt is demonstrated by color flow Doppler or agitated saline imaging. No atrial level shunt is demonstrated by color flow Doppler interrogation. Trace mitral valve regurgitation. Mitral annular calcification is present. A small left sided pleural effusion is noted. BP: / HR: Rhythm: MEASUREMENTS (Male / Female) Normal Values Technical Quality: 2D ECHO LV Diastolic Diameter PLAX 4.7 cm 4.2 - 5.9 / 3.9 - 5.3 cm LV Systolic Diameter PLAX 3.6 cm IVS Diastolic Thickness 1.0 cm 0.6 - 1.0 / 0.6 - 0.9 cm LVPW Diastolic Thickness 0.9 cm 0.6 - 1.0 / 0.6 - 0.9 cm LV Relative Wall Thickness 0.4 RV Internal Dim ED PLAX 1.8 cm DOPPLER Mitral E Point Velocity 95.4 cm/s Mitral A Point Velocity 62.5 cm/s Mitral E to A Ratio 1.5 FINDINGS LEFT VENTRICLE Normal left ventricular size. Wall thickness is normal. The left ventricular systolic function is low normal with an estimated ejection fraction in the rang e of 50- 55%. RIGHT VENTRICLE Normal right ventricular size and systolic function. LEFT ATRIUM The left atrial size is normal. RIGHT ATRIUM The right atrial size is normal. ATRIAL SEPTUM Atrial septal aneurysm is present No atrial level shunt is demonstrated by color flow Doppler or agitated saline imaging. No atrial level shunt is demonstrated by color flow Doppler interrogation. AORTA The aortic root and proximal ascending aorta are normal in size on limited imaging. MITRAL VALVE Trace mitral valve regurgitation. Mitral annular calcification is present. AORTIC VALVE Trileaflet aortic valve. No aortic valve stenosis or regurgitation. TRICUSPID VALVE Structurally normal tricuspid valve. No tricuspid valve stenosis or regurgitation. PULMONARY VALVE The pulmonary valve is not well visualized. VESSELS The inferior vena cava is normal in size. PERICARDIUM A small left sided pleural effusion is noted. Marco Antonio Bell MD (Electronically Signed) Final Date:03 July 2018 13:24
== END 2018-06-30 11:42 | disposition home or self-care (01) ==
LOC: PHED 16:47 → PHEDA 18:07 → N06 23:02
PROVIDERS: ADMIT Hospitalist; ATTEND Hospitalist

== ENCOUNTER 2018-07-01 15:55 | Inpatient (IN) ==
[2018-07-01 16:23] LABS: Baso # (Auto) 0.2 th/mm3 (0.0-0.2); Baso % (Auto) 1.6 % (0.0-2.0); Eos # (Auto) 0.2 th/mm3 (0.0-0.4); Eos % (Auto) 1.8 % (0.0-4.0); Hemoglobin 14.2 gm/dL (11.6-15.3); Lymph # (Auto) 5.1 th/mm3 (1.0-4.8); Mean Corpuscular HGB Conc 33.8 % (32.0-36.0); Mean Corpuscular Hemoglobin 33.2 pg (27.0-34.0); Mean Corpuscular Volume 98.3 fL (80.0-100.0); Mean Platelet Volume 8.6 fL (7.0-11.0); Mono # (Auto) 0.7 th/mm3 (0.0-0.9); Mono % (Auto) 6.2 % (0.0-8.0); Neut # (Auto) 5.7 th/mm3 (1.8-7.7); Neut % (Auto) 47.4 % (16.0-70.0); Platelet Count 303 th/mm3 (150-450); Red Blood Count 4.27 mil/mm3 (4.00-5.30); Red Cell Distribution Width 14.1 % (11.6-17.2); White Blood Count 11.9 th/mm3 (4.0-11.0)
--- NOTE | 2018-07-01 16:26 | ED ---
HPI General Chief Complaint: Altered Mental Status Stated Complaint: AMS Time Seen by Provider: 07/01/18 16:00 Source: family Mode of arrival: other (from ambulance bay by private vehicle) History of Present Illness HPI narrative: 67-year-old female presents with unresponsive state. states that she was drooling at the mouth and shaking all over. states she just got discharged yesterday for stroke. History is limited given patient' s clinical acuity at initial evaluation Related Data Home Medications Medication Instructions Recorded Confirmed albuterol sulfate 0.63 mg INHALATION Q4-6H PRN 06/23/18 07/01/18 fluticasone [Flonase Allergy 1 spray INTRANASAL DAILY 06/23/18 07/01/18 Relief] levothyroxine [Unithroid] 112 mcg PO DAILY 06/23/18 07/01/18 psyllium husk [Metamucil] 0.52 g PO DAILY 06/23/18 07/01/18 Bifidobacterium infantis [Align] 4 mg PO DAILY 06/26/18 07/01/18 fluticasone-vilanterol [Breo 1 inh INHALATION DAILY 06/26/18 07/01/18 Ellipta] Previous Rx's Medication Instructions Recorded enoxaparin [Lovenox] 75 mg SUBCUT Q12HR #60 ml 06/29/18 metoprolol tartrate 100 mg PO BID #60 tab 06/30/18 nifedipine 60 mg PO DAILY #30 tab 06/30/18 Allergies Allergy/AdvReac Type Severity Reaction Status Date / Time losartan Allergy Swelling Verified 07/01/18 16:23 of Lip/Tongue/Throat Sulfa (Sulfonamide Allergy Hives Verified 07/01/18 16:23 Antibiotics) ciprofloxacin [From Cipro] AdvReac Tingling Verified 07/01/18 16:23 levofloxacin AdvReac Joint Pain Verified 07/01/18 16:23 prednisone AdvReac Joint Pain Verified 07/01/18 16:23 Tjgeafm-Cjm-Kfk Reductase AdvReac Joint Pain Verified 07/01/18 16:23 Inhibitor Review of Systems ROS Unobtainable ROS Unobtainable: unobtainable due to mental status PMFSH Medical History Medical History Stroke (Acute) Asthma (Acute) Diabetes (Acute) HTN (hypertension) (Acute) Thyroid cancer (Acute) Surgical History Surgical History H/O laparoscopy (Acute) History of back surgery (Acute) History of lung biopsy (Acute) History of tonsillectomy (Acute) Hx of breast biopsy (Acute) Hx of thyroidectomy (Acute) Social History Social History Substance History: No History of Abuse Second Hand Smoke Exposure: No Smoking Status: Former smoker Tobacco Type: Cigarettes How Often Do You Have a Drink Containing Alcohol: 4 or more times a week Recent Travel in [facility] within the Last 8 Weeks: No Recent Out of Country Travel within the Last 8 Weeks: No Immunization History Tetanus Immunization Year if Known: 2012 Exam Narrative Exam Narrative: General: unresponsive, focused exam performed Skin: No rash Eyes: Pupils are equal Neck: No JVD Cardiovascular: Regular rate and rhythm Respiratory: shallow respiratory effort noted, clear to auscultation bilaterally Abdomen: Soft, nondistended Extremities: No edema noted Neuro: Moves all extremities, eyes open, incomprehensible sounds Course Reevaluation(s) Reevaluation #1: Patient now coming around and does not recall episode. states he originally brought her here in the car because her speech was off. He states right before he got here is when she turned off to the side drooled and her arm started tightening up and she went unresponsive. They were updated and she will be admitted for further care Consultations Consultation #1: dr mcintosh states to give 1g of keppra then place on 500 mg bid and will follow Consultation #2: discussed with juvenal and states to full admit in intermediate care Initial Documented Vital Signs Pulse Oximetry 97 07/01/18 16:00 Last Documented Vital Signs Temperature 98 F 07/01/18 16:50 Pulse Rate 80 07/01/18 16:57 Respiratory Rate 16 07/01/18 16:57 Blood Pressure 170/64 H 07/01/18 16:57 Pulse Oximetry 96 07/01/18 16:57 Critical Care Time Critical Care Time: Yes Total Critical Care Time: 31 Attestation: Aggregate critical care time was 31 minutes. Time to perform other separately billable procedures was not included in the critical care time. My time did not include minutes spent treating any other patients simultaneously or on activities that did not directly contribute to the patient's treatment. The services I provided to this patient were to treat and/or prevent clinically significant deterioration that could result in: Status epilepticus, respiratory failure I provided critical care services requiring my management, as noted below: Chart data review, documentation time, medication orders and management, vital sign assessments/reviewing monitor data, ordering and reviewing lab tests, ordering and interpreting/reviewing x-rays and diagnostic studies, care of the patient and discussion of the patient with the admitting physicians. Medical Decision Making MDM Narrative Medical decision making narrative: Patient arrived with what appeared to be postictal state. She was foaming at the mouth and unresponsive and shortly after awoken when had a nonrebreather placed and was confused. She kept shouting inappropriate words. Patient placed on monitor and went with her to CT. No large bleed noted. Will check blood work and discuss with neurology and closely monitor. Patient received 1 mg of Ativan to coordinate imaging and to help prevent seizure given significant altered mental status. Medical Screen Exam Complete: Yes Emergency Medical Condition: Yes Differential Diagnosis Differential Diagnosis: Seizure, hyponatremia, bleed Medical Records Medical records reviewed: Yes I reviewed the patient's medical records. Patient discharged yesterday after stroke, patient had PFO but no associated shunt so not thought to be related, she does have blockage of her carotid and placed on therapeutic Lovenox. She was also found to have a lung mass and a vallecular mass that she cannot have biopsied till and lay she is on 1 month of Lovenox. Lab Data Result diagrams: 07/01/18 16:10 07/01/18 16:10 Lab Results 07/01/18 07/01/18 Range/Units 16:10 16:10 CBC w Diff Slide review pending WBC 11.9 H (4.0-11.0) th/mm3 RBC 4.27 (4.00-5.30) mil/mm3 Hgb 14.2 (11.6-15.3) gm/dL Hct 42.0 (35.0-46.0) % MCV 98.3 (80.0-100.0) fL MCH 33.2 (27.0-34.0) pg MCHC 33.8 (32.0-36.0) % RDW 14.1 (11.6-17.2) % Plt Count 303 D (150-450) th/mm3 MPV 8.6 (7.0-11.0) fL Neut % (Auto) 47.4 (16.0-70.0) % Lymph % (Auto) 43.0 (9.0-44.0) % [place] % (Auto) 6.2 (0.0-8.0) % Eos % (Auto) 1.8 (0.0-4.0) % Baso % (Auto) 1.6 (0.0-2.0) % Neut # (Auto) 5.7 (1.8-7.7) th/mm3 Lymph # (Auto) 5.1 H (1.0-4.8) th/mm3 [place] # (Auto) 0.7 (0.0-0.9) th/mm3 Eos # (Auto) 0.2 (0.0-0.4) th/mm3 Baso # (Auto) 0.2 (0.0-0.2) th/mm3 WBC Differential Manual diff final Seg Neuts % (Manual) 36 (16-70) % Band Neuts % (Manual) 1 (0-6) % Lymphocytes % (Manual) 55 H (9-44) % Monocytes % (Manual) 7 (0-8) % Basophils % (Manual) 1 (0-2) % Abs Neuts (Manual) 4.4 (1.8-7.7) th/mm3 Differential Comment . Platelet Estimate Normal (Normal) Platelet Morphology Normal (Normal) RBC Morphology Normal (Normal) Sodium 133 L (136-145) meq/L Potassium 4.3 (3.5-5.1) meq/L Chloride 99 (98-107) meq/L Carbon Dioxide 15.9 L (21.0-32.0) meq/L Anion Gap 18 H (5-15) meq/L BUN 15 (7-18) mg/dL Creatinine 1.20 H (0.50-1.00) mg/dL Estimated GFR 45 L (>89) mL/min Random Glucose 161 H (74-106) mg/dL Calcium 8.7 (8.5-10.1) mg/dL Magnesium 1.9 (1.5-2.5) mg/dL Total Bilirubin 0.5 (0.2-1.0) mg/dL AST 135 H (15-37) U/L ALT 125 H (10-53) U/L Alkaline Phosphatase 109 (45-117) U/L Total Protein 7.8 (6.4-8.2) g/dL Albumin 3.6 (3.4-5.0) g/dL Serum Alcohol Less than 3 (0-5) mg/dL Imaging Data Radiologist's impression: Head CT 07/01/18 16:01 CONCLUSION: 1. No acute intracranial abnormality is identified. There is persistent low density in the left parieto-occipital region corresponding with the areas of recently documented infarct. 2. No other abnormality is identified. . Discharge Plan Discharge Disposition Patient Disposition: 30 Still Patient Discharge Details Diagnosis: Seizure Physicians Team ED Provider: Luciana Francis Primary Care Provider: UNKNOWN, Rxs /Orders / Referrals /Forms Prescriptions: No Action albuterol sulfate 0.63 mg/3 mL Solution For Nebulization 0.63 mg INHALATION Q4-6H PRN (Reason: allergies) RF: 0 fluticasone [Flonase Allergy Relief] 50 mcg/actuation [place],Suspension 1 spray INTRANASAL DAILY RF: 0 levothyroxine [Unithroid] 112 mcg Tablet 112 mcg PO DAILY RF: 0 psyllium husk [Metamucil] 0.52 gram Capsule 0.52 g PO DAILY RF: 0 Bifidobacterium infantis [Align] 4 mg Capsule 4 mg PO DAILY RF: 0 fluticasone-vilanterol [Breo Ellipta] 200-25 mcg/dose Blister With Device 1 inh INHALATION DAILY RF: 0 enoxaparin [Lovenox] 80 mg/0.8 mL Syringe 75 mg subcut Q12HR Qty: 60 RF: 3 metoprolol tartrate 100 mg Tablet 100 mg PO BID Qty: 60 RF: 11 nifedipine 60 mg Tablet Extended Release 24hr 60 mg PO DAILY Qty: 30 RF: 11 Status ED Status: Admitted Patient
[2018-07-01] MEDS ORDERED: levETIRAcetam 1000mg/100mL Inj 100 ML IV.SIG ONE (16:30)
--- NOTE | 2018-07-01 16:30 | CT ---
EXAM DATE: 07/01/2018 4:22 PM EDT AGE/SEX: 67 years / Female INDICATIONS: Altered mental status. Possible seizure. CLINICAL DATA: This is the patient's initial encounter. Patient reports that signs and symptoms have been present for 1 day and indicates a pain score of Nonresponsive. MEDICAL/SURGICAL HISTORY: Stroke. Carcinoma, thyroid. Diabetes. Hypertension. Thyroidectomy. B ack surgery. RADIATION DOSE: 38.68 CTDI (mGy) COMPARISON: [facility] – [place], MR HEAD W/O CONTRAST, 06/27/2018. [facility] – [place], CT HEAD W/O CONTRAST, 06/27/2018. . TECHNIQUE: CT of the head without contrast. Using automated exposure control and adjustment of the mA and/or kV according to patient size, radiation dose was kept as low as reasonably achievable to ob tain optimal diagnostic quality images. DICOM format image data is available electronically for revi ew and comparison. FINDINGS: Cerebrum: The ventricles are normal. There is subtle low-density in the left occipital lobe and left parietal lobe corresponding to the area of prior ischemia documented on previous MRI. No midline cristin ft, mass lesion, hemorrhage or new infarction. No extraaxial fluid collections are seen. Posterior Fossa: The cerebellum and brainstem demonstrate no acute abnormality. The 4th ventricle is midline. The cerebellopontine angle is within normal limits. Extracranial: The visualized sinuses are clear. Skull: The calvaria is intact. No skull fracture. CONCLUSION: 1. No acute intracranial abnormality is identified. There is persistent low density in the left karan eto-occipital region corresponding with the areas of recently documented infarct. 2. No other abnormality is identified. . Electronically signed by: Burton Garcia MD 07/01/2018 4:29 PM EDT
[2018-07-01 16:42] LABS: Lymphocytes 55 % (9-44); Monocytes 7 % (0-8); Platelet Estimate Normal (Normal); Platelet Morphology Normal (Normal); RBC Morphology Normal (Normal)
[2018-07-01 16:46] LABS: Chloride 99 meq/L (98-107); Sodium 133 meq/L (136-145)
[2018-07-01 16:50] LABS: Albumin 3.6 g/dL (3.4-5.0); Anion Gap 18 meq/L (5-15); Blood Urea Nitrogen 15 mg/dL (7-18); Calcium 8.7 mg/dL (8.5-10.1); Carbon Dioxide 15.9 meq/L (21.0-32.0); Glucose,Random 161 mg/dL (74-106); Magnesium 1.9 mg/dL (1.5-2.5)
[2018-07-01 16:53] LABS: Alanine Aminotransferase 125 U/L (10-53); Aspartate Aminotransferase 135 U/L (15-37); Glomerular Filtration Rate 45 mL/min (>89)
[2018-07-01 16:55] LABS: Total Protein 7.8 g/dL (6.4-8.2)
[2018-07-01 16:56] LABS: Alkaline Phosphatase 109 U/L (45-117)
[2018-07-01] MEDS: Sod Chloride 0.9% Inj 1,000 ML IV.CONT SCH (17:16)
[2018-07-01 17:22] LABS: Potassium 4.3 meq/L (3.5-5.1)
[2018-07-01] MEDS ORDERED: Bisacodyl 10 MG Supp RECTAL PRN (17:36)
[2018-07-01 19:57] LABS: Bilirubin,Urine Negative (Negative); Clarity,Urine Clear (Clear); Color,Urine Yellow (Yellw/Straw); Glucose,Urine (UA) Negative (Negative); Leukocyte Esterase,Urine Negative (Negative); Nitrite,Urine Negative (Negative); Specific Gravity,Urine Less/Equal 1.005 (1.002-1.035); Urobilinogen,Urine 0.2 mg/dL (Less than 2)
[2018-07-01 20:24] LABS: Amphetamine Screen,Urine Neg (Neg)
[2018-07-01 20:25] LABS: Cocaine Screen,Urine Neg (Neg)
[2018-07-01 20:28] LABS: Barbiturate Screen,Urine Neg (Neg)
[2018-07-01 20:29] LABS: Cannabinoid Screen,Urine Neg (Neg)
[2018-07-01] MEDS ORDERED: Metoprolol Tartrate 50 MG Tablet PO ONE (20:34)
[2018-07-01 20:49] LABS: Opiate Screen,Urine Neg (Neg)
[2018-07-01] MEDS: Metoprolol Tartrate 100 MG Tablet PO SCH (21:16)
[2018-07-01] MEDS: Enoxaparin Inj 80 MG/0.8 ML Syringe SQ SCH (21:19)
[2018-07-02] MEDS: Sod Chloride 0.9% Inj 1,000 ML IV.CONT SCH ×2 (02:21→12:40)
[2018-07-02] MEDS ORDERED: Levothyroxine 112 MCG Tablet PO SCH (06:00)
[2018-07-02] MEDS ORDERED: Dextrose 50% in Water 50 ML Vial IV.PUSH PRN (06:23)
[2018-07-02 06:34] LABS: Baso % (Auto) 0.6 % (0.0-2.0); Eos # (Auto) 0.2 th/mm3 (0.0-0.4); Eos % (Auto) 2.4 % (0.0-4.0); Hematocrit 37.7 % (35.0-46.0); Hemoglobin 12.6 gm/dL (11.6-15.3); Lymph % (Auto) 31.8 % (9.0-44.0); Mean Corpuscular HGB Conc 33.4 % (32.0-36.0); Mean Corpuscular Hemoglobin 32.2 pg (27.0-34.0); Mean Corpuscular Volume 96.6 fL (80.0-100.0); Mean Platelet Volume 8.4 fL (7.0-11.0); Mono # (Auto) 0.7 th/mm3 (0.0-0.9); Mono % (Auto) 10.4 % (0.0-8.0); Neut # (Auto) 3.4 th/mm3 (1.8-7.7); Neut % (Auto) 54.8 % (16.0-70.0); Platelet Count 236 th/mm3 (150-450); Red Cell Distribution Width 14.2 % (11.6-17.2); White Blood Count 6.3 th/mm3 (4.0-11.0)
[2018-07-02 08:26] LABS: Anion Gap 9 meq/L (5-15); Blood Urea Nitrogen 8 mg/dL (7-18); Calcium 7.9 mg/dL (8.5-10.1); Carbon Dioxide 24.2 meq/L (21.0-32.0); Chloride 108 meq/L (98-107); Glomerular Filtration Rate Greater Than 89 mL/min (>89); Glucose,Random 108 mg/dL (74-106); Potassium 3.4 meq/L (3.5-5.1); Sodium 141 meq/L (136-145)
[2018-07-02] MEDS: LEVOTHYROXINE 112 MCG PO SCH (08:46)
[2018-07-02] MEDS: Enoxaparin Inj 80 MG/0.8 ML Syringe SQ SCH ×2 (08:47→21:12)
[2018-07-02] MEDS: Metoprolol Tartrate 100 MG Tablet PO SCH ×2 (08:47→21:12)
[2018-07-02 09:14] LABS: Alanine Aminotransferase 117 U/L (10-53); Albumin 3.1 g/dL (3.4-5.0); Alkaline Phosphatase 77 U/L (45-117); Aspartate Aminotransferase 90 U/L (15-37); Total Protein 6.3 g/dL (6.4-8.2)
[2018-07-02 09:39] LABS: Creatine Kinase 59 U/L (26-192)
[2018-07-02] MEDS: Insulin NovoLOG Aspart Correctional Sugar Inj SQ SCH ×4 (10:46→21:12)
--- NOTE | 2018-07-02 10:51 | MR ---
EXAM DATE: 07/02/2018 10:35 AM EDT AGE/SEX: 67 years / Female INDICATIONS: CVA. Recent CVA. New onset altered mental status. Resolved. CLINICAL DATA: This is the patient's initial encounter. Patient reports that signs and symptoms have been present for 1 day and indicates a pain score of 0/10. MEDICAL/SURGICAL HISTORY: Diabetes mellitus type II. Hypertension. Discectomy, lumbar. Tonsil lectomy. ORIF ankle COMPARISON: [facility] – [place], MR HEAD W/O CONTRAST, 06/27/2018. . TECHNIQUE: Multiplanar, multisequence examination of the brain was performed without contrast. FINDINGS: Restricted diffusion is again seen in the left parieto-occipital region. This is unchanged in size fr om the prior study of 06/27/2018. Several small areas restricted diffusion in the left frontoparietal cortex also unchanged. Small area of restricted diffusion in the left cerebellar hemisphere seen on the prior study is not seen on the current study. No new areas of restricted diffusion. No significan t mass effect or midline shift. Ventricles unchanged in size. No evidence of intracranial hemorrhage or extra-axial fluid collection. No intracranial mass lesion identified. CONCLUSION: No significant interval change. Dominant acute left parieto-occipital infarct unchanged. Several scat tered small cortical infarcts in the left frontoparietal region also unchanged. Electronically signed by: Roger Durham MD 07/02/2018 10:49 AM EDT
--- NOTE | 2018-07-02 10:54 | CT ---
EXAM DATE: 07/02/2018 10:45 AM EDT AGE/SEX: 67 years / Female INDICATIONS: Embolism CLINICAL DATA: This is the patient's initial encounter. Patient reports that signs and symptoms have been present for 1 day and indicates a pain score of 0/10. MEDICAL/SURGICAL HISTORY: Asthma. Diabetes. Carcinoma, thyroid. Hypertension, Stroke Thyroidect yolette. Tonsillectomy. RADIATION DOSE: 43.11 CTDI (mGy) ; Combined studies COMPARISON: [facility], CTA HEAD W CONTRAST W 3D, 06/26/2018. . TECHNIQUE: Volumetric scanning was performed using a multi-row detector CT scanner during bolus infu tamie of 75ml ml Omnipaque 350 (iohexol) nonionic water-soluble contrast as a cumulative dose for mul tiple exams. The data was post processed with a variety of visualization algorithms including full volume maximum intensity projection, multi-planar sliding thin slab reformation, curved planar reform ation, and surface rendering techniques. Using automated exposure control and adjustment of the mA a nd/or kV according to patient size, radiation dose was kept as low as reasonably achievable to obtain optimal diagnostic quality images. DICOM format image data is available electronically for review a nd comparison. FINDINGS: The anterior cerebral arteries, external cerebral arteries, and posterior cerebral arteries are again patent. Posterior communicating arteries are seen bilaterally. No evidence of aneurysm or high-grade stenosis. No significant interval change. CONCLUSION: No significant interval change. No evidence of high-grade stenosis or aneurysm. . Electronically signed by: Roger Durham MD 07/02/2018 10:53 AM EDT
--- NOTE | 2018-07-02 11:09 | MB ---
cc: Laila Whitaker MD DATE: 07/02/2018 REASON FOR CONSULTATION: Seizure. HISTORY OF PRESENT ILLNESS: This is a 67-year-old woman who was brought in by her for a possible seizure. She recently was discharged from the hospital on 06/30/2018 with a stroke. She was found to have left internal carotid thrombus. Placed on initially heparin and Lovenox therapy 70 mg b.i.d. with the plan to have her come back in 2 weeks for followup with vascular surgery. She was also found to have a PFO, but no [id number]-gg-[id number] shunt. Found also to have a 3.3 left upper lobe mass and 4 mm nodule in the left upper lobe. She has a known history of thyroid cancer and breast cancer. The patient initially presented to the hospital with right arm weakness and found to a thrombus in the internal carotid. She has a significant history as stated below, but also hypertension, diabetes, hyperlipidemia. Her last MRI on 06/27/2018 of the brain confirmed left occipital lobe infarct and infarcts in the left cerebellum, left frontal and left parietal lobes. Apparently, yesterday she presented to the ED after her noted that she was woken up by a robo-type call, confirming her appointment with her primary care next week. She became dazed, confused, blank stare and then she states that she turned her head to the right and started drooling and shaking all over. The whole event lasted less than 90 seconds. He brought her immediately to the ER and she was admitted to the ICU. There was some tongue biting, she stated, but no incontinence. She was questionably postictal. I did speak to the ER and recommended a loading dose of 1 gram of Keppra and 500 mg b.i.d. She is undergoing stat MRI of the brain currently, as well as CTA platinum of Marks and carotids. I did notify vascular surgery, Dr. Mccoy to consult. In the event she has progression, she may need to have the thrombus surgically resected. She has been compliant with her Lovenox. Currently, she seems to be back to baseline. PHYSICAL EXAMINATION: VITAL SIGNS: Temperature is 98.6, pulse 64, respiratory rate 19, blood pressure 164/70, saturating at 97%. NECK: Supple. I do not appreciate any bruits. HEART: Regular. NEUROLOGIC: She is alert. Speech is normal. Pupils reactive. Visual vargas full. Face symmetric. Tongue midline. Motor-randhawa, I do not appreciate any drift or any leg lag. Cerebellar is normal. DTRs are 1+. Toes withdraw. Gait I am not assessing, keeping her at bedrest. LABORATORY DATA: Labs are reviewed from today. Her potassium is a little low at 3.4, needs low-dose replacement, calcium 7.9, glucose 108. Liver function studies were ALT is 125, AST 135, that is being repeated. Urine is negative. Toxicology screen is negative. IMAGING: Imaging was done yesterday, stat CT that showed nothing acute. Persistent low density in the left parieto-occipital region, corresponding to the recent documented infarct, but nothing new was seen. There is no hemorrhage. IMPRESSION: A 67-year-old woman with a left internal carotid artery thrombus with multiple strokes on MRI seen a few days prior. Current CT is negative for any new findings. The patient seems to be back to baseline. It does sound like she may have had a seizure. We will continue her on Keppra. She is undergoing stat MRI brain, stat CTA platinum of Marks and carotid with and without. In the event that these findings are changed, increase in stroke burden, we will defer to Dr. Mccoy who has been consulted, if the patient needs to go to surgery. In the interim, keep her on Lovenox. Keep her at bedrest, permissible hypertension. We will get an EEG. Continue the Keppra and in the event needed, she will be transferred to the main hospital. Discussed with the patient and with her at length. Further recommendations will be made as needed. MD DENZEL Waldron/roxane , 09:23 AM , 09:34 AM
--- NOTE | 2018-07-02 11:51 | CT ---
EXAM DATE: 07/02/2018 11:38 AM EDT AGE/SEX: 67 years / Female INDICATIONS: Embolism CLINICAL DATA: This is the patient's initial encounter. Patient reports that signs and symptoms have been present for 1 day and indicates a pain score of 0/10. MEDICAL/SURGICAL HISTORY: Asthma. Diabetes. Carcinoma, thyroid. Hypertension, Stroke Thyroidect yolette. Tonsillectomy. RADIATION DOSE: 43.11 CTDI (mGy) ; Combined studies COMPARISON: [facility], CTA NECK W CONTRAST W 3D, 06/26/2018. . TECHNIQUE: Volumetric scanning was performed using a multirow detector CT scanner during bolus infus ion of 75ML ml Omnipaque 350 (iohexol) nonionic water-soluble contrast as a cumulative dose for mult iple exams. The data was postprocessed with a variety of visualization algorithms including full-vo lume maximum intensity projection, multiplanar sliding thin-slab reformation, curved-planar reformati on, and surface-rendering techniques. Using automated exposure control and adjustment of the mA and/ or kV according to patient size, radiation dose was kept as low as reasonably achievable to obtain op timal diagnostic quality images. DICOM format image data is available electronically for review and comparison. Percent stenosis is calculated using the diameter of the stenotic region over the diameter of the nor mal distal internal carotid artery. FINDINGS: The previously identified luminal thrombus seen in the proximal left internal carotid artery is no lo nger seen. There is calcified plaque this area resulting in mild stenosis of less than 30%. Examination is otherwise unchanged. No evidence of high-grade carotid stenosis. Left-sided lung mass again noted and again partially visualized. Left-sided hypopharyngeal mass also again seen. CONCLUSION: 1. Luminal thrombus in the proximal left internal carotid artery no longer seen. 2. No other significant interval change. Left-sided hypopharyngeal mass and left-sided lung mass aga in seen. Electronically signed by: Roger Durham MD 07/02/2018 11:50 AM EDT
--- NOTE | 2018-07-02 12:06 | P.PNVS ---
Subjective Subjective/Hospital Course: Patient is well-known to our service. She presents to the ER with a episode of confusion, patient was unable to identify herself to her . She was driven to the ER and on the way she showed signs and symptoms that are concerning for seizure. She denies any new motor or sensory deficits Objective Vital Signs / I&O: Vital Signs 07/01/18 16:00 07/01/18 16:01 07/01/18 16:24 Temperature Pulse Rate 83 Respiratory Rate Blood Pressure Pulse Oximetry 97 97 07/01/18 16:50 07/01/18 16:57 07/01/18 18:28 Temperature 98 F Pulse Rate 83 80 72 Respiratory Rate 18 16 20 Blood Pressure 149/91 H 170/64 H 173/60 H Pulse Oximetry 95 96 95 07/01/18 20:00 07/02/18 00:00 07/02/18 04:00 Temperature 97.5 F L 98 F 97.7 F Pulse Rate 68 58 L 60 Respiratory Rate 20 16 26 H Blood Pressure 137/60 133/68 147/72 H Pulse Oximetry 95 07/02/18 05:00 07/02/18 08:00 Temperature 98.6 F Pulse Rate 72 64 Respiratory Rate 33 H 19 Blood Pressure 164/70 H Pulse Oximetry 100 Intake & Output 07/01/18 07/02/18 07/02/18 18:59 06:59 18:59 Intake Total 200 / 200 1105 / 1105 Output Total 1700 / 1700 400 / 400 Balance 200 / 200 -595 / -595 -400 / -400 Weight 76.3 kg 73.5 kg Intake: IV 200 / 200 1005 / 1005 NS Inj 1,000 ML @ 125 mls/hr IV 100 / 100 900 / 900 .CONT .Q8H SAM Rx#:[id number] Keppra 1000 mg/100 mL Premix 100 / 100 100 ML @ 400 mls/hr IV.SIG ONCE ONE Rx#:[id number] Keppra Inj 500 MG In NS Inj 100 105 / 105 ML @ 400 mls/hr IV.SIG Q12H SAM Rx#:[id number] Oral 100 / 100 Output: Urine 1700 / 1700 400 / 400 Other: # Voids 4 Date of Last Bowel Movement 07/01/18 # Bowel Movements 0 Weight On Admission 72.575 kg Physical Exam: Cranial nerves II through XII are intact. No new neurological deficits identified physical exam. Laboratory Results - last 24 hr 07/01/18 07/01/18 07/01/18 16:10 16:10 19:20 CBC w Diff Slide review pending WBC 11.9 H RBC 4.27 Hgb 14.2 Hct 42.0 MCV 98.3 MCH 33.2 MCHC 33.8 RDW 14.1 Plt Count 303 D MPV 8.6 Neut % (Auto) 47.4 Lymph % (Auto) 43.0 [place] % (Auto) 6.2 Eos % (Auto) 1.8 Baso % (Auto) 1.6 Neut # (Auto) 5.7 Lymph # (Auto) 5.1 H [place] # (Auto) 0.7 Eos # (Auto) 0.2 Baso # (Auto) 0.2 WBC Differential Manual diff final Seg Neuts % (Manual) 36 Band Neuts % (Manual) 1 Lymphocytes % (Manual) 55 H Monocytes % (Manual) 7 Basophils % (Manual) 1 Abs Neuts (Manual) 4.4 Differential Comment . Platelet Estimate Normal Platelet Morphology Normal RBC Morphology Normal Sodium 133 L Potassium 4.3 Chloride 99 Carbon Dioxide 15.9 L Anion Gap 18 H BUN 15 Creatinine 1.20 H Estimated GFR 45 L POC Glucose Random Glucose 161 H Calcium 8.7 Magnesium 1.9 Total Bilirubin 0.5 AST 135 H ALT 125 H Alkaline Phosphatase 109 Total Creatine Kinase Total Protein 7.8 Albumin 3.6 Urine Color Urine Clarity Urine pH Ur Specific Irene Urine Protein Urine Glucose (UA) Urine Ketones Urine Occult Blood Urine Nitrate Urine Bilirubin Urine Urobilinogen Ur Leukocyte Esterase Ur Microscopic Review Urine Opiates Screen Neg Ur Barbiturates Screen Neg Ur Amphetamines Screen Neg U Benzodiazepines Scrn Neg Urine Cocaine Screen Neg U Cannabinoids Screen Neg Serum Alcohol Less than 3 07/01/18 07/02/18 07/02/18 19:20 06:03 06:03 CBC w Diff Auto diff final WBC 6.3 RBC 3.90 L Hgb 12.6 Hct 37.7 MCV 96.6 MCH 32.2 MCHC 33.4 RDW 14.2 Plt Count 236 MPV 8.4 Neut % (Auto) 54.8 Lymph % (Auto) 31.8 [place] % (Auto) 10.4 H Eos % (Auto) 2.4 Baso % (Auto) 0.6 Neut # (Auto) 3.4 Lymph # (Auto) 2.0 [place] # (Auto) 0.7 Eos # (Auto) 0.2 Baso # (Auto) 0.0 WBC Differential . Seg Neuts % (Manual) Band Neuts % (Manual) Lymphocytes % (Manual) Monocytes % (Manual) Basophils % (Manual) Abs Neuts (Manual) Differential Comment . Platelet Estimate Platelet Morphology RBC Morphology Sodium 141 Potassium 3.4 L D Chloride 108 H D Carbon Dioxide 24.2 Anion Gap 9 BUN 8 Creatinine 0.57 Estimated GFR Greater than 89 POC Glucose Random Glucose 108 H Calcium 7.9 L D Magnesium Total Bilirubin 0.5 AST 90 H ALT 117 H Alkaline Phosphatase 77 Total Creatine Kinase 59 Total Protein 6.3 L D Albumin 3.1 L Urine Color Yellow Urine Clarity Clear Urine pH 6.0 Ur Specific Irene Less/equal 1.005 Urine Protein Negative Urine Glucose (UA) Negative Urine Ketones Negative Urine Occult Blood Negative Urine Nitrate Negative Urine Bilirubin Negative Urine Urobilinogen 0.2 Ur Leukocyte Esterase Negative Ur Microscopic Review Microscopic reviewed Urine Opiates Screen Ur Barbiturates Screen Ur Amphetamines Screen U Benzodiazepines Scrn Urine Cocaine Screen U Cannabinoids Screen Serum Alcohol 07/02/18 07:59 CBC w Diff WBC RBC Hgb Hct MCV MCH MCHC RDW Plt Count MPV Neut % (Auto) Lymph % (Auto) [place] % (Auto) Eos % (Auto) Baso % (Auto) Neut # (Auto) Lymph # (Auto) [place] # (Auto) Eos # (Auto) Baso # (Auto) WBC Differential Seg Neuts % (Manual) Band Neuts % (Manual) Lymphocytes % (Manual) Monocytes % (Manual) Basophils % (Manual) Abs Neuts (Manual) Differential Comment Platelet Estimate Platelet Morphology RBC Morphology Sodium Potassium Chloride Carbon Dioxide Anion Gap BUN Creatinine Estimated GFR POC Glucose 109 Random Glucose Calcium Magnesium Total Bilirubin AST ALT Alkaline Phosphatase Total Creatine Kinase Total Protein Albumin Urine Color Urine Clarity Urine pH Ur Specific Irene Urine Protein Urine Glucose (UA) Urine Ketones Urine Occult Blood Urine Nitrate Urine Bilirubin Urine Urobilinogen Ur Leukocyte Esterase Ur Microscopic Review Urine Opiates Screen Ur Barbiturates Screen Ur Amphetamines Screen U Benzodiazepines Scrn Urine Cocaine Screen U Cannabinoids Screen Serum Alcohol Impressions Head CT 07/01/18 16:01 CONCLUSION: 1. No acute intracranial abnormality is identified. There is persistent low density in the left parieto-occipital region corresponding with the areas of recently documented infarct. 2. No other abnormality is identified. . Head CTA 07/02/18 08:56 CONCLUSION: No significant interval change. No evidence of high-grade stenosis or aneurysm. . Head MRI 07/02/18 08:56 CONCLUSION: No significant interval change. Dominant acute left parieto-occipital infarct unchanged. Several scattered small cortical infarcts in the left frontoparietal region also unchanged. Neck CTA 07/02/18 08:56 CONCLUSION: 1. Luminal thrombus in the proximal left internal carotid artery no longer seen. 2. No other significant interval change. 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 Assessment and Plan - Plan Left internal carotid artery thrombus I reviewed the CT angiography that was performed today. The left internal carotid thrombus burden has significantly decreased since last CTA. It is almost negligible. There is no significant stenosis identified on the CT angiography. The brain MRI did not show any new strokes. I recommend to continue with anticoagulation. She is stable to be discharged from vascular surgery standpoint. She has an office appointment scheduled in 2 weeks. Thank you for allowing me to participate in this patient care Daniel Mistry MD [phone]
--- NOTE | 2018-07-02 13:30 | P.HP ---
History of Present Illness Primary Care Physician: UNKNOWN Chief Complaint: Santos History of Present Illness: This is 67-year-old female j discharged yesterday from [facility] after being treated for embolic CVA, left ICA thrombus and paroxysmal A. fib. She was discharged on Lovenox 75 mg twice a day. At home, noted she was confused and was not answering questions. He then brought her to the emergency room and en route noted having seizure activity for less than a minute with her head turned to the right and having tonic-clonic activity of the upper extremities then started drooling. Overnight she was loaded with IV Keppra. She also underwent repeat MRI of the brain which showed no progression of stroke and CTA of the carotids showing resolution of the thrombus. Case discussed with neurology and vascular surgery. At this time patient has no complaints. Inpatient Certification: I certify that the inpatient services were ordered in accordance with Medicare regulations governing the order. This includes certification that hospital inpatient services are reasonable and necessary and in the case of services not specified as inpatient-only under 42 CFR 419.22(n), that they are appropriately provided as inpatient services in accordance to with the 2-midnight benchmark under 43 CFR 412.3(e) Estimated Total Length of Stay (Days): 3 Plans for Post Hospital Care: Not yet determined Review of Systems All other systems reviewed negative except as stated in HPI PMFSH - History History Provided By: Patient - Medical History Medical History: Medical History (Last Reviewed 07/02/18 @ 14:44 by Mukesh Valverde MD) Stroke Asthma Diabetes HTN (hypertension) Thyroid cancer - Surgical History Surgical History: Surgical History (Last Reviewed 07/02/18 @ 14:45 by Mukesh Valverde MD) H/O laparoscopy History of back surgery History of lung biopsy History of tonsillectomy Hx of breast biopsy Hx of thyroidectomy - Family History Family History: Family History (Last Reviewed 07/02/18 @ 14:45 by Mukesh Valverde MD) Mother Heart disease Mother Lung cancer - Social History I have reviewed the patient's Social History: Yes - Tobacco History Second Hand Smoke Exposure: No Tobacco Use In Past 30 Days: Yes Smoking Status: Former smoker Tobacco Type: Cigarettes - Alcohol History How Often Do You Have a Drink Containing Alcohol: 4 or more times a week - Substance Use History Substance History: No History of Abuse - Travel History Recent Travel in the [facility] Within the Last 8 Weeks: No Recent Travel Out of the Country Within the Last 8 Weeks: No - Immunization History Tetanus Immunization: <5 Years Tetanus Immunization Year if Known: 2012 Hx Influenza Vaccine This Season: Yes Medications and Allergies Active Medications: Active Medications Al Hydroxide/Mg Hydroxide (Milk Of Magnesia Liq) 30 ml PO Q12H PRN PRN Reason: Mild Constipation Albuterol (Albuterol Neb (Prn)) 0.63 mg INH Q4HR NEB PRN PRN Reason: allergies Bisacodyl (Dulcolax Supp) 10 mg RECTAL DAILY PRN PRN Reason: SEVERE CONSITIPATION Clonidine HCl (Catapres) 0.1 mg PO Q6H PRN PRN Reason: SBP>160, DBP>90 Dextrose (D50w Vial) 50 ml IV.PUSH UNSCH PRN PRN Reason: PER HYPOGLYCEMIA PROTOCOL Enoxaparin Sodium (Lovenox Inj) 75 mg SQ Q12HR [facility] Last Admin: 07/02/18 08:47 Dose: 75 mg Fluticasone Propionate (Flonase Nasal Dalton) 1 spray EACH NARE DAILY [facility] Last Admin: 07/02/18 08:48 Dose: 1 spray Fluticasone/Vilanterol (Breo Ellipta 200/25 Mcg Inh) 1 puff INH DAILY [facility] Last Admin: 07/02/18 08:48 Dose: 1 puff Glucagon (Glucagon Inj) 1 mg OTHER PRN PRN PRN Reason: for Hypoglycemia Protocol Sodium Chloride (Ns Inj) 1,000 mls @ 75 mls/hr IV.CONT .[id number] [facility] Last Admin: 07/02/18 12:40 Dose: 125 mls/hr Levetiracetam 500 mg/ Sodium (Chloride) 105 mls @ 400 mls/hr IV.SIG Q12H [facility] Last Infusion: 07/02/18 06:00 Dose: Infused Insulin Aspart (Novolog Insulin Correctional Sugar Inj) 0 unit SQ ACHS [facility]; Protocol Last Admin: 07/02/18 10:46 Dose: Not Given Lactulose (Lactulose Liq) 30 ml PO DAILY PRN PRN Reason: SEVERE CONSITIPATION Lorazepam (Ativan Inj) 2 mg IV.PUSH Q10M PRN PRN Reason: SEE LABEL COMMENTS Metoprolol Tartrate (Lopressor) 100 mg PO BID [facility] Last Admin: 11/03/18 08:47 Dose: 100 mg Nifedipine (Procardia Xl) 60 mg PO DAILY [facility] Last Admin: 07/02/18 08:47 Dose: 60 mg Ondansetron HCl (Zofran Inj) 4 mg IV.PUSH Q6H PRN PRN Reason: NAUSEA OR VOMITING Patient Own Medication Unithroid 112mcg 1 each PO DAILY@0600 [facility] Last Admin: 07/02/18 08:46 Dose: 1 each Sennosides (Senokot) 17.2 mg PO Q12H PRN PRN Reason: Moderate Constipation Sodium Chloride (Ns Flush) 2 ml IV.FLUSH PRN PRN PRN Reason: FLUSH AFTER USING IV ACCESS Allergies Allergy/AdvReac Type Severity Reaction Status Date / Time losartan Allergy Swelling Verified 07/01/18 16:23 of Lip/Tongue/Throat Sulfa (Sulfonamide Allergy Hives Verified 07/01/18 16:23 Antibiotics) ciprofloxacin [From Cipro] AdvReac Tingling Verified 07/01/18 16:23 levofloxacin AdvReac Joint Pain Verified 07/01/18 16:23 prednisone AdvReac Joint Pain Verified 07/01/18 16:23 [id number] Reductase AdvReac Joint Pain Verified 07/01/18 16:23 Inhibitor Home Medications Medication Instructions Recorded Confirmed Type albuterol sulfate 0.63 mg INHALATION Q4-6H PRN 06/23/18 07/01/18 History fluticasone [Flonase Allergy 1 spray INTRANASAL DAILY 06/23/18 07/01/18 History Relief] levothyroxine [Unithroid] 112 mcg PO DAILY 06/23/18 07/01/18 History psyllium husk [Metamucil] 0.52 g PO DAILY 06/23/18 07/01/18 History Bifidobacterium infantis [Align] 4 mg PO DAILY 06/26/18 07/01/18 History fluticasone-vilanterol [Breo 1 inh INHALATION DAILY 06/26/18 07/01/18 History Ellipta] Exam Vital signs: Vital Signs 07/01/18 16:00 07/01/18 16:01 07/01/18 16:24 Temperature Pulse Rate 83 Respiratory Rate Blood Pressure Pulse Oximetry 97 97 07/01/18 16:50 07/01/18 16:57 07/01/18 18:28 Temperature 98 F Pulse Rate 83 80 72 Respiratory Rate 18 16 20 Blood Pressure 149/91 H 170/64 H 173/60 H Pulse Oximetry 95 96 95 07/01/18 20:00 07/02/18 00:00 07/02/18 04:00 Temperature 97.5 F L 98 F 97.7 F Pulse Rate 68 58 L 60 Respiratory Rate 20 16 26 H Blood Pressure 137/60 133/68 147/72 H Pulse Oximetry 95 07/02/18 05:00 07/02/18 08:00 07/02/18 12:00 Temperature 98.6 F 97.6 F Pulse Rate 72 64 61 Respiratory Rate 33 H 19 16 Blood Pressure 164/70 H 140/65 Pulse Oximetry 100 97 Intake & Output 07/01/18 07/02/18 07/02/18 18:59 06:59 18:59 Intake Total 200 / 200 1105 / 1105 1000 / 1000 Output Total 1700 / 1700 400 / 400 Balance 200 / 200 -595 / -595 600 / 600 Weight 76.3 kg 73.5 kg Intake: IV 200 / 200 1005 / 1005 1000 / 1000 NS Inj 1,000 ML @ 75 mls/hr IV. 100 / 100 900 / 900 1000 / 1000 CONT .[id number] [facility] Rx#: [id number] Keppra 1000 mg/100 mL Premix 100 / 100 100 ML @ 400 mls/hr IV.SIG ONCE ONE Rx#:[id number] Keppra Inj 500 MG In NS Inj 100 105 / 105 ML @ 400 mls/hr IV.SIG Q12H [facility] Rx#:[id number] Oral 100 / 100 Output: Urine 1700 / 1700 400 / 400 Other: # Voids 4 Date of Last Bowel Movement 07/01/18 # Bowel Movements 0 Weight On Admission 72.575 kg Narrative: GENERAL: Well-developed, well-nourished in no distress SKIN: Warm and dry. HEAD: Atraumatic. Normocephalic. EYES: Pupils equal and round. No scleral icterus. No injection or drainage. ENT: No nasal bleeding or discharge. Mucous membranes pink and moist. NECK: Trachea midline. No JVD. CARDIOVASCULAR: Regular rate and rhythm. RESPIRATORY: No accessory muscle use. Clear to auscultation. Breath sounds equal bilaterally. GASTROINTESTINAL: Abdomen soft, non-tender, nondistended. MUSCULOSKELETAL: Extremities without clubbing, cyanosis, or edema. No obvious deformities. NEUROLOGICAL: Awake and alert. No obvious cranial nerve deficits. Motor grossly within normal limits. Five out of 5 muscle strength in the arms and legs. Normal speech. PSYCHIATRIC: Appropriate mood and affect; insight and judgment normal. Results - Labs CBC & Chem 7: 07/02/18 06:03 07/02/18 06:03 Labs: Laboratory Results - last 24 hr 07/01/18 07/01/18 07/01/18 16:10 16:10 19:20 CBC w Diff Slide review pending WBC 11.9 H RBC 4.27 Hgb 14.2 Hct 42.0 MCV 98.3 MCH 33.2 MCHC 33.8 RDW 14.1 Plt Count 303 D MPV 8.6 Neut % (Auto) 47.4 Lymph % (Auto) 43.0 Russell % (Auto) 6.2 Eos % (Auto) 1.8 Baso % (Auto) 1.6 Neut # (Auto) 5.7 Lymph # (Auto) 5.1 H Russell # (Auto) 0.7 Eos # (Auto) 0.2 Baso # (Auto) 0.2 WBC Differential Manual diff final Seg Neuts % (Manual) 36 Band Neuts % (Manual) 1 Lymphocytes % (Manual) 55 H Monocytes % (Manual) 7 Basophils % (Manual) 1 Abs Neuts (Manual) 4.4 Differential Comment . Platelet Estimate Normal Platelet Morphology Normal RBC Morphology Normal Sodium 133 L Potassium 4.3 Chloride 99 Carbon Dioxide 15.9 L Anion Gap 18 H BUN 15 Creatinine 1.20 H Estimated GFR 45 L POC Glucose Random Glucose 161 H Calcium 8.7 Magnesium 1.9 Total Bilirubin 0.5 AST 135 H ALT 125 H Alkaline Phosphatase 109 Total Creatine Kinase Total Protein 7.8 Albumin 3.6 Urine Color Urine Clarity Urine pH Ur Specific Marlette Urine Protein Urine Glucose (UA) Urine Ketones Urine Occult Blood Urine Nitrate Urine Bilirubin Urine Urobilinogen Ur Leukocyte Esterase Ur Microscopic Review Urine Opiates Screen Neg Ur Barbiturates Screen Neg Ur Amphetamines Screen Neg U Benzodiazepines Scrn Neg Urine Cocaine Screen Neg U Cannabinoids Screen Neg Serum Alcohol Less than 3 07/01/18 07/02/18 07/02/18 19:20 06:03 06:03 CBC w Diff Auto diff final WBC 6.3 RBC 3.90 L Hgb 12.6 Hct 37.7 MCV 96.6 MCH 32.2 MCHC 33.4 RDW 14.2 Plt Count 236 MPV 8.4 Neut % (Auto) 54.8 Lymph % (Auto) 31.8 Russell % (Auto) 10.4 H Eos % (Auto) 2.4 Baso % (Auto) 0.6 Neut # (Auto) 3.4 Lymph # (Auto) 2.0 Russell # (Auto) 0.7 Eos # (Auto) 0.2 Baso # (Auto) 0.0 WBC Differential . Seg Neuts % (Manual) Band Neuts % (Manual) Lymphocytes % (Manual) Monocytes % (Manual) Basophils % (Manual) Abs Neuts (Manual) Differential Comment . Platelet Estimate Platelet Morphology RBC Morphology Sodium 141 Potassium 3.4 L D Chloride 108 H D Carbon Dioxide 24.2 Anion Gap 9 BUN 8 Creatinine 0.57 Estimated GFR Greater than 89 POC Glucose Random Glucose 108 H Calcium 7.9 L D Magnesium Total Bilirubin 0.5 AST 90 H ALT 117 H Alkaline Phosphatase 77 Total Creatine Kinase 59 Total Protein 6.3 L D Albumin 3.1 L Urine Color Yellow Urine Clarity Clear Urine pH 6.0 Ur Specific Marlette Less/equal 1.005 Urine Protein Negative Urine Glucose (UA) Negative Urine Ketones Negative Urine Occult Blood Negative Urine Nitrate Negative Urine Bilirubin Negative Urine Urobilinogen 0.2 Ur Leukocyte Esterase Negative Ur Microscopic Review Microscopic reviewed Urine Opiates Screen Ur Barbiturates Screen Ur Amphetamines Screen U Benzodiazepines Scrn Urine Cocaine Screen U Cannabinoids Screen Serum Alcohol 07/02/18 07/02/18 07:59 12:16 CBC w Diff WBC RBC Hgb Hct MCV MCH MCHC RDW Plt Count MPV Neut % (Auto) Lymph % (Auto) Russell % (Auto) Eos % (Auto) Baso % (Auto) Neut # (Auto) Lymph # (Auto) Russell # (Auto) Eos # (Auto) Baso # (Auto) WBC Differential Seg Neuts % (Manual) Band Neuts % (Manual) Lymphocytes % (Manual) Monocytes % (Manual) Basophils % (Manual) Abs Neuts (Manual) Differential Comment Platelet Estimate Platelet Morphology RBC Morphology Sodium Potassium Chloride Carbon Dioxide Anion Gap BUN Creatinine Estimated GFR POC Glucose 109 109 Random Glucose Calcium Magnesium Total Bilirubin AST ALT Alkaline Phosphatase Total Creatine Kinase Total Protein Albumin Urine Color Urine Clarity Urine pH Ur Specific Marlette Urine Protein Urine Glucose (UA) Urine Ketones Urine Occult Blood Urine Nitrate Urine Bilirubin Urine Urobilinogen Ur Leukocyte Esterase Ur Microscopic Review Urine Opiates Screen Ur Barbiturates Screen Ur Amphetamines Screen U Benzodiazepines Scrn Urine Cocaine Screen U Cannabinoids Screen Serum Alcohol - Imaging Impressions Head CT 07/01/18 16:01 CONCLUSION: 1. No acute intracranial abnormality is identified. There is persistent low density in the left parieto-occipital region corresponding with the areas of recently documented infarct. 2. No other abnormality is identified. . Head CTA 07/02/18 08:56 CONCLUSION: No significant interval change. No evidence of high-grade stenosis or aneurysm. . Head MRI 07/02/18 08:56 CONCLUSION: No significant interval change. Dominant acute left parieto-occipital infarct unchanged. Several scattered small cortical infarcts in the left frontoparietal region also unchanged. Neck CTA 07/02/18 08:56 CONCLUSION: 1. Luminal thrombus in the proximal left internal carotid artery no longer seen. 2. No other significant interval change. 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 Caprini VTE Risk Assessment Caprini VTE Risk Assessment: Moderate/High Risk (score >= 2) Caprini Risk Assessment Model: Point Value = 1 Point Value = 2 Point Value = 3 Point Value = 5 Age 41-60 Minor surgery BMI > 25 kg/m2 Swollen legs Varicose veins or History of unexplained or recurrent spontaneous Oral contraceptives or hormone replacement Sepsis (< 1 month) Serious lung disease, including pneumonia (< 1 month) Abnormal pulmonary function Acute myocardial infarction Congestive heart failure (< 1 month) History of inflammatory bowel disease Medical patient at bed rest Age 61-74 Arthroscopic surgery Major open surgery (> 45 min) Laparoscopic surgery (> 45 min) Malignancy Confined to bed (> 72 hours) Immobilizing plaster cast Central venous access Age >= 75 History of VTE Family history of VTE Factor V Leiden Prothrombin [id number] Lupus anticoagulant Anticardiolipin antibodies Elevated serum homocysteine Heparin-induced thrombocytopenia Other congenital or acquired thrombophilia Stroke (< 1 month) Elective arthroplasty Hip, pelvis, or leg fracture Acute spinal cord injury (< 1 month) Prophylaxis Regimen: Total Risk Factor Score Risk Level Prophylaxis Regimen 0-1 Low Early ambulation 2 Moderate Order ONE of the following: *Sequential Compression Device (SCD) *Heparin 5000 units SQ BID 3-4 Higher Order ONE of the following medications: *Heparin 5000 units SQ TID *Enoxaparin/Lovenox 40 mg SQ daily (WT < 150 kg, CrCl > 30 mL/min) *Enoxaparin/Lovenox 30 mg SQ daily (WT < 150 kg, CrCl > 10-29 mL/min) *Enoxaparin/Lovenox 30 mg SQ BID (WT < 150 kg, CrCl > 30 mL/min) AND/OR *Sequential Compression Device (SCD) 5 or more Highest Order ONE of the following medications: *Heparin 5000 units SQ TID (Preferred with Epidurals) *Enoxaparin/Lovenox 40 mg SQ daily (WT < 150 kg, CrCl > 30 mL/min) *Enoxaparin/Lovenox 30 mg SQ daily (WT < 150 kg, CrCl > 10-29 mL/min) *Enoxaparin/Lovenox 30 mg SQ BID (WT < 150 kg, CrCl > 30 mL/min) AND *Sequential Compression Device (SCD) Assessment and Plan - Plan This is 67-year-old female j discharged yesterday from [facility] after being treated for embolic CVA, left ICA thrombus and paroxysmal A. fib. She was discharged on Lovenox 75 mg twice a day. At home, noted she was confused and was not answering questions. He then brought her to the emergency room and en route noted having seizure activity for less than a minute with her head turned to the right and having tonic-clonic activity of the upper extremities then started drooling. Overnight she was loaded with IV Keppra. She also underwent repeat MRI of the brain which showed no progression of stroke and CTA of the carotids showing resolution of the thrombus. Case discussed with neurology and vascular surgery. New onset Seizure. Stable continue Keppra follow-up EEG GUSTAVO with acidosis with hypokalemia. Improved replace K Transaminitis. History of alcohol abuse. Counseled. Check hepatitis profile. This could also be related to possible rhabdomyolysis check CK Leukocytosis likely reactive. Monitor DVT proph with Lovenox Discharge Planning: Possible discharge tomorrow
[2018-07-02] MEDS ORDERED: Potassium Bicarbonate 25 MEQ Effervescent Tablet PO ONE (13:57)
--- NOTE | 2018-07-02 14:51 | P.DCO ---
- Diagnosis (1) Seizure Status: Acute - Physical Therapy Order: Evaluate and treat, Improve ambulation, Strength and gait training - Case Management Consult Yes - Certification I have seen patient Lesley Sibley on 07/02/18. My clinical findings support the need for the requested home health care services because: Deconditioned with increased weakness I certify that my clinical findings support that this patient is homebound because: Need for psychosocial assistance
[2018-07-02] MEDS: levETIRAcetam 500 MG Tablet PO SCH (21:12)
[2018-07-03 06:34] LABS: Chloride 104 meq/L (98-107); Sodium 138 meq/L (136-145)
[2018-07-03] MEDS: LEVOTHYROXINE 112 MCG PO SCH (06:34)
--- NOTE | 2018-07-03 07:15 | US ---
EXAM DATE: 07/03/2018 7:07 AM EST AGE/SEX: 67 years / Female INDICATIONS: Abnormal lab values. CLINICAL DATA: This is the patient's initial encounter. Patient reports that signs and symptoms have been present for 1 day and indicates a pain score of 0/10. MEDICAL/SURGICAL HISTORY: Hypertension. Asthma. Diabetes. Stroke. Thyroid cancer. Tonsillectom y. Laparoscopic surgery. Back surgery. Lung biopsy. Right breast biopsy. Thyroidectomy. COMPARISON: No prior exams available for comparison. MEASUREMENTS: Liver:__ 16.3 cm. Common Bile Duct:__ 4mm. Right Kidney:__ 10.1 x 4.2 x 4.1 cm. FINDINGS: Liver: Mildly hyperechoic echotexture without focal lesion or ductal dilatation. Portal Vein: Hepatopedal flow seen in portal vein. Common Duct: No intraluminal mass or stone visualized. Gallbladder: Demonstrates no wall thickening or pericholecystic fluid. No stones visualized. Pancreas: The visualized portions are within normal limits Right Kidney: Normal echotexture and cortical thickness. No mass or hydronephrosis. Other: None. CONCLUSION: 1. Mildly hyperechoic hepatic echotexture which may represent mild steatosis. 2. Otherwise normal exam. Electronically signed by: Jett Nash MD 07/03/2018 7:13 AM EST
[2018-07-03 07:51] LABS: Alanine Aminotransferase 142 U/L (10-53); Albumin 3.3 g/dL (3.4-5.0); Alkaline Phosphatase 87 U/L (45-117); Anion Gap 7 meq/L (5-15); Aspartate Aminotransferase 89 U/L (15-37); Blood Urea Nitrogen 7 mg/dL (7-18); Calcium 8.8 mg/dL (8.5-10.1); Carbon Dioxide 27.2 meq/L (21.0-32.0); Glomerular Filtration Rate Greater Than 89 mL/min (>89); Glucose,Random 109 mg/dL (74-106); Magnesium 1.9 mg/dL (1.5-2.5); Total Protein 7.1 g/dL (6.4-8.2)
[2018-07-03 07:52] LABS: Creatine Kinase 30 U/L (26-192)
[2018-07-03] MEDS: Enoxaparin Inj 80 MG/0.8 ML Syringe SQ SCH (08:43)
[2018-07-03] MEDS: Metoprolol Tartrate 100 MG Tablet PO SCH (08:43)
[2018-07-03] MEDS: Insulin NovoLOG Aspart Correctional Sugar Inj SQ SCH (08:46)
[2018-07-03] MEDS: levETIRAcetam 500 MG Tablet PO SCH (08:46)
--- NOTE | 2018-07-03 09:54 | P.PN ---
Subjective Interval history: Follow-up seizure. Patient feels good no recurrence of seizure ambulating hallway she wants to go home and will have follow-up with PCP with regards to pending EEG and hepatitis profile. She is refusing home health care physical therapy. Seen with discussed with nurse Physical Exam Vital signs: Vital Signs 07/02/18 12:00 07/02/18 16:00 07/02/18 20:00 Temperature 97.6 F 98.4 F 98.4 F Pulse Rate 61 76 69 Respiratory Rate 16 18 20 Blood Pressure 140/65 136/65 121/63 Pulse Oximetry 97 76 L 96 07/03/18 00:00 07/03/18 04:00 07/03/18 08:00 Temperature 98.3 F 98 F 98.6 F Pulse Rate 60 57 L 63 Respiratory Rate 15 16 28 H Blood Pressure 119/56 L 137/67 153/71 H Pulse Oximetry 98 98 Intake & Output 07/02/18 07/03/18 07/03/18 19:59 06:59 18:59 Intake Total Output Total Balance Weight Intake: IV NS Inj 1,000 ML @ 75 mls/hr IV. CONT .[id number] [facility] Rx#: [id number] Oral Output: Urine Other: Date of Last Bowel Movement # Bowel Movements Narrative: GENERAL: Well-developed, well-nourished in no distress SKIN: Warm and dry. CARDIOVASCULAR: Regular rate and rhythm. RESPIRATORY: No accessory muscle use. Clear to auscultation. Breath sounds equal bilaterally. GASTROINTESTINAL: Abdomen soft, non-tender, nondistended. MUSCULOSKELETAL: Extremities without clubbing, cyanosis, or edema. No obvious deformities. NEUROLOGICAL: Awake and alert. No obvious cranial nerve deficits. Motor grossly within normal limits. Five out of 5 muscle strength in the arms and legs. Normal speech. PSYCHIATRIC: Appropriate mood and affect; insight and judgment normal. Results - Labs CBC & Chem 7: 07/02/18 06:03 07/03/18 05:59 Laboratory Results - last 24 hr 07/02/18 07/02/18 07/02/18 06:03 12:16 20:37 Sodium Potassium Chloride Carbon Dioxide Anion Gap BUN Creatinine Estimated GFR POC Glucose 109 108 Random Glucose Calcium Magnesium 1.8 Total Bilirubin AST ALT Alkaline Phosphatase Total Creatine Kinase Total Protein Albumin 07/03/18 07/03/18 05:59 07:52 Sodium 138 Potassium 4.0 Chloride 104 Carbon Dioxide 27.2 Anion Gap 7 BUN 7 Creatinine 0.66 Estimated GFR Greater than 89 POC Glucose 111 H Random Glucose 109 H Calcium 8.8 D Magnesium 1.9 Total Bilirubin 0.5 AST 89 H ALT 142 H Alkaline Phosphatase 87 Total Creatine Kinase 30 Total Protein 7.1 D Albumin 3.3 L - Imaging Impressions Head CTA 07/02/18 08:56 CONCLUSION: No significant interval change. No evidence of high-grade stenosis or aneurysm. . Neck CTA 07/02/18 08:56 CONCLUSION: 1. Luminal thrombus in the proximal left internal carotid artery no longer seen. 2. No other significant interval change. 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 Liver Ultrasound 07/03/18 00:00 CONCLUSION: 1. Mildly hyperechoic hepatic echotexture which may represent mild steatosis. 2. Otherwise normal exam. - Procedures none Assessment and Plan - Assessment (1) Seizure Code(s): R56.9 - Unspecified convulsions Status: Acute - Plan This is 67-year-old female recently discharged from [facility] after being treated for embolic CVA, left ICA thrombus and paroxysmal A. fib. She was discharged on Lovenox 75 mg twice a day. At home, noted she was confused and was not answering questions. He then brought her to the emergency room and en route noted having seizure activity for less than a minute with her head turned to the right and having tonic-clonic activity of the upper extremities then started drooling. Repeat MRI of the brain which showed no progression of stroke and CTA of the carotids showing resolution of the thrombus. Case discussed with neurology and vascular surgery. New onset Seizure. Stable continue Kera follow-up EEG GUSTAVO with acidosis with hypokalemia. Resolved Transaminitis. History of alcohol abuse. Likely secondary to alcohol use pending hepatitis profile. Ultrasound showed steatosis. Counseled. She is asymptomatic. Avoid hepatotoxins. Outpatient follow-up may need biopsy Leukocytosis likely reactive. Monitor She has lung and vallecular mass needing biopsy once cleared by vascular surgery DVT proph with Lovenox Discharge Planning: Discharge patient to home Condition on discharge: Improved earlier than anticipated Regular Diet as tolerated Ad Olena activity no driving, swimming alone, carrying young children and climbing heights Rx written: [facility] Follow-up with primary care physician, neurology, vascular surgery and hematology
--- NOTE | 2018-07-03 12:42 | MG ---
cc: Laila Whitaker MD AGE: [age] years old. EEG NUMBER: [id number] REFERRING PHYSICIAN: Nannette. ROOM NUMBER: [id number] History of stroke, recently with carotid thrombus, left carotid. Only photic done. Awake, drowsy, asleep. The patient came in with seizure-like event, now on Keppra. She is also on Lovenox therapy. DESCRIPTION OF RECORD: The patient has overall alpha of 8 Hz, 20-30 microvolts. Symmetrical background. Photic stimulation did elicit a posterior driving response, some eye movement, but overall symmetrical background. Some attenuation as she becomes drowsy, falls asleep. No epileptiform features. IMPRESSION: Overall, normal-appearing electroencephalogram without any gross epileptiform features. Clinical correlation. Laila Whitaker MD DF/rm/ , 12:10 PM , 12:15 PM
[2018-07-03 14:36] LABS: Hepatitis A IgM Antibody Nonreactive (Nonreactive); Hepatitits B Surface Antigen Nonreactive (Nonreactive)
--- NOTE | 2018-07-04 00:35 | ECG ---
Date Performed: 07/01/2018 Time Performed: 16:27:02 PTAGE: 67 years EKG: Sinus rhythm POSSIBLE RIGHT VENTRICULAR CONDUCTION DELAY BORDERLINE ECG PREVIOUS TRACING : 06/27/2018 17.55 Since the previous tracing, no significant change noted DOCTOR: Shorty Lewis Interpretating Date/Time 07/04/2018 00:34:29
== END 2018-07-03 11:15 | disposition home or self-care (01) ==
LOC: PHED 15:55 → PHEDA 17:34 → PHICU 18:36
PROVIDERS: ADMIT Internal Medicine; ATTEND Internal Medicine

== ENCOUNTER 2018-08-16 07:20 | Inpatient (IN) ==
--- NOTE | 2018-08-16 07:41 | ED ---
HPI General Chief Complaint: Stroke Alert Stated Complaint: Stroke Alert Time Seen by Provider: 08/16/18 07:28 Source: patient Mode of arrival: EMS Limitations: no limitations History of Present Illness HPI Narrative: [place] that exam/nihss occurred at 0720 when patient was placed in [facility]. [facility] fire rescue transported patient here after complaint of right upper extremity numbness and "feeling like it is " yet being able to move rue ... According to EMS blood glucose was normal, and patient was found to have high blood pressure. patient has clear speech, she does not have any slurred speech. Able to move both of her lower extremities well. Left upper extremity is normal according to her, the only deficit is purely her right upper extremity. Patient has recent history of atrial fibrillation and was placed on Lovenox last given yesterday because she was a plan lung biopsy today Onset (ago): minute(s) (30) Timing confirmed by: spouse Location: Reports right arm History of same: Yes Severity: mild Quality: Reports weak and numb Relieving factors: none Exacerbating factors: none Context: Reports sudden onset On Anticoagulants: Yes Associated symptoms: Reports denies other symptoms Treatments Prior to Arrival: Reports none Related Data Home Medications Medication Instructions Recorded Confirmed albuterol sulfate 0.63 mg INHALATION Q4-6H PRN 06/23/18 08/16/18 fluticasone [Flonase Allergy 1 spray INTRANASAL DAILY 06/23/18 08/16/18 Relief] levothyroxine [Unithroid] 112 mcg PO DAILY 06/23/18 08/16/18 psyllium husk [Metamucil] 0.52 g PO DAILY 06/23/18 08/16/18 Bifidobacterium infantis [Align] 4 mg PO DAILY 06/26/18 08/16/18 fluticasone-vilanterol [Breo 1 inh INHALATION DAILY 06/26/18 08/16/18 Ellipta] Previous Rx's Medication Instructions Recorded metoprolol tartrate 100 mg PO BID #60 tab 06/30/18 levetiracetam [Keppra] 500 mg PO BID #60 tab 07/02/18 enoxaparin [Lovenox] 80 mg SUBCUT Q12H #60 ml 08/20/18 Allergies Allergy/AdvReac Type Severity Reaction Status Date / Time losartan Allergy Swelling Verified 08/16/18 07:56 of Lip/Tongue/Throat Sulfa (Sulfonamide Allergy Hives Verified 08/16/18 07:56 Antibiotics) ciprofloxacin [From Cipro] AdvReac Tingling Verified 08/16/18 07:56 levofloxacin AdvReac Joint Pain Verified 08/16/18 07:56 prednisone AdvReac Joint Pain Verified 08/16/18 07:56 Vzxrbzg-Dit-Hjc Reductase AdvReac Joint Pain Verified 08/16/18 07:56 Inhibitor Review of Systems ROS: all other systems reviewed are negative [facility] Medical History Medical History Asthma (Acute) Diabetes (Acute) HTN (hypertension) (Acute) Stroke (Acute) Thyroid cancer (Acute) Surgical History Surgical History H/O laparoscopy (Acute) History of back surgery (Acute) History of lung biopsy (Acute) History of tonsillectomy (Acute) Hx of breast biopsy (Acute) Hx of thyroidectomy (Acute) Family History Family History Mother Heart disease Mother Lung cancer Social History Social History Substance History: No History of Abuse Second Hand Smoke Exposure: No Smoking Status: Former smoker Tobacco Type: Cigarettes How Often Do You Have a Drink Containing Alcohol: 2 to 3 times a week Recent Travel in [place] within the Last 8 Weeks: No Recent Out of Country Travel within the Last 8 Weeks: No Immunization History Tetanus Immunization Year if Known: 2012 Exam Narrative Exam Narrative: GENERAL: elderly woman speaking clearly in no apparent distress. SKIN: Warm and dry. HEAD: Atraumatic. Normocephalic. EYES: Pupils equal and round. No scleral icterus. No injection or drainage. ENT: No nasal bleeding or discharge. Mucous membranes pink and moist. NECK: Trachea midline. No JVD. CARDIOVASCULAR: Regular rate and rhythm. no rubs or gallops RESPIRATORY: No accessory muscle use. Clear to auscultation. Breath sounds equal bilaterally. GASTROINTESTINAL: Abdomen soft, non-tender, nondistended. No rebound or guarding MUSCULOSKELETAL: Extremities without clubbing, cyanosis, or edema. No obvious deformities. NEUROLOGICAL: Awake and alert. No obvious cranial nerve deficits. Motor grossly within normal limits. 5 out of 5 muscle strength in the legs and left ue , right ue 4/5. Normal speech. PSYCHIATRIC: Appropriate mood and affect; insight and judgment normal. Course Initial Documented Vital Signs Pulse Rate 69 08/16/18 07:24 Respiratory Rate 16 08/16/18 07:24 Blood Pressure 181/84 H 08/16/18 07:24 Pulse Oximetry 99 08/16/18 07:24 Last Documented Vital Signs Temperature 98.8 F 08/20/18 12:00 Pulse Rate 67 08/20/18 12:00 Respiratory Rate 14 08/20/18 12:00 Blood Pressure 121/60 08/20/18 11:06 Pulse Oximetry 97 08/20/18 09:00 Critical Care Time Critical Care Time: Yes Total Critical Care Time: 45 Attestation: Aggregate critical care time was 45 minutes. Time to perform other separately billable procedures was not included in the critical care time. My time did not include minutes spent treating any other patients simultaneously or on activities that did not directly contribute to the patient's treatment. The services I provided to this patient were to treat and/or prevent clinically significant deterioration I provided critical care services requiring my management, as noted below: Chart data review, documentation time, medication orders and management, vital sign assessments/reviewing monitor data, ordering and reviewing lab tests, ordering and interpreting/reviewing x-rays and diagnostic studies, care of the patient and discussion of the patient with the admitting physicians. NIH Stroke Scale NIH Stroke Scale Level of Consciousness: 0-Alert Orientation Questions: 0-Answers both correct Responds to Commands: 0-Both tasks correct Gaze Eye Movement: 0-Horizontal movement WNL Visual Riggins: 0-No visual field defect Facial Movement: 0-Normal Motor Functions Arm LEFT: 0-No drift Motor Functions Arm RIGHT: 0-No drift Motor Functions Leg LEFT: 0-No drift Motor Functions Leg RIGHT: 0-No drift Limb Ataxia: 1-Ataxia in one limb Sensory Loss: 0-No sensory loss Best Language: 0-Normal Articulation: 0-Normal Extinction or Inattention Sensory: 0-Absent Total: 1 Medical Decision Making MDM Narrative Medical decision making narrative: as it may be a small stroke from her A. fib. Provided that her CT did not show any intracranial hemorrhage. Patient may need additional blood pressure control rad called and verbally made me aware of new near complete left prox ICA stenosis, these findings were relayed to mushtaq who is as of 754 speaking with rad for further detail and see if amenable to rad intervention. at 0808 dr landin at bedside. No leukocytosis no anemia normal platelet count Coagulation factor within normal limits Fibrinogen 480 Normal i-STAT Head CT read as no intracranial hemorrhage Head CTA read by radiologist as no acute intracranial vascular abnormality identified As of 04 09 pending CTA neck report 04 11 CTA neck reported: #1 new intraluminal thrombus causing focal high-grade stenosis of the left proximal internal carotid artery finding is new and not present on July 13, 2018 study Remaining neck arterial vasculature demonstrates no significant stenosis. #3 there is a soft tissue mass in the left vallecula and piriform sinus measuring up to 1.7 cm Discuss[address] case with Dr. Landin neurology, who recommends that she is outside window for TPA (because of previous "stroke" 5 weeks ago, and now upon clarification her symptoms are from 12? and not from 30min ago), IR stated not a candidate as the thrombus is too large and may embolize further , higher risk....call made to dr jha vascular by dr landin Medical Screen Exam Complete: Yes Emergency Medical Condition: Yes Medical Records Medical records reviewed: Yes I reviewed the patient's medical records. Lab Data Result diagrams: 08/18/18 20:34 08/18/18 04:40 Lab Results 08/16/18 08/16/18 08/16/18 Range/Units 07:24 07:24 07:24 WBC 6.7 (4.0-11.0) th/mm3 RBC 3.94 L (4.00-5.30) mil/mm3 Hgb 13.1 (11.6-15.3) gm/dL POC Hgb (Calc) 13.3 (11.6-15.3) g/dL Hct 38.1 (35.0-46.0) % POC Hct 39.0 (35-46.0) % MCV 96.8 (80.0-100.0) fL MCH 33.3 (27.0-34.0) pg MCHC 34.4 (32.0-36.0) % RDW 13.4 (11.6-17.2) % Plt Count 239 (150-450) th/mm3 MPV 7.3 (7.0-11.0) fL Neut % (Auto) 60.1 (16.0-70.0) % Lymph % (Auto) 27.8 (9.0-44.0) % Tompkins % (Auto) 10.0 H (0.0-8.0) % Eos % (Auto) 1.1 (0.0-4.0) % Baso % (Auto) 1.0 (0.0-2.0) % Neut # (Auto) 4.0 (1.8-7.7) th/mm3 Lymph # (Auto) 1.9 (1.0-4.8) th/mm3 Tompkins # (Auto) 0.7 (0.0-0.9) th/mm3 Eos # (Auto) 0.1 (0.0-0.4) th/mm3 Baso # (Auto) 0.1 (0.0-0.2) th/mm3 WBC Differential . Differential Comment Auto diff final PT 9.9 (9.8-11.6) sec INR 1.0 Ratio APTT 27.3 (23.4-31.7) sec Fibrinogen 480 H (227-377) mg/dL POC Sodium 138 (137-144) mmol/L Sodium (136-145) meq/L POC Potassium 4.3 (3.6-5.0) mmol/L Potassium (3.5-5.1) meq/L POC Chloride 103 (102-111) mmol/L Chloride (98-107) meq/L Carbon Dioxide (21.0-32.0) meq/L Anion Gap (5-15) meq/L POC BUN 13 (5-21) mg/dL BUN (7-18) mg/dL Creatinine (0.50-1.00) mg/dL POC Creatinine 0.6 (0.6-1.3) mg/dL Estimated GFR (>89) mL/min POC Glucose 142 H (68-110) mg/dL Random Glucose (74-106) mg/dL Calcium (8.5-10.1) mg/dL Phosphorus (2.5-4.9) mg/dL Magnesium (1.5-2.5) mg/dL Total Creatine Kinase 44 (26-192) U/L Troponin I Less than 0.02 L (0.02-0.05) ng/mL Beta HCG, Quant 2 (0-5) mIU/mL Urine Color (Yellw/Straw) Urine Clarity (Clear) Urine pH (5.0-8.5) Ur Specific Ewell (1.002-1.035) Urine Protein (Neg-Trace) mg/dL Urine Glucose (UA) (Negative) mg/dL Urine Ketones (Negative) mg/dL Urine Occult Blood (Negative) Urine Nitrate (Negative) Urine Bilirubin (Negative) Urine Urobilinogen (Less than 2) mg/dL Ur Leukocyte Esterase (Negative) Urine RBC (0-3) /hpf Urine WBC (0-5) /hpf Ur Squamous Epith Cells (0-5) /hpf Hyaline Casts (0-3) /lpf Micro UA Comment Ur Microscopic Review Urine Culture Comments Nasal Screen MRSA (PCR) (Negative) Urine Opiates Screen (Neg) Ur Barbiturates Screen (Neg) Ur Amphetamines Screen (Neg) U Benzodiazepines Scrn (Neg) Urine Cocaine Screen (Neg) U Cannabinoids Screen (Neg) Blood Type Antibody Screen 08/16/18 08/16/18 08/16/18 Range/Units 07:24 08:05 08:05 WBC (4.0-11.0) th/mm3 RBC (4.00-5.30) mil/mm3 Hgb (11.6-15.3) gm/dL POC Hgb (Calc) (11.6-15.3) g/dL Hct (35.0-46.0) % POC Hct (35-46.0) % MCV (80.0-100.0) fL MCH (27.0-34.0) pg MCHC (32.0-36.0) % RDW (11.6-17.2) % Plt Count (150-450) th/mm3 MPV (7.0-11.0) fL Neut % (Auto) (16.0-70.0) % Lymph % (Auto) (9.0-44.0) % Tompkins % (Auto) (0.0-8.0) % Eos % (Auto) (0.0-4.0) % Baso % (Auto) (0.0-2.0) % Neut # (Auto) (1.8-7.7) th/mm3 Lymph # (Auto) (1.0-4.8) th/mm3 Tompkins # (Auto) (0.0-0.9) th/mm3 Eos # (Auto) (0.0-0.4) th/mm3 Baso # (Auto) (0.0-0.2) th/mm3 WBC Differential Differential Comment PT (9.8-11.6) sec INR Ratio APTT (23.4-31.7) sec Fibrinogen (227-377) mg/dL POC Sodium (137-144) mmol/L Sodium (136-145) meq/L POC Potassium (3.6-5.0) mmol/L Potassium (3.5-5.1) meq/L POC Chloride (102-111) mmol/L Chloride (98-107) meq/L Carbon Dioxide (21.0-32.0) meq/L Anion Gap (5-15) meq/L POC BUN (5-21) mg/dL BUN (7-18) mg/dL Creatinine (0.50-1.00) mg/dL POC Creatinine (0.6-1.3) mg/dL Estimated GFR (>89) mL/min POC Glucose (68-110) mg/dL Random Glucose (74-106) mg/dL Calcium (8.5-10.1) mg/dL Phosphorus (2.5-4.9) mg/dL Magnesium (1.5-2.5) mg/dL Total Creatine Kinase (26-192) U/L Troponin I (0.02-0.05) ng/mL Beta HCG, Quant (0-5) mIU/mL Urine Color Yellow (Yellw/Straw) Urine Clarity Clear (Clear) Urine pH 6.0 (5.0-8.5) Ur Specific E[place] 1.042 H (1.002-1.035) Urine Protein Negative (Neg-Trace) mg/dL Urine Glucose (UA) Negative (Negative) mg/dL Urine Ketones Negative (Negative) mg/dL Urine Occult Blood Negative (Negative) Urine Nitrate Negative (Negative) Urine Bilirubin Negative (Negative) Urine Urobilinogen Less than 2 (Less than 2) mg/dL Ur Leukocyte Esterase Negative (Negative) Urine RBC 1 (0-3) /hpf Urine WBC 1 (0-5) /hpf Ur Squamous Epith Cells <1 (0-5) /hpf Hyaline Casts 1 (0-3) /lpf Micro UA Comment Cath-culture not ind Ur Microscopic Review Not Reportable Urine Culture Comments Cath-cult not ind Nasal Screen MRSA (PCR) (Negative) Urine Opiates Screen Neg (Neg) Ur Barbiturates Screen Neg (Neg) Ur Amphetamines Screen Neg (Neg) U Benzodiazepines Scrn Neg (Neg) Urine Cocaine Screen Neg (Neg) U Cannabinoids Screen Neg (Neg) Blood Type O Positive Antibody Screen Negative 08/16/18 08/16/18 08/16/18 Range/Units 12:20 12:20 15:18 WBC (4.0-11.0) th/mm3 RBC (4.00-5.30) mil/mm3 Hgb (11.6-15.3) gm/dL POC Hgb (Calc) (11.6-15.3) g/dL Hct (35.0-46.0) % POC Hct (35-46.0) % MCV (80.0-100.0) fL MCH (27.0-34.0) pg MCHC (32.0-36.0) % RDW (11.6-17.2) % Plt Count (150-450) th/mm3 MPV (7.0-11.0) fL Neut % (Auto) (16.0-70.0) % Lymph % (Auto) (9.0-44.0) % Tompkins % (Auto) (0.0-8.0) % Eos % (Auto) (0.0-4.0) % Baso % (Auto) (0.0-2.0) % Neut # (Auto) (1.8-7.7) th/mm3 Lymph # (Auto) (1.0-4.8) th/mm3 Tompkins # (Auto) (0.0-0.9) th/mm3 Eos # (Auto) (0.0-0.4) th/mm3 Baso # (Auto) (0.0-0.2) th/mm3 WBC Differential Differential Comment PT 10.2 (9.8-11.6) sec INR 1.0 Ratio APTT 30.1 (23.4-31.7) sec Fibrinogen (227-377) mg/dL POC Sodium (137-144) mmol/L Sodium (136-145) meq/L POC Potassium (3.6-5.0) mmol/L Potassium (3.5-5.1) meq/L POC Chloride (102-111) mmol/L Chloride (98-107) meq/L Carbon Dioxide (21.0-32.0) meq/L Anion Gap (5-15) meq/L POC BUN (5-21) mg/dL BUN (7-18) mg/dL Creatinine (0.50-1.00) mg/dL POC Creatinine (0.6-1.3) mg/dL Estimated GFR (>89) mL/min POC Glucose 120 H (68-110) mg/dL Random Glucose (74-106) mg/dL Calcium (8.5-10.1) mg/dL Phosphorus (2.5-4.9) mg/dL Magnesium (1.5-2.5) mg/dL Total Creatine Kinase (26-192) U/L Troponin I (0.02-0.05) ng/mL Beta HCG, Quant (0-5) mIU/mL Urine Color (Yellw/Straw) Urine Clarity (Clear) Urine pH (5.0-8.5) Ur Specific Ewell (1.002-1.035) Urine Protein (Neg-Trace) mg/dL Urine Glucose (UA) (Negative) mg/dL Urine Ketones (Negative) mg/dL Urine Occult Blood (Negative) Urine Nitrate (Negative) Urine Bilirubin (Negative) Urine Urobilinogen (Less than 2) mg/dL Ur Leukocyte Esterase (Negative) Urine RBC (0-3) /hpf Urine WBC (0-5) /hpf Ur Squamous Epith Cells (0-5) /hpf Hyaline Casts (0-3) /lpf Micro UA Comment Ur Microscopic Review Urine Culture Comments Nasal Screen MRSA (PCR) Not detected (Negative) Urine Opiates Screen (Neg) Ur Barbiturates Screen (Neg) Ur Amphetamines Screen (Neg) U Benzodiazepines Scrn (Neg) Urine Cocaine Screen (Neg) U Cannabinoids Screen (Neg) Blood Type Antibody Screen 08/16/18 08/16/18 08/17/18 Range/Units 20:00 23:00 05:40 WBC (4.0-11.0) th/mm3 RBC (4.00-5.30) mil/mm3 Hgb (11.6-15.3) gm/dL POC Hgb (Calc) (11.6-15.3) g/dL Hct (35.0-46.0) % POC Hct (35-46.0) % MCV (80.0-100.0) fL MCH (27.0-34.0) pg MCHC (32.0-36.0) % RDW (11.6-17.2) % Plt Count (150-450) th/mm3 MPV (7.0-11.0) fL Neut % (Auto) (16.0-70.0) % Lymph % (Auto) (9.0-44.0) % Tompkins % (Auto) (0.0-8.0) % Eos % (Auto) (0.0-4.0) % Baso % (Auto) (0.0-2.0) % Neut # (Auto) (1.8-7.7) th/mm3 Lymph # (Auto) (1.0-4.8) th/mm3 Tompkins # (Auto) (0.0-0.9) th/mm3 Eos # (Auto) (0.0-0.4) th/mm3 Baso # (Auto) (0.0-0.2) th/mm3 WBC Differential Differential Comment PT (9.8-11.6) sec INR Ratio APTT 123.0 H* D 52.0 H D 37.1 H D (23.4-31.7) sec Fibrinogen (227-377) mg/dL POC Sodium (137-144) mmol/L Sodium (136-145) meq/L POC Potassium (3.6-5.0) mmol/L Potassium (3.5-5.1) meq/L POC Chloride (102-111) mmol/L Chloride (98-107) meq/L Carbon Dioxide (21.0-32.0) meq/L Anion Gap (5-15) meq/L POC BUN (5-21) mg/dL BUN (7-18) mg/dL Creatinine (0.50-1.00) mg/dL POC Creatinine (0.6-1.3) mg/dL Estimated GFR (>89) mL/min POC Glucose (68-110) mg/dL Random Glucose (74-106) mg/dL Calcium (8.5-10.1) mg/dL Phosphorus (2.5-4.9) mg/dL Magnesium (1.5-2.5) mg/dL Total Creatine Kinase (26-192) U/L Troponin I (0.02-0.05) ng/mL Beta HCG, Quant (0-5) mIU/mL Urine Color (Yellw/Straw) Urine Clarity (Clear) Urine pH (5.0-8.5) Ur Specific Ewell (1.002-1.035) Urine Protein (Neg-Trace) mg/dL Urine Glucose (UA) (Negative) mg/dL Urine Ketones (Negative) mg/dL Urine Occult Blood (Negative) Urine Nitrate (Negative) Urine Bilirubin (Negative) Urine Urobilinogen (Less than 2) mg/dL Ur Leukocyte Esterase (Negative) Urine RBC (0-3) /hpf Urine WBC (0-5) /hpf Ur Squamous Epith Cells (0-5) /hpf Hyaline Casts (0-3) /lpf Micro UA Comment Ur Microscopic Review Urine Culture Comments Nasal Screen MRSA (PCR) (Negative) Urine Opiates Screen (Neg) Ur Barbiturates Screen (Neg) Ur Amphetamines Screen (Neg) U Benzodiazepines Scrn (Neg) Urine Cocaine Screen (Neg) U Cannabinoids Screen (Neg) Blood Type Antibody Screen 08/17/18 08/17/18 08/18/18 Range/Units 05:40 05:40 04:40 WBC 5.8 (4.0-11.0) th/mm3 RBC 3.44 L (4.00-5.30) mil/mm3 Hgb 11.4 L (11.6-15.3) gm/dL POC Hgb (Calc) (11.6-15.3) g/dL Hct 33.3 L (35.0-46.0) % POC Hct (35-46.0) % MCV 96.8 (80.0-100.0) fL MCH 33.1 (27.0-34.0) pg MCHC 34.2 (32.0-36.0) % RDW 13.4 (11.6-17.2) % Plt Count 207 (150-450) th/mm3 MPV 7.5 (7.0-11.0) fL Neut % (Auto) 57.8 (16.0-70.0) % Lymph % (Auto) 31.0 (9.0-44.0) % Tompkins % (Auto) 8.8 H (0.0-8.0) % Eos % (Auto) 1.2 (0.0-4.0) % Baso % (Auto) 1.2 (0.0-2.0) % Neut # (Auto) 3.4 (1.8-7.7) th/mm3 Lymph # (Auto) 1.8 (1.0-4.8) th/mm3 Tompkins # (Auto) 0.5 (0.0-0.9) th/mm3 Eos # (Auto) 0.1 (0.0-0.4) th/mm3 Baso # (Auto) 0.1 (0.0-0.2) th/mm3 WBC Differential . Differential Comment Auto diff final PT (9.8-11.6) sec INR Ratio APTT 38.7 H (23.4-31.7) sec Fibrinogen (227-377) mg/dL POC Sodium (137-144) mmol/L Sodium 139 (136-145) meq/L POC Potassium (3.6-5.0) mmol/L Potassium 3.9 (3.5-5.1) meq/L POC Chloride (102-111) mmol/L Chloride 108 H (98-107) meq/L Carbon Dioxide 25.3 (21.0-32.0) meq/L Anion Gap 6 (5-15) meq/L POC BUN (5-21) mg/dL BUN 10 (7-18) mg/dL Creatinine 0.60 (0.50-1.00) mg/dL POC Creatinine (0.6-1.3) mg/dL Estimated GFR Greater than 89 (>89) mL/min POC Glucose (68-110) mg/dL Random Glucose 122 H (74-106) mg/dL Calcium 8.4 L (8.5-10.1) mg/dL Phosphorus 3.7 (2.5-4.9) mg/dL Magnesium 1.6 (1.5-2.5) mg/dL Total Creatine Kinase (26-192) U/L Troponin I (0.02-0.05) ng/mL Beta HCG, Quant (0-5) mIU/mL Urine Color (Yellw/Straw) Urine Clarity (Clear) Urine pH (5.0-8.5) Ur Specific Ewell (1.002-1.035) Urine Protein (Neg-Trace) mg/dL Urine Glucose (UA) (Negative) mg/dL Urine Ketones (Negative) mg/dL Urine Occult Blood (Negative) Urine Nitrate (Negative) Urine Bilirubin (Negative) Urine Urobilinogen (Less than 2) mg/dL Ur Leukocyte Esterase (Negative) Urine RBC (0-3) /hpf Urine WBC (0-5) /hpf Ur Squamous Epith Cells (0-5) /hpf Hyaline Casts (0-3) /lpf Micro UA Comment Ur Microscopic Review Urine Culture Comments Nasal Screen MRSA (PCR) (Negative) Urine Opiates Screen (Neg) Ur Barbiturates Screen (Neg) Ur Amphetamines Screen (Neg) U Benzodiazepines Scrn (Neg) Urine Cocaine Screen (Neg) U Cannabinoids Screen (Neg) Blood Type Antibody Screen 08/18/18 08/18/18 08/18/18 Range/Units 04:40 04:40 20:34 WBC 6.1 (4.0-11.0) th/mm3 RBC 3.53 L (4.00-5.30) mil/mm3 Hgb 11.5 L (11.6-15.3) gm/dL POC Hgb (Calc) (11.6-15.3) g/dL Hct 34.2 L (35.0-46.0) % POC Hct (35-46.0) % MCV 97.0 (80.0-100.0) fL MCH 32.7 (27.0-34.0) pg MCHC 33.8 (32.0-36.0) % RDW 13.5 (11.6-17.2) % Plt Count 216 (150-450) th/mm3 MPV 7.8 (7.0-11.0) fL Neut % (Auto) 52.6 (16.0-70.0) % Lymph % (Auto) 35.0 (9.0-44.0) % Tompkins % (Auto) 9.7 H (0.0-8.0) % Eos % (Auto) 1.6 (0.0-4.0) % Baso % (Auto) 1.1 (0.0-2.0) % Neut # (Auto) 3.2 (1.8-7.7) th/mm3 Lymph # (Auto) 2.1 (1.0-4.8) th/mm3 Tompkins # (Auto) 0.6 (0.0-0.9) th/mm3 Eos # (Auto) 0.1 (0.0-0.4) th/mm3 Baso # (Auto) 0.1 (0.0-0.2) th/mm3 WBC Differential . Differential Comment Auto diff final PT 10.4 (9.8-11.6) sec INR 1.0 Ratio APTT 34.0 H (23.4-31.7) sec Fibrinogen (227-377) mg/dL POC Sodium (137-144) mmol/L Sodium 140 (136-145) meq/L POC Potassium (3.6-5.0) mmol/L Potassium 4.0 (3.5-5.1) meq/L POC Chloride (102-111) mmol/L Chloride 107 (98-107) meq/L Carbon Dioxide 26.4 (21.0-32.0) meq/L Anion Gap 7 (5-15) meq/L POC BUN (5-21) mg/dL BUN 13 (7-18) mg/dL Creatinine 0.64 (0.50-1.00) mg/dL POC Creatinine (0.6-1.3) mg/dL Estimated GFR Greater than 89 (>89) mL/min POC Glucose (68-110) mg/dL Random Glucose 121 H (74-106) mg/dL Calcium 8.7 (8.5-10.1) mg/dL Phosphorus (2.5-4.9) mg/dL Magnesium 1.8 (1.5-2.5) mg/dL Total Creatine Kinase (26-192) U/L Troponin I (0.02-0.05) ng/mL Beta HCG, Quant (0-5) mIU/mL Urine Color (Yellw/Straw) Urine Clarity (Clear) Urine pH (5.0-8.5) Ur Specific Ewell (1.002-1.035) Urine Protein (Neg-Trace) mg/dL Urine Glucose (UA) (Negative) mg/dL Urine Ketones (Negative) mg/dL Urine Occult Blood (Negative) Urine Nitrate (Negative) Urine Bilirubin (Negative) Urine Urobilinogen (Less than 2) mg/dL Ur Leukocyte Esterase (Negative) Urine RBC (0-3) /hpf Urine WBC (0-5) /hpf Ur Squamous Epith Cells (0-5) /hpf Hyaline Casts (0-3) /lpf Micro UA Comment Ur Microscopic Review Urine Culture Comments Nasal Screen MRSA (PCR) (Negative) Urine Opiates Screen (Neg) Ur Barbiturates Screen (Neg) Ur Amphetamines Screen (Neg) U Benzodiazepines Scrn (Neg) Urine Cocaine Screen (Neg) U Cannabinoids Screen (Neg) Blood Type Antibody Screen 08/18/18 08/19/18 08/20/18 Range/Units 20:34 05:10 05:09 WBC 7.7 (4.0-11.0) th/mm3 RBC 3.64 L (4.00-5.30) mil/mm3 Hgb 12.0 (11.6-15.3) gm/dL POC Hgb (Calc) (11.6-15.3) g/dL Hct 34.2 L (35.0-46.0) % POC Hct (35-46.0) % MCV 94.0 (80.0-100.0) fL MCH 32.9 (27.0-34.0) pg MCHC 35.0 (32.0-36.0) % RDW 13.1 (11.6-17.2) % Plt Count 231 (150-450) th/mm3 MPV 7.8 (7.0-11.0) fL Neut % (Auto) (16.0-70.0) % Lymph % (Auto) (9.0-44.0) % Tompkins % (Auto) (0.0-8.0) % Eos % (Auto) (0.0-4.0) % Baso % (Auto) (0.0-2.0) % Neut # (Auto) (1.8-7.7) th/mm3 Lymph # (Auto) (1.0-4.8) th/mm3 Tompkins # (Auto) (0.0-0.9) th/mm3 Eos # (Auto) (0.0-0.4) th/mm3 Baso # (Auto) (0.0-0.2) th/mm3 WBC Differential Differential Comment PT (9.8-11.6) sec INR Ratio APTT (23.4-31.7) sec Fibrinogen (227-377) mg/dL POC Sodium (137-144) mmol/L Sodium (136-145) meq/L POC Potassium (3.6-5.0) mmol/L Potassium (3.5-5.1) meq/L POC Chloride (102-111) mmol/L Chloride (98-107) meq/L Carbon Dioxide (21.0-32.0) meq/L Anion Gap (5-15) meq/L POC BUN (5-21) mg/dL BUN (7-18) mg/dL Creatinine (0.50-1.00) mg/dL POC Creatinine (0.6-1.3) mg/dL Estimated GFR (>89) mL/min POC Glucose 124 H 115 H (68-110) mg/dL Random Glucose (74-106) mg/dL Calcium (8.5-10.1) mg/dL Phosphorus (2.5-4.9) mg/dL Magnesium (1.5-2.5) mg/dL Total Creatine Kinase (26-192) U/L Troponin I (0.02-0.05) ng/mL Beta HCG, Quant (0-5) mIU/mL Urine Color (Yellw/Straw) Urine Clarity (Clear) Urine pH (5.0-8.5) Ur Specific [place] (1.002-1.035) Urine Protein (Neg-Trace) mg/dL Urine Glucose (UA) (Negative) mg/dL Urine Ketones (Negative) mg/dL Urine Occult Blood (Negative) Urine Nitrate (Negative) Urine Bilirubin (Negative) Urine Urobilinogen (Less than 2) mg/dL Ur Leukocyte Esterase (Negative) Urine RBC (0-3) /hpf Urine WBC (0-5) /hpf Ur Squamous Epith Cells (0-5) /hpf Hyaline Casts (0-3) /lpf Micro UA Comment Ur Microscopic Review Urine Culture Comments Nasal Screen MRSA (PCR) (Negative) Urine Opiates Screen (Neg) Ur Barbiturates Screen (Neg) Ur Amphetamines Screen (Neg) U Benzodiazepines Scrn (Neg) Urine Cocaine Screen (Neg) U Cannabinoids Screen (Neg) Blood Type Antibody Screen Imaging Data Radiologist's impression: Head MRI 08/16/18 00:00 CONCLUSION: 1. Restricted diffusion indicating recent ischemia within the left posterior temporal lobe, occipital lobe, and punctate areas in the frontal high convexities bilaterally. 2. Remainder of the examination is stable. Chest X-Ray 08/16/18 07:29 CONCLUSION: 1. No acute cardiopulmonary abnormality is identified. 2. Stable lobulated mass in the left upper lobe. Head CT 08/16/18 07:29 CONCLUSION: 1. No acute intracranial abnormality is identified. 2. Stable mild generalized atrophy with mild chronic periventricular white matter change. These findings and the findings on the head CTA were telephoned to Dr. Gallagher on 08/16/2018 at 7:45 AM. Head CTA 08/16/18 07:29 CONCLUSION: No acute intracranial vascular abnormality is identified. Please refer to neck CTA report for description of the additional findings. These findings as well as the neck CTA findings were telephoned to Dr. Landin on 08/16/2018 at 7:55 AM. Neck CTA 08/16/18 07:29 CONCLUSION: 1. There is new intraluminal thrombus causing focal high-grade stenosis of the left proximal internal carotid artery. This finding was not present on the prior study dated 07/13/2018. 2. Remaining neck arterial vasculature demonstrates no significant stenosis. 3. There is a soft tissue mass in the left valleculae and piriform sinus measuring up to 1.7 cm. Suggest further evaluation and biopsy with direct visualization. 4. These findings were discussed with Dr. Gallagher via telephone. Head MRA 08/16/18 08:51 CONCLUSION: No acute intracranial vascular abnormality is identified. Neck MRA 08/16/18 08:51 CONCLUSION: 1. Eccentric polypoid-appearing, pedunculated noncalcified plaque extending from the left carotid bulb into the proximal internal carotid artery and resulting in greater than 70% stenosis on the left. 2. No significant stenosis of the right carotid system. 3. Scattered emphysematous changes within the lung apices. Percent stenosis is calculated using the diameter of the stenotic region over the diameter of the normal distal internal carotid artery Head MRI 08/18/18 00:00 CONCLUSION: Evolving strokes. No new acute findings. ECG Data EKG Prior to Arrival: No Attestation: I personally reviewed and interpreted this ECG as follows: Prior ECG tracings: not available for review Interpretation: Initial EKG here shows a normal sinus rhythm 67 bpm, normal and rules, no acute evidence of any ST elevation MN pattern. Discharge Plan Discharge Disposition Patient Disposition: ED Admit(ED Internal Use Only) Discharge Condition Condition: Stable Discharge Order Discharge Orders: Discharge Order (Routine); Ordered 08/20/18 Ordered By: Roge Nascimento ED Use Only Admit Order (Routine); Ordered 08/16/18 Ordered By: Khris Gallagher Discharge Details Anticipated Discharge Date: 08/19/18 Discharge Comment: After seen and cleared by Neurology Diagnosis: Thrombosis of left carotid artery Physicians Team ED Provider: Khris Gallagher Primary Care Provider: UNKNOWN, Attending Provider: Roge Nascimento Other Providers: Jong Landin ; Daniel Jha ; Rory Montiel Status ED Status: Left Department Discharge Information Discharge Date/Time: 08/16/18 11:00
--- NOTE | 2018-08-16 07:48 | CT ---
EXAM DATE: 08/16/2018 7:36 AM EST AGE/SEX: 67 years / Female INDICATIONS: Stroke alert, right side weakness. CLINICAL DATA: This is the patient's initial encounter. Patient reports that signs and symptoms have been present for 1 day and indicates a pain score of Nonresponsive. MEDICAL/SURGICAL HISTORY: Non-responsive. Non-responsive. RADIATION DOSE: 56.35 CTDI (mGy) COMPARISON: [facility], CT HEAD W/O CONTRAST, 07/01/2018. [facility], CTA HEAD W CONTRAST W 3D, 08/16/2018. [facility], CTA HEAD W CONTRAST W 3D, 07/02/2018. . TECHNIQUE: CT of the head without contrast. Using automated exposure control and adjustment of the mA and/or kV according to patient size, radiation dose was kept as low as reasonably achievable to ob tain optimal diagnostic quality images. DICOM format image data is available electronically for revi ew and comparison. FINDINGS: Cerebrum: There is mild generalized atrophy and ventricles are normal given the degree of atrophy. M ild periventricular white matter change is present. No midline shift, mass lesion, hemorrhage or acu te infarction. No extraaxial fluid collections are seen. Posterior Fossa: The cerebellum and brainstem demonstrate no acute abnormality. The 4th ventricle is midline. The cerebellopontine angle is within normal limits. Extracranial: The visualized sinuses are clear. Skull: The calvaria is intact. No skull fracture. CONCLUSION: 1. No acute intracranial abnormality is identified. 2. Stable mild generalized atrophy with mild chronic periventricular white matter change. These findings and the findings on the head CTA were telephoned to Dr. Gallagher on 08/16/2018 at 7:4 5 AM. Electronically signed by: Burton Garcia MD Board Certified Radiologist 08/16/2018 7:47 AM EST
[2018-08-16 07:49] LABS: Baso # (Auto) 0.1 th/mm3 (0.0-0.2); Eos # (Auto) 0.1 th/mm3 (0.0-0.4); Eos % (Auto) 1.1 % (0.0-4.0); Hematocrit 38.1 % (35.0-46.0); Hemoglobin 13.1 gm/dL (11.6-15.3); Lymph # (Auto) 1.9 th/mm3 (1.0-4.8); Lymph % (Auto) 27.8 % (9.0-44.0); Mean Corpuscular HGB Conc 34.4 % (32.0-36.0); Mean Corpuscular Hemoglobin 33.3 pg (27.0-34.0); Mean Corpuscular Volume 96.8 fL (80.0-100.0); Mean Platelet Volume 7.3 fL (7.0-11.0); Mono # (Auto) 0.7 th/mm3 (0.0-0.9); Neut % (Auto) 60.1 % (16.0-70.0); Platelet Count 239 th/mm3 (150-450); Red Blood Count 3.94 mil/mm3 (4.00-5.30); Red Cell Distribution Width 13.4 % (11.6-17.2); White Blood Count 6.7 th/mm3 (4.0-11.0)
[2018-08-16] MEDS: Sod Chloride 0.9% Inj 1,000 ML IV.CONT SCH (07:58)
--- NOTE | 2018-08-16 08:00 | CT ---
EXAM DATE: 08/16/2018 7:45 AM EST AGE/SEX: 67 years / Female INDICATIONS: Stroke alert, right side weakness. CLINICAL DATA: This is the patient's initial encounter. Patient reports that signs and symptoms have been present for 1 day and indicates a pain score of Nonresponsive. MEDICAL/SURGICAL HISTORY: Non-responsive. Non-responsive. RADIATION DOSE: 9.64 CTDI (mGy) ; Combined studies COMPARISON: [facility], CTA HEAD W CONTRAST W 3D, 07/02/2018. [facility], CTA NECK W CONTRAST W 3D, 08/16/2018 . [facility], CTA CAROTID ARTERIES, 07/13/2018. . TECHNIQUE: Volumetric scanning was performed using a multi-row detector CT scanner during bolus infu tamie of 94 ml Visipaque 320 (iodixanol) nonionic water-soluble contrast as a cumulative dose for mul tiple exams. The data was post processed with a variety of visualization algorithms including full volume maximum intensity projection, multi-planar sliding thin slab reformation, curved planar reform ation, and surface rendering techniques. Using automated exposure control and adjustment of the mA a nd/or kV according to patient size, radiation dose was kept as low as reasonably achievable to obtain optimal diagnostic quality images. DICOM format image data is available electronically for review a nd comparison. FINDINGS: The intracranial portion of the internal carotid arteries demonstrate no significant stenosis. There is mild calcified plaque in the intracranial aspect of the internal carotid arteries. The A1 segments and more peripheral anterior cerebral arteries are symmetric. Middle cerebral arteries are also symm etrical without high-grade stenosis, vessel truncation, or aneurysm. There is persistent circul ation on the right with patent left posterior communicating artery. Posterior cerebral arteries, basi lar arteries, and peripheral vertebral arteries demonstrate no significant abnormality. CONCLUSION: No acute intracranial vascular abnormality is identified. Please refer to neck CTA report for descrip tion of the additional findings. These findings as well as the neck CTA findings were telephoned to Dr. Balbuena on 08/16/2018 at 7:55 AM. Electronically signed by: Burton Garcia MD Board Certified Radiologist 08/16/2018 7:59 AM EST
[2018-08-16 08:01] LABS: Activated Partial Thrombo Time 27.3 sec (23.4-31.7); Prothrombin Time 9.9 sec (9.8-11.6)
--- NOTE | 2018-08-16 08:11 | CT ---
EXAM DATE: 08/16/2018 8:01 AM EST AGE/SEX: 67 years / Female INDICATIONS: Stroke alert, right side weakness. CLINICAL DATA: This is the patient's initial encounter. Patient reports that signs and symptoms have been present for 1 day and indicates a pain score of Nonresponsive. MEDICAL/SURGICAL HISTORY: Non-responsive. Non-responsive. RADIATION DOSE: 9.64 CTDI (mGy) ; Combined studies COMPARISON: [facility], CTA CAROTID ARTERIES, 07/13/2018. . TECHNIQUE: Volumetric scanning was performed using a multirow detector CT scanner during bolus infus ion of 97 ml Visipaque 320 (iodixanol) nonionic water-soluble contrast as a cumulative dose for mult iple exams. The data was postprocessed with a variety of visualization algorithms including full-vo lume maximum intensity projection, multiplanar sliding thin-slab reformation, curved-planar reformati on, and surface-rendering techniques. Using automated exposure control and adjustment of the mA and/ or kV according to patient size, radiation dose was kept as low as reasonably achievable to obtain op timal diagnostic quality images. DICOM format image data is available electronically for review and comparison. Percent stenosis is calculated using the diameter of the stenotic region over the diameter of the nor mal distal internal carotid artery. FINDINGS: Aortic Arch: There is a three-vessel origin of the great vessels from the aorta. Severe calcified an d noncalcified plaque in the proximal left subclavian artery at least moderately narrows the lumen, s table from the prior study. Right Carotid: The common carotid artery demonstrates no significant atherosclerotic disease or sten osis. Mild noncalcified and calcified plaque is located in the carotid bulb and proximal internal car otid artery with no significant stenosis. External carotid artery demonstrates no significant abnorma lity. Left Carotid: The left common carotid artery demonstrates no significant atherosclerotic disease pro ximally. There is calcified and noncalcified plaque in the distal common carotid artery and carotid b ulb. There is an intraluminal filling defect with a polo mint sign involving the proximal internal ca rotid artery causing focal high-grade stenosis greater than 70%. The more peripheral internal carotid artery demonstrates no significant stenosis. The external carotid artery is within normal limits. Vertebrals: The vertebral arteries have a symmetric diameter. No stenotic lesions are seen. Other: There is mild centrilobular emphysema in the visualized upper lung zones. In the left vallecul a and extending into the left piriform sinus is a round soft tissue density mass measuring approximat lesli 1.7 x 1.6 cm. CONCLUSION: 1. There is new intraluminal thrombus causing focal high-grade stenosis of the left proximal interna l carotid artery. This finding was not present on the prior study dated 07/13/2018. 2. Remaining neck arterial vasculature demonstrates no significant stenosis. 3. There is a soft tissue mass in the left valleculae and piriform sinus measuring up to 1.7 cm. Sug gest further evaluation and biopsy with direct visualization. 4. These findings were discussed with Dr. Gallagher via telephone. Electronically signed by: Burton Garcia MD Board Certified Radiologist 08/16/2018 8:10 AM EST
[2018-08-16 08:18] LABS: Beta HCG,Quantitative 2 mIU/mL (0-5); Creatine Kinase 44 U/L (26-192)
[2018-08-16 08:23] LABS: Bilirubin,Urine Negative (Negative); Clarity,Urine Clear (Clear); Color,Urine Yellow (Yellw/Straw); Glucose,Urine (UA) Negative (Negative); Hyaline Casts,Urine 1 /lpf (0-3); Leukocyte Esterase,Urine Negative (Negative); Nitrite,Urine Negative (Negative); Specific Gravity,Urine 1.042 (1.002-1.035); Squamous Epithelial Cell,Urine <1 /hpf (0-5)
[2018-08-16 08:25] LABS: Amphetamine Screen,Urine Neg (Neg); Barbiturate Screen,Urine Neg (Neg); Cannabinoid Screen,Urine Neg (Neg); Cocaine Screen,Urine Neg (Neg)
--- NOTE | 2018-08-16 08:26 | XR ---
EXAM DATE: 08/16/2018 8:22 AM EST AGE/SEX: 67 years / Female INDICATIONS: Stroke alert. CLINICAL DATA: This is the patient's initial encounter. Patient reports that signs and symptoms have been present for 1 day and indicates a pain score of 0/10. MEDICAL/SURGICAL HISTORY: None. None. COMPARISON: [facility], CT CHEST W CONTRAST, 06/28/2018. . FINDINGS: 2 portable AP views of the chest demonstrate a normal-sized cardiac silhouette. EKG lines overlie the patient. No pleural effusion, airspace consolidation, or pneumothorax is identified. There is a stab le lobulated mass in the left midlung zone overlying the hilar structures. The bones and soft tissues demonstrate no acute abnormality. CONCLUSION: 1. No acute cardiopulmonary abnormality is identified. 2. Stable lobulated mass in the left upper lobe. Electronically signed by: Burton Garcia MD Board Certified Radiologist 08/16/2018 8:24 AM EST
[2018-08-16 08:28] LABS: Opiate Screen,Urine Neg (Neg)
--- NOTE | 2018-08-16 08:50 | P.CONNEU ---
History of Present Illness Service: Neurology Primary Care Provider: UNKNOWN Chief Complaint: Stroke alert History of Present Illness: [age]-year-old female presents as a stroke alert. States she woke up around midnight had right hand weakness and right-sided numbness tingling. Symptoms persisted so she came in this morning for further evaluation. Onset greater than 6 hours prior to arrival therefore not IV TPA candidate. In addition she had a stroke early June 2018 at that time had similar symptoms. She is seen by vascular surgery she apparently had a thrombus in her left ICA that resolved and therefore no further intervention was done at that time. Patient supposed to be on anticoagulation but she held it as she had a lung biopsy planned for today. She was taking Lovenox but last dose was this past Wednesday she states. She had a repeat CAT scan performed in the ER which was negative for any acute lesion. However CTA of the carotids demonstrated recurrent thrombus in the left ICA. Discussion was had with the radiologist as well as interventional radiologist. The interventional radiologist did not feel it would be safe to proceed with any carotid clot retraction or thrombolytic in that region felt the risk was high and suggested contacting vascular surgery. We are in the process of try to get hold of her vascular surgeon have been unsuccessful at this time. The chief unit forester was asked to contact the physician but apparently stated she had to go to a trauma alert. I have been trying to get a hold of the surgeon through the boiler or engine operator thus far have not been successful. Review of Systems All other systems reviewed negative except as stated in HPI PMFSH - History History Provided By: Patient - Medical History Medical History: Medical History (Last Reviewed 08/16/18 @ 07:38 by Khris Gallagher) Asthma Diabetes HTN (hypertension) Stroke Thyroid cancer - Surgical History Surgical History: Surgical History (Last Reviewed 08/16/18 @ 07:38 by Khris Gallagher) H/O laparoscopy History of back surgery History of lung biopsy History of tonsillectomy Hx of breast biopsy Hx of thyroidectomy - Family History Family History: Family History (Last Reviewed 08/16/18 @ 07:38 by Khris Gallagher) Mother Heart disease Mother Lung cancer - Tobacco History Second Hand Smoke Exposure: No Smoking Status: Former smoker Tobacco Type: Cigarettes - Alcohol History How Often Do You Have a Drink Containing Alcohol: 2 to 3 times a week - Substance Use History Substance History: No History of Abuse - Travel History Recent Travel in the [facility] Within the Last 8 Weeks: No Recent Travel Out of the Country Within the Last 8 Weeks: No - Immunization History Tetanus Immunization: Unsure Tetanus Immunization Year if Known: 2012 Medications and Allergies Active Medications: Active Medications Sodium Chloride (Ns Inj) 1,000 mls @ 70 mls/hr IV.CONT .[id number] SAM Last Admin: 08/16/18 07:58 Dose: 70 mls/hr Allergies Allergy/AdvReac Type Severity Reaction Status Date / Time losartan Allergy Swelling Verified 08/16/18 07:56 of Lip/Tongue/Throat Sulfa (Sulfonamide Allergy Hives Verified 08/16/18 07:56 Antibiotics) ciprofloxacin [From Cipro] AdvReac Tingling Verified 08/16/18 07:56 levofloxacin AdvReac Joint Pain Verified 08/16/18 07:56 prednisone AdvReac Joint Pain Verified 08/16/18 07:56 [id number]-[id number] Reductase AdvReac Joint Pain Verified 08/16/18 07:56 Inhibitor Home Medications Medication Instructions Recorded Confirmed Type albuterol sulfate 0.63 mg INHALATION Q4-6H PRN 06/23/18 08/16/18 History fluticasone [Flonase Allergy 1 spray INTRANASAL DAILY 06/23/18 08/16/18 History Relief] levothyroxine [Unithroid] 112 mcg PO DAILY 06/23/18 08/16/18 History psyllium husk [Metamucil] 0.52 g PO DAILY 06/23/18 08/16/18 History Bifidobacterium infantis [Align] 4 mg PO DAILY 06/26/18 08/16/18 History fluticasone-vilanterol [Breo 1 inh INHALATION DAILY 06/26/18 08/16/18 History Ellipta] Exam Vital signs: Vital Signs 08/16/18 07:24 08/16/18 07:28 08/16/18 07:34 Pulse Rate 69 65 Respiratory Rate 16 Blood Pressure 181/84 H Pulse Oximetry 99 97 08/16/18 07:35 08/16/18 08:15 Pulse Rate 74 Respiratory Rate 16 Blood Pressure 178/78 H Pulse Oximetry 99 99 Intake & Output 08/15/18 08/16/18 08/16/18 18:59 06:59 18:59 Weight 83.915 kg Narrative: GENERAL: in NAD, SKIN: Warm and dry. HEAD: Atraumatic. Normocephalic. EYES: Pupils equal and round. No scleral icterus. ENT: No nasal bleeding or discharge. Mucous membranes pink and moist. NECK: Trachea midline. No JVD. CARDIOVASCULAR: Regular rate and rhythm. RESPIRATORY: No accessory muscle use. GASTROINTESTINAL: Abdomen soft, non-tender, nondistended. MUSCULOSKELETAL: Extremities without clubbing, cyanosis, or edema. No obvious deformities. NEUROLOGICAL: Awake and alert. No aphasia, fluent articulate, oriented x3, reduced right nasolabial fold, visual vargas full, minimal drift in the right upper extremity however reduced radio tester and reduced fine finger movements in the right hand, able raise her right lower extremity gravity no drift. She did feel reduce pinprick on the right arm and leg compared to the left side, no neglect no dystaxia in the lower extremity gait not assessed secondary fall risk. PSYCHIATRIC: Appropriate mood and affect; insight and judgment normal. - Constitutional no acute distress - Routine HEENT Exam Head: Present: normocephalic Eye: Present: EOMI Results - Labs CBC & Chem 7: 08/16/18 07:24 Labs: Laboratory Results - last 24 hr 08/16/18 08/16/18 08/16/18 07:24 07:24 07:24 WBC 6.7 RBC 3.94 L Hgb 13.1 POC Hgb (Calc) 13.3 Hct 38.1 POC Hct 39.0 MCV 96.8 MCH 33.3 MCHC 34.4 RDW 13.4 Plt Count 239 MPV 7.3 Neut % (Auto) 60.1 Lymph % (Auto) 27.8 [place] % (Auto) 10.0 H Eos % (Auto) 1.1 Baso % (Auto) 1.0 Neut # (Auto) 4.0 Lymph # (Auto) 1.9 [place] # (Auto) 0.7 Eos # (Auto) 0.1 Baso # (Auto) 0.1 WBC Differential . Differential Comment Auto diff final PT 9.9 INR 1.0 APTT 27.3 Fibrinogen 480 H POC Sodium 138 POC Potassium 4.3 POC Chloride 103 POC BUN 13 POC Creatinine 0.6 POC Glucose 142 H Total Creatine Kinase 44 Troponin I Less than 0.02 L Beta HCG, Quant 2 Urine Color Urine Clarity Urine pH Ur Specific [place] Urine Protein Urine Glucose (UA) Urine Ketones Urine Occult Blood Urine Nitrate Urine Bilirubin Urine Urobilinogen Ur Leukocyte Esterase Urine RBC Urine WBC Ur Squamous Epith Cells Hyaline Casts Micro UA Comment Ur Microscopic Review Urine Culture Comments Urine Opiates Screen Ur Barbiturates Screen Ur Amphetamines Screen U Benzodiazepines Scrn Urine Cocaine Screen U Cannabinoids Screen Blood Type 08/16/18 08/16/18 08/16/18 07:24 08:05 08:05 WBC RBC Hgb POC Hgb (Calc) Hct POC Hct MCV MCH MCHC RDW Plt Count MPV Neut % (Auto) Lymph % (Auto) [place] % (Auto) Eos % (Auto) Baso % (Auto) Neut # (Auto) Lymph # (Auto) [place] # (Auto) Eos # (Auto) Baso # (Auto) WBC Differential Differential Comment PT INR APTT Fibrinogen POC Sodium POC Potassium POC Chloride POC BUN POC Creatinine POC Glucose Total Creatine Kinase Troponin I Beta HCG, Quant Urine Color Yellow Urine Clarity Clear Urine pH 6.0 Ur Specific [place] 1.042 H Urine Protein Negative Urine Glucose (UA) Negative Urine Ketones Negative Urine Occult Blood Negative Urine Nitrate Negative Urine Bilirubin Negative Urine Urobilinogen Less than 2 Ur Leukocyte Esterase Negative Urine RBC 1 Urine WBC 1 Ur Squamous Epith Cells <1 Hyaline Casts 1 Micro UA Comment Cath-culture not ind Ur Microscopic Review Not Reportable Urine Culture Comments Cath-cult not ind Urine Opiates Screen Neg Ur Barbiturates Screen Neg Ur Amphetamines Screen Neg U Benzodiazepines Scrn Neg Urine Cocaine Screen Neg U Cannabinoids Screen Neg Blood Type O Positive - Imaging Impressions Chest X-Ray 08/16/18 07:29 CONCLUSION: 1. No acute cardiopulmonary abnormality is identified. 2. Stable lobulated mass in the left upper lobe. Head CT 08/16/18 07:29 CONCLUSION: 1. No acute intracranial abnormality is identified. 2. Stable mild generalized atrophy with mild chronic periventricular white matter change. These findings and the findings on the head CTA were telephoned to Dr. Gallagher on 08/16/2018 at 7:45 AM. Head CTA 08/16/18 07:29 CONCLUSION: No acute intracranial vascular abnormality is identified. Please refer to neck CTA report for description of the additional findings. These findings as well as the neck CTA findings were telephoned to Dr. Balbuena on 08/16/2018 at 7:55 AM. Neck CTA 08/16/18 07:29 CONCLUSION: 1. There is new intraluminal thrombus causing focal high-grade stenosis of the left proximal internal carotid artery. This finding was not present on the prior study dated 07/13/2018. 2. Remaining neck arterial vasculature demonstrates no significant stenosis. 3. There is a soft tissue mass in the left valleculae and piriform sinus measuring up to 1.7 cm. Suggest further evaluation and biopsy with direct visualization. 4. These findings were discussed with Dr. Gallagher via telephone. Review/Management - Diagnosis (1) Thrombosis of left carotid artery Code(s): I65.22 - Occlusion and stenosis of left carotid artery Status: Acute Current Visit: Yes (2) Acute ischemic left MCA stroke Code(s): I63.512 - Cerebral infarction due to unspecified occlusion or stenosis of left middle cerebral artery Status: Acute Current Visit: Yes (3) Hypertension Code(s): I10 - Essential (primary) hypertension Status: Acute Current Visit : Yes - Review/Management Plan: Patient with recurrent symptoms of right-sided weakness mainly in the arm mild right-sided numbness no loss of consciousness no tonic-clonic activity nothing to suggest seizure activity. It appears she likely has recurrent strokes in the left hemisphere secondary to recurrent left ICA clot Not currently a candidate for IV TPA. Interventional radiology feels the case to be better handled by vascular surgery MRI brain from early July 02 2018 was reviewed showing areas of diffusion restriction tiny scattered left MCA territory and somewhat larger in the left parietal occipital region Previous echo showing EF greater than 50% Recommendation Discussed the case with her vascular surgeon who was kind enough to call me back He states he will review the radiological studies and make further diagnostic and therapeutic recommendations MRI brain Over 90 minutes spent in coordination of care, discussion with multiple physicians reviewing radiological laboratory data and reexamination of the patient
--- NOTE | 2018-08-16 10:18 | MR ---
EXAM DATE: 08/16/2018 9:58 AM EST AGE/SEX: 67 years / Female INDICATIONS: Right sided weakness. CLINICAL DATA: This is the patient's initial encounter. Patient reports that signs and symptoms have been present for 1 day and indicates a pain score of 0/10. MEDICAL/SURGICAL HISTORY: Carcinoma, thyroid. Hypertension. Diabetes mellitus type II. Thyroi dectomy. Tonsillectomy. ankle and wrist ORIF COMPARISON: [facility], CTA HEAD W CONTRAST W 3D, 08/16/2018. . TECHNIQUE: 3D [id number] MRA was performed. Source images, multiplanar STS MIP, and 3D volum e MIP reconstructions were reviewed. FINDINGS: Anterior circulation: Internal carotid arteries are within normal limits. A1 segments are symmetric. Anterior cerebral arteries and middle cerebral arteries are symmetric with symmetric flow related enh ancement. There is no high-grade stenosis, vessel truncation, or aneurysm identified. Posterior circulation: The distal vertebral arteries are symmetric. Basilar artery is within normal l imits without aneurysm. There is a persistent circulation on the right and a patent posterior c ommunicating artery on the left. Posterior cerebral arteries demonstrate no significant abnormality. CONCLUSION: No acute intracranial vascular abnormality is identified. Electronically signed by: Burton Garcia MD Board Certified Radiologist 08/16/2018 10:16 AM EST
[2018-08-16] MEDS: levETIRAcetam 500 MG Tablet PO SCH ×2 (10:22→20:03)
--- NOTE | 2018-08-16 10:22 | MR ---
EXAM DATE: 08/16/2018 10:10 AM EST AGE/SEX: 67 years / Female INDICATIONS: . Right sided weakness. CLINICAL DATA: This is the patient's initial encounter. Patient reports that signs and symptoms have been present for 1 day and indicates a pain score of 0/10. MEDICAL/SURGICAL HISTORY: Carcinoma, thyroid. Hypertension. Diabetes mellitus type II. Thyroi dectomy. Tonsillectomy. ankle and wrist ORIF COMPARISON: [facility], CTA NECK W CONTRAST W 3D, 08/16/2018. [facility], CTA CAROTID ARTERIES, 07/13/2018. . TECHNIQUE: 10 ml Gadavist (gadobutrol) contrast infused MRA (single exam dose) of the extracranial circulation was performed using a neurovascular coil. Postprocessing was performed, including rotati ng sub-volume maximum intensity projections of each carotid artery, rotating full-volume maximum inte nsity projections of both carotid arteries, sagittal and coronal sliding thin-slab reformations of ea ch carotid artery, and left oblique sliding thin-slab reformation through the aortic arch to include the origin of the arch branch vessels. FINDINGS: Aortic Arch : There is a three-vessel origin of the great vessels from the aorta. No evidence of o stial narrowing. Right Carotid : The common carotid artery is intact. The carotid bulb has a normal configuration wi thout ulceration or narrowing. The internal carotid artery lumen is smooth without stenosis. The ex ternal carotid artery is intact. Left Carotid : The common carotid artery is intact. The carotid bulb has a normal configuration wit hout ulceration or narrowing. There is an eccentric polypoid-appearing, pedunculated plaque within th e left proximal internal carotid artery and carotid bulb which results in greater than 70% stenosis o f the lumen of the internal carotid artery. The external carotid artery is intact. Vertebrals : The vertebral arteries have a symmetric diameter. Evaluation of the proximal portions o f the vertebral arteries is somewhat limited due to technical factors. CONCLUSION: 1. Eccentric polypoid-appearing, pedunculated noncalcified plaque extending from the left carotid bu lb into the proximal internal carotid artery and resulting in greater than 70% stenosis on the left. 2. No significant stenosis of the right carotid system. 3. Scattered emphysematous changes within the lung apices. Percent stenosis is calculated using the diameter of the stenotic region over the diameter of the nor mal distal internal carotid artery Electronically signed by: Osman Fuentes MD Board Certified Radiologist 08/16/2018 10:21 AM EST
--- NOTE | 2018-08-16 10:23 | MR ---
EXAM DATE: 08/16/2018 9:58 AM EST AGE/SEX: 67 years / Female INDICATIONS: Right sided weakness. CLINICAL DATA: This is the patient's initial encounter. Patient reports that signs and symptoms have been present for 1 day and indicates a pain score of 0/10. MEDICAL/SURGICAL HISTORY: Carcinoma, thyroid. Hypertension. Diabetes mellitus type II. Thyroi dectomy. Tonsillectomy. ankle and wrist ORIF COMPARISON: [facility], MR HEAD W/O CONTRAST, 07/02/2018. . TECHNIQUE: Multiplanar, multisequence examination of the brain was performed without contrast. FINDINGS: Cerebrum: There is mild generalized atrophy with ventricular size within normal limits given the degr ee of atrophy. No midline shift, mass lesion, hemorrhage. No extraaxial fluid collections are seen. The pituitary gland and suprasellar cistern are normal in configuration. There are cortical and sub cortical areas of increased FLAIR/T2 signal in the left occipital lobe and left posterior temporal lo be. There are multifocal areas of restricted diffusion in these areas of abnormal T2 signal as well a s within punctate areas in the left frontal high convexity and right frontal high convexity. White Matter: There is mild periventricular and subcortical white matter signal change. Posterior Fossa: The cerebellum and brainstem demonstrate no acute abnormality. The 4th ventricle is midline. The cerebellopontine angle is within normal limits. The cerebellar tonsils are normal in p osition. Diffusion Imaging: There is abnormal restricted diffusion within the left temporal lobe, posterior t emporal lobe, and small punctate areas in the left frontal high convexity and right frontal high conv exity. Extracranial: The visualized sinuses are clear. CONCLUSION: 1. Restricted diffusion indicating recent ischemia within the left posterior temporal lobe, occipita l lobe, and punctate areas in the frontal high convexities bilaterally. 2. Remainder of the examination is stable. Electronically signed by: Burton Garcia MD Board Certified Radiologist 08/16/2018 10:22 AM EST
[2018-08-16] MEDS ORDERED: Gadobutrol PF 10 MMOL/10 ML Vial (for RAD) IV.SIG ONE (10:32)
[2018-08-16] MEDS ORDERED: Sodium Phosphate Inj 30 MMOL in Sodium Chlor 0.9% Inj 250 ML IV.SIG PRN (11:42)
[2018-08-16] MEDS ORDERED: Magnesium Sulfate Inj 2 GM in Sodium Chlor 0.9% Inj 96 ML IV.SIG PRN (11:42)
[2018-08-16] MEDS ORDERED: Potassium Phosphate 500 MG Soluble Tablet PO PRN ×2 (11:42)
[2018-08-16] MEDS ORDERED: Potassium Chlor 20 mEq Premix 20 MEQ/100 ML PIGGYBACK IV.SIG PRN ×2 (11:42)
[2018-08-16] MEDS ORDERED: Potassium Phosphate Inj 30 MMOL in Sodium Chlor 0.9% Inj 250 ML IV.SIG PRN (11:42)
[2018-08-16] MEDS ORDERED: Magnesium Oxide 400 MG Tablet PO PRN (11:42)
[2018-08-16] MEDS ORDERED: Potassium Chloride 25 MEQ Effervescent Tablet PO PRN (11:42)
[2018-08-16] MEDS ORDERED: Magnesium Sulfate Inj 4 GM in Sodium Chlor 0.9% Inj 92 ML IV.SIG PRN (11:42)
[2018-08-16] MEDS ORDERED: Potassium Chlor 40 mEq Premix 40 MEQ/100 ML PIGGYBACK IV.SIG PRN ×2 (11:42)
[2018-08-16] MEDS ORDERED: Dextrose 50% in Water 50 ML Vial IV.PUSH PRN (11:51)
[2018-08-16] MEDS ORDERED: Heparin 10,000 UNITS/10 ML Vial (for IV use) IV.PUSH STA (12:00)
--- NOTE | 2018-08-16 12:13 | P.CONVS ---
History of Present Illness Service: Vascular surgery Consult date: 08/16/18 Primary Care Provider: UNKNOWN Chief Complaint: Stroke alert History of Present Illness: 67-year-old female with a past medical history of left hemispheric stroke that was diagnosed approximately 6 weeks ago. She was noted to have internal carotid artery thrombus. I treated her with anticoagulation. I obtained repeat CT angiography that was done approximately 2 weeks ago that showed resolution of the internal carotid artery thrombus without any significant underlying stenosis. The Lovenox was discontinued on Wednesday for a scheduled outpatient biopsy. The patient developed right upper extremity weakness this morning. She was transferred to the ER with a stroke alert and a repeat CT angiography of the neck showed recurrent left internal carotid artery thrombus. She complains of right upper extremity numbness. Her right upper extremity weakness has resolved. She denies any chest pain or shortness of breath. Review of Systems All other systems reviewed negative except as stated in HPI [facility] - History History Provided By: Patient - Medical History Medical History: Medical History (Last Reviewed 08/16/18 @ 07:38 by Khris Gallagher) Asthma Diabetes HTN (hypertension) Stroke Thyroid cancer - Surgical History Surgical History: Surgical History (Last Reviewed 08/16/18 @ 07:38 by Khris Gallagher) H/O laparoscopy History of back surgery History of lung biopsy History of tonsillectomy Hx of breast biopsy Hx of thyroidectomy - Family History Family History: Family History (Last Reviewed 08/16/18 @ 07:38 by Khris Gallagher) Mother Heart disease Mother Lung cancer - Tobacco History Second Hand Smoke Exposure: No Smoking Status: Former smoker Tobacco Type: Cigarettes - Alcohol History How Often Do You Have a Drink Containing Alcohol: 2 to 3 times a week - Substance Use History Substance History: No History of Abuse - Travel History Recent Travel in the [place] Within the Last 8 Weeks: No Recent Travel Out of the Country Within the Last 8 Weeks: No - Immunization History Tetanus Immunization: Unsure Tetanus Immunization Year if Known: 2012 Medications and Allergies Active Medications: Active Medications Acetaminophen (Tylenol) 650 mg PO Q6H PRN PRN Reason: PAIN 1-10 AND/OR FEVER >101F Al Hydroxide/Mg Hydroxide (Milk Of Magnceleste Liq) 30 ml PO Q12H PRN PRN Reason: Mild Constipation Albuterol (Duoneb Neb (Prn)) 1 ampul NEB Q2HR NEB PRN PRN Reason: WHEEZING Bisacodyl (Dulcolax Supp) 10 mg RECTAL DAILY PRN PRN Reason: SEVERE CONSITIPATION Chlorhexidine Gluconate (Chlorhexidine 2% Cloth) 3 pack TOPICAL DAILY@0400 SAM Stop: 08/22/18 03:59 Chlorhexidine Gluconate (Chlorhexidine 2% Cloth) 3 pack TOPICAL DAILY@0400 PRN PRN Reason: Extra cloth needed Stop: 08/22/18 03:59 Dextrose (D50w Vial) 50 ml IV.PUSH UNSCH PRN PRN Reason: PER HYPOGLYCEMIA PROTOCOL Famotidine (Pepcid Pf Inj) 20 mg IV.PUSH Q12HR SAM Glucagon (Glucagon Inj) 1 mg OTHER PRN PRN PRN Reason: for Hypoglycemia Protocol Heparin Sodium (Porcine) (Heparin Inj) 7,000 units 80 units/kg (7000 units) IV.PUSH NOW STA Stop: 08/16/18 11:48 Sodium Chloride (Ns Inj) 1,000 mls @ 70 mls/hr IV.CONT .[id number] SAM Last Infusion: 08/16/18 09:39 Dose: 70 mls/hr Magnesium Sulfate 4 gm/ Sodium (Chloride) 100 mls @ 50 mls/hr IV.SIG UNSCH PRN PRN Reason: For Magnesium 0.9 - 1.1 mg/dL Magnesium Sulfate 2 gm/ Sodium (Chloride) 100 mls @ 50 mls/hr IV.SIG UNSCH PRN PRN Reason: For Magnesium 1.2 - 1.6 mg/dL Potassium Chloride (Kcl 40 Meq Premix Inj) 40 meq in 100 mls @ 25 mls/hr IV.SIG Q2H PRN PRN Reason: For Potassium 2.8 - 3.2 mEq/L Potassium Chloride (Kcl 20 Meq Premix Inj) 20 meq in 100 mls @ 50 mls/hr IV.SIG Q2H PRN PRN Reason: For Potassium 3.3 - 3.5 mEq/L Potassium Chloride (Kcl 40 Meq Premix Inj) 40 meq in 100 mls @ 25 mls/hr IV.SIG UNSCH PRN PRN Reason: For Potassium 3.3 - 3.5 mEq/L Potassium Phosphate 30 mmol/ (Sodium Chloride) 260 mls @ 42 mls/hr IV.SIG UNSCH PRN PRN Reason: SEE LABEL COMMENTS Sodium Phosphate 30 mmol/ (Sodium Chloride) 260 mls @ 42 mls/hr IV.SIG UNSCH PRN PRN Reason: For Phosphorus < 2.5 mg/dL Potassium Chloride (Kcl 20 Meq Premix Inj) 20 meq in 100 mls @ 50 mls/hr IV.SIG Q2H PRN PRN Reason: For Potassium 2.8 - 3.2 mEq/L Heparin Sodium/Dextrose (Heparin/D5w 25,000 U/250 Ml) 25,000 unit in 250 mls @ 0 mls/hr IV.CONT TITRATE PRN; Protocol PRN Reason: Per Protocol Insulin Aspart (Novolog Insulin Correctional Sugar Inj) 0 unit SQ ACHS AND 3AM SAM; Protocol Lactulose (Lactulose Liq) 30 ml PO DAILY PRN PRN Reason: SEVERE CONSITIPATION Levetiracetam (Keppra) 500 mg PO BID [facility] Last Admin: 08/16/18 10:22 Dose: Not Given Magnesium Oxide (Mag-Ox) 800 mg PO UNSCH PRN PRN Reason: For Magnesium 1.2 - 1.6 mg/dL Ondansetron HCl (Zofran Inj) 4 mg IV.PUSH Q6H PRN PRN Reason: NAUSEA OR VOMITING Potassium Bicarb/Potassium Chloride (K-Lyte Cl Eff) 50 meq PO UNSCH PRN PRN Reason: For Potassium 3.3 - 3.5 mEq/L Potassium Phosphate (K-Phos Original) 2,000 mg PO Q4H PRN PRN Reason: Phosphorus Less Than 2.5 mg/dL Potassium Phosphate (K-Phos Original) 2,000 mg PO UNSCH PRN PRN Reason: SEE LABEL COMMENTS Senna/Docusate Sodium (Wendy-Colace) 1 tab PO BID [facility] Sennosides (Senokot) 17.2 mg PO Q12H PRN PRN Reason: Moderate Constipation Sodium Chloride (Ns Flush) 2 ml IV.FLUSH BID [facility] Sodium Chloride (Ns Flush) 2 ml IV.FLUSH PRN PRN PRN Reason: FLUSH AFTER USING IV ACCESS Allergies Allergy/AdvReac Type Severity Reaction Status Date / Time losartan Allergy Swelling Verified 08/16/18 07:56 of Lip/Tongue/Throat Sulfa (Sulfonamide Allergy Hives Verified 08/16/18 07:56 Antibiotics) ciprofloxacin [From Cipro] AdvReac Tingling Verified 08/16/18 07:56 levofloxacin AdvReac Joint Pain Verified 08/16/18 07:56 prednisone AdvReac Joint Pain Verified 08/16/18 07:56 [id number]-[id number]-Utq Reductase AdvReac Joint Pain Verified 08/16/18 07:56 Inhibitor Home Medications Medication Instructions Recorded Confirmed Type albuterol sulfate 0.63 mg INHALATION Q4-6H PRN 06/23/18 08/16/18 History fluticasone [Flonase Allergy 1 spray INTRANASAL DAILY 06/23/18 08/16/18 History Relief] levothyroxine [Unithroid] 112 mcg PO DAILY 06/23/18 08/16/18 History psyllium husk [Metamucil] 0.52 g PO DAILY 06/23/18 08/16/18 History Bifidobacterium infantis [Align] 4 mg PO DAILY 06/26/18 08/16/18 History fluticasone-vilanterol [Breo 1 inh INHALATION DAILY 06/26/18 08/16/18 History Ellipta] Physical Exam Vital Signs / I&O: Vital Signs 08/16/18 07:24 08/16/18 07:28 08/16/18 07:34 Pulse Rate 69 65 Respiratory Rate 16 Blood Pressure 181/84 H Pulse Oximetry 99 97 08/16/18 07:35 08/16/18 08:15 08/16/18 09:15 Pulse Rate 74 63 Respiratory Rate 16 15 Blood Pressure 178/78 H 188/86 H Pulse Oximetry 99 99 99 08/16/18 09:20 08/16/18 10:53 Pulse Rate 67 72 Respiratory Rate 14 16 Blood Pressure 154/97 H 177/77 H Pulse Oximetry 99 99 Intake & Output 08/15/18 08/16/18 08/16/18 18:59 06:59 18:59 Intake Total 105 / 105 Balance 105 / 105 Weight 83.915 kg Intake: IV 105 / 105 Keppra Inj 500 MG In NS Inj 100 105 / 105 ML @ 400 mls/hr IV.SIG ONCE ONE Rx#:[id number] Neuro: Alert awake oriented x3 Right upper extremity/lower extremity 5 out of 5 motor with normal sensation. No cranial nerve deficits. HEENT: Normocephalic atraumatic Neck: Supple Heart: S1-S2 Lungs: Clear to auscultation bilateral Abdomen: Soft nontender nondistended Vascular: Palpable femoral pulses bilateral Laboratory Results - last 24 hr 08/16/18 08/16/18 08/16/18 07:24 07:24 07:24 WBC 6.7 RBC 3.94 L Hgb 13.1 POC Hgb (Calc) 13.3 Hct 38.1 POC Hct 39.0 MCV 96.8 MCH 33.3 MCHC 34.4 RDW 13.4 Plt Count 239 MPV 7.3 Neut % (Auto) 60.1 Lymph % (Auto) 27.8 [place] % (Auto) 10.0 H Eos % (Auto) 1.1 Baso % (Auto) 1.0 Neut # (Auto) 4.0 Lymph # (Auto) 1.9 [place] # (Auto) 0.7 Eos # (Auto) 0.1 Baso # (Auto) 0.1 WBC Differential . Differential Comment Auto diff final PT 9.9 INR 1.0 APTT 27.3 Fibrinogen 480 H POC Sodium 138 POC Potassium 4.3 POC Chloride 103 POC BUN 13 POC Creatinine 0.6 POC Glucose 142 H Total Creatine Kinase 44 Troponin I Less than 0.02 L Beta HCG, Quant 2 Urine Color Urine Clarity Urine pH Ur Specific [place] Urine Protein Urine Glucose (UA) Urine Ketones Urine Occult Blood Urine Nitrate Urine Bilirubin Urine Urobilinogen Ur Leukocyte Esterase Urine RBC Urine WBC Ur Squamous Epith Cells Hyaline Casts Micro UA Comment Ur Microscopic Review Urine Culture Comments Urine Opiates Screen Ur Barbiturates Screen Ur Amphetamines Screen U Benzodiazepines Scrn Urine Cocaine Screen U Cannabinoids Screen Blood Type Antibody Screen 08/16/18 08/16/18 08/16/18 07:24 08:05 08:05 WBC RBC Hgb POC Hgb (Calc) Hct POC Hct MCV MCH MCHC RDW Plt Count MPV Neut % (Auto) Lymph % (Auto) [place] % (Auto) Eos % (Auto) Baso % (Auto) Neut # (Auto) Lymph # (Auto) [place] # (Auto) Eos # (Auto) Baso # (Auto) WBC Differential Differential Comment PT INR APTT Fibrinogen POC Sodium POC Potassium POC Chloride POC BUN POC Creatinine POC Glucose Total Creatine Kinase Troponin I Beta HCG, Quant Urine Color Yellow Urine Clarity Clear Urine pH 6.0 Ur Specific [place] 1.042 H Urine Protein Negative Urine Glucose (UA) Negative Urine Ketones Negative Urine Occult Blood Negative Urine Nitrate Negative Urine Bilirubin Negative Urine Urobilinogen Less than 2 Ur Leukocyte Esterase Negative Urine RBC 1 Urine WBC 1 Ur Squamous Epith Cells <1 Hyaline Casts 1 Micro UA Comment Cath-culture not ind Ur Microscopic Review Not Reportable Urine Culture Comments Cath-cult not ind Urine Opiates Screen Neg Ur Barbiturates Screen Neg Ur Amphetamines Screen Neg U Benzodiazepines Scrn Neg Urine Cocaine Screen Neg U Cannabinoids Screen Neg Blood Type O Positive Antibody Screen Negative Impressions Head MRI 08/16/18 00:00 CONCLUSION: 1. Restricted diffusion indicating recent ischemia within the left posterior temporal lobe, occipital lobe, and punctate areas in the frontal high convexities bilaterally. 2. Remainder of the examination is stable. Chest X-Ray 08/16/18 07:29 CONCLUSION: 1. No acute cardiopulmonary abnormality is identified. 2. Stable lobulated mass in the left upper lobe. Head CT 08/16/18 07:29 CONCLUSION: 1. No acute intracranial abnormality is identified. 2. Stable mild generalized atrophy with mild chronic periventricular white matter change. These findings and the findings on the head CTA were telephoned to Dr. Gallagher on 08/16/2018 at 7:45 AM. Head CTA 08/16/18 07:29 CONCLUSION: No acute intracranial vascular abnormality is identified. Please refer to neck CTA report for description of the additional findings. These findings as well as the neck CTA findings were telephoned to Dr. Balbuena on 08/16/2018 at 7:55 AM. Neck CTA 08/16/18 07:29 CONCLUSION: 1. There is new intraluminal thrombus causing focal high-grade stenosis of the left proximal internal carotid artery. This finding was not present on the prior study dated 07/13/2018. 2. Remaining neck arterial vasculature demonstrates no significant stenosis. 3. There is a soft tissue mass in the left valleculae and piriform sinus measuring up to 1.7 cm. Suggest further evaluation and biopsy with direct visualization. 4. These findings were discussed with Dr. Gallagher via telephone. Head MRA 08/16/18 08:51 CONCLUSION: No acute intracranial vascular abnormality is identified. Neck MRA 08/16/18 08:51 CONCLUSION: 1. Eccentric polypoid-appearing, pedunculated noncalcified plaque extending from the left carotid bulb into the proximal internal carotid artery and resulting in greater than 70% stenosis on the left. 2. No significant stenosis of the right carotid system. 3. Scattered emphysematous changes within the lung apices. Percent stenosis is calculated using the diameter of the stenotic region over the diameter of the normal distal internal carotid artery Assessment and Plan - Assessment (1) Seizure Code(s): R56.9 - Unspecified convulsions Status: Acute (2) Thrombosis of left carotid artery Code(s): I65.22 - Occlusion and stenosis of left carotid artery Status: Acute (3) Acute ischemic left MCA stroke Code(s): I63.512 - Cerebral infarction due to unspecified occlusion or stenosis of left middle cerebral artery Status: Acute - Plan I reviewed the CT area of the neck, MRI of the head. Left internal carotid artery recurrent thrombosis. Recent CT angiography of the neck that was done 2 weeks ago showed patent left internal carotid artery with minimal plaque and no significant stenosis. Patient was taken off Lovenox for a scheduled biopsy. I am concerned about the plaque morphology of the left internal carotid artery. I believe this is a vulnerable plaque with underlying penetrating ulcer which will require an endarterectomy in the setting of less than 50% stenosis. Timing of the operation is critical with at least 10-15% perioperative stroke risk with the current thrombus burden. I will treat her with anticoagulation and close observation and plan delayed endarterectomy in 2-4 weeks. If recurrent symptoms happen during this hospitalization, urgent endarterectomy will be required. Thank you for allowing to participate in this patient care. If you have any questions please do not hesitate to call my cell phone Daniel Mistry MD [facility] [phone]
[2018-08-16] MEDS: Acetaminophen 325 MG Tablet PO PRN ×2 (12:20→18:01)
--- NOTE | 2018-08-16 12:37 | P.HPCC ---
History of Present Illness Service: ICU Primary Care Physician: UNKNOWN Chief Complaint: Stroke alert History of Present Illness: This is a 67-year-old female that presented to the ED with complaints of right hand numbness and right upper extremity weakness. Per report of the symptoms started approximately at 12 midnight and progressively worsened and the patient is decided to report to the ED this morning. The patient was not a candidate for TPA. Upon arrival to the ED, a stroke alert was called neurology was consulted. Imaging studies were performed which revealed a high-grade left proximal ICA carotid stenosis. The patient's medical history is significant for the fact that she was recently admitted to the hospital June 26 2018 with the same symptomatology only lasting 30 minutes , and at that time the patient was noted to have a 2 cm left internal carotid artery calcified plaque , MRI at that time revealed multiple small infarcts in the posterior fossa and left hemisphere. Neurology and vascular surgery was consulted at that time, and it was found that the patient was worked up for hypercoagulable studies, and vascular surgery Dr. Mistry initiated the patient on heparin and transitioned to therapeutic Lovenox. In review of records during that hospital stay on 06/29 cardiology had informed the hospitalist that the patient had a PFO but no right to left shunting was noted at that time. Upon review of the echo report 06/28/18 and atrial septal aneurysm is present but no atrial shunt on color flow Doppler nor agitated saline . Additional imaging studies were noted during her previous hospitalization which revealed a 3.3 lobulated mass in the left upper lobe and additional 4 mm nodule in the left upper lobe. A soft tissue neck CT was performed which showed a left preepiglottic space soft tissue lesion and probable vocal cord paralysis. Upon discharge on 06/30/2018 the patient was instructed to continue on therapeutic Lovenox uninterrupted , or minimally 1 month and was seen by the vascular surgery as an outpatient, with tentative plan for CT-guided biopsy of lung and neck lesions. The patient and family reported that she stopped Lovenox for approximately 24 hours last dose being sometime yesterday for planned CT-guided biopsy of lesions, and subsequently last night began experiencing the same symptoms. Today the patient underwent imaging studies which showed high-grade proximal left ICA carotid stenosis, that were not present on 1114 imaging studies the patient underwent as an outpatient. Vascular surgery, Dr. Mistry was consulted all imaging studies were again reviewed , plan for admission to ICU with close monitoring, initiation of heparin infusion as discussed/ recommended by , surgical intervention at this time would put the patient at high risk. Inpatient Certification: I certify that the inpatient services were ordered in accordance with Medicare regulations governing the order. This includes certification that hospital inpatient services are reasonable and necessary and in the case of services not specified as inpatient-only under 42 CFR 419.22(n), that they are appropriately provided as inpatient services in accordance to with the 2-midnight benchmark under 43 CFR 412.3(e) Estimated Total Length of Stay (Days): 5 Plans for Post Hospital Care: Not yet determined Review of Systems All other systems reviewed negative except as stated in HPI PMFSH - History History Provided By: Patient - Medical History Medical History: Medical History (Last Reviewed 08/16/18 @ 12:45 by Soha Weber MD) Asthma Diabetes HTN (hypertension) Stroke Thyroid cancer - Surgical History Surgical History: Surgical History (Last Reviewed 08/16/18 @ 12:45 by Soha Weber MD) H/O laparoscopy History of back surgery History of lung biopsy History of tonsillectomy Hx of breast biopsy Hx of thyroidectomy - Family History Family History: Family History (Last Reviewed 08/16/18 @ 12:45 by Soha Weber MD) Mother Heart disease Mother Lung cancer - Tobacco History Second Hand Smoke Exposure: No Smoking Status: Former smoker Tobacco Type: Cigarettes - Alcohol History How Often Do You Have a Drink Containing Alcohol: 2 to 3 times a week - Substance Use History Substance History: No History of Abuse - Travel History Recent Travel in the [place] Within the Last 8 Weeks: No Recent Travel Out of the Country Within the Last 8 Weeks: No - Immunization History Tetanus Immunization: Unsure Tetanus Immunization Year if Known: 2012 Medications and Allergies Active Medications: Active Medications Acetaminophen (Tylenol) 650 mg PO Q6H PRN PRN Reason: PAIN 1-10 AND/OR FEVER >101F Last Admin: 08/16/18 12:20 Dose: 650 mg Al Hydroxide/Mg Hydroxide (Milk Of Magnceleste Liq) 30 ml PO Q12H PRN PRN Reason: Mild Constipation Albuterol (Duoneb Neb (Prn)) 1 ampul NEB Q2HR NEB PRN PRN Reason: WHEEZING Bisacodyl (Dulcolax Supp) 10 mg RECTAL DAILY PRN PRN Reason: SEVERE CONSITIPATION Chlorhexidine Gluconate (Chlorhexidine 2% Cloth) 3 pack TOPICAL DAILY@0400 SAM Stop: 08/22/18 03:59 Chlorhexidine Gluconate (Chlorhexidine 2% Cloth) 3 pack TOPICAL DAILY@0400 PRN PRN Reason: Extra cloth needed Stop: 08/22/18 03:59 Dextrose (D50w Vial) 50 ml IV.PUSH UNSCH PRN PRN Reason: PER HYPOGLYCEMIA PROTOCOL Famotidine (Pepcid Pf Inj) 20 mg IV.PUSH Q12HR SAM Glucagon (Glucagon Inj) 1 mg OTHER PRN PRN PRN Reason: for Hypoglycemia Protocol Sodium Chloride (Ns Inj) 1,000 mls @ 70 mls/hr IV.CONT .[id number] SAM Last Infusion: 08/16/18 09:39 Dose: 70 mls/hr Magnesium Sulfate 4 gm/ Sodium (Chloride) 100 mls @ 50 mls/hr IV.SIG UNSCH PRN PRN Reason: For Magnesium 0.9 - 1.1 mg/dL Magnesium Sulfate 2 gm/ Sodium (Chloride) 100 mls @ 50 mls/hr IV.SIG UNSCH PRN PRN Reason: For Magnesium 1.2 - 1.6 mg/dL Potassium Chloride (Kcl 40 Meq Premix Inj) 40 meq in 100 mls @ 25 mls/hr IV.SIG Q2H PRN PRN Reason: For Potassium 2.8 - 3.2 mEq/L Potassium Chloride (Kcl 20 Meq Premix Inj) 20 meq in 100 mls @ 50 mls/hr IV.SIG Q2H PRN PRN Reason: For Potassium 3.3 - 3.5 mEq/L Potassium Chloride (Kcl 40 Meq Premix Inj) 40 meq in 100 mls @ 25 mls/hr IV.SIG UNSCH PRN PRN Reason: For Potassium 3.3 - 3.5 mEq/L Potassium Phosphate 30 mmol/ (Sodium Chloride) 260 mls @ 42 mls/hr IV.SIG UNSCH PRN PRN Reason: SEE LABEL COMMENTS Sodium Phosphate 30 mmol/ (Sodium Chloride) 260 mls @ 42 mls/hr IV.SIG UNSCH PRN PRN Reason: For Phosphorus < 2.5 mg/dL Potassium Chloride (Kcl 20 Meq Premix Inj) 20 meq in 100 mls @ 50 mls/hr IV.SIG Q2H PRN PRN Reason: For Potassium 2.8 - 3.2 mEq/L Heparin Sodium/Dextrose (Heparin/D5w 25,000 U/250 Ml) 25,000 unit in 250 mls @ 0 mls/hr IV.CONT TITRATE PRN; Protocol PRN Reason: Per Protocol Insulin Aspart (Novolog Insulin Correctional Sugar Inj) 0 unit SQ ACHS AND 3AM SAM; Protocol Lactulose (Lactulose Liq) 30 ml PO DAILY PRN PRN Reason: SEVERE CONSITIPATION Levetiracetam (Keppra) 500 mg PO BID [facility] Last Admin: 08/16/18 10:22 Dose: Not Given Magnesium Oxide (Mag-Ox) 800 mg PO UNSCH PRN PRN Reason: For Magnesium 1.2 - 1.6 mg/dL Ondansetron HCl (Zofran Inj) 4 mg IV.PUSH Q6H PRN PRN Reason: NAUSEA OR VOMITING Potassium Bicarb/Potassium Chloride (K-Lyte Cl Eff) 50 meq PO UNSCH PRN PRN Reason: For Potassium 3.3 - 3.5 mEq/L Potassium Phosphate (K-Phos Original) 2,000 mg PO Q4H PRN PRN Reason: Phosphorus Less Than 2.5 mg/dL Potassium Phosphate (K-Phos Original) 2,000 mg PO UNSCH PRN PRN Reason: SEE LABEL COMMENTS Senna/Docusate Sodium (Wendy-Colace) 1 tab PO BID [facility] Sennosides (Senokot) 17.2 mg PO Q12H PRN PRN Reason: Moderate Constipation Sodium Chloride (Ns Flush) 2 ml IV.FLUSH BID SAM Sodium Chloride (Ns Flush) 2 ml IV.FLUSH PRN PRN PRN Reason: FLUSH AFTER USING IV ACCESS Allergies Allergy/AdvReac Type Severity Reaction Status Date / Time losartan Allergy Swelling Verified 08/16/18 07:56 of Lip/Tongue/Throat Sulfa (Sulfonamide Allergy Hives Verified 08/16/18 07:56 Antibiotics) ciprofloxacin [From Cipro] AdvReac Tingling Verified 08/16/18 07:56 levofloxacin AdvReac Joint Pain Verified 08/16/18 07:56 prednisone AdvReac Joint Pain Verified 08/16/18 07:56 Apqbhlc-Nye-Hof Reductase AdvReac Joint Pain Verified 08/16/18 07:56 Inhibitor Home Medications Medication Instructions Recorded Confirmed Type albuterol sulfate 0.63 mg INHALATION Q4-6H PRN 06/23/18 08/16/18 History fluticasone [Flonase Allergy 1 spray INTRANASAL DAILY 06/23/18 08/16/18 History Relief] levothyroxine [Unithroid] 112 mcg PO DAILY 06/23/18 08/16/18 History psyllium husk [Metamucil] 0.52 g PO DAILY 06/23/18 08/16/18 History Bifidobacterium infantis [Align] 4 mg PO DAILY 06/26/18 08/16/18 History fluticasone-vilanterol [Breo 1 inh INHALATION DAILY 06/26/18 08/16/18 History Ellipta] Results - Labs CBC & Chem 7: 08/16/18 07:24 Labs: Short CBC 08/16/18 Range/Units 07:24 WBC 6.7 (4.0-11.0) th/mm3 Hgb 13.1 (11.6-15.3) gm/dL Hct 38.1 (35.0-46.0) % Plt Count 239 (150-450) th/mm3 Cardiac Enzymes 08/16/18 Range/Units 07:24 Total Creatine Kinase 44 (26-192) U/L Troponin I Less than 0.02 L (0.02-0.05) ng/mL Urine 08/16/18 Range/Units 08:05 Urine Color Yellow (Yellw/Straw) Urine Clarity Clear (Clear) Urine pH 6.0 (5.0-8.5) Ur Specific [place] 1.042 H (1.002-1.035) Urine Protein Negative (Neg-Trace) mg/dL Urine Glucose (UA) Negative (Negative) mg/dL - Imaging Impressions Head MRI 08/16/18 00:00 CONCLUSION: 1. Restricted diffusion indicating recent ischemia within the left posterior temporal lobe, occipital lobe, and punctate areas in the frontal high convexities bilaterally. 2. Remainder of the examination is stable. Chest X-Ray 08/16/18 07:29 CONCLUSION: 1. No acute cardiopulmonary abnormality is identified. 2. Stable lobulated mass in the left upper lobe. Head CT 08/16/18 07:29 CONCLUSION: 1. No acute intracranial abnormality is identified. 2. Stable mild generalized atrophy with mild chronic periventricular white matter change. These findings and the findings on the head CTA were telephoned to Dr. Gallagher on 08/16/2018 at 7:45 AM. Head CTA 08/16/18 07:29 CONCLUSION: No acute intracranial vascular abnormality is identified. Please refer to neck CTA report for description of the additional findings. These findings as well as the neck CTA findings were telephoned to Dr. Balbuena on 08/16/2018 at 7:55 AM. Neck CTA 08/16/18 07:29 CONCLUSION: 1. There is new intraluminal thrombus causing focal high-grade stenosis of the left proximal internal carotid artery. This finding was not present on the prior study dated 07/13/2018. 2. Remaining neck arterial vasculature demonstrates no significant stenosis. 3. There is a soft tissue mass in the left valleculae and piriform sinus measuring up to 1.7 cm. Suggest further evaluation and biopsy with direct visualization. 4. These findings were discussed with Dr. Gallagher via telephone. Head MRA 08/16/18 08:51 CONCLUSION: No acute intracranial vascular abnormality is identified. Neck MRA 08/16/18 08:51 CONCLUSION: 1. Eccentric polypoid-appearing, pedunculated noncalcified plaque extending from the left carotid bulb into the proximal internal carotid artery and resulting in greater than 70% stenosis on the left. 2. No significant stenosis of the right carotid system. 3. Scattered emphysematous changes within the lung apices. Percent stenosis is calculated using the diameter of the stenotic region over the diameter of the normal distal internal carotid artery Exam Vital signs: Vital Signs 08/16/18 07:24 08/16/18 07:28 08/16/18 07:34 Pulse Rate 69 65 Respiratory Rate 16 Blood Pressure 181/84 H Pulse Oximetry 99 97 08/16/18 07:35 08/16/18 08:15 08/16/18 09:15 Pulse Rate 74 63 Respiratory Rate 16 15 Blood Pressure 178/78 H 188/86 H Pulse Oximetry 99 99 99 08/16/18 09:20 08/16/18 10:53 Pulse Rate 67 72 Respiratory Rate 14 16 Blood Pressure 154/97 H 177/77 H Pulse Oximetry 99 99 Intake & Output 08/15/18 08/16/18 08/16/18 18:59 06:59 18:59 Intake Total 105 / 105 Balance 105 / 105 Weight 83.915 kg Intake: IV 105 / 105 Keppra Inj 500 MG In NS Inj 100 105 / 105 ML @ 400 mls/hr IV.SIG ONCE ONE Rx#:[id number] - Constitutional no acute distress - Routine HEENT Exam Head: Present: normocephalic, atraumatic Eye: Present: EOMI, PERRL, normal accommodation ENT: Present: mucous membranes moist, nares patent, external ear normal - Routine Neck Exam Present: trachea midline - Routine Cardiovascular Exam Present: RRR, S1, S2 - Routine Abdominal Exam Present: soft, normoactive bowel sounds - Routine Extremities Exam Present: full ROM, pulses intact - Routine Skin Exam Present: intact - Routine Neurological Exam Present: alert, oriented X3, CN II-XII intact, sensory deficit (parathesias and weakness right hand), motor deficit, normal reflexes, moving all extremities, normal tone, normal speech Caprini VTE Risk Assessment Caprini Risk Assessment Model: Point Value = 1 Point Value = 2 Point Value = 3 Point Value = 5 Age 41-60 Minor surgery BMI > 25 kg/m2 Swollen legs Varicose veins or History of unexplained or recurrent spontaneous Oral contraceptives or hormone replacement Sepsis (< 1 month) Serious lung disease, including pneumonia (< 1 month) Abnormal pulmonary function Acute myocardial infarction Congestive heart failure (< 1 month) History of inflammatory bowel disease Medical patient at bed rest Age 61-74 Arthroscopic surgery Major open surgery (> 45 min) Laparoscopic surgery (> 45 min) Malignancy Confined to bed (> 72 hours) Immobilizing plaster cast Central venous access Age >= 75 History of VTE Family history of VTE Factor V Leiden Prothrombin [id number] Lupus anticoagulant Anticardiolipin antibodies Elevated serum homocysteine Heparin-induced thrombocytopenia Other congenital or acquired thrombophilia Stroke (< 1 month) Elective arthroplasty Hip, pelvis, or leg fracture Acute spinal cord injury (< 1 month) Prophylaxis Regimen: Total Risk Factor Score Risk Level Prophylaxis Regimen 0-1 Low Early ambulation 2 Moderate Order ONE of the following: *Sequential Compression Device (SCD) *Heparin 5000 units SQ BID 3-4 Higher Order ONE of the following medications: *Heparin 5000 units SQ TID *Enoxaparin/Lovenox 40 mg SQ daily (WT < 150 kg, CrCl > 30 mL/min) *Enoxaparin/Lovenox 30 mg SQ daily (WT < 150 kg, CrCl > 10-29 mL/min) *Enoxaparin/Lovenox 30 mg SQ BID (WT < 150 kg, CrCl > 30 mL/min) AND/OR *Sequential Compression Device (SCD) 5 or more Highest Order ONE of the following medications: *Heparin 5000 units SQ TID (Preferred with Epidurals) *Enoxaparin/Lovenox 40 mg SQ daily (WT < 150 kg, CrCl > 30 mL/min) *Enoxaparin/Lovenox 30 mg SQ daily (WT < 150 kg, CrCl > 10-29 mL/min) *Enoxaparin/Lovenox 30 mg SQ BID (WT < 150 kg, CrCl > 30 mL/min) AND *Sequential Compression Device (SCD) Assessment and Plan - Assessment and Plan Plan: Assessment This is a 67-year-old female with a thrombosis of the left proximal internal carotid artery, and acute ischemic left MCA stroke, and hypertension, at risk for progression. The patient is critically ill. Plan admit to ICU. Plan by systems: Neurologic: Acute ischemic left MCA stroke Maintain head of bed flat-with exception of meals atrial be can be raised 30 degrees Neuro checks per ICU protocol 08/16 CT head-no acute abnormality Neurology followingDr. Garewal follow-up recommendation Respiratory: Asthma Tobacco abuse Plan discussion of cessation of smoking Patient may require nicotine patch Duo nebs every 4 hours as needed for wheezing Previous imaging studies 06/28 CT of chest-3.3 lobulated mass left upper lobe and additional 4 mm nodule left upper lobe, soft tissue neck CTleft preepiglottic space soft tissue mass probable vocal cord paralysis Cardiovascular: Thrombosis left proximal ICA Hypertension Permissive hypertension systolic blood pressure 160's per vascular surgery Initiate heparin infusion per ICU protocol, this was discussed with Dr. Mistry plan for eventual transition back to therapeutic Lovenox 08/16 CT neck high-grade left proximal ICA carotid stenosis, Dr. Mistry patient's personal physician vascular surgery following-continue recommendations 06/28-Echo-EF 50-55%, trace MVR, atrial septal aneurysm is present . No atrial shunt on color flow Doppler or agitated saline Renal: Monitor BMP Electrolyte replacement per ICU protocol -- Strict I/Os FEN/GI: Diabetes mellitus Maintain n.p.o. status for now We will close monitoring per ICU protocol Continue IV normal saline at 75 cc/an hour Zofran for nausea Heme/ID: No indication or signs of infection at this time, obtain cultures if clinically indicated Endocrine: Thyroid cancer Glucose monitoring per ICU protocol -- SSI Prophylaxis: GI Prophylaxis Famotidine DVT Prophylaxis -- SCDs Heparin infusion Lines: Peripheral IVs providing adequate access at this time. Central line if indicated Dispo: My billing statement This patient remains critically ill with one or more organ systems which are or may become a threat to life. I have spent in excess of 65 minutes discontinuously in the care and management of this patient. This time is exclusive of procedures, and includes, but is not limited to, evaluation of the patient, review of the medical record, discussions with family, consultants, nursing staff, or respiratory therapy, and documentation in the medical record. Code Status: Full Discussed Condition With: Fede Rosenthal, patient patient's at bedside, and SENIOR ASSISTANT MANAGER at bedside
[2018-08-16 12:46] LABS: Activated Partial Thrombo Time 30.1 sec (23.4-31.7); Prothrombin Time 10.2 sec (9.8-11.6)
[2018-08-16] MEDS: Insulin NovoLOG Aspart Correctional Sugar Inj SQ SCH ×3 (12:46→20:03)
[2018-08-16] MEDS ORDERED: Heparin Drip 25,000 UNIT/250 ML BAG IV.CONT PRN (13:00)
[2018-08-16] MEDS ORDERED: Bisacodyl 10 MG Supp RECTAL PRN (13:00)
--- NOTE | 2018-08-16 13:28 | ECHRPT ---
Indication: Atrial Fib and Flutter CONCLUSIONS Normal left ventricular size. Wall thickness is normal. Normal left ventricular size and wall thickness. The left ventricular systolic function is normal wi th an estimated ejection fraction in the range of 60-65%. No regional wall motion abnormalities are presen t. There is trace tricuspid valve regurgitation. BP: 161 / 72 HR: 67 Rhythm: Technical Quality:Technically difficult study FINDINGS LEFT VENTRICLE Normal left ventricular size. Wall thickness is normal. Normal left ventricular size and wall thickness. The left ventricular systolic function is normal wi th an estimated ejection fraction in the range of 60-65%. No regional wall motion abnormalities are presen t. RIGHT VENTRICLE Normal right ventricular size and systolic function. LEFT ATRIUM The left atrial size is normal. RIGHT ATRIUM The right atrial size is normal. ATRIAL SEPTUM Normal atrial septal thickness without atrial level shunting by limited color doppler interrogation. AORTA The aortic root and proximal ascending aorta are normal in size on limited imaging. MITRAL VALVE Trace mitral valve regurgitation. Mitral annular calcification is present. AORTIC VALVE Trileaflet aortic valve. No aortic valve stenosis or regurgitation. TRICUSPID VALVE There is trace tricuspid valve regurgitation. PULMONARY VALVE The pulmonary valve is not well visualized. VESSELS The inferior vena cava is normal in size. PERICARDIUM No pericardial effusion. Oliver Vaughan MD (Electronically Signed) Final Date:16 August 2018 13:27
--- NOTE | 2018-08-16 16:42 | ECG ---
Date Performed: 08/16/2018 Time Performed: 07:27:15 PTAGE: 67 years EKG: Sinus rhythm NORMAL ECG PREVIOUS TRACING : 07/01/2018 16.27 Since the previous tracing, no significant change noted DOCTOR: Azar Marie Interpretating Date/Time 08/16/2018 16:40:18
[2018-08-16] MEDS: Famotidine PF Inj 20 MG/2 ML Vial IV.PUSH SCH (20:03)
[2018-08-16] MEDS: Senna/Docusate Sodium 8.6/50 MG Tablet PO SCH (20:03)
[2018-08-17] MEDS: Acetaminophen 325 MG Tablet PO PRN ×3 (00:20→16:34)
[2018-08-17] MEDS: Insulin NovoLOG Aspart Correctional Sugar Inj SQ SCH ×5 (02:12→20:08)
[2018-08-17] MEDS ORDERED: Chlorhexidine Gluconate 2% 1 Pack (2 Cloths) TOPICAL PRN (04:00)
[2018-08-17] MEDS: Chlorhexidine Gluconate 2% 1 Pack (2 Cloths) TOPICAL SCH (05:51)
[2018-08-17] MEDS: LEVOTHYROXINE PO SCH (05:51)
[2018-08-17 05:56] LABS: Baso # (Auto) 0.1 th/mm3 (0.0-0.2); Baso % (Auto) 1.2 % (0.0-2.0); Eos # (Auto) 0.1 th/mm3 (0.0-0.4); Eos % (Auto) 1.2 % (0.0-4.0); Hematocrit 33.3 % (35.0-46.0); Hemoglobin 11.4 gm/dL (11.6-15.3); Lymph # (Auto) 1.8 th/mm3 (1.0-4.8); Mean Corpuscular HGB Conc 34.2 % (32.0-36.0); Mean Corpuscular Hemoglobin 33.1 pg (27.0-34.0); Mean Corpuscular Volume 96.8 fL (80.0-100.0); Mean Platelet Volume 7.5 fL (7.0-11.0); Mono # (Auto) 0.5 th/mm3 (0.0-0.9); Mono % (Auto) 8.8 % (0.0-8.0); Neut # (Auto) 3.4 th/mm3 (1.8-7.7); Neut % (Auto) 57.8 % (16.0-70.0); Platelet Count 207 th/mm3 (150-450); Red Blood Count 3.44 mil/mm3 (4.00-5.30); Red Cell Distribution Width 13.4 % (11.6-17.2); White Blood Count 5.8 th/mm3 (4.0-11.0)
[2018-08-17 06:24] LABS: Anion Gap 6 meq/L (5-15); Blood Urea Nitrogen 10 mg/dL (7-18); Calcium 8.4 mg/dL (8.5-10.1); Carbon Dioxide 25.3 meq/L (21.0-32.0); Chloride 108 meq/L (98-107); Glomerular Filtration Rate Greater Than 89 mL/min (>89); Glucose,Random 122 mg/dL (74-106); Magnesium 1.6 mg/dL (1.5-2.5); Phosphorus 3.7 mg/dL (2.5-4.9); Potassium 3.9 meq/L (3.5-5.1); Sodium 139 meq/L (136-145)
--- NOTE | 2018-08-17 07:20 | P.PNNEU ---
Subjective Subjective Comments: no lees, no cp, no dyspnea. rt hand still feels a little weak Active Medications: Active Medications Acetaminophen (Tylenol) 650 mg PO Q6H PRN PRN Reason: PAIN 1-10 AND/OR FEVER >101F Last Admin: 08/17/18 00:20 Dose: 650 mg Al Hydroxide/Mg Hydroxide (Milk Of Michael Liana maría) 30 ml PO Q12H PRN PRN Reason: Mild Constipation Albuterol (Duoneb Neb (Prn)) 1 ampul NEB Q2HR NEB PRN PRN Reason: WHEEZING Bisacodyl (Dulcolax Supp) 10 mg RECTAL DAILY PRN PRN Reason: SEVERE CONSITIPATION Chlorhexidine Gluconate (Chlorhexidine 2% Cloth) 3 pack TOPICAL DAILY@0400 [facility] Stop: 08/22/18 03:59 Last Admin: 08/17/18 05:51 Dose: 3 pack Chlorhexidine Gluconate (Chlorhexidine 2% Cloth) 3 pack TOPICAL DAILY@0400 PRN PRN Reason: Extra cloth needed Stop: 08/22/18 03:59 Dextrose (D50w Vial) 50 ml IV.PUSH UNSCH PRN PRN Reason: PER HYPOGLYCEMIA PROTOCOL Famotidine (Pepcid Pf Inj) 20 mg IV.PUSH Q12HR [facility] Last Admin: 08/16/18 20:03 Dose: 20 mg Glucagon (Glucagon Inj) 1 mg OTHER PRN PRN PRN Reason: for Hypoglycemia Protocol Sodium Chloride (Ns Inj) 1,000 mls @ 70 mls/hr IV.CONT .[id number] [facility] Last Infusion: 08/16/18 09:39 Dose: 70 mls/hr Magnesium Sulfate 4 gm/ Sodium (Chloride) 100 mls @ 50 mls/hr IV.SIG UNSCH PRN PRN Reason: For Magnesium 0.9 - 1.1 mg/dL Magnesium Sulfate 2 gm/ Sodium (Chloride) 100 mls @ 50 mls/hr IV.SIG UNSCH PRN PRN Reason: For Magnesium 1.2 - 1.6 mg/dL Potassium Chloride (Kcl 40 Meq Premix Inj) 40 meq in 100 mls @ 25 mls/hr IV.SIG Q2H PRN PRN Reason: For Potassium 2.8 - 3.2 mEq/L Potassium Chloride (Kcl 20 Meq Premix Inj) 20 meq in 100 mls @ 50 mls/hr IV.SIG Q2H PRN PRN Reason: For Potassium 3.3 - 3.5 mEq/L Potassium Chloride (Kcl 40 Meq Premix Inj) 40 meq in 100 mls @ 25 mls/hr IV.SIG UNSCH PRN PRN Reason: For Potassium 3.3 - 3.5 mEq/L Potassium Phosphate 30 mmol/ (Sodium Chloride) 260 mls @ 42 mls/hr IV.SIG UNSCH PRN PRN Reason: SEE LABEL COMMENTS Sodium Phosphate 30 mmol/ (Sodium Chloride) 260 mls @ 42 mls/hr IV.SIG UNSCH PRN PRN Reason: For Phosphorus < 2.5 mg/dL Potassium Chloride (Kcl 20 Meq Premix Inj) 20 meq in 100 mls @ 50 mls/hr IV.SIG Q2H PRN PRN Reason: For Potassium 2.8 - 3.2 mEq/L Heparin Sodium/Dextrose (Heparin/D5w 25,000 U/250 Ml) 25,000 unit in 250 mls @ 0 mls/hr IV.CONT TITRATE PRN; Protocol PRN Reason: Per Protocol Last Titration: 08/17/18 06:42 Dose: 700 units/hr, 7 mls/hr Insulin Aspart (Novolog Insulin Correctional Sugar Inj) 0 unit SQ ACHS AND 3AM SAM; Protocol Last Admin: 08/17/18 02:12 Dose: Not Given Lactulose (Lactulose Liq) 30 ml PO DAILY PRN PRN Reason: SEVERE CONSITIPATION Levetiracetam (Keppra) 500 mg PO BID [facility] Last Admin: 08/16/18 20:03 Dose: 500 mg Magnesium Oxide (Mag-Ox) 800 mg PO UNSCH PRN PRN Reason: For Magnesium 1.2 - 1.6 mg/dL Ondansetron HCl (Zofran Inj) 4 mg IV.PUSH Q6H PRN PRN Reason: NAUSEA OR VOMITING Pt Own Unithroid ( Levothyroxine) 112 Mcg Tablet 0 each PO DAILY@0600 [facility] Last Admin: 08/17/18 05:51 Dose: 1 each Potassium Bicarb/Potassium Chloride (K-Lyte Cl Eff) 50 meq PO UNSCH PRN PRN Reason: For Potassium 3.3 - 3.5 mEq/L Potassium Phosphate (K-Phos Original) 2,000 mg PO Q4H PRN PRN Reason: Phosphorus Less Than 2.5 mg/dL Potassium Phosphate (K-Phos Original) 2,000 mg PO UNSCH PRN PRN Reason: SEE LABEL COMMENTS Senna/Docusate Sodium (Wendy-Colace) 1 tab PO BID [facility] Last Admin: 08/16/18 20:03 Dose: 1 tab Sennosides (Senokot) 17.2 mg PO Q12H PRN PRN Reason: Moderate Constipation Sodium Chloride (Ns Flush) 2 ml IV.FLUSH BID [facility] Last Admin: 08/16/18 20:03 Dose: 2 ml Sodium Chloride (Ns Flush) 2 ml IV.FLUSH PRN PRN PRN Reason: FLUSH AFTER USING IV ACCESS Allergies/Adverse Reactions: Allergies Allergy/AdvReac Type Severity Reaction Status Date / Time losartan Allergy Swelling Verified 08/16/18 07:56 of Lip/Tongue/Throat Sulfa (Sulfonamide Allergy Hives Verified 08/16/18 07:56 Antibiotics) ciprofloxacin [From Cipro] AdvReac Tingling Verified 08/16/18 07:56 levofloxacin AdvReac Joint Pain Verified 08/16/18 07:56 prednisone AdvReac Joint Pain Verified 08/16/18 07:56 [id number] Reductase AdvReac Joint Pain Verified 08/16/18 07:56 Inhibitor Review of Systems All other systems reviewed negative except as stated in HPI Physical Exam Vital signs: Vital Signs 08/16/18 07:24 08/16/18 07:28 08/16/18 07:34 Temperature Pulse Rate 69 65 Respiratory Rate 16 Blood Pressure 181/84 H Pulse Oximetry 99 97 08/16/18 07:35 08/16/18 08:00 08/16/18 08:15 Temperature Pulse Rate 74 Respiratory Rate 16 Blood Pressure 178/78 H Pulse Oximetry 99 99 99 08/16/18 09:15 08/16/18 09:20 08/16/18 10:53 Temperature Pulse Rate 63 67 72 Respiratory Rate 15 14 16 Blood Pressure 188/86 H 154/97 H 177/77 H Pulse Oximetry 99 99 99 08/16/18 11:09 08/16/18 11:10 08/16/18 11:11 Temperature Pulse Rate 67 Respiratory Rate 20 Blood Pressure 203/84 H 182/79 H Pulse Oximetry 08/16/18 11:15 08/16/18 11:20 08/16/18 11:35 Temperature Pulse Rate 65 67 66 Respiratory Rate 22 29 H 27 H Blood Pressure 165/74 H 167/69 H 151/72 H Pulse Oximetry 99 99 98 08/16/18 11:50 08/16/18 12:00 08/16/18 12:05 Temperature 97.8 F Pulse Rate 63 63 68 Respiratory Rate 19 18 45 H Blood Pressure 166/74 H 182/79 H 161/72 H Pulse Oximetry 99 98 98 08/16/18 12:20 08/16/18 12:33 08/16/18 12:35 Temperature Pulse Rate 74 65 Respiratory Rate 26 H 17 Blood Pressure 167/77 H 159/72 H Pulse Oximetry 98 99 98 08/16/18 13:00 08/16/18 13:01 08/16/18 13:05 Temperature Pulse Rate 68 67 69 Respiratory Rate 18 22 18 Blood Pressure 149/68 H 149/67 H Pulse Oximetry 98 98 97 08/16/18 13:20 08/16/18 13:35 08/16/18 13:50 Temperature Pulse Rate 63 63 64 Respiratory Rate 23 31 H 15 Blood Pressure 152/67 H 148/67 H 147/67 H Pulse Oximetry 96 97 97 08/16/18 14:00 08/16/18 14:05 08/16/18 14:20 Temperature Pulse Rate 67 70 63 Respiratory Rate 22 22 18 Blood Pressure 163/74 H 157/71 H Pulse Oximetry 98 98 98 08/16/18 14:35 08/16/18 14:50 08/16/18 15:00 Temperature Pulse Rate 70 64 64 Respiratory Rate 23 18 13 Blood Pressure 171/84 H 162/74 H Pulse Oximetry 97 98 97 08/16/18 15:05 08/16/18 15:06 08/16/18 15:20 Temperature Pulse Rate 81 74 Respiratory Rate 24 29 H Blood Pressure 168/76 H 175/82 H Pulse Oximetry 98 98 93 L 08/16/18 15:35 08/16/18 15:50 08/16/18 16:00 Temperature 98 F Pulse Rate 92 H 66 64 Respiratory Rate 49 H 42 H 15 Blood Pressure 167/75 H 158/64 H Pulse Oximetry 97 96 96 08/16/18 16:05 08/16/18 16:20 08/16/18 16:35 Temperature Pulse Rate 67 59 L 66 Respiratory Rate 12 17 14 Blood Pressure 155/72 H 162/72 H 167/72 H Pulse Oximetry 97 96 96 08/16/18 16:50 08/16/18 17:00 08/16/18 17:05 Temperature Pulse Rate 65 73 66 Respiratory Rate 41 H 50 H 27 H Blood Pressure 179/78 H 169/72 H Pulse Oximetry 97 98 97 08/16/18 18:00 08/16/18 18:05 08/16/18 19:00 Temperature Pulse Rate 71 76 61 Respiratory Rate 26 H 31 H 19 Blood Pressure 171/72 H Pulse Oximetry 97 96 96 08/16/18 19:05 08/16/18 19:27 08/16/18 20:00 Temperature 97.7 F Pulse Rate 61 61 Respiratory Rate 15 17 Blood Pressure 168/72 H Pulse Oximetry 96 97 96 08/16/18 20:05 08/16/18 21:00 08/16/18 21:05 Temperature Pulse Rate 67 69 70 Respiratory Rate 23 18 22 Blood Pressure 195/77 H 145/67 H Pulse Oximetry 97 96 97 08/16/18 22:00 08/16/18 22:05 08/16/18 23:00 Temperature Pulse Rate 72 71 71 Respiratory Rate 14 15 15 Blood Pressure 125/58 L Pulse Oximetry 96 97 97 08/16/18 23:05 08/17/18 00:00 08/17/18 00:05 Temperature 98 F Pulse Rate 83 69 70 Respiratory Rate 20 22 16 Blood Pressure 133/76 118/57 L Pulse Oximetry 98 96 96 08/17/18 01:00 08/17/18 01:05 08/17/18 02:00 Temperature Pulse Rate 67 69 59 L Respiratory Rate 15 16 13 Blood Pressure 147/65 H Pulse Oximetry 96 96 96 08/17/18 02:05 08/17/18 03:00 08/17/18 03:05 Temperature Pulse Rate 60 61 60 Respiratory Rate 13 14 13 Blood Pressure 132/62 145/66 H Pulse Oximetry 96 96 96 08/17/18 04:00 08/17/18 04:05 08/17/18 05:00 Temperature 97.8 F Pulse Rate 59 L 60 67 Respiratory Rate 20 17 19 Blood Pressure 166/70 H Pulse Oximetry 97 97 95 08/17/18 05:05 08/17/18 06:00 08/17/18 06:05 Temperature Pulse Rate 63 66 64 Respiratory Rate 21 19 21 Blood Pressure 179/74 H 190/79 H Pulse Oximetry 97 99 98 Intake & Output 08/16/18 08/17/18 08/17/18 18:59 06:59 18:59 Intake Total 105 / 105 250 / 250 Balance 105 / 105 250 / 250 Weight 83.915 kg 78.6 kg Intake: IV 105 / 105 Keppra Inj 500 MG In NS Inj 100 105 / 105 ML @ 400 mls/hr IV.SIG ONCE ONE Rx#:[id number] Oral 250 / 250 Other: # Voids 3 3 Date of Last Bowel Movement 08/17/18 # Bowel Movements 1 Weight On Admission 83.9 kg Narrative: GENERAL: in NAD, SKIN: Warm and dry. HEAD: Atraumatic. Normocephalic. EYES: Pupils equal and round. ENT: No nasal bleeding or discharge. NECK: Trachea midline. No JVD. CARDIOVASCULAR: Regular rate and rhythm. RESPIRATORY: No accessory muscle use. MUSCULOSKELETAL: Extremities without clubbing, cyanosis, or edema. No obvious deformities. NEUROLOGICAL: Awake and alert. 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 She did feel reduce pinprick on the right arm and leg compared to the left side, no neglect no dystaxia in the lower extremity gait not assessed secondary fall risk. PSYCHIATRIC: Appropriate mood and affect; insight and judgment normal. - Constitutional no acute distress - Routine HEENT Exam Head: Present: normocephalic Objective Laboratory Results - last 24 hr 08/16/18 08/16/18 08/16/18 07:24 07:24 07:24 WBC 6.7 RBC 3.94 L Hgb 13.1 POC Hgb (Calc) 13.3 Hct 38.1 POC Hct 39.0 MCV 96.8 MCH 33.3 MCHC 34.4 RDW 13.4 Plt Count 239 MPV 7.3 Neut % (Auto) 60.1 Lymph % (Auto) 27.8 Union % (Auto) 10.0 H Eos % (Auto) 1.1 Baso % (Auto) 1.0 Neut # (Auto) 4.0 Lymph # (Auto) 1.9 Union # (Auto) 0.7 Eos # (Auto) 0.1 Baso # (Auto) 0.1 WBC Differential . Differential Comment Auto diff final PT 9.9 INR 1.0 APTT 27.3 Fibrinogen 480 H POC Sodium 138 Sodium POC Potassium 4.3 Potassium POC Chloride 103 Chloride Carbon Dioxide Anion Gap POC BUN 13 BUN Creatinine POC Creatinine 0.6 Estimated GFR POC Glucose 142 H Random Glucose Calcium Phosphorus Magnesium Total Creatine Kinase 44 Troponin I Less than 0.02 L Beta HCG, Quant 2 Urine Color Urine Clarity Urine pH Ur Specific Stearns Urine Protein Urine Glucose (UA) Urine Ketones Urine Occult Blood Urine Nitrate Urine Bilirubin Urine Urobilinogen Ur Leukocyte Esterase Urine RBC Urine WBC Ur Squamous Epith Cells Hyaline Casts Micro UA Comment Ur Microscopic Review Urine Culture Comments Nasal Screen MRSA (PCR) Urine Opiates Screen Ur Barbiturates Screen Ur Amphetamines Screen U Benzodiazepines Scrn Urine Cocaine Screen U Cannabinoids Screen Blood Type Antibody Screen 08/16/18 08/16/18 08/16/18 07:24 08:05 08:05 WBC RBC Hgb POC Hgb (Calc) Hct POC Hct MCV MCH MCHC RDW Plt Count MPV Neut % (Auto) Lymph % (Auto) Union % (Auto) Eos % (Auto) Baso % (Auto) Neut # (Auto) Lymph # (Auto) Union # (Auto) Eos # (Auto) Baso # (Auto) WBC Differential Differential Comment PT INR APTT Fibrinogen POC Sodium Sodium POC Potassium Potassium POC Chloride Chloride Carbon Dioxide Anion Gap POC BUN BUN Creatinine POC Creatinine Estimated GFR POC Glucose Random Glucose Calcium Phosphorus Magnesium Total Creatine Kinase Troponin I Beta HCG, Quant Urine Color Yellow Urine Clarity Clear Urine pH 6.0 Ur Specific Stearns 1.042 H Urine Protein Negative Urine Glucose (UA) Negative Urine Ketones Negative Urine Occult Blood Negative Urine Nitrate Negative Urine Bilirubin Negative Urine Urobilinogen Less than 2 Ur Leukocyte Esterase Negative Urine RBC 1 Urine WBC 1 Ur Squamous Epith Cells <1 Hyaline Casts 1 Micro UA Comment Cath-culture not ind Ur Microscopic Review Not Reportable Urine Culture Comments Cath-cult not ind Nasal Screen MRSA (PCR) Urine Opiates Screen Neg Ur Barbiturates Screen Neg Ur Amphetamines Screen Neg U Benzodiazepines Scrn Neg Urine Cocaine Screen Neg U Cannabinoids Screen Neg Blood Type O Positive Antibody Screen Negative 08/16/18 08/16/18 08/16/18 12:20 12:20 15:18 WBC RBC Hgb POC Hgb (Calc) Hct POC Hct MCV MCH MCHC RDW Plt Count MPV Neut % (Auto) Lymph % (Auto) Union % (Auto) Eos % (Auto) Baso % (Auto) Neut # (Auto) Lymph # (Auto) Union # (Auto) Eos # (Auto) Baso # (Auto) WBC Differential Differential Comment PT 10.2 INR 1.0 APTT 30.1 Fibrinogen POC Sodium Sodium POC Potassium Potassium POC Chloride Chloride Carbon Dioxide Anion Gap POC BUN BUN Creatinine POC Creatinine Estimated GFR POC Glucose 120 H Random Glucose Calcium Phosphorus Magnesium Total Creatine Kinase Troponin I Beta HCG, Quant Urine Color Urine Clarity Urine pH Ur Specific Stearns Urine Protein Urine Glucose (UA) Urine Ketones Urine Occult Blood Urine Nitrate Urine Bilirubin Urine Urobilinogen Ur Leukocyte Esterase Urine RBC Urine WBC Ur Squamous Epith Cells Hyaline Casts Micro UA Comment Ur Microscopic Review Urine Culture Comments Nasal Screen MRSA (PCR) Not detected Urine Opiates Screen Ur Barbiturates Screen Ur Amphetamines Screen U Benzodiazepines Scrn Urine Cocaine Screen U Cannabinoids Screen Blood Type Antibody Screen 08/16/18 08/16/18 08/17/18 20:00 23:00 05:40 WBC RBC Hgb POC Hgb (Calc) Hct POC Hct MCV MCH MCHC RDW Plt Count MPV Neut % (Auto) Lymph % (Auto) Union % (Auto) Eos % (Auto) Baso % (Auto) Neut # (Auto) Lymph # (Auto) Union # (Auto) Eos # (Auto) Baso # (Auto) WBC Differential Differential Comment PT INR APTT 123.0 H* D 52.0 H D 37.1 H D Fibrinogen POC Sodium Sodium POC Potassium Potassium POC Chloride Chloride Carbon Dioxide Anion Gap POC BUN BUN Creatinine POC Creatinine Estimated GFR POC Glucose Random Glucose Calcium Phosphorus Magnesium Total Creatine Kinase Troponin I Beta HCG, Quant Urine Color Urine Clarity Urine pH Ur Specific Stearns Urine Protein Urine Glucose (UA) Urine Ketones Urine Occult Blood Urine Nitrate Urine Bilirubin Urine Urobilinogen Ur Leukocyte Esterase Urine RBC Urine WBC Ur Squamous Epith Cells Hyaline Casts Micro UA Comment Ur Microscopic Review Urine Culture Comments Nasal Screen MRSA (PCR) Urine Opiates Screen Ur Barbiturates Screen Ur Amphetamines Screen U Benzodiazepines Scrn Urine Cocaine Screen U Cannabinoids Screen Blood Type Antibody Screen 08/17/18 08/17/18 05:40 05:40 WBC 5.8 RBC 3.44 L Hgb 11.4 L POC Hgb (Calc) Hct 33.3 L POC Hct MCV 96.8 MCH 33.1 MCHC 34.2 RDW 13.4 Plt Count 207 MPV 7.5 Neut % (Auto) 57.8 Lymph % (Auto) 31.0 Union % (Auto) 8.8 H Eos % (Auto) 1.2 Baso % (Auto) 1.2 Neut # (Auto) 3.4 Lymph # (Auto) 1.8 Union # (Auto) 0.5 Eos # (Auto) 0.1 Baso # (Auto) 0.1 WBC Differential . Differential Comment Auto diff final PT INR APTT Fibrinogen POC Sodium Sodium 139 POC Potassium Potassium 3.9 POC Chloride Chloride 108 H Carbon Dioxide 25.3 Anion Gap 6 POC BUN BUN 10 Creatinine 0.60 POC Creatinine Estimated GFR Greater than 89 POC Glucose Random Glucose 122 H Calcium 8.4 L Phosphorus 3.7 Magnesium 1.6 Total Creatine Kinase Troponin I Beta HCG, Quant Urine Color Urine Clarity Urine pH Ur Specific Stearns Urine Protein Urine Glucose (UA) Urine Ketones Urine Occult Blood Urine Nitrate Urine Bilirubin Urine Urobilinogen Ur Leukocyte Esterase Urine RBC Urine WBC Ur Squamous Epith Cells Hyaline Casts Micro UA Comment Ur Microscopic Review Urine Culture Comments Nasal Screen MRSA (PCR) Urine Opiates Screen Ur Barbiturates Screen Ur Amphetamines Screen U Benzodiazepines Scrn Urine Cocaine Screen U Cannabinoids Screen Blood Type Antibody Screen Review/Management - Diagnosis (1) Thrombosis of left carotid artery Code(s): I65.22 - Occlusion and stenosis of left carotid artery Status: Acute Current Visit: Yes (2) Acute ischemic left MCA stroke Code(s): I63.512 - Cerebral infarction due to unspecified occlusion or stenosis of left middle cerebral artery Status: Acute Current Visit: Yes (3) Hypertension Code(s): I10 - Essential (primary) hypertension Status: Acute Current Visit : Yes - Review/Management Plan: mri brain reviewed. a few tiny infarcts mainly left high hemisphere. one on the rt +mra neck left thrombus +lung masses MRI brain from early July 02 2018 was reviewed showing areas of diffusion restriction tiny scattered left MCA territory and somewhat larger in the left parietal occipital region. Also, with hx of seizures Previous echo showing EF greater than 50% Recommendation new tiny mainly left hemisphere strokes. however, appears to have one tiny one on the right. probable hypercoagulable state would suggest flaquito. seen by cardio in previous admission and they felt it was unsafe 2/2 mass continue keppra on hep gtt can start lovenox bid in place of hep gtt from neuro standpoint ok for floor with tele should remain on anticoagulation therapy
[2018-08-17] MEDS: levETIRAcetam 500 MG Tablet PO SCH ×2 (10:01→20:08)
[2018-08-17] MEDS: Senna/Docusate Sodium 8.6/50 MG Tablet PO SCH ×2 (10:02→20:09)
[2018-08-17] MEDS: Famotidine PF Inj 20 MG/2 ML Vial IV.PUSH SCH (10:02)
--- NOTE | 2018-08-17 10:39 | P.PNCC ---
Subjective Subjective Remarks/Hospital Course: This is a 67-year-old female that presented to the ED with complaints of right hand numbness and right upper extremity weakness. Per report of the symptoms started approximately at 12 midnight and progressively worsened and the patient is decided to report to the ED this morning. The patient was not a candidate for TPA. Upon arrival to the ED, a stroke alert was called neurology was consulted. Imaging studies were performed which revealed a high-grade left proximal ICA carotid stenosis. The patient's medical history is significant for the fact that she was recently admitted to the hospital June 26 2018 with the same symptomatology only lasting 30 minutes , and at that time the patient was noted to have a 2 cm left internal carotid artery calcified plaque , MRI at that time revealed multiple small infarcts in the posterior fossa and left hemisphere. Neurology and vascular surgery was consulted at that time, and it was found that the patient was worked up for hypercoagulable studies, and vascular surgery Dr. Mistry initiated the patient on heparin and transitioned to therapeutic Lovenox. In review of records during that hospital stay on 06/29 cardiology had informed the hospitalist that the patient had a PFO but no right to left shunting was noted at that time. Upon review of the echo report 06/28/18 and atrial septal aneurysm is present but no atrial shunt on color flow Doppler nor agitated saline . Additional imaging studies were noted during her previous hospitalization which revealed a 3.3 lobulated mass in the left upper lobe and additional 4 mm nodule in the left upper lobe. A soft tissue neck CT was performed which showed a left preepiglottic space soft tissue lesion and probable vocal cord paralysis. Upon discharge on 06/30/2018 the patient was instructed to continue on therapeutic Lovenox uninterrupted , or minimally 1 month and was seen by the vascular surgery as an outpatient, with tentative plan for CT-guided biopsy of lung and neck lesions. The patient and family reported that she stopped Lovenox for approximately 24 hours last dose being sometime yesterday for planned CT-guided biopsy of lesions, and subsequently last night began experiencing the same symptoms. Today the patient underwent imaging studies which showed high-grade proximal left ICA carotid stenosis, that were not present on 1114 imaging studies the patient underwent as an outpatient. Vascular surgery, Dr. Mistry was consulted all imaging studies were again reviewed , plan for admission to ICU with close monitoring, initiation of heparin infusion as discussed/ recommended by , surgical intervention at this time would put the patient at high risk. 08/17: No overnight events, patient reports improvement in right hand campground hand strength and in right leg strength. She offers no complaints at present. Objective Vital Signs / I&O: Vital Signs 08/16/18 10:53 08/16/18 11:09 08/16/18 11:10 Temperature Pulse Rate 72 Respiratory Rate 16 Blood Pressure 177/77 H 203/84 H 182/79 H Pulse Oximetry 99 08/16/18 11:11 08/16/18 11:15 08/16/18 11:20 Temperature Pulse Rate 67 65 67 Respiratory Rate 20 22 29 H Blood Pressure 165/74 H 167/69 H Pulse Oximetry 99 99 08/16/18 11:35 08/16/18 11:50 08/16/18 12:00 Temperature 97.8 F Pulse Rate 66 63 63 Respiratory Rate 27 H 19 18 Blood Pressure 151/72 H 166/74 H 182/79 H Pulse Oximetry 98 99 98 08/16/18 12:05 08/16/18 12:20 08/16/18 12:33 Temperature Pulse Rate 68 74 Respiratory Rate 45 H 26 H Blood Pressure 161/72 H 167/77 H Pulse Oximetry 98 98 99 08/16/18 12:35 08/16/18 13:00 08/16/18 13:01 Temperature Pulse Rate 65 68 67 Respiratory Rate 17 18 22 Blood Pressure 159/72 H 149/68 H Pulse Oximetry 98 98 98 08/16/18 13:05 08/16/18 13:20 08/16/18 13:35 Temperature Pulse Rate 69 63 63 Respiratory Rate 18 23 31 H Blood Pressure 149/67 H 152/67 H 148/67 H Pulse Oximetry 97 96 97 08/16/18 13:50 08/16/18 14:00 08/16/18 14:05 Temperature Pulse Rate 64 67 70 Respiratory Rate 15 22 22 Blood Pressure 147/67 H 163/74 H Pulse Oximetry 97 98 98 08/16/18 14:20 08/16/18 14:35 08/16/18 14:50 Temperature Pulse Rate 63 70 64 Respiratory Rate 18 23 18 Blood Pressure 157/71 H 171/84 H 162/74 H Pulse Oximetry 98 97 98 08/16/18 15:00 08/16/18 15:05 08/16/18 15:06 Temperature Pulse Rate 64 81 Respiratory Rate 13 24 Blood Pressure 168/76 H Pulse Oximetry 97 98 98 08/16/18 15:20 08/16/18 15:35 08/16/18 15:50 Temperature Pulse Rate 74 92 H 66 Respiratory Rate 29 H 49 H 42 H Blood Pressure 175/82 H 167/75 H 158/64 H Pulse Oximetry 93 L 97 96 08/16/18 16:00 08/16/18 16:05 08/16/18 16:20 Temperature 98 F Pulse Rate 64 67 59 L Respiratory Rate 15 12 17 Blood Pressure 155/72 H 162/72 H Pulse Oximetry 96 97 96 08/16/18 16:35 08/16/18 16:50 08/16/18 17:00 Temperature Pulse Rate 66 65 73 Respiratory Rate 14 41 H 50 H Blood Pressure 167/72 H 179/78 H Pulse Oximetry 96 97 98 08/16/18 17:05 08/16/18 18:00 08/16/18 18:05 Temperature Pulse Rate 66 71 76 Respiratory Rate 27 H 26 H 31 H Blood Pressure 169/72 H 171/72 H Pulse Oximetry 97 97 96 08/16/18 19:00 08/16/18 19:05 08/16/18 19:27 Temperature Pulse Rate 61 61 Respiratory Rate 19 15 Blood Pressure 168/72 H Pulse Oximetry 96 96 97 08/16/18 20:00 08/16/18 20:05 08/16/18 21:00 Temperature 97.7 F Pulse Rate 61 67 69 Respiratory Rate 17 23 18 Blood Pressure 195/77 H Pulse Oximetry 96 97 96 08/16/18 21:05 08/16/18 22:00 08/16/18 22:05 Temperature Pulse Rate 70 72 71 Respiratory Rate 22 14 15 Blood Pressure 145/67 H 125/58 L Pulse Oximetry 97 96 97 08/16/18 23:00 08/16/18 23:05 08/17/18 00:00 Temperature 98 F Pulse Rate 71 83 69 Respiratory Rate 15 20 22 Blood Pressure 133/76 Pulse Oximetry 97 98 96 08/17/18 00:05 08/17/18 01:00 08/17/18 01:05 Temperature Pulse Rate 70 67 69 Respiratory Rate 16 15 16 Blood Pressure 118/57 L 147/65 H Pulse Oximetry 96 96 96 08/17/18 02:00 08/17/18 02:05 08/17/18 03:00 Temperature Pulse Rate 59 L 60 61 Respiratory Rate 13 13 14 Blood Pressure 132/62 Pulse Oximetry 96 96 96 08/17/18 03:05 08/17/18 04:00 08/17/18 04:05 Temperature 97.8 F Pulse Rate 60 59 L 60 Respiratory Rate 13 20 17 Blood Pressure 145/66 H 166/70 H Pulse Oximetry 96 97 97 08/17/18 05:00 08/17/18 05:05 08/17/18 06:00 Temperature Pulse Rate 67 63 66 Respiratory Rate 19 21 19 Blood Pressure 179/74 H Pulse Oximetry 95 97 99 08/17/18 06:05 Temperature Pulse Rate 64 Respiratory Rate 21 Blood Pressure 190/79 H Pulse Oximetry 98 Intake & Output 08/16/18 08/17/18 08/17/18 18:59 06:59 18:59 Intake Total 105 / 105 250 / 250 Balance 105 / 105 250 / 250 Weight 83.915 kg 78.6 kg Intake: IV 105 / 105 Keppra Inj 500 MG In NS Inj 100 105 / 105 ML @ 400 mls/hr IV.SIG ONCE ONE Rx#:[id number] Oral 250 / 250 Other: # Voids 3 3 Date of Last Bowel Movement 08/17/18 # Bowel Movements 1 Weight On Admission 83.9 kg Result Diagrams: 08/17/18 05:40 08/17/18 05:40 Objective Remarks: GEN: Well-appearing, no acute distress HEENT: NCAT, PERRL NECK: Trachea midline CARDIO: Regular rate and rhythm PULM: Clear to auscultation bilaterally ABD/GI: Soft and non-tender in all quadrants EXT/MSK: No peripheral edema SKIN: Warm and well-perfused, no rashes or lesions NEURO: Awake and alert, speech clear and fluent, no slurred speech or aphasia. No facial droop. Pupils 3 mm and reactive bilaterally. Motor strength 5/5 in bilateral upper and lower extremities, no drift, sensation intact to all extremities. No focal neuro deficits at present. PSYCH: Appropriate affect Assessment and Plan - Assessment and Plan Plan: This is a 67-year-old female with a thrombosis of the left proximal internal carotid artery, and acute ischemic left MCA stroke, and hypertension, at risk for progression. Neurologic: Acute ischemic left MCA stroke History of seizure disorder * 08/16 CT head-no acute abnormality * 08/16 MRI head- as per neurology, has bilateral small acute infarcts mostly on left, 1 on right * 08/16 MRI neck- Eccentric polypoid-appearing, pedunculated noncalcified plaque extending from the left carotid bulb into the proximal internal carotid artery and resulting in greater than 70% stenosis on the left. * Neurology followingDr. Balbuena, recommends switching heparin gtt to BID lovenox * Continue home keppra Respiratory: H/O asthma * Duo nebs every 4 hours as needed for wheezing * Incentive spirometer * Previous imaging studies 06/28 CT of chest-3.3 lobulated mass left upper lobe and additional 4 mm nodule left upper lobe, soft tissue neck CTleft preepiglottic space soft tissue mass probable vocal cord paralysis * No respiratory distress at present, normal phonation * Patient had been holding lovenox x 24 hrs prior to arrival in anticipation of biopsy, will still need biopsy as outpatient Cardiovascular: Thrombosis left proximal ICA Hypertension * Restart home metoprolol, keep SBP 160 or higher as per vascular sx * Vascular surgery recs appreciated (Dr. Mistry), patient needs delayed carotid endarterectomy, will transition back to lovenox * 08/16 CT neck high-grade left proximal ICA carotid stenosis * 06/28-Echo-EF 50-55%, trace MVR, atrial septal aneurysm is present. No atrial shunt on color flow Doppler or agitated saline * May need DON Renal: * Electrolyte replacement per ICU protocol FEN/GI: Diabetes mellitus * Passed nursing dysphagia screening * Diabetic diet * D/C IVF * PRN zofran * D/C PPI as patient is tolerating PO Endocrine: H/O thyroid cancer * Continue home synthroid * Monitor FSBG Prophy: * SCDs, lovenox * Does not require stress ulcer prophylaxis as she is tolerating PO PT consult, out of bed/ ambulate OVERALL: This patient is stable, can be moved out of [facility] to medical service. Please don't hesitate to reconsult with any new issues or concerns. Level 2 follow up To help prompt me to consider important information that might be impacting today's encounter and assessment, information from prior notes written by myself or my colleagues may have been "brought forward" into today's note. My signature on this note, however, is an attestation that I personally performed the exam, history, and/or decision-making noted today, and, unless otherwise indicated, the interactions with patient, family, and staff as well as the review of records all occurred today. I also attest that the listed assessment and stated plan reflect my best clinical judgment today based on the combination of historical information, prior notes, and today's exam/ interactions. Code Status: Full Discussed Condition With: Patient and her , RN
[2018-08-17] MEDS: Enoxaparin Inj 80 MG/0.8 ML Syringe SQ SCH ×2 (11:49→20:08)
--- NOTE | 2018-08-17 14:27 | P.PNVS ---
Subjective Subjective/Hospital Course: Doing well no acute events Objective Vital Signs / I&O: Vital Signs 08/16/18 14:35 08/16/18 14:50 08/16/18 15:00 Temperature Pulse Rate 70 64 64 Respiratory Rate 23 18 13 Blood Pressure 171/84 H 162/74 H Pulse Oximetry 97 98 97 08/16/18 15:05 08/16/18 15:06 08/16/18 15:20 Temperature Pulse Rate 81 74 Respiratory Rate 24 29 H Blood Pressure 168/76 H 175/82 H Pulse Oximetry 98 98 93 L 08/16/18 15:35 08/16/18 15:50 08/16/18 16:00 Temperature 98 F Pulse Rate 92 H 66 64 Respiratory Rate 49 H 42 H 15 Blood Pressure 167/75 H 158/64 H Pulse Oximetry 97 96 96 08/16/18 16:05 08/16/18 16:20 08/16/18 16:35 Temperature Pulse Rate 67 59 L 66 Respiratory Rate 12 17 14 Blood Pressure 155/72 H 162/72 H 167/72 H Pulse Oximetry 97 96 96 08/16/18 16:50 08/16/18 17:00 08/16/18 17:05 Temperature Pulse Rate 65 73 66 Respiratory Rate 41 H 50 H 27 H Blood Pressure 179/78 H 169/72 H Pulse Oximetry 97 98 97 08/16/18 18:00 08/16/18 18:05 08/16/18 19:00 Temperature Pulse Rate 71 76 61 Respiratory Rate 26 H 31 H 19 Blood Pressure 171/72 H Pulse Oximetry 97 96 96 08/16/18 19:05 08/16/18 19:27 08/16/18 20:00 Temperature 97.7 F Pulse Rate 61 61 Respiratory Rate 15 17 Blood Pressure 168/72 H Pulse Oximetry 96 97 96 08/16/18 20:05 08/16/18 21:00 08/16/18 21:05 Temperature Pulse Rate 67 69 70 Respiratory Rate 23 18 22 Blood Pressure 195/77 H 145/67 H Pulse Oximetry 97 96 97 08/16/18 22:00 08/16/18 22:05 08/16/18 23:00 Temperature Pulse Rate 72 71 71 Respiratory Rate 14 15 15 Blood Pressure 125/58 L Pulse Oximetry 96 97 97 08/16/18 23:05 08/17/18 00:00 08/17/18 00:05 Temperature 98 F Pulse Rate 83 69 70 Respiratory Rate 20 22 16 Blood Pressure 133/76 118/57 L Pulse Oximetry 98 96 96 08/17/18 01:00 08/17/18 01:05 08/17/18 02:00 Temperature Pulse Rate 67 69 59 L Respiratory Rate 15 16 13 Blood Pressure 147/65 H Pulse Oximetry 96 96 96 08/17/18 02:05 08/17/18 03:00 08/17/18 03:05 Temperature Pulse Rate 60 61 60 Respiratory Rate 13 14 13 Blood Pressure 132/62 145/66 H Pulse Oximetry 96 96 96 08/17/18 04:00 08/17/18 04:05 08/17/18 05:00 Temperature 97.8 F Pulse Rate 59 L 60 67 Respiratory Rate 20 17 19 Blood Pressure 166/70 H Pulse Oximetry 97 97 95 08/17/18 05:05 08/17/18 06:00 08/17/18 06:05 Temperature Pulse Rate 63 66 64 Respiratory Rate 21 19 21 Blood Pressure 179/74 H 190/79 H Pulse Oximetry 97 99 98 Intake & Output 08/16/18 08/17/18 08/17/18 18:59 06:59 18:59 Intake Total 105 / 105 250 / 250 Balance 105 / 105 250 / 250 Weight 83.915 kg 78.6 kg Intake: IV 105 / 105 Keppra Inj 500 MG In NS Inj 100 105 / 105 ML @ 400 mls/hr IV.SIG ONCE ONE Rx#:[id number] Oral 250 / 250 Other: # Voids 3 3 Date of Last Bowel Movement 08/17/18 # Bowel Movements 1 Weight On Admission 83.9 kg Physical Exam: Neuro exam unchanged Laboratory Results - last 24 hr 08/16/18 08/16/18 08/16/18 15:18 20:00 23:00 WBC RBC Hgb Hct MCV MCH MCHC RDW Plt Count MPV Neut % (Auto) Lymph % (Auto) [place] % (Auto) Eos % (Auto) Baso % (Auto) Neut # (Auto) Lymph # (Auto) [place] # (Auto) Eos # (Auto) Baso # (Auto) WBC Differential Differential Comment APTT 123.0 H* D 52.0 H D Sodium Potassium Chloride Carbon Dioxide Anion Gap BUN Creatinine Estimated GFR Random Glucose Calcium Phosphorus Magnesium Nasal Screen MRSA (PCR) Not detected 08/17/18 08/17/18 08/17/18 05:40 05:40 05:40 WBC 5.8 RBC 3.44 L Hgb 11.4 L Hct 33.3 L MCV 96.8 MCH 33.1 MCHC 34.2 RDW 13.4 Plt Count 207 MPV 7.5 Neut % (Auto) 57.8 Lymph % (Auto) 31.0 [place] % (Auto) 8.8 H Eos % (Auto) 1.2 Baso % (Auto) 1.2 Neut # (Auto) 3.4 Lymph # (Auto) 1.8 [place] # (Auto) 0.5 Eos # (Auto) 0.1 Baso # (Auto) 0.1 WBC Differential . Differential Comment Auto diff final APTT 37.1 H D Sodium 139 Potassium 3.9 Chloride 108 H Carbon Dioxide 25.3 Anion Gap 6 BUN 10 Creatinine 0.60 Estimated GFR Greater than 89 Random Glucose 122 H Calcium 8.4 L Phosphorus 3.7 Magnesium 1.6 Nasal Screen MRSA (PCR) Microbiology 08/17/18 06:45 Stool Occult Blood ([facility]) - Final Stool Hemoccult negative Impressions Head MRI 08/16/18 00:00 CONCLUSION: 1. Restricted diffusion indicating recent ischemia within the left posterior temporal lobe, occipital lobe, and punctate areas in the frontal high convexities bilaterally. 2. Remainder of the examination is stable. Chest X-Ray 08/16/18 07:29 CONCLUSION: 1. No acute cardiopulmonary abnormality is identified. 2. Stable lobulated mass in the left upper lobe. Head CT 08/16/18 07:29 CONCLUSION: 1. No acute intracranial abnormality is identified. 2. Stable mild generalized atrophy with mild chronic periventricular white matter change. These findings and the findings on the head CTA were telephoned to Dr. Gallagher on 08/16/2018 at 7:45 AM. Head CTA 08/16/18 07:29 CONCLUSION: No acute intracranial vascular abnormality is identified. Please refer to neck CTA report for description of the additional findings. These findings as well as the neck CTA findings were telephoned to Dr. Balbuena on 08/16/2018 at 7:55 AM. Neck CTA 08/16/18 07:29 CONCLUSION: 1. There is new intraluminal thrombus causing focal high-grade stenosis of the left proximal internal carotid artery. This finding was not present on the prior study dated 07/13/2018. 2. Remaining neck arterial vasculature demonstrates no significant stenosis. 3. There is a soft tissue mass in the left valleculae and piriform sinus measuring up to 1.7 cm. Suggest further evaluation and biopsy with direct visualization. 4. These findings were discussed with Dr. Gallagher via telephone. Head MRA 08/16/18 08:51 CONCLUSION: No acute intracranial vascular abnormality is identified. Neck MRA 08/16/18 08:51 CONCLUSION: 1. Eccentric polypoid-appearing, pedunculated noncalcified plaque extending from the left carotid bulb into the proximal internal carotid artery and resulting in greater than 70% stenosis on the left. 2. No significant stenosis of the right carotid system. 3. Scattered emphysematous changes within the lung apices. Percent stenosis is calculated using the diameter of the stenotic region over the diameter of the normal distal internal carotid artery Assessment and Plan - Assessment (1) Seizure Code(s): R56.9 - Unspecified convulsions Status: Acute (2) Thrombosis of left carotid artery Code(s): I65.22 - Occlusion and stenosis of left carotid artery Status: Acute (3) Acute ischemic left MCA stroke Code(s): I63.512 - Cerebral infarction due to unspecified occlusion or stenosis of left middle cerebral artery Status: Acute - Plan 1. Continue with observation 2. Appreciate neurology input agree with DON 3. We will continue to follow [id number]
[2018-08-17] MEDS: Metoprolol Tartrate 100 MG Tablet PO SCH (20:08)
[2018-08-17] MEDS: Sod Chloride 0.9% Inj 1,000 ML IV.CONT SCH (20:24)
[2018-08-18] MEDS: Acetaminophen 325 MG Tablet PO PRN ×2 (00:35→09:55)
[2018-08-18] MEDS: Insulin NovoLOG Aspart Correctional Sugar Inj SQ SCH ×4 (02:30→21:59)
[2018-08-18] MEDS: Chlorhexidine Gluconate 2% 1 Pack (2 Cloths) TOPICAL SCH (05:23)
[2018-08-18] MEDS: LEVOTHYROXINE PO SCH (05:23)
[2018-08-18] MEDS: Levothyroxine 112 MCG Tablet PO SCH (05:23)
[2018-08-18 06:19] LABS: Baso # (Auto) 0.1 th/mm3 (0.0-0.2); Baso % (Auto) 1.1 % (0.0-2.0); Eos # (Auto) 0.1 th/mm3 (0.0-0.4); Eos % (Auto) 1.6 % (0.0-4.0); Hematocrit 34.2 % (35.0-46.0); Hemoglobin 11.5 gm/dL (11.6-15.3); Lymph # (Auto) 2.1 th/mm3 (1.0-4.8); Mean Corpuscular HGB Conc 33.8 % (32.0-36.0); Mean Corpuscular Hemoglobin 32.7 pg (27.0-34.0); Mean Platelet Volume 7.8 fL (7.0-11.0); Mono # (Auto) 0.6 th/mm3 (0.0-0.9); Mono % (Auto) 9.7 % (0.0-8.0); Neut # (Auto) 3.2 th/mm3 (1.8-7.7); Neut % (Auto) 52.6 % (16.0-70.0); Platelet Count 216 th/mm3 (150-450); Red Blood Count 3.53 mil/mm3 (4.00-5.30); Red Cell Distribution Width 13.5 % (11.6-17.2); White Blood Count 6.1 th/mm3 (4.0-11.0)
[2018-08-18 06:35] LABS: Anion Gap 7 meq/L (5-15); Blood Urea Nitrogen 13 mg/dL (7-18); Calcium 8.7 mg/dL (8.5-10.1); Carbon Dioxide 26.4 meq/L (21.0-32.0); Chloride 107 meq/L (98-107); Glomerular Filtration Rate Greater Than 89 mL/min (>89); Glucose,Random 121 mg/dL (74-106); Magnesium 1.8 mg/dL (1.5-2.5); Sodium 140 meq/L (136-145)
[2018-08-18] MEDS: levETIRAcetam 500 MG Tablet PO SCH ×2 (08:11→20:39)
[2018-08-18] MEDS: Enoxaparin Inj 80 MG/0.8 ML Syringe SQ SCH ×2 (08:11→22:43)
[2018-08-18] MEDS: Metoprolol Tartrate 100 MG Tablet PO SCH ×2 (08:12→20:39)
[2018-08-18] MEDS: Senna/Docusate Sodium 8.6/50 MG Tablet PO SCH ×2 (08:12→20:39)
--- NOTE | 2018-08-18 09:58 | P.PNNEU ---
Subjective Subjective Comments: no lees, no cp, no dyspnea. feeling better Active Medications: Active Medications Acetaminophen (Tylenol) 650 mg PO Q6H PRN PRN Reason: PAIN 1-10 AND/OR FEVER >101F Last Admin: 08/18/18 00:35 Dose: 650 mg Al Hydroxide/Mg Hydroxide (Milk Of Magnceleste Liq) 30 ml PO Q12H PRN PRN Reason: Mild Constipation Albuterol (Duoneb Neb (Prn)) 1 ampul NEB Q2HR NEB PRN PRN Reason: WHEEZING Bisacodyl (Dulcolax Supp) 10 mg RECTAL DAILY PRN PRN Reason: SEVERE CONSITIPATION Chlorhexidine Gluconate (Chlorhexidine 2% Cloth) 3 pack TOPICAL DAILY@0400 [facility] Stop: 08/22/18 03:59 Last Admin: 08/18/18 05:23 Dose: 3 pack Chlorhexidine Gluconate (Chlorhexidine 2% Cloth) 3 pack TOPICAL DAILY@0400 PRN PRN Reason: Extra cloth needed Stop: 08/22/18 03:59 Dextrose (D50w Vial) 50 ml IV.PUSH UNSCH PRN PRN Reason: PER HYPOGLYCEMIA PROTOCOL Enoxaparin Sodium (Lovenox Inj) 80 mg SQ Q12HR [facility] Last Admin: 08/18/18 08:11 Dose: 80 mg Fluticasone/Vilanterol (Breo Ellipta 200/25 Mcg Inh) 1 puff INH DAILY [facility] Last Admin: 08/18/18 08:11 Dose: 1 puff Glucagon (Glucagon Inj) 1 mg OTHER PRN PRN PRN Reason: for Hypoglycemia Protocol Magnesium Sulfate 4 gm/ Sodium (Chloride) 100 mls @ 50 mls/hr IV.SIG UNSCH PRN PRN Reason: For Magnesium 0.9 - 1.1 mg/dL Magnesium Sulfate 2 gm/ Sodium (Chloride) 100 mls @ 50 mls/hr IV.SIG UNSCH PRN PRN Reason: For Magnesium 1.2 - 1.6 mg/dL Potassium Chloride (Kcl 40 Meq Premix Inj) 40 meq in 100 mls @ 25 mls/hr IV.SIG Q2H PRN PRN Reason: For Potassium 2.8 - 3.2 mEq/L Potassium Chloride (Kcl 20 Meq Premix Inj) 20 meq in 100 mls @ 50 mls/hr IV.SIG Q2H PRN PRN Reason: For Potassium 3.3 - 3.5 mEq/L Potassium Chloride (Kcl 40 Meq Premix Inj) 40 meq in 100 mls @ 25 mls/hr IV.SIG UNSCH PRN PRN Reason: For Potassium 3.3 - 3.5 mEq/L Potassium Phosphate 30 mmol/ (Sodium Chloride) 260 mls @ 42 mls/hr IV.SIG UNSCH PRN PRN Reason: SEE LABEL COMMENTS Sodium Phosphate 30 mmol/ (Sodium Chloride) 260 mls @ 42 mls/hr IV.SIG UNSCH PRN PRN Reason: For Phosphorus < 2.5 mg/dL Potassium Chloride (Kcl 20 Meq Premix Inj) 20 meq in 100 mls @ 50 mls/hr IV.SIG Q2H PRN PRN Reason: For Potassium 2.8 - 3.2 mEq/L Insulin Aspart (Novolog Insulin Correctional Sugar Inj) 0 unit SQ ACHS AND 3AM SAM; Protocol Last Admin: 08/18/18 08:12 Dose: Not Given Lactulose (Lactulose Liq) 30 ml PO DAILY PRN PRN Reason: SEVERE CONSITIPATION Levetiracetam (Keppra) 500 mg PO BID [facility] Last Admin: 08/18/18 08:11 Dose: 500 mg Levothyroxine Sodium (Synthroid) 112 mcg PO DAILY@0600 [facility] Last Admin: 08/18/18 05:23 Dose: Not Given Magnesium Oxide (Mag-Ox) 800 mg PO UNSCH PRN PRN Reason: For Magnesium 1.2 - 1.6 mg/dL Metoprolol Tartrate (Lopressor) 100 mg PO BID [facility] Last Admin: 08/18/18 08:12 Dose: 100 mg Ondansetron HCl (Zofran Inj) 4 mg IV.PUSH Q6H PRN PRN Reason: NAUSEA OR VOMITING Pt Own Unithroid ( Levothyroxine) 112 Mcg Tablet 0 each PO DAILY@0600 [facility] Last Admin: 08/18/18 05:23 Dose: 1 each Potassium Bicarb/Potassium Chloride (K-Lyte Cl Eff) 50 meq PO UNSCH PRN PRN Reason: For Potassium 3.3 - 3.5 mEq/L Potassium Phosphate (K-Phos Original) 2,000 mg PO Q4H PRN PRN Reason: Phosphorus Less Than 2.5 mg/dL Potassium Phosphate (K-Phos Original) 2,000 mg PO UNSCH PRN PRN Reason: SEE LABEL COMMENTS Senna/Docusate Sodium (Wendy-Colace) 1 tab PO BID [facility] Last Admin: 08/18/18 08:12 Dose: 1 tab Sennosides (Senokot) 17.2 mg PO Q12H PRN PRN Reason: Moderate Constipation Sodium Chloride (Ns Flush) 2 ml IV.FLUSH BID [facility] Last Admin: 08/18/18 08:12 Dose: 2 ml Sodium Chloride (Ns Flush) 2 ml IV.FLUSH PRN PRN PRN Reason: FLUSH AFTER USING IV ACCESS Allergies/Adverse Reactions: Allergies Allergy/AdvReac Type Severity Reaction Status Date / Time losartan Allergy Swelling Verified 08/16/18 07:56 of Lip/Tongue/Throat Sulfa (Sulfonamide Allergy Hives Verified 08/16/18 07:56 Antibiotics) ciprofloxacin [From Cipro] AdvReac Tingling Verified 08/16/18 07:56 levofloxacin AdvReac Joint Pain Verified 08/16/18 07:56 prednisone AdvReac Joint Pain Verified 08/16/18 07:56 [id number]-Vud-[id number] Reductase AdvReac Joint Pain Verified 08/16/18 07:56 Inhibitor Review of Systems All other systems reviewed negative except as stated in HPI Physical Exam Vital signs: Vital Signs 08/17/18 10:00 08/17/18 10:05 08/17/18 11:13 Temperature Pulse Rate 92 H 90 79 Respiratory Rate 24 24 18 Blood Pressure 134/60 Pulse Oximetry 99 99 99 08/17/18 11:28 08/17/18 12:00 08/17/18 12:05 Temperature Pulse Rate 82 80 89 Respiratory Rate 18 20 44 H Blood Pressure 172/70 H 181/77 H Pulse Oximetry 99 98 98 08/17/18 13:00 08/17/18 14:00 08/17/18 14:05 Temperature Pulse Rate 76 92 H 98 H Respiratory Rate 20 23 27 H Blood Pressure 198/74 H Pulse Oximetry 97 98 97 08/17/18 15:00 08/17/18 15:05 08/17/18 16:00 Temperature Pulse Rate 87 91 H 96 H Respiratory Rate 18 24 39 H Blood Pressure 196/88 H Pulse Oximetry 99 98 98 08/17/18 16:05 08/17/18 17:00 08/17/18 17:05 Temperature 98.0 F Pulse Rate 94 H 73 69 Respiratory Rate 31 H 15 17 Blood Pressure 186/80 H 186/80 H 202/81 H Pulse Oximetry 99 98 97 08/17/18 17:46 08/17/18 17:48 08/17/18 18:00 Temperature Pulse Rate 75 74 67 Respiratory Rate 33 H 25 H 19 Blood Pressure 226/88 H 170/72 H Pulse Oximetry 98 98 97 08/17/18 18:05 08/17/18 19:00 08/17/18 19:54 Temperature Pulse Rate 68 87 74 Respiratory Rate 19 20 15 Blood Pressure 182/78 H 163/72 H Pulse Oximetry 98 98 97 08/17/18 20:00 08/17/18 21:00 08/17/18 22:00 Temperature 97.6 F Pulse Rate 74 67 66 Respiratory Rate 17 16 18 Blood Pressure Pulse Oximetry 98 96 97 08/17/18 23:00 08/18/18 00:00 08/18/18 00:30 Temperature 97.9 F Pulse Rate 60 66 62 Respiratory Rate 14 17 15 Blood Pressure 175/67 H Pulse Oximetry 97 97 96 08/18/18 00:36 08/18/18 01:00 08/18/18 01:05 Temperature Pulse Rate 68 66 Respiratory Rate 18 20 13 Blood Pressure 175/67 H Pulse Oximetry 98 99 08/18/18 02:00 08/18/18 03:00 08/18/18 04:00 Temperature 97.7 F Pulse Rate 63 62 59 L Respiratory Rate 15 15 15 Blood Pressure Pulse Oximetry 97 96 96 08/18/18 04:45 08/18/18 04:47 08/18/18 05:05 Temperature Pulse Rate 63 61 67 Respiratory Rate 26 H 15 19 Blood Pressure 180/74 H Pulse Oximetry 97 98 100 08/18/18 06:00 Temperature Pulse Rate Respiratory Rate 22 Blood Pressure Pulse Oximetry 98 Intake & Output 08/17/18 08/18/18 08/18/18 18:59 06:59 18:59 Intake Total 1387 / 1387 250 / 250 Balance 1387 / 1387 250 / 250 Weight 79.8 kg Intake: IV 1137 / 1137 Heparin/D5W 25,000 U/250 mL 25, 137 / 137 000 unit In 250 ml @ Per Protocol IV.CONT TITRATE PRN Rx #:[id number] NS Inj 1,000 ML @ 70 mls/hr IV. 1000 / 1000 CONT .[id number] [facility] Rx#:[id number] Oral 250 / 250 250 / 250 Other: # Voids 3 4 Date of Last Bowel Movement 08/17/18 08/18/18 # Bowel Movements 1 1 Narrative: GENERAL: in NAD, SKIN: Warm and dry. HEAD: Atraumatic. Normocephalic. EYES: Pupils equal and round. ENT: No nasal bleeding or discharge. NECK: Trachea midline. No JVD. CARDIOVASCULAR: Regular rate and rhythm. RESPIRATORY: No accessory muscle use. MUSCULOSKELETAL: Extremities without clubbing, cyanosis, or edema. No obvious deformities. NEUROLOGICAL: Awake and alert. 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 PSYCHIATRIC: Appropriate mood and affect; insight and judgment normal - Constitutional no acute distress - Routine HEENT Exam Head: Present: normocephalic Eye: Present: EOMI Objective Laboratory Results - last 24 hr 08/18/18 08/18/18 08/18/18 04:40 04:40 04:40 WBC 6.1 RBC 3.53 L Hgb 11.5 L Hct 34.2 L MCV 97.0 MCH 32.7 MCHC 33.8 RDW 13.5 Plt Count 216 MPV 7.8 Neut % (Auto) 52.6 Lymph % (Auto) 35.0 [place] % (Auto) 9.7 H Eos % (Auto) 1.6 Baso % (Auto) 1.1 Neut # (Auto) 3.2 Lymph # (Auto) 2.1 [place] # (Auto) 0.6 Eos # (Auto) 0.1 Baso # (Auto) 0.1 WBC Differential . Differential Comment Auto diff final APTT 38.7 H Sodium 140 Potassium 4.0 Chloride 107 Carbon Dioxide 26.4 Anion Gap 7 BUN 13 Creatinine 0.64 Estimated GFR Greater than 89 Random Glucose 121 H Calcium 8.7 Magnesium 1.8 Microbiology 08/17/18 06:45 Stool Occult Blood (DELFINA) - Final Stool Hemoccult negative Review/Management - Diagnosis (1) Thrombosis of left carotid artery Code(s): I65.22 - Occlusion and stenosis of left carotid artery Status: Acute Current Visit: Yes (2) Acute ischemic left MCA stroke Code(s): I63.512 - Cerebral infarction due to unspecified occlusion or stenosis of left middle cerebral artery Status: Acute Current Visit: Yes (3) Hypertension Code(s): I10 - Essential (primary) hypertension Status: Acute Current Visit : Yes - Review/Management Plan: mri brain reviewed. a few tiny infarcts mainly left high hemisphere. one on the rt +mra neck left thrombus probable hypercoagulable state +lung masses MRI brain from early July 02 2018 was reviewed showing areas of diffusion restriction tiny scattered left MCA territory and somewhat larger in the left parietal occipital region. Also, with hx of seizures Previous echo showing EF greater than 50% Recommendation neuro stable on lovenox full dose vascular surgery defers intervention on left carotid until later date would suggest flaquito. seen by cardio in previous admission and they felt it was unsafe 2/2 mass continue keppra ok for floor with tele d/c planning tomorrow if remains stable should remain on anticoagulation therapy d/w pt/partner
--- NOTE | 2018-08-18 10:41 | P.PNVS ---
Subjective Subjective/Hospital Course: no acute events overnight ambulating in hallway Objective Vital Signs / I&O: Vital Signs 08/17/18 11:13 08/17/18 11:28 08/17/18 12:00 Temperature Pulse Rate 79 82 80 Respiratory Rate 18 18 20 Blood Pressure 172/70 H Pulse Oximetry 99 99 98 08/17/18 12:05 08/17/18 13:00 08/17/18 14:00 Temperature Pulse Rate 89 76 92 H Respiratory Rate 44 H 20 23 Blood Pressure 181/77 H Pulse Oximetry 98 97 98 08/17/18 14:05 08/17/18 15:00 08/17/18 15:05 Temperature Pulse Rate 98 H 87 91 H Respiratory Rate 27 H 18 24 Blood Pressure 198/74 H 196/88 H Pulse Oximetry 97 99 98 08/17/18 16:00 08/17/18 16:05 08/17/18 17:00 Temperature 98.0 F Pulse Rate 96 H 94 H 73 Respiratory Rate 39 H 31 H 15 Blood Pressure 186/80 H 186/80 H Pulse Oximetry 98 99 98 08/17/18 17:05 08/17/18 17:46 08/17/18 17:48 Temperature Pulse Rate 69 75 74 Respiratory Rate 17 33 H 25 H Blood Pressure 202/81 H 226/88 H 170/72 H Pulse Oximetry 97 98 98 08/17/18 18:00 08/17/18 18:05 08/17/18 19:00 Temperature Pulse Rate 67 68 87 Respiratory Rate 19 19 20 Blood Pressure 182/78 H Pulse Oximetry 97 98 98 08/17/18 19:54 08/17/18 20:00 08/17/18 21:00 Temperature 97.6 F Pulse Rate 74 74 67 Respiratory Rate 15 17 16 Blood Pressure 163/72 H Pulse Oximetry 97 98 96 08/17/18 22:00 08/17/18 23:00 08/18/18 00:00 Temperature 97.9 F Pulse Rate 66 60 66 Respiratory Rate 18 14 17 Blood Pressure Pulse Oximetry 97 97 97 08/18/18 00:30 08/18/18 00:36 08/18/18 01:00 Temperature Pulse Rate 62 68 66 Respiratory Rate 15 18 20 Blood Pressure 175/67 H 175/67 H Pulse Oximetry 96 98 99 08/18/18 01:05 08/18/18 02:00 08/18/18 03:00 Temperature Pulse Rate 63 62 Respiratory Rate 13 15 15 Blood Pressure Pulse Oximetry 97 96 08/18/18 04:00 08/18/18 04:45 08/18/18 04:47 Temperature 97.7 F Pulse Rate 59 L 63 61 Respiratory Rate 15 26 H 15 Blood Pressure 180/74 H Pulse Oximetry 96 97 98 08/18/18 05:05 08/18/18 06:00 Temperature Pulse Rate 67 Respiratory Rate 19 22 Blood Pressure Pulse Oximetry 100 98 Intake & Output 08/17/18 08/18/18 08/18/18 18:59 06:59 18:59 Intake Total 1387 / 1387 250 / 250 Balance 1387 / 1387 250 / 250 Weight 79.8 kg Intake: IV 1137 / 1137 Heparin/D5W 25,000 U/250 mL 25, 137 / 137 000 unit In 250 ml @ Per Protocol IV.CONT TITRATE PRN Rx #:[id number] NS Inj 1,000 ML @ 70 mls/hr IV. 1000 / 1000 CONT .[id number] [facility] Rx#:[id number] Oral 250 / 250 250 / 250 Other: # Voids 3 4 Date of Last Bowel Movement 08/17/18 08/18/18 # Bowel Movements 1 1 Physical Exam: neuro intact no PAULSON no overall distress Laboratory Results - last 24 hr 08/18/18 08/18/18 08/18/18 04:40 04:40 04:40 WBC 6.1 RBC 3.53 L Hgb 11.5 L Hct 34.2 L MCV 97.0 MCH 32.7 MCHC 33.8 RDW 13.5 Plt Count 216 MPV 7.8 Neut % (Auto) 52.6 Lymph % (Auto) 35.0 [place] % (Auto) 9.7 H Eos % (Auto) 1.6 Baso % (Auto) 1.1 Neut # (Auto) 3.2 Lymph # (Auto) 2.1 [place] # (Auto) 0.6 Eos # (Auto) 0.1 Baso # (Auto) 0.1 WBC Differential . Differential Comment Auto diff final APTT 38.7 H Sodium 140 Potassium 4.0 Chloride 107 Carbon Dioxide 26.4 Anion Gap 7 BUN 13 Creatinine 0.64 Estimated GFR Greater than 89 Random Glucose 121 H Calcium 8.7 Magnesium 1.8 Microbiology 08/17/18 06:45 Stool Occult Blood (DELFINA) - Final Stool Hemoccult negative Assessment and Plan - Assessment (1) Seizure Code(s): R56.9 - Unspecified convulsions Status: Acute (2) Thrombosis of left carotid artery Code(s): I65.22 - Occlusion and stenosis of left carotid artery Status: Acute (3) Acute ischemic left MCA stroke Code(s): I63.512 - Cerebral infarction due to unspecified occlusion or stenosis of left middle cerebral artery Status: Acute - Plan Pt with likely L ICA ulceration and fresh thrombus, recurrent symptoms when off anticoagulation Case discussed with Dr. Mistry previously and pt and spouse today. 1. Continue with anticoagulation 2. Has f/u appointment with Dr. Mistry on 08/25 with CTA neck. 3. If she has any recurrent neuro symptoms she has my number. 4. Likely to need interval CEA in a few weeks. Osman Marti MD FACS FSVS [phone]
--- NOTE | 2018-08-18 11:46 | P.PNIM ---
Subjective Interval history: No complaints from the patient. She only has mild residual changes in sensation in her right hand with slight decrease in coordination. She also, per her , has mild cognitive deficits. No new complaints. Physical Exam Vital signs: Last Vital Signs Temp 97.7 F 08/18/18 04:00 Pulse 67 08/18/18 05:05 Resp 22 08/18/18 06:00 BP 180/74 H 08/18/18 04:45 Pulse Ox 98 08/18/18 06:00 Intake & Output 08/16/18 08/17/18 08/18/18 08/19/18 06:59 06:59 06:59 06:59 Intake Total 355 / 355 1637 / 1637 Balance 355 / 355 1637 / 1637 Weight 78.6 kg 79.8 kg Narrative: GENERAL: NAD, A&Ox3 HEAD: Normocephalic. NECK: Supple, trachea midline. No lymphadenopathy. EYES: No scleral icterus. No injection or drainage. CARDIOVASCULAR: Regular rate and rhythm without murmurs, gallops, or rubs. RESPIRATORY: Breath sounds equal bilaterally. No accessory muscle use. GASTROINTESTINAL: Abdomen soft, non-tender, nondistended. MUSCULOSKELETAL: No cyanosis, or edema. SKIN: Warm and dry. NEURO: Sensory changes at right hand. Results Labs CBC & Chem 7: 08/18/18 04:40 08/18/18 04:40 Labs: Microbiology 08/17/18 06:45 Stool Stool Occult Blood (DELFINA) - Final Hemoccult negative Assessment and Plan Plan 67-year-old female with a thrombosis of the left proximal internal carotid artery, and acute ischemic left MCA stroke, and hypertension, at risk for progression. Acute ischemic left MCA stroke History of seizure disorder Thrombosis left proximal ICA 08/16 CT head-no acute abnormality 08/16 MRI head- as per neurology, has bilateral small acute infarcts mostly on left, 1 on right 08/16 MRI neck- Eccentric polypoid-appearing, pedunculated noncalcified plaque extending from the left carotid bulb into the proximal internal carotid artery and resulting in greater than 70% stenosis on the left. Continue twice daily Lovenox Continue Keppra Outpatient follow-up with vascular surgeon planned Endarterectomy planned as an outpatient H/O asthma Asymptomatic Follow clinically Breathing treatments as needed Hypertension Continue baseline treatment Follow blood pressures Adjust treatments as needed Diabetes mellitus type 2 Follow blood sugars Insulin sliding scale Diabetic diet Hypothyroidism Continue home synthroid DVT prophylaxis Lovenox SCDs Discharge planning Possible DC to home tomorrow
[2018-08-18] MEDS ORDERED: Heparin Drip 25,000 UNIT/250 ML BAG IV.CONT PRN (19:50)
--- NOTE | 2018-08-18 19:57 | MR ---
EXAM DATE: 08/18/2018 7:22 PM EST AGE/SEX: 67 years / Female INDICATIONS: CVA. Change in neurological status. Bilateral extremity weakness. CLINICAL DATA: This is the patient's subsequent encounter. Patient reports that signs and symptoms h ave been present for 1 day and indicates a pain score of 0/10. MEDICAL/SURGICAL HISTORY: Carcinoma, thyroid. Hypertension. Diabetes mellitus type II. Tonsil lectomy. Right ankle and left wrist. [place] [facility] [place]. . TECHNIQUE: Multiplanar, multisequence examination of the brain was performed without contrast. FINDINGS: Areas of evolving cortical stroke present bilaterally, most conspicuously in the low convexity left p arietal occipital region again noted. No evidence of macroscopic hemorrhage or significant edema/mass effect at present. CONCLUSION: Evolving strokes. No new acute findings. Electronically signed by: Burton Kumari MD Board Certified Radiologist 08/18/2018 7:56 PM EST
[2018-08-18 20:49] LABS: Hematocrit 34.2 % (35.0-46.0); Mean Corpuscular Hemoglobin 32.9 pg (27.0-34.0); Mean Platelet Volume 7.8 fL (7.0-11.0); Platelet Count 231 th/mm3 (150-450); Red Blood Count 3.64 mil/mm3 (4.00-5.30); Red Cell Distribution Width 13.1 % (11.6-17.2); White Blood Count 7.7 th/mm3 (4.0-11.0)
[2018-08-18 21:01] LABS: Prothrombin Time 10.4 sec (9.8-11.6)
[2018-08-19] MEDS: Chlorhexidine Gluconate 2% 1 Pack (2 Cloths) TOPICAL SCH (04:42)
[2018-08-19] MEDS: LEVOTHYROXINE PO SCH (05:06)
[2018-08-19] MEDS: Levothyroxine 112 MCG Tablet PO SCH (05:07)
--- NOTE | 2018-08-19 07:21 | P.PNNEU ---
Subjective Subjective Comments: Had episode of right arm numbness slightly on the left resolved slept well overnight no further episodes Active Medications: Active Medications Acetaminophen (Tylenol) 650 mg PO Q6H PRN PRN Reason: PAIN 1-10 AND/OR FEVER >101F Last Admin: 08/18/18 09:55 Dose: 650 mg Al Hydroxide/Mg Hydroxide (Milk Of Michael Liq) 30 ml PO Q12H PRN PRN Reason: Mild Constipation Albuterol (Duoneb Neb (Prn)) 1 ampul NEB Q2HR NEB PRN PRN Reason: WHEEZING Bisacodyl (Dulcolax Supp) 10 mg RECTAL DAILY PRN PRN Reason: SEVERE CONSITIPATION Chlorhexidine Gluconate (Chlorhexidine 2% Cloth) 3 pack TOPICAL DAILY@0400 [facility] Stop: 08/22/18 03:59 Last Admin: 08/19/18 04:42 Dose: 3 pack Chlorhexidine Gluconate (Chlorhexidine 2% Cloth) 3 pack TOPICAL DAILY@0400 PRN PRN Reason: Extra cloth needed Stop: 08/22/18 03:59 Dextrose (D50w Vial) 50 ml IV.PUSH UNSCH PRN PRN Reason: PER HYPOGLYCEMIA PROTOCOL Enoxaparin Sodium (Lovenox Inj) 80 mg SQ Q12H [facility] Last Admin: 08/18/18 22:43 Dose: 80 mg Fluticasone/Vilanterol (Breo Ellipta 200/25 Mcg Inh) 1 puff INH DAILY [facility] Last Admin: 08/18/18 08:11 Dose: 1 puff Glucagon (Glucagon Inj) 1 mg OTHER PRN PRN PRN Reason: for Hypoglycemia Protocol Magnesium Sulfate 4 gm/ Sodium (Chloride) 100 mls @ 50 mls/hr IV.SIG UNSCH PRN PRN Reason: For Magnesium 0.9 - 1.1 mg/dL Magnesium Sulfate 2 gm/ Sodium (Chloride) 100 mls @ 50 mls/hr IV.SIG UNSCH PRN PRN Reason: For Magnesium 1.2 - 1.6 mg/dL Potassium Chloride (Kcl 40 Meq Premix Inj) 40 meq in 100 mls @ 25 mls/hr IV.SIG Q2H PRN PRN Reason: For Potassium 2.8 - 3.2 mEq/L Potassium Chloride (Kcl 20 Meq Premix Inj) 20 meq in 100 mls @ 50 mls/hr IV.SIG Q2H PRN PRN Reason: For Potassium 3.3 - 3.5 mEq/L Potassium Chloride (Kcl 40 Meq Premix Inj) 40 meq in 100 mls @ 25 mls/hr IV.SIG UNSCH PRN PRN Reason: For Potassium 3.3 - 3.5 mEq/L Potassium Phosphate 30 mmol/ (Sodium Chloride) 260 mls @ 42 mls/hr IV.SIG UNSCH PRN PRN Reason: SEE LABEL COMMENTS Sodium Phosphate 30 mmol/ (Sodium Chloride) 260 mls @ 42 mls/hr IV.SIG UNSCH PRN PRN Reason: For Phosphorus < 2.5 mg/dL Potassium Chloride (Kcl 20 Meq Premix Inj) 20 meq in 100 mls @ 50 mls/hr IV.SIG Q2H PRN PRN Reason: For Potassium 2.8 - 3.2 mEq/L Insulin Aspart (Novolog Insulin Correctional Sugar Inj) 0 unit SQ ACHS AND 3AM SAM; Protocol Last Admin: 08/18/18 21:59 Dose: Not Given Lactulose (Lactulose Liq) 30 ml PO DAILY PRN PRN Reason: SEVERE CONSITIPATION Levetiracetam (Keppra) 500 mg PO BID [facility] Last Admin: 08/18/18 20:39 Dose: 500 mg Levothyroxine Sodium (Synthroid) 112 mcg PO DAILY@0600 [facility] Last Admin: 08/19/18 05:07 Dose: Not Given Magnesium Oxide (Mag-Ox) 800 mg PO UNSCH PRN PRN Reason: For Magnesium 1.2 - 1.6 mg/dL Metoprolol Tartrate (Lopressor) 100 mg PO BID [facility] Last Admin: 08/18/18 20:39 Dose: 100 mg Ondansetron HCl (Zofran Inj) 4 mg IV.PUSH Q6H PRN PRN Reason: NAUSEA OR VOMITING Pt Own Unithroid ( Levothyroxine) 112 Mcg Tablet 0 each PO DAILY@0600 [facility] Last Admin: 08/19/18 05:06 Dose: 112 each Potassium Bicarb/Potassium Chloride (K-Lyte Cl Eff) 50 meq PO UNSCH PRN PRN Reason: For Potassium 3.3 - 3.5 mEq/L Potassium Phosphate (K-Phos Original) 2,000 mg PO Q4H PRN PRN Reason: Phosphorus Less Than 2.5 mg/dL Potassium Phosphate (K-Phos Original) 2,000 mg PO UNSCH PRN PRN Reason: SEE LABEL COMMENTS Senna/Docusate Sodium (Wendy-Colace) 1 tab PO BID [facility] Last Admin: 08/18/18 20:39 Dose: 1 tab Sennosides (Senokot) 17.2 mg PO Q12H PRN PRN Reason: Moderate Constipation Sodium Chloride (Ns Flush) 2 ml IV.FLUSH BID [facility] Last Admin: 08/18/18 20:39 Dose: 2 ml Sodium Chloride (Ns Flush) 2 ml IV.FLUSH PRN PRN PRN Reason: FLUSH AFTER USING IV ACCESS Allergies/Adverse Reactions: Allergies Allergy/AdvReac Type Severity Reaction Status Date / Time losartan Allergy Swelling Verified 08/16/18 07:56 of Lip/Tongue/Throat Sulfa (Sulfonamide Allergy Hives Verified 08/16/18 07:56 Antibiotics) ciprofloxacin [From Cipro] AdvReac Tingling Verified 08/16/18 07:56 levofloxacin AdvReac Joint Pain Verified 08/16/18 07:56 prednisone AdvReac Joint Pain Verified 08/16/18 07:56 Lmeprbm-Dgx-All Reductase AdvReac Joint Pain Verified 08/16/18 07:56 Inhibitor Review of Systems All other systems reviewed negative except as stated in HPI Physical Exam Vital signs: Vital Signs 08/18/18 08:00 08/18/18 08:05 08/18/18 08:53 Temperature Pulse Rate 66 63 70 Respiratory Rate 31 H 19 28 H Blood Pressure 198/84 H Pulse Oximetry 99 97 97 08/18/18 09:03 08/18/18 09:04 08/18/18 10:00 Temperature Pulse Rate 72 67 Respiratory Rate 30 H 28 H Blood Pressure 168/72 H Pulse Oximetry 98 98 08/18/18 11:00 08/18/18 12:00 08/18/18 13:00 Temperature Pulse Rate 59 L 61 60 Respiratory Rate 21 16 24 Blood Pressure Pulse Oximetry 96 98 97 08/18/18 14:00 08/18/18 15:23 08/18/18 16:00 Temperature Pulse Rate 67 65 Respiratory Rate 32 H 33 H Blood Pressure Pulse Oximetry 97 98 96 08/18/18 17:00 08/18/18 17:03 08/18/18 17:43 Temperature Pulse Rate 63 73 72 Respiratory Rate 16 44 H 31 H Blood Pressure 192/84 H 180/78 H Pulse Oximetry 96 97 98 08/18/18 18:00 08/18/18 19:00 08/18/18 20:00 Temperature 97.6 F Pulse Rate 68 66 78 Respiratory Rate 19 22 21 Blood Pressure Pulse Oximetry 97 97 96 08/18/18 20:45 08/18/18 21:00 08/18/18 22:00 Temperature Pulse Rate 78 69 67 Respiratory Rate 22 24 24 Blood Pressure 189/73 H Pulse Oximetry 97 98 97 08/18/18 23:00 08/19/18 00:00 08/19/18 01:00 Temperature 97.9 F Pulse Rate 68 61 69 Respiratory Rate 21 15 16 Blood Pressure Pulse Oximetry 97 95 95 08/19/18 01:24 08/19/18 02:00 08/19/18 04:00 Temperature 97.6 F Pulse Rate 63 58 L 65 Respiratory Rate 16 15 18 Blood Pressure 184/82 H 169/75 H Pulse Oximetry 96 96 08/19/18 05:00 08/19/18 06:00 Temperature Pulse Rate 71 59 L Respiratory Rate 14 16 Blood Pressure Pulse Oximetry 95 98 Intake & Output 08/18/18 08/19/18 08/19/18 18:59 06:59 18:59 Intake Total 480 / 480 Balance 480 / 480 Weight 79.9 kg Intake: Oral 480 / 480 Other: # Voids 3 Date of Last Bowel Movement 08/18/18 08/18/18 Narrative: GENERAL: in NAD, SKIN: Warm and dry. HEAD: Atraumatic. Normocephalic. EYES: Pupils equal and round. ENT: No nasal bleeding or discharge. NECK: Trachea midline. No JVD. CARDIOVASCULAR: Regular rate and rhythm. RESPIRATORY: No accessory muscle use. MUSCULOSKELETAL: Extremities without clubbing, cyanosis, or edema. NEUROLOGICAL: Awake and alert. Sitting up eating breakfast, ox 3,fluent articulate, visual vargas full, no drift, heel raise all 4 extremity gravity slow fine finger movements in the right hand no dystaxia gait not assessed secondary fall risk PSYCHIATRIC: Appropriate mood and affect; insight and judgment normal - Constitutional no acute distress - Routine HEENT Exam Head: Present: normocephalic Eye: Present: EOMI Objective Laboratory Results - last 24 hr 08/18/18 08/18/18 08/19/18 20:34 20:34 05:10 WBC 7.7 RBC 3.64 L Hgb 12.0 Hct 34.2 L MCV 94.0 MCH 32.9 MCHC 35.0 RDW 13.1 Plt Count 231 MPV 7.8 PT 10.4 INR 1.0 APTT 34.0 H POC Glucose 124 H Review/Management - Diagnosis (1) Thrombosis of left carotid artery Code(s): I65.22 - Occlusion and stenosis of left carotid artery Status: Acute Current Visit: Yes (2) Acute ischemic left MCA stroke Code(s): I63.512 - Cerebral infarction due to unspecified occlusion or stenosis of left middle cerebral artery Status: Acute Current Visit: Yes (3) Hypertension Code(s): I10 - Essential (primary) hypertension Status: Acute Current Visit : Yes - Review/Management Plan: mri brain reviewed. a few tiny infarcts mainly left high hemisphere. one on the rt +mra neck left thrombus probable hypercoagulable state +lung masses MRI brain from early July 02 2018 was reviewed showing areas of diffusion restriction tiny scattered left MCA territory and somewhat larger in the left parietal occipital region. Also, with hx of seizures Previous echo showing EF greater than 50% Repeat MRI brain scan 08/18/2018 shows stability Recommendation neuro stable this a.m. on lovenox full dose; aspirin added yesterday Continue to monitor today. She has a recurrent episode vascular surgery would need to consider earlier intervention would suggest flaquito. seen by cardio in previous admission and they felt it was unsafe 2/2 mass; will obtain another opinion continue milesppra should remain on anticoagulation therapy d/w pt/partner
[2018-08-19] MEDS: Insulin NovoLOG Aspart Correctional Sugar Inj SQ SCH ×5 (07:56→21:50)
[2018-08-19] MEDS: Senna/Docusate Sodium 8.6/50 MG Tablet PO SCH ×2 (09:42→21:50)
[2018-08-19] MEDS: levETIRAcetam 500 MG Tablet PO SCH ×2 (09:42→21:44)
[2018-08-19] MEDS: Metoprolol Tartrate 100 MG Tablet PO SCH ×2 (09:42→21:44)
[2018-08-19] MEDS: Enoxaparin Inj 80 MG/0.8 ML Syringe SQ SCH ×2 (09:58→21:44)
--- NOTE | 2018-08-19 10:23 | P.PNIM ---
Subjective Interval history: Patient had an episode of exacerbation of neurological symptoms in her right hand. MRI of the brain showed no acute CVA. Further monitoring recommended. Physical Exam Vital signs: Last Vital Signs Temp 98.0 F 08/19/18 08:00 Pulse 83 08/19/18 09:49 Resp 23 08/19/18 09:00 BP 137/61 08/19/18 08:00 Pulse Ox 97 08/19/18 09:00 Intake & Output 08/17/18 08/18/18 08/19/18 08/20/18 06:59 06:59 06:59 06:59 Intake Total 355 / 355 1637 / 1637 480 / 480 Balance 355 / 355 1637 / 1637 480 / 480 Weight 78.6 kg 79.8 kg 79.9 kg Narrative: GENERAL: NAD, A&Ox3 HEAD: Normocephalic. NECK: Supple, trachea midline. No lymphadenopathy. EYES: No scleral icterus. No injection or drainage. CARDIOVASCULAR: Regular rate and rhythm without murmurs, gallops, or rubs. RESPIRATORY: Breath sounds equal bilaterally. No accessory muscle use. GASTROINTESTINAL: Abdomen soft, non-tender, nondistended. MUSCULOSKELETAL: No cyanosis, or edema. SKIN: Warm and dry. NEURO: Sensory changes at right hand. Results Labs CBC & Chem 7: 08/18/18 20:34 08/18/18 04:40 Imaging Imaging: Impressions Head MRI 08/18/18 00:00 CONCLUSION: Evolving strokes. No new acute findings. Assessment and Plan (1) Thrombosis of left carotid artery: Code(s): I65.22 - Occlusion and stenosis of left carotid artery Status: Acute (2) Acute ischemic left MCA stroke: Code(s): I63.512 - Cerebral infarction due to unspecified occlusion or stenosis of left middle cerebral artery Status: Acute (3) Hypertension: Code(s): I10 - Essential (primary) hypertension Status: Acute Plan 67-year-old female with a thrombosis of the left proximal internal carotid artery, and acute ischemic left MCA stroke, and hypertension, at risk for progression. Recurrent neurologic symptoms at right arm and hand last night. Continue to monitor neurologic status. No acute CVA on repeat brain imaging. Acute ischemic left MCA stroke History of seizure disorder Thrombosis left proximal ICA 08/16 CT head-no acute abnormality 08/16 MRI head- as per neurology, has bilateral small acute infarcts mostly on left, 1 on right 08/16 MRI neck- Eccentric polypoid-appearing, pedunculated noncalcified plaque extending from the left carotid bulb into the proximal internal carotid artery and resulting in greater than 70% stenosis on the left. Continue twice daily Lovenox Continue Keppra Outpatient follow-up with vascular surgeon planned Endarterectomy planned as an outpatient H/O asthma Asymptomatic Follow clinically Breathing treatments as needed Hypertension Continue baseline treatment Follow blood pressures Adjust treatments as needed Diabetes mellitus type 2 Follow blood sugars Insulin sliding scale Diabetic diet Hypothyroidism Continue home synthroid DVT prophylaxis Lovenox SCDs Discharge planning Possible DC to home tomorrow _ (1) Hypertension Qualifiers: Hypertension type:
[2018-08-19] MEDS: Acetaminophen 325 MG Tablet PO PRN (12:14)
--- NOTE | 2018-08-19 15:14 | P.CONCA ---
History of Present Illness Service: Cardiology Consult date: 08/19/18 Requesting Physician: Jong Balbuena Reason for Consult: DON, reccurent strokes Primary Care Provider: UNKNOWN Chief Complaint: Stroke alert History of Present Illness: This is a 67-year-old female with a past medical history of asthma, diabetes, hypertension, stroke and thyroid cancer. On 08/16/18, at around midnight she developed right hand numbness and right upper extremity weakness that progressively worsened. By morning time the symptoms had not improved so she decided to seek further evaluation and came to the Emergency Department. On 06/26/18 she was admitted to the hospital with similar symptoms that only last approximately 30 minutes. The MRI that was obtained showed multiple small infarcts in the posterior fossa and left hemisphere. She also was found to have a 2cm left internal carotid artery calcification. Prior echo on 06/28/18 showed atrial septal aneurysm without atrial shunting. On evaluation today, she was unable to give me a clear explanation on what occurred due to forgetfulness, so most information is obtained from chart review. She was able to tell me that she did not experience any CP, pressure, palpitations or SOB during the previously discussed event. She currently denies any CP, pressure, palpitations , dizziness, edema or SOB. Review of Systems All other systems reviewed negative except as stated in HPI PMFSH - History History Provided By: Patient - Medical History Medical History: Medical History (Last Reviewed 08/17/18 @ 14:24 by Zuhair Baeza) Asthma Diabetes HTN (hypertension) Stroke Thyroid cancer - Surgical History Surgical History: Surgical History (Last Reviewed 08/17/18 @ 14:24 by Zuhair Baeza) H/O laparoscopy History of back surgery History of lung biopsy History of tonsillectomy Hx of breast biopsy Hx of thyroidectomy - Family History Family History: Family History (Last Reviewed 08/16/18 @ 12:45 by Soha Weber MD) Mother Heart disease Mother Lung cancer - Tobacco History Second Hand Smoke Exposure: No Smoking Status: Former smoker Tobacco Type: Cigarettes - Alcohol History How Often Do You Have a Drink Containing Alcohol: 2 to 3 times a week - Substance Use History Substance History: No History of Abuse - Travel History Recent Travel in the [place] Within the Last 8 Weeks: No Recent Travel Out of the Country Within the Last 8 Weeks: No - Immunization History Tetanus Immunization: Unsure Tetanus Immunization Year if Known: 2012 Hx Influenza Vaccine This Season: Yes Medications and Allergies Allergies Allergy/AdvReac Type Severity Reaction Status Date / Time losartan Allergy Swelling Verified 08/16/18 07:56 of Lip/Tongue/Throat Sulfa (Sulfonamide Allergy Hives Verified 08/16/18 07:56 Antibiotics) ciprofloxacin [From Cipro] AdvReac Tingling Verified 08/16/18 07:56 levofloxacin AdvReac Joint Pain Verified 08/16/18 07:56 prednisone AdvReac Joint Pain Verified 08/16/18 07:56 Rmsnqnj-Cov-Nyn Reductase AdvReac Joint Pain Verified 08/16/18 07:56 Inhibitor Home Medications Medication Instructions Recorded Confirmed Type albuterol sulfate 0.63 mg INHALATION Q4-6H PRN 06/23/18 08/16/18 History fluticasone [Flonase Allergy 1 spray INTRANASAL DAILY 06/23/18 08/16/18 History Relief] levothyroxine [Unithroid] 112 mcg PO DAILY 06/23/18 08/16/18 History psyllium husk [Metamucil] 0.52 g PO DAILY 06/23/18 08/16/18 History Bifidobacterium infantis [Align] 4 mg PO DAILY 06/26/18 08/16/18 History fluticasone-vilanterol [Breo 1 inh INHALATION DAILY 06/26/18 08/16/18 History Ellipta] Active Medications: Active Medications Acetaminophen (Tylenol) 650 mg PO Q6H PRN PRN Reason: PAIN 1-10 AND/OR FEVER >101F Last Admin: 08/19/18 12:14 Dose: 650 mg Al Hydroxide/Mg Hydroxide (Milk Of Michael Cisse) 30 ml PO Q12H PRN PRN Reason: Mild Constipation Albuterol (Duoneb Neb (Prn)) 1 ampul NEB Q2HR NEB PRN PRN Reason: WHEEZING Bisacodyl (Dulcolax Supp) 10 mg RECTAL DAILY PRN PRN Reason: SEVERE CONSITIPATION Chlorhexidine Gluconate (Chlorhexidine 2% Cloth) 3 pack TOPICAL DAILY@0400 [facility] Stop: 08/22/18 03:59 Last Admin: 08/19/18 04:42 Dose: 3 pack Chlorhexidine Gluconate (Chlorhexidine 2% Cloth) 3 pack TOPICAL DAILY@0400 PRN PRN Reason: Extra cloth needed Stop: 08/22/18 03:59 Dextrose (D50w Vial) 50 ml IV.PUSH UNSCH PRN PRN Reason: PER HYPOGLYCEMIA PROTOCOL Enoxaparin Sodium (Lovenox Inj) 80 mg SQ Q12H [facility] Last Admin: 08/19/18 09:58 Dose: 80 mg Fluticasone/Vilanterol (Breo Ellipta 200/25 Mcg Inh) 1 puff INH DAILY [facility] Last Admin: 08/19/18 09:41 Dose: 1 puff Glucagon (Glucagon Inj) 1 mg OTHER PRN PRN PRN Reason: for Hypoglycemia Protocol Magnesium Sulfate 4 gm/ Sodium (Chloride) 100 mls @ 50 mls/hr IV.SIG UNSCH PRN PRN Reason: For Magnesium 0.9 - 1.1 mg/dL Magnesium Sulfate 2 gm/ Sodium (Chloride) 100 mls @ 50 mls/hr IV.SIG UNSCH PRN PRN Reason: For Magnesium 1.2 - 1.6 mg/dL Potassium Chloride (Kcl 40 Meq Premix Inj) 40 meq in 100 mls @ 25 mls/hr IV.SIG Q2H PRN PRN Reason: For Potassium 2.8 - 3.2 mEq/L Potassium Chloride (Kcl 20 Meq Premix Inj) 20 meq in 100 mls @ 50 mls/hr IV.SIG Q2H PRN PRN Reason: For Potassium 3.3 - 3.5 mEq/L Potassium Chloride (Kcl 40 Meq Premix Inj) 40 meq in 100 mls @ 25 mls/hr IV.SIG UNSCH PRN PRN Reason: For Potassium 3.3 - 3.5 mEq/L Potassium Phosphate 30 mmol/ (Sodium Chloride) 260 mls @ 42 mls/hr IV.SIG UNSCH PRN PRN Reason: SEE LABEL COMMENTS Sodium Phosphate 30 mmol/ (Sodium Chloride) 260 mls @ 42 mls/hr IV.SIG UNSCH PRN PRN Reason: For Phosphorus < 2.5 mg/dL Potassium Chloride (Kcl 20 Meq Premix Inj) 20 meq in 100 mls @ 50 mls/hr IV.SIG Q2H PRN PRN Reason: For Potassium 2.8 - 3.2 mEq/L Insulin Aspart (Novolog Insulin Correctional Sugar Inj) 0 unit SQ ACHS AND 3AM SAM; Protocol Last Admin: 08/19/18 12:09 Dose: Not Given Lactulose (Lactulose Liq) 30 ml PO DAILY PRN PRN Reason: SEVERE CONSITIPATION Levetiracetam (Keppra) 500 mg PO BID [facility] Last Admin: 08/19/18 09:42 Dose: 500 mg Levothyroxine Sodium (Synthroid) 112 mcg PO DAILY@0600 [facility] Last Admin: 08/19/18 05:07 Dose: Not Given Magnesium Oxide (Mag-Ox) 800 mg PO UNSCH PRN PRN Reason: For Magnesium 1.2 - 1.6 mg/dL Metoprolol Tartrate (Lopressor) 100 mg PO BID [facility] Last Admin: 08/19/18 09:42 Dose: 100 mg Ondansetron HCl (Zofran Inj) 4 mg IV.PUSH Q6H PRN PRN Reason: NAUSEA OR VOMITING Pt Own Unithroid ( Levothyroxine) 112 Mcg Tablet 0 each PO DAILY@0600 [facility] Last Admin: 08/19/18 05:06 Dose: 112 each Potassium Bicarb/Potassium Chloride (K-Lyte Cl Eff) 50 meq PO UNSCH PRN PRN Reason: For Potassium 3.3 - 3.5 mEq/L Potassium Phosphate (K-Phos Original) 2,000 mg PO Q4H PRN PRN Reason: Phosphorus Less Than 2.5 mg/dL Potassium Phosphate (K-Phos Original) 2,000 mg PO UNSCH PRN PRN Reason: SEE LABEL COMMENTS Senna/Docusate Sodium (Wendy-Colace) 1 tab PO BID [facility] Last Admin: 08/19/18 09:42 Dose: 1 tab Sennosides (Senokot) 17.2 mg PO Q12H PRN PRN Reason: Moderate Constipation Sodium Chloride (Ns Flush) 2 ml IV.FLUSH BID [facility] Last Admin: 08/19/18 11:38 Dose: 2 ml Sodium Chloride (Ns Flush) 2 ml IV.FLUSH PRN PRN PRN Reason: FLUSH AFTER USING IV ACCESS Exam Vital signs: Vital Signs 08/18/18 15:23 08/18/18 16:00 08/18/18 17:00 Temperature Pulse Rate 65 63 Respiratory Rate 33 H 16 Blood Pressure Pulse Oximetry 98 96 96 08/18/18 17:03 08/18/18 17:43 08/18/18 18:00 Temperature Pulse Rate 73 72 68 Respiratory Rate 44 H 31 H 19 Blood Pressure 192/84 H 180/78 H Pulse Oximetry 97 98 97 08/18/18 19:00 08/18/18 20:00 08/18/18 20:45 Temperature 97.6 F Pulse Rate 66 78 78 Respiratory Rate 22 21 22 Blood Pressure 189/73 H Pulse Oximetry 97 96 97 08/18/18 21:00 08/18/18 22:00 08/18/18 23:00 Temperature Pulse Rate 69 67 68 Respiratory Rate 24 24 21 Blood Pressure Pulse Oximetry 98 97 97 08/19/18 00:00 08/19/18 01:00 08/19/18 01:24 Temperature 97.9 F Pulse Rate 61 69 63 Respiratory Rate 15 16 16 Blood Pressure 184/82 H Pulse Oximetry 95 95 96 08/19/18 02:00 08/19/18 03:00 08/19/18 04:00 Temperature 97.6 F Pulse Rate 58 L 59 L 63 Respiratory Rate 15 15 16 Blood Pressure 169/75 H Pulse Oximetry 96 94 L 96 08/19/18 05:00 08/19/18 05:10 08/19/18 06:00 Temperature Pulse Rate 60 67 59 L Respiratory Rate 15 24 16 Blood Pressure 169/75 H Pulse Oximetry 95 98 98 08/19/18 06:10 08/19/18 07:00 08/19/18 08:00 Temperature 98.0 F Pulse Rate 64 60 67 Respiratory Rate 19 30 H 23 Blood Pressure 137/61 Pulse Oximetry 97 95 97 08/19/18 09:00 08/19/18 09:41 08/19/18 09:49 Temperature Pulse Rate 71 83 83 Respiratory Rate 23 32 H Blood Pressure 137/61 Pulse Oximetry 97 96 08/19/18 10:00 08/19/18 11:00 08/19/18 12:00 Temperature Pulse Rate 76 76 73 Respiratory Rate 29 H 34 H 18 Blood Pressure Pulse Oximetry 97 96 97 08/19/18 12:09 Temperature 97.7 F Pulse Rate 69 Respiratory Rate 23 Blood Pressure 135/65 Pulse Oximetry 97 Intake & Output 08/18/18 08/19/18 08/19/18 18:59 06:59 18:59 Intake Total 480 / 480 Balance 480 / 480 Weight 79.9 kg Intake: Oral 480 / 480 Other: # Voids 3 Date of Last Bowel Movement 08/18/18 08/18/18 08/18/18 - Constitutional no acute distress - Routine HEENT Exam Head: Present: normocephalic Eye: Present: PERRL ENT: Present: mucous membranes moist - Routine Neck Exam Present: full ROM - Routine Respiratory Exam Present: CTA bilaterally - Routine Cardiovascular Exam Present: S1, S2. Absent: murmur, gallop, rubs - Routine Abdominal Exam Present: normoactive bowel sounds - Routine Extremities Exam Present: full ROM, pulses intact, normal capillary refill. Absent: cyanosis, clubbing, edema - Routine Skin Exam Present: intact - Routine Neurological Exam Present: oriented X3, moving all extremities Results 08/18/18 20:34 08/18/18 04:40 Coagulation 08/18/18 08/18/18 Range/Units 04:40 20:34 PT 10.4 (9.8-11.6) sec APTT 38.7 H 34.0 H (23.4-31.7) sec CBC 08/18/18 08/18/18 Range/Units 04:40 20:34 WBC 6.1 7.7 (4.0-11.0) th/mm3 RBC 3.53 L 3.64 L (4.00-5.30) mil/mm3 Hgb 11.5 L 12.0 (11.6-15.3) gm/dL Hct 34.2 L 34.2 L (35.0-46.0) % Plt Count 216 231 (150-450) th/mm3 Neut # (Auto) 3.2 (1.8-7.7) th/mm3 Lymph # (Auto) 2.1 (1.0-4.8) th/mm3 [place] # (Auto) 0.6 (0.0-0.9) th/mm3 Eos # (Auto) 0.1 (0.0-0.4) th/mm3 Baso # (Auto) 0.1 (0.0-0.2) th/mm3 Comprehensive Metabolic Panel 08/18/18 Range/Units 04:40 Sodium 140 (136-145) meq/L Potassium 4.0 (3.5-5.1) meq/L Chloride 107 (98-107) meq/L Carbon Dioxide 26.4 (21.0-32.0) meq/L BUN 13 (7-18) mg/dL Creatinine 0.64 (0.50-1.00) mg/dL Calcium 8.7 (8.5-10.1) mg/dL Intake and Output 08/18/18 08/19/18 08/19/18 22:59 06:59 14:59 Intake Total 480 / 480 Balance 480 / 480 Intake: Oral 480 / 480 Other: # Voids 3 Date of Last Bowel Movement 08/18/18 08/18/18 08/18/18 Weight 79.9 kg - Imaging and Cardiology Imaging: Impressions Head MRI 08/18/18 00:00 CONCLUSION: Evolving strokes. No new acute findings. Assessment and Plan - Assessment (1) Seizure Code(s): R56.9 - Unspecified convulsions Status: Acute (2) Thrombosis of left carotid artery Code(s): I65.22 - Occlusion and stenosis of left carotid artery Status: Acute (3) Acute ischemic left MCA stroke Code(s): I63.512 - Cerebral infarction due to unspecified occlusion or stenosis of left middle cerebral artery Status: Acute (4) Hypertension Code(s): I10 - Essential (primary) hypertension Status: Acute - Plan Patient is currently SR on monitor and VSS. Neurology evaluation in progress. DON requested by Dr. Huerta. Due to patients past hx of strokes, we discussed scheduling a DON as an outpatient. Patient is requesting to hold off on DON until her left carotid is repaired, vascular surgery evaluation in progress. Patient can be cleared for discharge tomorrow from a cardiology standpoint as long as she remains stable. The patient was seen and evaluated by Dr. Montiel who participated in care, management and decision making. - Attending Attestation Patient seen and examined. I reviewed and agree with the evaluation and plan as presented. She requests to wait with DON until after her left carotid surgery. D /w pt and .
[2018-08-20] MEDS: Chlorhexidine Gluconate 2% 1 Pack (2 Cloths) TOPICAL SCH (04:55)
[2018-08-20] MEDS: Insulin NovoLOG Aspart Correctional Sugar Inj SQ SCH ×2 (05:00→10:55)
[2018-08-20] MEDS: LEVOTHYROXINE PO SCH (05:03)
[2018-08-20] MEDS: Levothyroxine 112 MCG Tablet PO SCH (05:03)
--- NOTE | 2018-08-20 08:18 | P.PNNEU ---
Subjective Subjective Comments: No cp, no dyspnea, no lees, no focal weakness, no vision loss. No sensory symptoms. Patient ready go home Active Medications: Active Medications Acetaminophen (Tylenol) 650 mg PO Q6H PRN PRN Reason: PAIN 1-10 AND/OR FEVER >101F Last Admin: 08/19/18 12:14 Dose: 650 mg Al Hydroxide/Mg Hydroxide (Milk Of Magnceleste Liq) 30 ml PO Q12H PRN PRN Reason: Mild Constipation Albuterol (Duoneb Neb (Prn)) 1 ampul NEB Q2HR NEB PRN PRN Reason: WHEEZING Bisacodyl (Dulcolax Supp) 10 mg RECTAL DAILY PRN PRN Reason: SEVERE CONSITIPATION Chlorhexidine Gluconate (Chlorhexidine 2% Cloth) 3 pack TOPICAL DAILY@0400 [facility] Stop: 08/22/18 03:59 Last Admin: 08/20/18 04:55 Dose: 3 pack Chlorhexidine Gluconate (Chlorhexidine 2% Cloth) 3 pack TOPICAL DAILY@0400 PRN PRN Reason: Extra cloth needed Stop: 08/22/18 03:59 Dextrose (D50w Vial) 50 ml IV.PUSH UNSCH PRN PRN Reason: PER HYPOGLYCEMIA PROTOCOL Enoxaparin Sodium (Lovenox Inj) 80 mg SQ Q12H [facility] Last Admin: 08/19/18 21:44 Dose: 80 mg Fluticasone/Vilanterol (Breo Ellipta 200/25 Mcg Inh) 1 puff INH DAILY [facility] Last Admin: 08/19/18 09:41 Dose: 1 puff Glucagon (Glucagon Inj) 1 mg OTHER PRN PRN PRN Reason: for Hypoglycemia Protocol Magnesium Sulfate 4 gm/ Sodium (Chloride) 100 mls @ 50 mls/hr IV.SIG UNSCH PRN PRN Reason: For Magnesium 0.9 - 1.1 mg/dL Magnesium Sulfate 2 gm/ Sodium (Chloride) 100 mls @ 50 mls/hr IV.SIG UNSCH PRN PRN Reason: For Magnesium 1.2 - 1.6 mg/dL Potassium Chloride (Kcl 40 Meq Premix Inj) 40 meq in 100 mls @ 25 mls/hr IV.SIG Q2H PRN PRN Reason: For Potassium 2.8 - 3.2 mEq/L Potassium Chloride (Kcl 20 Meq Premix Inj) 20 meq in 100 mls @ 50 mls/hr IV.SIG Q2H PRN PRN Reason: For Potassium 3.3 - 3.5 mEq/L Potassium Chloride (Kcl 40 Meq Premix Inj) 40 meq in 100 mls @ 25 mls/hr IV.SIG UNSCH PRN PRN Reason: For Potassium 3.3 - 3.5 mEq/L Potassium Phosphate 30 mmol/ (Sodium Chloride) 260 mls @ 42 mls/hr IV.SIG UNSCH PRN PRN Reason: SEE LABEL COMMENTS Sodium Phosphate 30 mmol/ (Sodium Chloride) 260 mls @ 42 mls/hr IV.SIG UNSCH PRN PRN Reason: For Phosphorus < 2.5 mg/dL Potassium Chloride (Kcl 20 Meq Premix Inj) 20 meq in 100 mls @ 50 mls/hr IV.SIG Q2H PRN PRN Reason: For Potassium 2.8 - 3.2 mEq/L Insulin Aspart (Novolog Insulin Correctional Sugar Inj) 0 unit SQ ACHS AND 3AM SAM; Protocol Last Admin: 08/20/18 05:00 Dose: Not Given Lactulose (Lactulose Liq) 30 ml PO DAILY PRN PRN Reason: SEVERE CONSITIPATION Levetiracetam (Keppra) 500 mg PO BID [facility] Last Admin: 08/19/18 21:44 Dose: 500 mg Levothyroxine Sodium (Synthroid) 112 mcg PO DAILY@0600 [facility] Last Admin: 08/20/18 05:03 Dose: Not Given Magnesium Oxide (Mag-Ox) 800 mg PO UNSCH PRN PRN Reason: For Magnesium 1.2 - 1.6 mg/dL Metoprolol Tartrate (Lopressor) 100 mg PO BID [facility] Last Admin: 08/19/18 21:44 Dose: 100 mg Ondansetron HCl (Zofran Inj) 4 mg IV.PUSH Q6H PRN PRN Reason: NAUSEA OR VOMITING Pt Own Unithroid ( Levothyroxine) 112 Mcg Tablet 0 each PO DAILY@0600 [facility] Last Admin: 08/20/18 05:03 Dose: 112 each Potassium Bicarb/Potassium Chloride (K-Lyte Cl Eff) 50 meq PO UNSCH PRN PRN Reason: For Potassium 3.3 - 3.5 mEq/L Potassium Phosphate (K-Phos Original) 2,000 mg PO Q4H PRN PRN Reason: Phosphorus Less Than 2.5 mg/dL Potassium Phosphate (K-Phos Original) 2,000 mg PO UNSCH PRN PRN Reason: SEE LABEL COMMENTS Senna/Docusate Sodium (Wendy-Colace) 1 tab PO BID [facility] Last Admin: 08/19/18 21:50 Dose: Not Given Sennosides (Senokot) 17.2 mg PO Q12H PRN PRN Reason: Moderate Constipation Sodium Chloride (Ns Flush) 2 ml IV.FLUSH BID [facility] Last Admin: 08/19/18 21:45 Dose: 2 ml Sodium Chloride (Ns Flush) 2 ml IV.FLUSH PRN PRN PRN Reason: FLUSH AFTER USING IV ACCESS Allergies/Adverse Reactions: Allergies Allergy/AdvReac Type Severity Reaction Status Date / Time losartan Allergy Swelling Verified 08/16/18 07:56 of Lip/Tongue/Throat Sulfa (Sulfonamide Allergy Hives Verified 08/16/18 07:56 Antibiotics) ciprofloxacin [From Cipro] AdvReac Tingling Verified 08/16/18 07:56 levofloxacin AdvReac Joint Pain Verified 08/16/18 07:56 prednisone AdvReac Joint Pain Verified 08/16/18 07:56 [id number]-[id number] Reductase AdvReac Joint Pain Verified 08/16/18 07:56 Inhibitor Review of Systems All other systems reviewed negative except as stated in HPI Physical Exam Vital signs: Vital Signs 08/19/18 09:00 08/19/18 09:41 08/19/18 09:49 Temperature Pulse Rate 71 83 83 Respiratory Rate 23 32 H Blood Pressure 137/61 Pulse Oximetry 97 96 08/19/18 10:00 08/19/18 11:00 08/19/18 12:00 Temperature Pulse Rate 76 76 73 Respiratory Rate 29 H 34 H 18 Blood Pressure Pulse Oximetry 97 96 97 08/19/18 12:09 08/19/18 13:00 08/19/18 14:00 Temperature 97.7 F Pulse Rate 69 62 74 Respiratory Rate 23 26 H 18 Blood Pressure 135/65 Pulse Oximetry 97 96 97 08/19/18 15:00 08/19/18 16:00 08/19/18 16:15 Temperature 97.8 F Pulse Rate 65 63 69 Respiratory Rate 19 16 23 Blood Pressure 134/74 Pulse Oximetry 98 98 08/19/18 17:18 08/19/18 18:00 08/19/18 19:00 Temperature Pulse Rate 64 75 Respiratory Rate 23 21 Blood Pressure Pulse Oximetry 98 98 98 08/19/18 19:40 08/19/18 20:00 08/19/18 20:10 Temperature 97.9 F Pulse Rate 73 68 65 Respiratory Rate 21 20 Blood Pressure 133/62 Pulse Oximetry 97 96 08/20/18 00:00 08/20/18 00:01 08/20/18 03:00 Temperature 97.6 F Pulse Rate 61 59 L 61 Respiratory Rate 16 15 Blood Pressure 129/60 Pulse Oximetry 96 97 08/20/18 04:00 08/20/18 04:05 08/20/18 05:00 Temperature 97.6 F Pulse Rate 62 62 68 Respiratory Rate 15 24 Blood Pressure Pulse Oximetry 95 97 08/20/18 05:06 08/20/18 06:00 08/20/18 07:00 Temperature Pulse Rate 67 64 64 Respiratory Rate 22 17 18 Blood Pressure 150/70 H Pulse Oximetry 99 99 98 Intake & Output 08/19/18 08/20/18 08/20/18 18:59 06:59 18:59 Intake Total 700 / 700 720 / 720 Balance 700 / 700 720 / 720 Weight 79.9 kg Intake: Oral 700 / 700 720 / 720 Other: # Voids 2 Date of Last Bowel Movement 08/18/18 08/18/18 Narrative: .GENERAL: in NAD, sitting up in bed looks well SKIN: Warm and dry. HEAD: Atraumatic. Normocephalic. EYES: Pupils equal and round. ENT: No nasal bleeding or discharge. NECK: Trachea midline. No JVD. CARDIOVASCULAR: Regular rate and rhythm. RESPIRATORY: No accessory muscle use. MUSCULOSKELETAL: Extremities without clubbing, cyanosis, or edema. NEUROLOGICAL: Awake and alert. , ox 3,fluent articulate, visual vargas full, no drift, heel raise all 4 extremity gravity slow fine finger movements in the right hand no dystaxia gait not assessed secondary fall risk PSYCHIATRIC: Appropriate mood and affect; insight and judgment normal - Constitutional no acute distress - Routine HEENT Exam Head: Present: normocephalic Objective Laboratory Results - last 24 hr 08/20/18 05:09 POC Glucose 115 H Review/Management - Diagnosis (1) Thrombosis of left carotid artery Code(s): I65.22 - Occlusion and stenosis of left carotid artery Status: Acute Current Visit: Yes (2) Acute ischemic left MCA stroke Code(s): I63.512 - Cerebral infarction due to unspecified occlusion or stenosis of left middle cerebral artery Status: Acute Current Visit: Yes (3) Hypertension Code(s): I10 - Essential (primary) hypertension Status: Acute Current Visit : Yes - Review/Management Plan: mri brain reviewed. a few tiny infarcts mainly left high hemisphere. one on the rt +mra neck left thrombus probable hypercoagulable state +lung masses MRI brain from early July 02 2018 was reviewed showing areas of diffusion restriction tiny scattered left MCA territory and somewhat larger in the left parietal occipital region. Also, with hx of seizures Previous echo showing EF greater than 50% Repeat MRI brain scan 08/18/2018 shows stability Recommendation neuro stable on lovenox full dose and aspirin Continue to monitor today. She has a recurrent episode vascular surgery would need to consider earlier intervention Patient defers T at this time continue keppra Discharge planning today Follow-up neurology outpatient Follow-up with her vascular surgeon later this week Return to ER call 911 if any recurrent symptoms d/w pt/partner
[2018-08-20] MEDS: Senna/Docusate Sodium 8.6/50 MG Tablet PO SCH (09:01)
[2018-08-20] MEDS: levETIRAcetam 500 MG Tablet PO SCH (09:01)
[2018-08-20] MEDS: Metoprolol Tartrate 100 MG Tablet PO SCH (09:01)
[2018-08-20] MEDS: Enoxaparin Inj 80 MG/0.8 ML Syringe SQ SCH (09:57)
--- NOTE | 2018-08-20 11:15 | P.DS ---
DS: Providers Date of admission: 08/16/18 09:54 Primary care physician: UNKNOWN Consults: 08/16/18 07:29 Consult to Neurology Stat Consulting Provider: Jong Balbuena For STAT consult, spoke directly to:: mushtaq Reason for Consultation: Brain Attack Notified:: Service Spoke with:: julissa Date Notified:: 08/16/18 Time Notified:: 08:29 Ordering Provider: JAGRUTI 08/16/18 09:52 Consult to Vascular Surgery Stat Consulting Provider: Daniel Mistry For STAT consult, spoke directly to:: abhijeet Preferred Exchange Mechanic:: Daniel Mistry Reason for Consultation: Left carotid thrombosis, left hemispheric stroke Notified:: Physician Spoke with:: Dr. Mistry Date Notified:: 08/16/18 Time Notified:: 10:06 Ordering Provider: BEATRIZ 08/17/18 10:49 Consult to Hospitalist Routine Consulting Provider: Roge Nascimento Reason for Consultation: Continuation of medical management, ok to move out of [facility] 08/17 Notified:: Service Spoke with:: Rebekah Date Notified:: 08/17/18 Time Notified:: 10:53 Comments:: Ordering Provider: ROBY 08/19/18 09:17 Consult to Cardiology Routine Consulting Provider: Rory Montiel Does the patient have a Machine Tester who follows them?: No Preferred Urban Redevelopment Specialist:: Rory Montiel Reason for Consultation: DON, recurrent strokes Notified:: Office Spoke with:: ekshia Date Notified:: 08/19/18 Time Notified:: 09:25 Ordering Provider: BEATRIZ Brief History from admission: This is a 67-year-old female that presented to the ED with complaints of right hand numbness and right upper extremity weakness. Per report of the symptoms started approximately at 12 midnight and progressively worsened and the patient is decided to report to the ED this morning. The patient was not a candidate for TPA. Upon arrival to the ED, a stroke alert was called neurology was consulted. Imaging studies were performed which revealed a high-grade left proximal ICA carotid stenosis. The patient's medical history is significant for the fact that she was recently admitted to the hospital June 26 2018 with the same symptomatology only lasting 30 minutes , and at that time the patient was noted to have a 2 cm left internal carotid artery calcified plaque , MRI at that time revealed multiple small infarcts in the posterior fossa and left hemisphere. Neurology and vascular surgery was consulted at that time, and it was found that the patient was worked up for hypercoagulable studies, and vascular surgery Dr. Mistry initiated the patient on heparin and transitioned to therapeutic Lovenox. In review of records during that hospital stay on 06/29 cardiology had informed the hospitalist that the patient had a PFO but no right to left shunting was noted at that time. Upon review of the echo report 06/28/18 and atrial septal aneurysm is present but no atrial shunt on color flow Doppler nor agitated saline . Additional imaging studies were noted during her previous hospitalization which revealed a 3.3 lobulated mass in the left upper lobe and additional 4 mm nodule in the left upper lobe. A soft tissue neck CT was performed which showed a left preepiglottic space soft tissue lesion and probable vocal cord paralysis. Upon discharge on 06/30/2018 the patient was instructed to continue on therapeutic Lovenox uninterrupted , or minimally 1 month and was seen by the vascular surgery as an outpatient, with tentative plan for CT-guided biopsy of lung and neck lesions. The patient and family reported that she stopped Lovenox for approximately 24 hours last dose being sometime yesterday for planned CT-guided biopsy of lesions, and subsequently last night began experiencing the same symptoms. Today the patient underwent imaging studies which showed high-grade proximal left ICA carotid stenosis, that were not present on 1114 imaging studies the patient underwent as an outpatient. Vascular surgery, Dr. Mistry was consulted all imaging studies were again reviewed , plan for admission to ICU with close monitoring, initiation of heparin infusion as discussed/ recommended by , surgical intervention at this time would put the patient at high risk. DS: Diagnosis Discharge Diagnosis (1) Seizure: Status: Acute (2) Thrombosis of left carotid artery: Status: Acute (3) Acute ischemic left MCA stroke: Status: Acute (4) Hypertension: Status: Acute DS: Summary Mrs. Sibley is a 67-year-old female. She came in secondary to acute CVA. Deficits are prominent at her right hand but are mild including paresthesias of the distal hand and some mild weakness. This is found to be related to a left carotid artery stenosis which has thrombus present. This has occurred in the past and patient was previously treated with blood thinners with resolution of her thrombus. However she has recurrence this time. She is being treated with Lovenox. Plan for endarterectomy after resolution of thrombus, which will occur as an outpatient. Patient's medically stable and cleared for discharge home today. She will follow-up with neurology and vascular surgeon as an outpatient. Time Spent with Patient Total time spent providing and/or coordinating discharge services: Quality: Stroke Last date observed well: 08/16/18 Last time observed well: 06:45 Results Labs on day of discharge: Labs from last 24 hours 08/20/18 05:09 POC Glucose 115 H Impressions ITS Impressions Chest X-Ray 08/16/18 07:29 CONCLUSION: 1. No acute cardiopulmonary abnormality is identified. 2. Stable lobulated mass in the left upper lobe. Head CT 08/16/18 07:29 CONCLUSION: 1. No acute intracranial abnormality is identified. 2. Stable mild generalized atrophy with mild chronic periventricular white matter change. These findings and the findings on the head CTA were telephoned to Dr. Gallagher on 08/16/2018 at 7:45 AM. Head CTA 08/16/18 07:29 CONCLUSION: No acute intracranial vascular abnormality is identified. Please refer to neck CTA report for description of the additional findings. These findings as well as the neck CTA findings were telephoned to Dr. Balbuena on 08/16/2018 at 7:55 AM. Neck CTA 08/16/18 07:29 CONCLUSION: 1. There is new intraluminal thrombus causing focal high-grade stenosis of the left proximal internal carotid artery. This finding was not present on the prior study dated 07/13/2018. 2. Remaining neck arterial vasculature demonstrates no significant stenosis. 3. There is a soft tissue mass in the left valleculae and piriform sinus measuring up to 1.7 cm. Suggest further evaluation and biopsy with direct visualization. 4. These findings were discussed with Dr. Gallagher via telephone. Head MRA 08/16/18 08:51 CONCLUSION: No acute intracranial vascular abnormality is identified. Neck MRA 08/16/18 08:51 CONCLUSION: 1. Eccentric polypoid-appearing, pedunculated noncalcified plaque extending from the left carotid bulb into the proximal internal carotid artery and resulting in greater than 70% stenosis on the left. 2. No significant stenosis of the right carotid system. 3. Scattered emphysematous changes within the lung apices. Percent stenosis is calculated using the diameter of the stenotic region over the diameter of the normal distal internal carotid artery Head MRI 08/18/18 00:00 CONCLUSION: Evolving strokes. No new acute findings. Discharge Plan Discharge Disposition Patient Disposition: Discharge Home Discharge Condition Condition: Stable Discharge Order Discharge Orders: Discharge Order (Routine); Ordered 08/20/18 Ordered By: Roge Nascimento Discharge Details Anticipated Discharge Date: 08/19/18 Discharge Comment: After seen and cleared by Neurology Physicians Team Primary Care Provider: UNKNOWN, Attending Provider: Roge Nascimento Other Providers: Jong Balbuena ; Daniel Mistry ; Rory Montiel Rxs /Orders / Referrals /Forms Prescriptions: New enoxaparin [Lovenox] 80 mg/0.8 mL Syringe 80 mg subcut Q12H Qty: 60 RF: 0 Continue albuterol sulfate 0.63 mg/3 mL Solution For Nebulization 0.63 mg INHALATION Q4-6H PRN (Reason: allergies) RF: 0 fluticasone [Flonase Allergy Relief] 50 mcg/actuation [place],Suspension 1 spray INTRANASAL DAILY RF: 0 levothyroxine [Unithroid] 112 mcg Tablet 112 mcg PO DAILY RF: 0 psyllium husk [Metamucil] 0.52 gram Capsule 0.52 g PO DAILY RF: 0 Bifidobacterium infantis [Align] 4 mg Capsule 4 mg PO DAILY RF: 0 fluticasone-vilanterol [Breo Ellipta] 200-25 mcg/dose Blister With Device 1 inh INHALATION DAILY RF: 0 metoprolol tartrate 100 mg Tablet 100 mg PO BID Qty: 60 RF: 11 levetiracetam [Keppra] 500 mg Tablet 500 mg PO BID Qty: 60 RF: 0 Referrals: UNKNOWN, [Primary Care Provider] - See Instructions Discharge Instructions Patient Printed Instructions: Carotid Endarterectomy (PRE), Ischemic Stroke (DC ) Post Discharge Care Plan Care Plan Goals: Discharge Care Plan Goals for Stroke You have been diagnosed with or have a high risk for a stroke, or a TIA ( transient ischemic attack). During a stroke, blood stops flowing to part of your brain. This can damage areas in the brain that control other parts of the body. Symptoms after a stroke depend on which part of the brain has been affected. Directions to Meet your Goals: 1. Diet: Based on your situation, your doctor will direct you to make changes in your diet. Some of the changes may include: * Reducing the amount of fat and cholesterol you eat * Don't add salt to your food. * Eat more fresh vegetables and fruits * Eat more lean proteins, such as fish, poultry, and beans and peas (legumes). Cut down on red meat & processed meats * Use low-fat dairy products * Limit vegetable oils and nut oils. Avoid any food that has hydrogenated listed in its ingredients. * Limit sweets and processed foods such as chips, cookies, and baked goods 2. Prevent Falls/Injury: You may be at risk of falling. Activity: * Keep your surrounding clutter free to help you walk more easily. * Your doctor and therapist may decide if you need an assistive device to walk safely. Shower/Bathing: * Test the water temperature with a hand or foot that was not affected by the stroke. * Use grab bars, a shower seat, a hand-held showerhead, and a long-handled brush. Getting Dressed: * Dress while sitting, starting with the affected side or limb. * Wear shirts that pull easily over your head. Wear pants or skirts with elastic waistbands. * Use zippers with loops attached to the pull tabs. 3. Lifestyle Modifications: * Take your medicines exactly as prescribed. Dont skip doses. * Begin an exercise program as directed by your doctor. You can benefit from simple activities such as walking or gardening. * Limit how much alcohol you drink. Men should have no more than 2 alcoholic drinks a day. Women should limit themselves to 1 alcoholic drink per day. * Know your cholesterol level. Follow your doctor's recommendations about how to keep cholesterol under control. * If you are a smoker, quit now. Joining a stop-smoking program will improve your chances of success. Ask your doctor for medicines or other methods to help you quit. * Learn stress management techniques to help you deal with stress in your home and work life. 4. Stroke Risk Factors: Once youve had a stroke, youre at greater risk for another one. Listed below are some other factors that can increase your risk for a stroke: * High blood pressure and High Cholesterol * Cigarette or cigar smoking * Diabetes * Carotid or other artery disease * Atrial fibrillation, atrial flutter, or other heart disease * Not being physically active * Obesity * Certain blood disorders such as sickle cell anemia * Drinking too much alcohol * Abusing street drugs * Race * Gender * Family history of stroke * Diet high in salty, fried, or greasy foods 5. Follow-up: * Keep your medical appointments. Close follow-up is important to stroke rehabilitation and recovery. * Some medicines require blood tests to check for progress or problems. Keep follow-up appointments for any blood tests ordered by your providers. Call 911 right away if you have: Weakness, tingling, or loss of feeling on one side of your face or body Sudden double vision or trouble seeing in one or both eyes Sudden trouble talking or slurred speech Trouble understanding others Sudden, severe headache Dizziness, loss of balance, or a sense of falling Blackouts or seizures F.A.S.T. is an easy way to remember the signs of stroke. When you see these signs, you know that you need to call 911 fast. F.A.S.T. stands for: * F is for face drooping. One side of the face is drooping or numb. When the person smiles, the smile is uneven. * A is for arm weakness. One arm is weak or numb. When the person lifts both arms at the same time, one arm may drift downward. * S is for speech difficulty. You may notice slurred speech or trouble speaking. The person can't repeat a simple sentence correctly when asked. * T is for time to call 911. If someone shows any of these symptoms, even if they go away, call 911 right away. Make note of the time the symptoms first appeared. Status ED Status: Left Department
== END 2018-08-20 13:15 | disposition home or self-care (01) ==
LOC: NEPE 07:20 → NEDA 09:54 → N03 11:00
PROVIDERS: ADMIT Hospitalist; ATTEND Hospitalist
DX: Z79.02 Long term (current) use of antithrombotics/antiplatelets; R91.8 Other nonspecific abnormal finding of lung field; I48.91 Unspecified atrial fibrillation; E89.0 Postprocedural hypothyroidism; Z85.850 Personal history of malignant neoplasm of thyroid; J38.00 Paralysis of vocal cords and larynx, unspecified; I65.22 Occlusion and stenosis of left carotid artery; Z86.73 Personal history of transient ischemic attack (TIA), and cerebral infarction without residual deficits; D68.59 Other primary thrombophilia; R29.701 NIHSS score 1; Z79.51 Long term (current) use of inhaled steroids; I10 Essential (primary) hypertension; E11.9 Type 2 diabetes mellitus without complications; J45.909 Unspecified asthma, uncomplicated; Z88.2 Allergy status to sulfonamides; G40.909 Epilepsy, unspecified, not intractable, without status epilepticus; I63.512 Cerebral infarction due to unspecified occlusion or stenosis of left middle cerebral artery; Z87.891 Personal history of nicotine dependence

== ENCOUNTER 2018-09-01 05:30 | Inpatient (IN) ==
[2018-09-01] MEDS ORDERED: Chlorhexidine Gluconate 2% 1 Pack (2 Cloths) TOPICAL ONE (06:30)
[2018-09-01] MEDS ORDERED: Sodium Chlor 0.9% Inj 500 ML IV.CONT ONE (06:30)
[2018-09-01] MEDS ORDERED: Metoprolol Tartrate 25 MG Tablet PO ONE (06:30)
[2018-09-01] MEDS ORDERED: niCARdipine Inj 25 MG/10 ML Vial ONE (06:43)
[2018-09-01] MEDS ORDERED: Thrombin Topical 20,000 UNIT Spray Kit TOPICAL ONE (06:53)
[2018-09-01] MEDS ORDERED: ceFAZolin 1 GM Premix Inj 1 GM/50 ML PIGGYBACK IV.SIG ONE ×2 (06:53→08:10)
[2018-09-01] MEDS ORDERED: Gelatin Size 100 Topical Foam ONE (06:53)
[2018-09-01] MEDS ORDERED: Heparin/NS PF Inj 500 ML ONE (06:53)
[2018-09-01] MEDS ORDERED: Heparin 10,000 UNITS/10 ML Vial (for IV use) ONE (06:53)
[2018-09-01] MEDS ORDERED: Protamine Sulfate Inj 50 MG/5 ML Vial ONE (06:57)
--- NOTE | 2018-09-01 07:48 | P.HPUP ---
The Pre-Admit History and Physical Examination regarding the above named patient was reviewed (including, but not limited to, vital signs, heart, lungs, co-morbid conditions), and upon re-examination it is noted that: the patient's condition has not significantly changed since the last examination.
[2018-09-01] MEDS ORDERED: levETIRAcetam 500 MG Tablet PO ONE (08:15)
[2018-09-01] MEDS ORDERED: SODIUM CHLOR 0.9% IV.SIG ONE ×4 (09:00)
[2018-09-01] MEDS ORDERED: SODIUM CHLOR 0.9% IV.SIG SCH ×5 (09:00)
[2018-09-01] MEDS ORDERED: BIVALIRUDIN IV.SIG ONE ×4 (09:00)
[2018-09-01] MEDS ORDERED: BIVALIRUDIN IV.SIG SCH ×5 (09:00)
[2018-09-01] MEDS ORDERED: Sodium Chloride 0.9% 2 ML Flush PRN IV.FLUSH (09:02)
[2018-09-01] MEDS ORDERED: Bisacodyl 10 MG Supp RECTAL PRN (10:02)
[2018-09-01] MEDS ORDERED: fentaNYL Citrate Inj 100 MCG/2 ML Ampul ONE (10:27)
[2018-09-01] MEDS ORDERED: Morphine Sulfate Inj 2 MG/ML Vial ONE (10:45)
[2018-09-01] MEDS: Sod Chloride 0.9% Inj 1,000 ML IV.CONT SCH ×2 (11:30→22:41)
--- NOTE | 2018-09-01 11:54 | P.CONCC ---
History of Present Illness Service: Critical care medicine Consult date: 09/01/18 Requesting Physician: Daniel Mistry Reason for Consult: Critical care management Primary Care Provider: No Primary Care Physician Chief Complaint: Status post left carotid enterectomy History of Present Illness: This is a 67-year-old female. Date of admission 09/01/2089. Date of consult 09/01/2018. Past medical history includes asthma, seizures, left carotid artery stenosis, diabetes no hypertension hyperlipidemia thyroid cancer. Patient is on scheduled seizure and thyroid medications along with antihypertensives. Patient originally presented to [facility] July 2018 with complaints of right upper extremity generalized weakness at the time, the patient was not a candidate for TPA. Imaging studies were performed which revealed a high-grade left proximal ICA carotid stenosis patient was sent home on aspirin 160 mg daily and enoxaparin. Today, the patient underwent a left carotid endarterectomy Dr. Fuentes. EBL 50 cc. Urine output 800 cc. Received 1600 cc crystalloid. Patient is currently hemodynamically stable on home medication regimen. Awake and alert in no focal neurological deficits Review of Systems Constitutional: Reports weakness, Denies anorexia, Denies body ache(s), Denies chills Eyes: Denies blurry vision, Denies bulging eyes Ears, Nose, Mouth, and Throat: Denies bleeding gums, Denies bad breath, Denies nasal obstruction, Denies nasal trauma, Denies poor balance Cardiovascular: Denies chest pain, Denies chest pain at rest, Denies fast heart rate Respiratory: Denies change in phlegm color, Denies chest congestion Gastrointestinal: Denies loose stools, Denies pain with swallowing Genitourinary: Denies abnormal periods, Denies abnormal vaginal bleeding, Denies urinary urgency Musculoskeletal: Denies abnormal walking Skin/Breast: Denies bleeding lesions, Denies boil Neurologic: Denies abnormal hearing, Denies abnormal movements Psychiatric: Denies anxiety, Denies confusion, Denies depression Endocrine: Denies cold intolerance, Denies excessive sweating Hematologic/Lymphatic: Denies easy bleeding Allergic/Immunologic: Denies GI upset with certain foods PMFSH - History History Provided By: Patient, Family Member - Medical History Medical History: Medical History (Last Reviewed 09/01/18 @ 11:53 by Shaquille Lake MD) History of seizure Asthma Diabetes HTN (hypertension) Stroke Thyroid cancer - Surgical History Surgical History: Surgical History (Last Reviewed 09/01/18 @ 11:52 by Shaquille Lake MD) H/O dilation and curettage History of colonoscopy H/O laparoscopy History of back surgery History of lung biopsy History of tonsillectomy Hx of breast biopsy Hx of thyroidectomy - Family History Family History: Family History (Last Reviewed 09/01/18 @ 11:53 by Shaquille Lake MD) Mother Heart disease Mother Lung cancer - Tobacco History Second Hand Smoke Exposure: No Tobacco Use In Past 30 Days: No Smoking Status: Former smoker Tobacco Type: Cigarettes - Alcohol History How Often Do You Have a Drink Containing Alcohol: 2 to 3 times a week - Substance Use History Substance History: No History of Abuse - Immunization History Tetanus Immunization Year if Known: 2012 Medications and Allergies Active Medications: Active Medications Al Hydroxide/Mg Hydroxide (Milk Of Magnesia Liq) 30 ml PO Q12H PRN PRN Reason: Mild Constipation Aspirin (Ecotrin) 81 mg PO BID [facility] Bisacodyl (Dulcolax Supp) 10 mg RECTAL DAILY PRN PRN Reason: SEVERE CONSITIPATION Enoxaparin Sodium (Lovenox Inj) 80 mg SQ Q12HR [facility] Enoxaparin Sodium (Lovenox Inj) 80 mg SQ ONCE ONE Stop: 09/01/18 18:01 Famotidine (Pepcid) 20 mg PO BID [facility] Sodium Chloride (Ns Inj) 1,000 mls @ 100 mls/hr IV.CONT .Q10H [facility] Last Admin: 09/01/18 11:30 Dose: 100 mls/hr Lactulose (Lactulose Liq) 30 ml PO DAILY PRN PRN Reason: SEVERE CONSITIPATION Levetiracetam (Keppra) 500 mg PO BID [facility] Levothyroxine Sodium (Synthroid) 112 mcg PO DAILY@0600 [facility] Metoprolol Tartrate (Lopressor) 50 mg PO BID [facility] Morphine Sulfate (Morphine Inj) 2 mg IV.PUSH Q1H PRN PRN Reason: BREAKTHROUGH PAIN Oxycodone HCl (Roxicodone) 5 mg PO Q4H PRN PRN Reason: PAIN SCALE 1 TO 5 Last Admin: 09/01/18 11:39 Dose: 5 mg Senna/Docusate Sodium (Wendy-Colace) 1 tab PO BID [facility] Sennosides (Senokot) 17.2 mg PO Q12H PRN PRN Reason: Moderate Constipation Sodium Chloride (Ns Flush) 2 ml IV.FLUSH BID SAM Sodium Chloride (Ns Flush) 2 ml IV.FLUSH PRN PRN PRN Reason: FLUSH AFTER USING IV ACCESS Allergies Allergy/AdvReac Type Severity Reaction Status Date / Time losartan Allergy Swelling Verified 09/01/18 06:30 of Lip/Tongue/Throat Sulfa (Sulfonamide Allergy Hives Verified 09/01/18 06:30 Antibiotics) ciprofloxacin [From Cipro] AdvReac Tingling Verified 09/01/18 06:30 levofloxacin AdvReac Joint Pain Verified 09/01/18 06:30 prednisone AdvReac Joint Pain Verified 09/01/18 06:30 [id number] Reductase AdvReac Joint Pain Verified 08/16/18 07:56 Inhibitor Home Medications Medication Instructions Recorded Confirmed Type albuterol sulfate 0.63 mg INHALATION Q4-6H PRN 06/23/18 09/01/18 History fluticasone [Flonase Allergy 1 spray INTRANASAL DAILY 06/23/18 09/01/18 History Relief] levothyroxine [Unithroid] 112 mcg PO DAILY 06/23/18 09/01/18 History psyllium husk [Metamucil] 0.52 g PO DAILY 06/23/18 09/01/18 History Bifidobacterium infantis [Align] 4 mg PO DAILY 06/26/18 09/01/18 History fluticasone-vilanterol [Breo 1 inh INHALATION DAILY 06/26/18 09/01/18 History Ellipta] ascorbic acid (vitamin C) [Vitamin 1,000 mg PO DAILY 09/01/18 09/01/18 History C] aspirin [Aspirin Low Dose] 81 mg PO BID 09/01/18 09/01/18 History cinnamon bark [Cinnamon] 1,000 mg PO PRN PRN 09/01/18 09/01/18 History metoprolol tartrate 50 mg PO BID 09/01/18 09/01/18 History Physical Exam Vital signs: Vital Signs 09/01/18 06:55 09/01/18 10:39 09/01/18 10:43 Temperature 97.8 F 97.4 F L Pulse Rate 76 64 74 Respiratory Rate 20 14 Blood Pressure 145/69 H 132/66 Pulse Oximetry 98 100 09/01/18 11:00 09/01/18 11:29 Temperature 97.6 F Pulse Rate 65 Respiratory Rate 16 14 Blood Pressure 131/66 Pulse Oximetry 99 Intake & Output 08/31/18 09/01/18 09/01/18 18:59 06:59 18:59 Intake Total 2200 / 2200 Output Total 850 / 850 Balance 1350 / 1350 Weight 74.4 kg Intake: IV 700 / 700 Heparin/NS PF Inj 500 ML @ 0 500 / 500 mls/hr .ROUTE .STK-MED ONE Rx#: [id number] LR 1000 mL Inj 1,000 ML @ 30 100 / 100 mls/hr IV.CONT .Q24H [facility] Rx#: [id number] Ancef 1 GM Premix Inj 1 gm In 100 / 100 50 ml @ 0 mls/hr IV.SIG .STK- MED ONE Rx#:[id number] Anesthesia Amount 1500 / 1500 Output: Estimated Blood Loss 50 / 50 Urine Amount (Catheter) 800 / 800 Indwelling Urethral Catheter 800 / 800 Other: Date of Last Bowel Movement 08/31/18 Weight On Admission 74.4 kg Narrative: GENERAL: This is a 67-year-old female currently resting in bed in no acute distress SKIN: Warm and dry. HEAD: Atraumatic. Normocephalic. EYES: Pupils equal and round. No scleral icterus. No injection or drainage. ENT: No nasal bleeding or discharge. Mucous membranes pink and moist. NECK: Trachea midline. No JVD. Left IJ carotid sutured clean dry and intact. Robson drain in place. CARDIOVASCULAR: Regular rate and rhythm. S1, S2 predose 4. RESPIRATORY: No accessory muscle use. Clear to auscultation. Breath sounds equal bilaterally. GASTROINTESTINAL: Abdomen soft, non-tender, nondistended. Hepatic and splenic margins not palpable. MUSCULOSKELETAL: Extremities without clubbing, cyanosis, or edema. No obvious deformities. NEUROLOGICAL: Awake and alert. No obvious cranial nerve deficits. Motor grossly within normal limits. Five out of 5 muscle strength in the arms and legs. Normal speech. PSYCHIATRIC: Appropriate mood and affect; insight and judgment normal. 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 Seizure disorder NOS Allergic rhinitis Continue levetiracetam 500 mg twice daily Morphine sulfate 2 mg IV q. hours as needed pain Oxycodone 5 mg p.o. every 4 hours as needed pain Holding loratadine 10 mg daily for allergic rhinitis CV: Day 0 left carotid enterectomy by Dr. Brooks secondary to left carotid stenosis History of left carotid thrombosis Essential hypertension Hyperlipidemia Currently on LR at 30 cc an hour. Currently metoprolol tartrate 50 mg twice daily. On 1000 milligrams twice daily along with nifedipine 60 mg daily Resp: Asthma Nasal cannula to maintain saturations greater than equal to 90%. Currently on 3 L Incentive spirometry while awake As needed albuterol aerosols every 2 hours Okay to resume home inhaler fluticasone as scheduled GI: Advance diet as tolerated Famotidine for GI prophylaxis Docusate sodium/senna 1 tablet twice daily for bowel regimen : Straight catheterization as needed Endo: Hypothyroidism Continue levothyroxine 112 mcg daily. Sliding scale insulin if indicated to maintain euglycemia Renal: BMP ordered for a.m. Accurate I's and O's Monitor urine output Heme: Chronic anticoagulation Continue enoxaparin 80 mg twice daily this afternoon Recheck CBC in a.m. 09/02 ID: Monitor for signs and symptomatology infection MSK: PT evaluate and treat FEN: Replace electrolytes as clinically indicated. Access -Utilize peripheral IV. Central line if indicated Prophylaxis -GI -famotidine -DVT -SCD/enoxaparin Level 2 consult
--- NOTE | 2018-09-01 12:27 | P.OP ---
Preoperative Diagnosis: Symptomatic left carotid artery stenosis Postoperative Diagnosis: Symptomatic left carotid artery stenosis Date of procedure: 09/01/18 Procedure: Left carotid artery endarterectomy with pericardial patch angioplasty Anesthesia: GETA Surgeon: Daniel Mistry MD Estimated blood loss (mL): 50 Operation and Findings: Finding Approximately 50% stenosis of the left internal carotid artery. There was vulnerable plaque with deep ulcer and overlying thrombus. Successful left carotid artery endarterectomy was performed. I used an Warren shunt my total clamp time was less than 1 minute. Description of the procedure The patient was taken to the operating room, laid supine on the OR table. After general trach anesthesia, the patient was prepped and draped in the standard sterile fashion. Timeout was called with all members in the OR in agreement. An incision was made anterior to the left sternocleidomastoid. Dissection was taken down through the subcutaneous tissues electrocautery. The carotid sheath was entered. The facial vein identified ligated and divided. The common carotid artery external carotid artery and internal carotid artery were dissected and encircled with Silastic loop. The ansa cervicalis hypoglossal nerve and vagus nerve identified and protected throughout the whole procedure. The patient was heparinized. Proximal distal control were obtained. Arteriotomy was created in the common carotid artery and extended into the internal carotid artery. An 8 Warren shunt was placed. The endarterectomy was performed. Fine-tuning was also performed to remove all small debris. The artery was repaired using a pericardial patch that cut to appropriate length and secured utilizing a 6-0 Prolene suture in the running fashion. The shunt was removed and the suture line was completed. All vessels were flushed and the suture line was completed. We established flow from the common carotid artery to the external carotid artery then into the internal carotid artery. Hemostasis was achieved. Intraoperative duplex ultrasound was performed and showed patent repair with no evidence of thrombus. #19 RADHA drain was placed into the wound and brought through the skin using a different stab wound and secured using nylon suture. The wound was closed in multiple layers of Vicryl suture followed by Monocryl suture. Sterile dressing was applied. The patient tolerated the procedure well and was taken to recovery unit in stable condition. She was awakened from anesthesia. Her tongue was midline and she did not have any new neurological deficits.
[2018-09-01] MEDS: Morphine Inj 4 MG/ML Vial IV.PUSH PRN ×3 (12:49→22:39)
[2018-09-01] MEDS ORDERED: Dextrose 50% in Water 50 ML Vial IV.PUSH PRN (15:09)
[2018-09-01] MEDS: Insulin NovoLOG Aspart Correctional Sugar Inj SQ SCH ×2 (17:48→21:00)
[2018-09-01] MEDS ORDERED: Enoxaparin Inj 80 MG/0.8 ML Syringe SQ ONE (18:00)
[2018-09-01] MEDS: Metoprolol Tartrate 50 MG Tablet PO SCH (20:21)
[2018-09-01] MEDS: Famotidine 20 MG Tablet PO SCH (20:21)
[2018-09-01] MEDS: Zolpidem Tartrate 5 MG Tablet PO PRN (20:21)
[2018-09-01] MEDS: Senna/Docusate Sodium 8.6/50 MG Tablet PO SCH (20:21)
[2018-09-01] MEDS: levETIRAcetam 500 MG Tablet PO SCH (20:21)
[2018-09-01] MEDS: Sodium Chloride 0.9% 2 ML Flush BID IV.FLUSH SCH (21:00)
[2018-09-02] MEDS: Morphine Inj 4 MG/ML Vial IV.PUSH PRN ×5 (02:32→17:56)
[2018-09-02] MEDS: Levothyroxine 112 MCG Tablet PO SCH (05:15)
[2018-09-02 05:35] LABS: Hematocrit 30.1 % (35.0-46.0); Hemoglobin 10.4 gm/dL (11.6-15.3); Mean Corpuscular HGB Conc 34.6 % (32.0-36.0); Mean Corpuscular Hemoglobin 32.9 pg (27.0-34.0); Mean Corpuscular Volume 94.9 fL (80.0-100.0); Mean Platelet Volume 7.8 fL (7.0-11.0); Platelet Count 319 th/mm3 (150-450); Red Blood Count 3.17 mil/mm3 (4.00-5.30); Red Cell Distribution Width 13.2 % (11.6-17.2); White Blood Count 7.1 th/mm3 (4.0-11.0)
[2018-09-02 06:01] LABS: Anion Gap 5 meq/L (5-15); Blood Urea Nitrogen 8 mg/dL (7-18); Calcium 8.2 mg/dL (8.5-10.1); Carbon Dioxide 26.7 meq/L (21.0-32.0); Chloride 106 meq/L (98-107); Glomerular Filtration Rate Greater Than 89 mL/min (>89); Glucose,Random 113 mg/dL (74-106); Potassium 4.4 meq/L (3.5-5.1); Sodium 138 meq/L (136-145)
--- NOTE | 2018-09-02 07:42 | P.PNVS ---
Subjective Post Op Day #: 1 Procedure: Left CEA Subjective/Hospital Course: doing well pain controlled Objective Vital Signs / I&O: Vital Signs 09/01/18 10:39 09/01/18 10:43 09/01/18 11:00 Temperature 97.4 F L 97.6 F Pulse Rate 64 74 65 Respiratory Rate 14 16 Blood Pressure 132/66 131/66 Pulse Oximetry 100 99 09/01/18 11:29 09/01/18 12:10 09/01/18 13:08 Temperature Pulse Rate Respiratory Rate 14 14 15 Blood Pressure Pulse Oximetry 09/01/18 15:00 09/01/18 19:00 09/01/18 20:00 Temperature 98.6 F 97.7 F Pulse Rate 70 67 Respiratory Rate 18 20 Blood Pressure 145/53 H 150/69 H Pulse Oximetry 97 95 99 09/01/18 22:45 09/01/18 23:00 09/02/18 03:00 Temperature 98.4 F 98.5 F Pulse Rate 77 86 80 Respiratory Rate 22 20 20 Blood Pressure 143/65 H 139/60 Pulse Oximetry 96 97 09/02/18 07:23 Temperature Pulse Rate Respiratory Rate Blood Pressure Pulse Oximetry 99 Intake & Output 09/01/18 09/02/18 09/02/18 18:59 06:59 18:59 Intake Total 2200 / 2200 1000 / 1000 Output Total 1300 / 1300 895 / 895 Balance 900 / 900 105 / 105 Weight 78 kg Intake: IV 700 / 700 1000 / 1000 Heparin/NS PF Inj 500 ML @ 0 500 / 500 mls/hr .ROUTE .STK-MED ONE Rx#: [id number] LR 1000 mL Inj 1,000 ML @ 30 100 / 100 mls/hr IV.CONT .Q24H ONE Rx#: [id number] NS Inj 1,000 ML @ 100 mls/hr IV 1000 / 1000 .CONT .Q10H [facility] Rx#:[id number] Ancef 1 GM Premix Inj 1 gm In 100 / 100 50 ml @ 0 mls/hr IV.SIG .STK- MED ONE Rx#:[id number] Anesthesia Amount 1500 / 1500 Output: Estimated Blood Loss 50 / 50 Urine Amount (Catheter) 1250 / 1250 875 / 875 Indwelling Urethral Catheter 1250 / 1250 875 / 875 Wound Drainage 20 / 20 # 1 Left Lower Anterior Lateral 20 / 20 Neck Robson Other: Date of Last Bowel Movement 08/31/18 Exam: left neck CDI RADHA with SS output no neurological deficits CNII-XII intact Laboratory Results - last 24 hr 09/02/18 09/02/18 05:00 05:00 WBC 7.1 RBC 3.17 L Hgb 10.4 L Hct 30.1 L MCV 94.9 MCH 32.9 MCHC 34.6 RDW 13.2 Plt Count 319 D MPV 7.8 Sodium 138 Potassium 4.4 Chloride 106 Carbon Dioxide 26.7 Anion Gap 5 BUN 8 Creatinine 0.57 Estimated GFR Greater than 89 Random Glucose 113 H Calcium 8.2 L Assessment and Plan - Plan S/P L CEA POD #1 DC [place], IV fluids Diet as tolerated OOB Lovenox started yesterday. Will keep patient in hospital with RADHA drain for 24 hours for observation DC home in am if no neck hematoma
[2018-09-02] MEDS ORDERED: hydrALAZINE HCl Inj 20 MG/ML Vial IV.PUSH PRN (07:52)
--- NOTE | 2018-09-02 09:15 | P.PNCC ---
Subjective Subjective Remarks/Hospital Course: This is a 67-year-old female. Date of admission 09/01/2018. Date of consult 09/01/2018. Past medical history includes asthma, seizures, left carotid artery stenosis, diabetes no hypertension hyperlipidemia thyroid cancer. Patient is on scheduled seizure and thyroid medications along with antihypertensives. Patient originally presented to [facility] July 2018 with complaints of right upper extremity generalized weakness at the time, the patient was not a candidate for TPA. Imaging studies were performed which revealed a high-grade left proximal ICA carotid stenosis patient was sent home on aspirin 160 mg daily and enoxaparin. Today, the patient underwent a left carotid endarterectomy Dr. Fuentes. EBL 50 cc. Urine output 800 cc. Received 1600 cc crystalloid. Patient is currently hemodynamically stable on home medication regimen. Awake and alert in no focal neurological deficits SUBJECTIVE: 09/02: Afebrile. Requesting Soma/muscle relaxant. In discussion she will continue the current medicines of oxycodone and morphine for pain management. We will continue 1 more day. more day. Objective Vital Signs / I&O: Vital Signs 09/01/18 10:39 09/01/18 10:43 09/01/18 11:00 Temperature 97.4 F L 97.6 F Pulse Rate 64 74 65 Respiratory Rate 14 16 Blood Pressure 132/66 131/66 Pulse Oximetry 100 99 09/01/18 11:29 09/01/18 12:10 09/01/18 13:08 Temperature Pulse Rate Respiratory Rate 14 14 15 Blood Pressure Pulse Oximetry 09/01/18 15:00 09/01/18 19:00 09/01/18 20:00 Temperature 98.6 F 97.7 F Pulse Rate 70 67 Respiratory Rate 18 20 Blood Pressure 145/53 H 150/69 H Pulse Oximetry 97 95 99 09/01/18 22:45 09/01/18 23:00 09/02/18 03:00 Temperature 98.4 F 98.5 F Pulse Rate 77 86 80 Respiratory Rate 22 20 20 Blood Pressure 143/65 H 139/60 Pulse Oximetry 96 97 09/02/18 07:00 09/02/18 07:23 Temperature 98.8 F Pulse Rate 94 H Respiratory Rate 14 Blood Pressure 152/72 H Pulse Oximetry 98 99 Intake & Output 09/01/18 09/02/18 09/02/18 18:59 06:59 18:59 Intake Total 2200 / 2200 1000 / 1000 Output Total 1300 / 1300 895 / 895 Balance 900 / 900 105 / 105 Weight 78 kg Intake: IV 700 / 700 1000 / 1000 Heparin/NS PF Inj 500 ML @ 0 500 / 500 mls/hr .ROUTE .STK-MED ONE Rx#: [id number] LR 1000 mL Inj 1,000 ML @ 30 100 / 100 mls/hr IV.CONT .Q24H [facility] Rx#: [id number] NS Inj 1,000 ML @ 100 mls/hr IV 1000 / 1000 .CONT .Q10H [facility] Rx#:[id number] Ancef 1 GM Premix Inj 1 gm In 100 / 100 50 ml @ 0 mls/hr IV.SIG .STK- MED ONE Rx#:[id number] Anesthesia Amount 1500 / 1500 Output: Estimated Blood Loss 50 / 50 Urine Amount (Catheter) 1250 / 1250 875 / 875 Indwelling Urethral Catheter 1250 / 1250 875 / 875 Wound Drainage # 1 Left Lower Anterior Lateral Neck Robson Other: Date of Last Bowel Movement 08/31/18 Result Diagrams: 09/02/18 05:00 09/02/18 05:00 Objective Remarks: GENERAL: 67-year-old female currently resting in bed in no acute distress SKIN: Warm and dry. HEAD: Atraumatic. Normocephalic. EYES: Pupils equal and round. No scleral icterus. No injection or drainage. ENT: No nasal bleeding or discharge. Mucous membranes pink and moist. NECK: Trachea midline. No JVD. Drain in place. Well-healed clean left IJ CARDIOVASCULAR: Regular rate and rhythm. S1, S2 no S4.. RESPIRATORY: No accessory muscle use. Clear to auscultation. Breath sounds equal bilaterally. GASTROINTESTINAL: Abdomen soft, non-tender, nondistended. Hepatic and splenic margins not palpable. MUSCULOSKELETAL: Extremities without clubbing, cyanosis, or edema. No obvious deformities. NEUROLOGICAL: Awake and alert. No obvious cranial nerve deficits. Motor grossly within normal limits. Five out of 5 muscle strength in the arms and legs. Normal speech. PSYCHIATRIC: Appropriate mood and affect; insight and judgment normal. 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 Seizure disorder NOS Allergic rhinitis Continue levetiracetam 500 mg twice daily Morphine sulfate 2 mg IV q. hours as needed pain Oxycodone 5 mg p.o. every 4 hours as needed pain Holding loratadine 10 mg daily for allergic rhinitis CV: Day 1 left carotid enterectomy by Dr. Brooks secondary to left carotid stenosis History of left carotid thrombosis Essential hypertension Hyperlipidemia Currently on LR at 30 cc an hour.. PRN hydralazine ordered Currently metoprolol tartrate 50 mg twice daily. On 100 milligrams twice daily along with nifedipine 60 mg daily Resp: Asthma Nasal cannula to maintain saturations greater than equal to 90%. Currently on 3 L Incentive spirometry while awake As needed albuterol aerosols every 2 hours Okay to resume home inhaler fluticasone as scheduled GI: Advance diet as tolerated Famotidine for GI prophylaxis Docusate sodium/senna 1 tablet twice daily for bowel regimen : Straight catheterization as needed Endo: Hypothyroidism Continue levothyroxine 112 mcg daily. Sliding scale insulin if indicated to maintain euglycemia Renal: BMP ordered for a.m. Accurate I's and O's Monitor urine output Heme: Chronic anticoagulation Normocytic anemia Continue enoxaparin 80 mg twice daily this afternoon Recheck CBC in a.m. 09/03 ID: Monitor for signs and symptomatology infection MSK: PT evaluate and treat FEN: Replace electrolytes as clinically indicated. Access -Utilize peripheral IV. Central line if indicated Prophylaxis -GI -famotidine -DVT -SCD/enoxaparin Level 2 follow-up
[2018-09-02] MEDS: Insulin NovoLOG Aspart Correctional Sugar Inj SQ SCH ×4 (09:32→21:18)
[2018-09-02] MEDS: Metoprolol Tartrate 50 MG Tablet PO SCH ×2 (09:33→21:18)
[2018-09-02] MEDS: levETIRAcetam 500 MG Tablet PO SCH ×2 (09:34→21:18)
[2018-09-02] MEDS: Enoxaparin Inj 80 MG/0.8 ML Syringe SQ SCH ×2 (09:34→21:17)
[2018-09-02] MEDS: Senna/Docusate Sodium 8.6/50 MG Tablet PO SCH ×2 (09:34→21:17)
[2018-09-02] MEDS: Famotidine 20 MG Tablet PO SCH ×2 (09:34→21:18)
[2018-09-02] MEDS: Sodium Chloride 0.9% 2 ML Flush BID IV.FLUSH SCH ×2 (09:34→21:18)
[2018-09-02] MEDS: Sod Chloride 0.9% Inj 1,000 ML IV.CONT SCH (10:00)
[2018-09-02] MEDS: Zolpidem Tartrate 5 MG Tablet PO PRN (21:17)
[2018-09-03 04:34] LABS: Baso # (Auto) 0.1 th/mm3 (0.0-0.2); Baso % (Auto) 0.7 % (0.0-2.0); Eos # (Auto) 0.1 th/mm3 (0.0-0.4); Eos % (Auto) 1.3 % (0.0-4.0); Hematocrit 31.6 % (35.0-46.0); Hemoglobin 10.8 gm/dL (11.6-15.3); Lymph # (Auto) 1.7 th/mm3 (1.0-4.8); Lymph % (Auto) 20.3 % (9.0-44.0); Mean Corpuscular HGB Conc 34.1 % (32.0-36.0); Mean Corpuscular Hemoglobin 32.4 pg (27.0-34.0); Mean Corpuscular Volume 95.2 fL (80.0-100.0); Mean Platelet Volume 7.9 fL (7.0-11.0); Mono # (Auto) 0.9 th/mm3 (0.0-0.9); Mono % (Auto) 10.3 % (0.0-8.0); Neut # (Auto) 5.8 th/mm3 (1.8-7.7); Neut % (Auto) 67.4 % (16.0-70.0); Platelet Count 308 th/mm3 (150-450); Red Blood Count 3.32 mil/mm3 (4.00-5.30); Red Cell Distribution Width 12.9 % (11.6-17.2); White Blood Count 8.6 th/mm3 (4.0-11.0)
[2018-09-03 04:48] LABS: Calcium 8.7 mg/dL (8.5-10.1); Carbon Dioxide 30.3 meq/L (21.0-32.0); Potassium 4.1 meq/L (3.5-5.1)
[2018-09-03] MEDS: Levothyroxine 112 MCG Tablet PO SCH (06:45)
[2018-09-03 08:26] VITALS: O2SAT 95
[2018-09-03] MEDS: Insulin NovoLOG Aspart Correctional Sugar Inj SQ SCH (08:47)
[2018-09-03 08:50] VITALS: PULSE 90
[2018-09-03 08:55] VITALS: BP 141/72; TEMP 98.3
[2018-09-03] MEDS: Enoxaparin Inj 80 MG/0.8 ML Syringe SQ SCH (09:00)
[2018-09-03] MEDS: levETIRAcetam 500 MG Tablet PO SCH (09:00)
[2018-09-03] MEDS: Famotidine 20 MG Tablet PO SCH (09:00)
[2018-09-03] MEDS: Senna/Docusate Sodium 8.6/50 MG Tablet PO SCH (09:00)
[2018-09-03] MEDS: Metoprolol Tartrate 50 MG Tablet PO SCH (09:01)
[2018-09-03] MEDS: Sodium Chloride 0.9% 2 ML Flush BID IV.FLUSH SCH (09:02)
--- NOTE | 2018-09-03 09:11 | P.PNVS ---
Subjective Subjective/Hospital Course: doing well pain controlled decrease O2 sat overnight resolved this am Objective Vital Signs / I&O: Vital Signs 09/02/18 10:26 09/02/18 11:00 09/02/18 15:00 Temperature 98.6 F 98.6 F Pulse Rate 92 H 73 Respiratory Rate 15 14 15 Blood Pressure 141/68 H 144/67 H Pulse Oximetry 98 97 09/02/18 19:00 09/02/18 20:00 09/02/18 23:00 Temperature 98.5 F 98.5 F Pulse Rate 82 75 Respiratory Rate 18 18 Blood Pressure 152/74 H 136/73 Pulse Oximetry 96 97 98 09/03/18 03:00 09/03/18 07:00 09/03/18 08:00 Temperature 98.4 F 98.3 F Pulse Rate 83 90 Respiratory Rate 18 18 Blood Pressure 163/77 H 141/72 H Pulse Oximetry 97 95 95 09/03/18 08:45 Temperature Pulse Rate Respiratory Rate 18 Blood Pressure Pulse Oximetry Intake & Output 09/02/18 09/03/18 09/03/18 18:59 06:59 18:59 Intake Total 1620 / 1620 480 / 480 Output Total 1420 / 1420 2200 / 2200 Balance 200 / 200 -1720 / -1720 Weight 77.5 kg Intake: IV 900 / 900 NS Inj 1,000 ML @ 100 mls/hr IV 900 / 900 .CONT .Q10H [facility] Rx#:[id number] Oral 720 / 720 480 / 480 Output: Urine 1400 / 1400 2200 / 2200 Wound Drainage 20 / 20 # 1 Left Lower Anterior Lateral 20 / 20 Neck Robson Other: # Voids 4 Physical Exam: left neck wound CDI no hematoma RADHA with SS output Laboratory Results - last 24 hr 09/03/18 09/03/18 03:49 03:49 WBC 8.6 RBC 3.32 L Hgb 10.8 L Hct 31.6 L MCV 95.2 MCH 32.4 MCHC 34.1 RDW 12.9 Plt Count 308 MPV 7.9 Neut % (Auto) 67.4 Lymph % (Auto) 20.3 [place] % (Auto) 10.3 H Eos % (Auto) 1.3 Baso % (Auto) 0.7 Neut # (Auto) 5.8 Lymph # (Auto) 1.7 [place] # (Auto) 0.9 Eos # (Auto) 0.1 Baso # (Auto) 0.1 WBC Differential . Differential Comment Auto diff final Sodium 136 Potassium 4.1 Chloride 100 Carbon Dioxide 30.3 Anion Gap 6 BUN 10 Creatinine 0.70 Estimated GFR 84 L Random Glucose 128 H Calcium 8.7 Assessment and Plan - Plan S/P L CEA POD #2 Dc RADHA drain waling O2 sat will be obtained. DC possibly later today
--- NOTE | 2018-09-03 09:39 | P.PNCC ---
Subjective Subjective Remarks/Hospital Course: This is a 67-year-old female. Date of admission 09/01/2018. Date of consult 09/01/2018. Past medical history includes asthma, seizures, left carotid artery stenosis, diabetes no hypertension hyperlipidemia thyroid cancer. Patient is on scheduled seizure and thyroid medications along with antihypertensives. Patient originally presented to [facility] July 2018 with complaints of right upper extremity generalized weakness at the time, the patient was not a candidate for TPA. Imaging studies were performed which revealed a high-grade left proximal ICA carotid stenosis patient was sent home on aspirin 160 mg daily and enoxaparin. Today, the patient underwent a left carotid endarterectomy Dr. Fuentes. EBL 50 cc. Urine output 800 cc. Received 1600 cc crystalloid. Patient is currently hemodynamically stable on home medication regimen. Awake and alert in no focal neurological deficits 09/02: Afebrile. Requesting Soma/muscle relaxant. In discussion she will continue the current medicines of oxycodone and morphine for pain management. We will continue 1 more day. more day. SUBJECTIVE: 09/03: Afebrile. Remove the drain today and will likely go home. Blood pressure control. Denies pain or headache. Objective Vital Signs / I&O: Vital Signs 09/02/18 10:26 09/02/18 11:00 09/02/18 15:00 Temperature 98.6 F 98.6 F Pulse Rate 92 H 73 Respiratory Rate 15 14 15 Blood Pressure 141/68 H 144/67 H Pulse Oximetry 98 97 09/02/18 19:00 09/02/18 20:00 09/02/18 23:00 Temperature 98.5 F 98.5 F Pulse Rate 82 75 Respiratory Rate 18 18 Blood Pressure 152/74 H 136/73 Pulse Oximetry 96 97 98 09/03/18 03:00 09/03/18 07:00 09/03/18 08:00 Temperature 98.4 F 98.3 F Pulse Rate 83 90 Respiratory Rate 18 18 Blood Pressure 163/77 H 141/72 H Pulse Oximetry 97 95 95 09/03/18 08:45 Temperature Pulse Rate Respiratory Rate 18 Blood Pressure Pulse Oximetry Intake & Output 09/02/18 09/03/18 09/03/18 18:59 06:59 18:59 Intake Total 1620 / 1620 480 / 480 Output Total 1420 / 1420 2200 / 2200 Balance 200 / 200 -1720 / -1720 Weight 77.5 kg Intake: IV 900 / 900 NS Inj 1,000 ML @ 100 mls/hr IV 900 / 900 .CONT .Q10H SAM Rx#:[id number] Oral 720 / 720 480 / 480 Output: Urine 1400 / 1400 2200 / 2200 Wound Drainage 20 / 20 # 1 Left Lower Anterior Lateral 20 / 20 Neck Robson Other: # Voids 4 Result Diagrams: 09/03/18 03:49 09/03/18 03:49 Objective Remarks: GENERAL: 67-year-old female currently resting in bed in no acute distress SKIN: Warm and dry. HEAD: Atraumatic. Normocephalic. EYES: Pupils equal and round. No scleral icterus. No injection or drainage. ENT: No nasal bleeding or discharge. Mucous membranes pink and moist. NECK: Trachea midline. No JVD. Drain in place. Well-healed clean left IJ carotid. CARDIOVASCULAR: Regular rate and rhythm. S1, S2 no S4.. RESPIRATORY: No accessory muscle use. Clear to auscultation. Breath sounds equal bilaterally. GASTROINTESTINAL: Abdomen soft, non-tender, nondistended. Hepatic and splenic margins not palpable. MUSCULOSKELETAL: Extremities without clubbing, cyanosis, or edema. No obvious deformities. NEUROLOGICAL: Awake and alert. No obvious cranial nerve deficits. Motor grossly within normal limits. Five out of 5 muscle strength in the arms and legs. Normal speech. PSYCHIATRIC: Appropriate mood and affect; insight and judgment normal. 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 Seizure disorder NOS Allergic rhinitis Continue levetiracetam 500 mg twice daily Morphine sulfate 2 mg IV q. hours as needed pain Oxycodone 5 mg p.o. every 4 hours as needed pain Holding loratadine 10 mg daily for allergic rhinitis CV: Day 1 left carotid enterectomy by Dr. Brooks secondary to left carotid stenosis History of left carotid thrombosis Essential hypertension Hyperlipidemia Currently on LR at 30 cc an hour.. PRN hydralazine ordered Currently metoprolol tartrate 50 mg twice daily. On 100 milligrams twice daily along with nifedipine 60 mg daily Resp: Asthma Nasal cannula to maintain saturations greater than equal to 90%. Currently on 3 L Incentive spirometry while awake As needed albuterol aerosols every 2 hours Okay to resume home inhaler fluticasone as scheduled GI: Advance diet as tolerated Famotidine for GI prophylaxis Docusate sodium/senna 1 tablet twice daily for bowel regimen : Straight catheterization as needed Endo: Hypothyroidism Continue levothyroxine 112 mcg daily. Sliding scale insulin if indicated to maintain euglycemia Renal: BMP ordered for a.m. Accurate I's and O's Monitor urine output Heme: Chronic anticoagulation Normocytic anemia Continue enoxaparin 80 mg twice daily this afternoon Recheck CBC in a.m. 09/03 was stable ID: Monitor for signs and symptomatology infection MSK: PT evaluate and treat FEN: Replace electrolytes as clinically indicated. Access -Utilize peripheral IV. Central line if indicated Prophylaxis -GI -famotidine -DVT -SCD/enoxaparin Level 2 follow-up. Stable for discharge from our standpoint.
[2018-09-03 10:53] VITALS: RESP 2
== END 2018-09-03 10:37 | disposition home or self-care (01) | DRG 39 ==
LOC: HSDI 05:30 → HCVI 10:22
PROVIDERS: ADMIT Surgery; ATTEND Surgery
CPT/HCPCS: 80048; 85025; 85027; 86850; 86900; 86901; 86923; 88304; 88305; 88311; 94664; 97162; 97530; J0131; J0690; J1644; J1650; J2270; J2405; J2720; J3010; J7030; J7120